=== PATIENT | male | born 1960 | race Caucasian/White ===

== ENCOUNTER → 2016-08-22 | Outpatient (CLI) | payer BC ==
[~2016-08-22] MED LIST: ACET-1256 PO; ACET-749 PO; ADVIN25/60 INH; ASPI325T45 PO; ATOR-26 PO; BACL10TA PO; BACTRIM PO; CIPR1TAB10 PO; CLC100 PO; CLOP1TAB15 PO; DTR5 PO; MISCCAP80 PO; VNTHFA/IN INH; [UNRECOGNIZED DRUG - OTHER]
== END | disposition home or self-care (01) ==
LOC: C.LABPBG 13:05
PROVIDERS: ATTEND Urology
DX: R97.20 Elevated prostate specific antigen [PSA] (principal)

== ENCOUNTER → 2016-11-11 | Outpatient (CLI) | payer BC ==
[~2016-11-11] MED LIST changes: -ACET-749 PO; -BACTRIM PO; -CIPR1TAB10 PO; -CLC100 PO; -DTR5 PO; +MISCCAP80; -MISCCAP80 PO
== END | disposition home or self-care (01) ==
LOC: C.PATHSPEC 14:48
PROVIDERS: ATTEND Urology
DX: C61 Malignant neoplasm of prostate (principal); N42.32 Atypical small acinar proliferation of prostate

== ENCOUNTER 2017-01-06 11:11 | Emergency (ER) | payer BC ==
[~2017-01-06] VITALS: Ht 177.8 cm; Wt 77.5 kg
[2017-01-06 11:11] VITALS: O2SAT 96; Ht 177.8 cm; Wt 77.5 kg
[~2017-01-06 11:11] MED LIST changes: -OPTIRAY 320 IV PRN; -VNTHFA/IN INH
[2017-01-06] MEDS ORDERED: VNTHFA/IN INH (11:38)
--- NOTE | 2017-01-06 13:33 | EMERGENCY ROOM VISIT NOTE ---
History Report prepared by Shyam: Olivier Lee Under the Supervision of: Dr. Apolonia Arellano D.O. First contact with patient: 12:26 Chief Complaint: SYNCOPE (NEAR SYNCOPE) Stated Complaint: SYNCOPE Nursing Triage Summary: Patient arrived by stretcher from CT scan. Patient was sitting in CT waiting room awaiting his outpatient scan and became pale, cold and diaphoretic. Code Purple was called by CT staff. Patient on arrival to ED feeling better. 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 Patient was in nuclear medicine prior to CT having this testing done today for new diagnosis of prostate CA in November per the Physician wants to make sure the cancer is isolated to the prostate prior to surgery. Patient's BSG 93 he is alert and oriented x 4. History of Present Illness The patient is a 56 year old male who presents to the Emergency Room with complaints of a near-syncopal episode occurring one hour ago. The patient was in the hospital to receive a PET scan due to a recent prostate cancer diagnosis. He was in the CT-waiting room today when the episode occurred. The patient's symptoms included diaphoresis, dizziness, and generalized weakness. Per family, the patient has a history of feeling faint, or passing out when getting IVs placed or blood work drawn. She notes that he had blood work drawn earlier today. The patient states that his symptoms feel similar to his previous episodes of feeling faint related to IVs in the past. He states that he began feeling better immediately after laying down. He has a history of CVA last year with right sided motor deficit. The patient denies any chest pain, SOB , numbness, vomiting, or LOC. He denies any recent medication changes. He denies any changes to his diet. The patient ate breakfast this morning. Pt states this feels like prior episodes of syncope/near syncope related to blood draws and IV starts. Pt states he had no other prodromal sx prior to sx when IV /labs performed, felt normal this am upon waking, feels back to normal now. Pt' s family states this appeared to them to be another episode of vasovagal syncope. Source of History: patient Onset: 1 hour ago Quality: other (near-syncope) Timing: other (episode) Associated Symptoms: + diaphoresis, + weakness (generalized), No LOC, No chest pain, No SOB, No vomiting, No numbness Note: Additional symptoms: dizziness. Review of Systems See HPI for pertinent positives & negatives. A total of 10 systems reviewed and were otherwise negative. Past Medical & Surgical Medical Problems: (1) CVA (cerebral vascular accident) (2) Prostate cancer Family History No pertinent family history stated. Social History Smoking Status: Never Smoker Housing Status: lives with family Current/Historical Medications Scheduled Acetaminophen (Tylenol), 2 TAB PO Q6 Aspirin (Aspirin), 325 MG PO DAILY Atorvastatin (Lipitor), 1 TAB PO DAILY Baclofen (Lioresal), 10 MG PO TID Clopidogrel (Plavix), 75 MG PO DAILY Fluticasone Prop/Salmeterol (Advair Diskus 250/50 60 Dose), 1 PUFFS INH BID Probiotic Product (Probiotic), DAILY Scheduled PRN Albuterol Hfa (Ventolin Hfa), 2-4 PUFFS INH Q6H PRN for Shortness of Breath Allergies Coded Allergies: No Known Allergies (Unverified , 01/06/17) Physical Exam Vital Signs Date Time Temp Pulse Resp B/P (MAP) Pulse Ox O2 Delivery O2 Flow Rate FiO2 01/06/17 14:45 36.6 59 19 134/99 99 01/06/17 13:38 59 01/06/17 13:01 131/84 01/06/17 13:01 57 129/82 99 59 122/84 70 134/99 01/06/17 12:59 134/89 01/06/17 12:58 122/84 01/06/17 12:57 129/82 01/06/17 12:41 52 19 99 01/06/17 12:31 136/88 01/06/17 12:11 54 22 97 01/06/17 12:01 121/79 01/06/17 11:41 53 21 98 01/06/17 11:31 119/74 01/06/17 11:13 54 01/06/17 11:11 116/82 01/06/17 11:11 36.6 58 16 116/82 96 Room Air 01/06/17 11:11 96 Room Air Physical Exam GENERAL: alert, well appearing, well nourished, no distress, non-toxic EYE EXAM: normal conjunctiva, PERRL and EOM's grossly intact OROPHARYNX: no exudate, no erythema, lips, buccal mucosa, and tongue normal and mucous membranes are moist NECK: supple, no nuchal rigidity, no adenopathy, non-tender LUNGS: Clear to auscultation. Normal chest wall mechanics HEART: no murmurs, S1 normal and S2 normal ABDOMEN: abdomen soft, non-tender, normo-active bowel sounds, no masses, no rebound or guarding. BACK: Back is symmetrical on inspection and there is no deformity, no midline tenderness, no CVA tenderness. SKIN: no rashes and no bruising UPPER EXTREMITIES: RUE with atrophy and contractures in a sling. Good pulses. No edema. Normal cap refill. Normal pulses. Decreased ROM from prior CVA. LOWER EXTREMITIES: No pitting edema. Full ROM of the RLE. No edema. Normal cap refill. Normal pulses. NEURO EXAM: Normal sensorium, cranial nerves II-XII grossly intact. Chronic right sided weakness secondary to CVA. Occasional mild dysarthria secondary to CVA. Medical Decision & Procedures Laboratory Results 01/06/17 13:14 Red Blood Count 4.88, Mean Corpuscular Volume 93.0, Mean Corpuscular Hemoglobin 32.2, Mean Corpuscular Hemoglobin Concent 34.6, Mean Platelet Volume 10.4, Neutrophils (%) (Auto) 81.0, Lymphocytes (%) (Auto) 12.7, Monocytes (%) (Auto) 4.6, Eosinophils (%) (Auto) 0.7, Basophils (%) (Auto) 0.5, Neutrophils # (Auto) 9.03, Lymphocytes # (Auto) 1.42, Monocytes # (Auto) 0.51, Eosinophils # (Auto) 0.08, Basophils # (Auto) 0.06 01/06/17 13:14 Test 01/06/17 13:14 White Blood Count 11.16 K/uL (4.8-10.8) Red Blood Count 4.88 M/uL (4.7-6.1) Hemoglobin 15.7 g/dL (14.0-18.0) Hematocrit 45.4 % (42-52) Mean Corpuscular Volume 93.0 fL (80-100) Mean Corpuscular Hemoglobin 32.2 pg (25-34) Mean Corpuscular Hemoglobin Concent 34.6 g/dl (32-36) Platelet Count 264 K/uL (130-400) Mean Platelet Volume 10.4 fL (7.4-10.4) Neutrophils (%) (Auto) 81.0 % Lymphocytes (%) (Auto) 12.7 % Monocytes (%) (Auto) 4.6 % Eosinophils (%) (Auto) 0.7 % Basophils (%) (Auto) 0.5 % Neutrophils # (Auto) 9.03 K/uL (1.4-6.5) Lymphocytes # (Auto) 1.42 K/uL (1.2-3.4) Monocytes # (Auto) 0.51 K/uL (0.11-0.59) Eosinophils # (Auto) 0.08 K/uL (0-0.5) Basophils # (Auto) 0.06 K/uL (0-0.2) RDW Standard Deviation 45.7 fL (36.4-46.3) RDW Coefficient of Variation 13.5 % (11.5-14.5) Immature Granulocyte % (Auto) 0.5 % Immature Granulocyte # (Auto) 0.06 K/uL (0.00-0.02) Anion Gap 8.0 mmol/L (3-11) Est Creatinine Clear Calc Drug Dose 95.6 ml/min Estimated GFR () 110.3 Estimated GFR (Non- 95.1 BUN/Creatinine Ratio 14.6 (10-20) Calcium Level 9.7 mg/dl (8.5-10.1) Troponin I < 0.015 ng/ml (0-0.045) ECG Indication: syncope (near) Rate (beats per minute): 57 Rhythm: sinus bradycardia Findings: no acute ischemic change, no ectopy, other (Normal intervals. ) ED Course 1228: The patient was evaluated in room B7. A complete history and physical exam was performed. 1435: Upon reevaluation, the patient is feeling better. I discussed the findings and the treatment plan with the patient. He verbalizes agreement and understanding. He was discharged home. Medical Decision Differential diagnosis: Etiologies such as vasovagal event, infection, hypoglycemia, electrolyte abnormalities, cardiac sources, intracerebral event, toxicologic, neurologic, as well as others were entertained. Pt well appearing here with hx of similar events. labs/ekg/orthostatics reassuring. Pt with no new neuro changes, only deficits from prior CVA. No other prodromal symptoms to suggest alternative cause of syncope/near syncope. No seizure like activity noted by staff/family. Pt anxious to return to radiology to have tests performed as part of his cancer evaluation. Doubt dysrhythmia, acs, pe, occult infection, new cva/ICH, dissection, aaa, renal failure, perf, gi bleed, tamponade, effusion, pneumothorax. Medication Reconcilliation Current Medication List: was personally reviewed by me Blood Pressure Screening Patient's blood pressure: Elevated blood pressure Blood pressure disposition: Elevated BP felt to be situational Impression Primary Impression: Syncope Scribe Attestation The scribe's documentation has been prepared under my direction and personally reviewed by me in its entirety. I confirm that the note above accurately reflects all work, treatment, procedures, and medical decision making performed by me. Departure Information Dispostion Home / Self-Care Referrals Pina Cornejo M.D. (PCP) Patient Instructions My [facility] Additional Instructions Please continue your regular medicine as prescribed. Please continue your evaluation for prostate cancer. Please eat and drink regularly. If you have any recurrent episodes or symptoms, develop chest pain, trouble breathing, fevers, palpitations, vomiting, worsening weakness, or you have any other new or concerning symptoms, please return to the emergency room. Problem Qualifiers Primary Impression: Syncope Syncope type: vasovagal syncope Qualified Codes: R55 - Syncope and collapse
[2017-01-06 13:57] LABS: BASO % 0.5 %; BASO ABS # 0.06 K/uL (0-0.2); COMPLETE YES; EOS % 0.7 %; HEMATOCRIT 45.4 % (42-52); IG% 0.5 %; LYMPH % 12.7 %; LYMPH ABS # 1.42 K/uL (1.2-3.4); MEAN CORPUSCULAR HEMOGLOBIN 32.2 pg (25-34); MEAN CORPUSCULAR HGB CONC 34.6 g/dl (32-36); MEAN PLATELET VOLUME 10.4 fL (7.4-10.4); MONO % 4.6 %; PLATELET COUNT 264 K/uL (130-400); RED BLOOD COUNT 4.88 M/uL (4.7-6.1); WHITE BLOOD COUNT 11.16 K/uL (4.8-10.8)
[2017-01-06 14:13] LABS: BLOOD UREA NITROGEN 13 mg/dl (7-18); BUN/CREATININE RATIO 14.6 (10-20); CALCIUM 9.7 mg/dl (8.5-10.1); CARBON DIOXIDE 25 mmol/L (21-32); CHLORIDE 107 mmol/L (98-107); CREATININE 0.87 mg/dl (0.60-1.40); GLUCOSE 99 mg/dl (70-99); POTASSIUM 4.6 mmol/L (3.5-5.1); SODIUM 140 mmol/L (136-145)
[2017-01-06 14:45] VITALS: BP 134/99; PULSE 59; TEMP 36.6; O2SAT 99
== END 2017-01-06 15:10 | disposition home or self-care (01) ==
LOC: EDSEX 11:11 → EDBD 11:11 → C.EDB 11:12
DX: R55 Syncope and collapse (principal); R00.1 Bradycardia, unspecified; Z85.46 Personal history of malignant neoplasm of prostate; Z86.73 Personal history of transient ischemic attack (TIA), and cerebral infarction without residual deficits; Z79.82 Long term (current) use of aspirin; Z79.899 Other long term (current) drug therapy

== ENCOUNTER → 2017-01-06 | Outpatient (CLI) | payer BC ==
[~2017-01-06] MED LIST changes: +OPTIRAY 320 IV PRN
--- NOTE | 2017-01-06 14:52 | DIAGNOSTIC IMAGING REPORT ---
BONE SCAN WHOLE BODY CLINICAL HISTORY: 56 years-old Male presenting with C61 Neoplasm of prostate, malignant. TECHNIQUE: Planar anterior and posterior whole body imaging was performed 3 hours following the intravenous administration of radiotracer. Radiotracer: 26.4 mCi Tc-99m MDP. COMPARISON: None. FINDINGS: Expected distribution of radiotracer with normal excretion into the urinary bladder. Focal activity is noted in the left antecubital fossa likely associated with radiotracer injection and uptake in a regional lymph node. No focal intraosseous radiotracer uptake to suggest a lesion. IMPRESSION: 1. No evidence of osseous metastatic disease. Electronically signed by: Aristeo Rendon M.D. 01/06/2017 2:51 PM Dictated Date/Time: 01/06/2017 2:47 PM
--- NOTE | 2017-01-06 15:11 | DIAGNOSTIC IMAGING REPORT ---
ABD/PELVIS COMBO CLINICAL HISTORY: 56 years-old Male presenting with C61 Neoplasm of prostate, malignantno latex allergy, no iodine a. TECHNIQUE: Multidetector CT of the abdomen and pelvis was performed before and after the administration of intravenous contrast. IV contrast: 119 mL of Optiray 320. A dose lowering technique was used consistent with the principles of ALARA (as low as reasonably achievable). COMPARISON: Bone scan performed earlier the same day. CT DOSE (mGy.cm): The estimated cumulative dose is 1616.00 mGycm. FINDINGS: Maintenance Man topogram: Unremarkable. Lung bases: Minimal dependent changes likely atelectasis. Top normal heart size. No pericardial or pleural effusion. Liver: Normal morphology. No liver lesion. Patent hepatic vasculature. Biliary: No intrahepatic or extrahepatic biliary ductal dilatation. Normal gallbladder. Pancreas: Mild parenchymal atrophy. Spleen: Normal. Adrenal glands: Normal. Kidneys and ureters: Normal. No hydronephrosis. Bladder: Mild circumferential bladder wall thickening, although the bladder is incompletely distended. Pelvic organs: Prostate enlargement likely secondary to benign prostatic hyperplasia. Within the limits of CT, no evidence of nodular soft tissue in the periprosthetic fat. This be better evaluated with contrast-enhanced prostate MR. Bowel: Normal. No bowel obstruction. Peritoneal cavity: No free fluid or intraperitoneal gas. Vasculature: Aorta and IVC patent and normal in caliber. Lymph nodes: No enlarged lymph nodes in the abdomen or pelvis. Abdominal wall: Fat-containing right inguinal hernia. Musculoskeletal: Normal. Bone island noted in the right ilium. IMPRESSION: 1. No evidence of lymphadenopathy or metastatic disease in the abdomen or pelvis. 2. Mild circumference of bladder wall thickening could suggest chronic outlet obstruction secondary to prostatomegaly. Electronically signed by: Aristeo Rendon M.D. 01/06/2017 3:09 PM Dictated Date/Time: 01/06/2017 3:03 PM
== END | disposition home or self-care (01) ==
LOC: C.NUCL 10:35
PROVIDERS: ATTEND Urology
DX: C61 Malignant neoplasm of prostate (principal); R93.41 Abnormal radiologic findings on diagnostic imaging of renal pelvis, ureter, or bladder

== ENCOUNTER → 2017-03-23 | Outpatient (CLI) | payer BC ==
[~2017-03-23] MED LIST changes: +ACET-749 PO; +CIPR1TAB10 PO; +CLC100 PO; -CLOP1TAB15 PO; +DTR5 PO; -MISCCAP80; +MISCCAP80 PO; +VNTHFA/IN INH; -[UNRECOGNIZED DRUG - OTHER]
== END | disposition home or self-care (01) ==
LOC: C.LABPBG 13:09
PROVIDERS: ATTEND Urology
DX: C61 Malignant neoplasm of prostate (principal)

== ENCOUNTER → 2017-05-16 | Outpatient (CLI) | payer BC | END | disposition home or self-care (01) | LOC: C.LABPBG 11:56 | PROVIDERS: ATTEND Urology | DX: C61 Malignant neoplasm of prostate (principal) ==

== ENCOUNTER → 2017-08-29 | Outpatient (CLI) | payer BC ==
[~2017-08-29] MED LIST changes: -ACET-749 PO; +ACET300T3 PO; +ASPECOTC PO; -ASPI325T45 PO; -CIPR1TAB10 PO
== END | disposition home or self-care (01) ==
LOC: C.LABPBG 12:18
PROVIDERS: ATTEND Urology
DX: C61 Malignant neoplasm of prostate (principal)

== ENCOUNTER 2021-03-25 23:24 | Inpatient (IN) ==
[2021-03-26] MEDS ORDERED: dexAMETHasone**PF** 10 MG/ML VIAL IV ONE
--- NOTE | 2021-03-26 00:43 | Emergency Department Note ---
History of Present Illness General Chief complaint: Fever Stated complaint: +COVID HOME TEST, COPD, FEVER 104, Time Seen by Provider: 03/25/21 23:36 History of Present Illness This 60-year-old with COPD presents to the ER complaining of Covid with worsening breathing who sats were 90% on room air at home. Location: [facility] Quality: Achy Severity: Moderate Duration: Today Timing: Today Context: Patient's oxygen was low and came in Modifying factors: better with oxygen; worse with activity Patient states he only wears oxygen at night. His sats are 90% and his put his oxygen on him. He still feels quite short of breath. He is unvaccinated for COVID-19. Patient complains of fever, chills, cough, congestion and generalized illness. Home Medications Medication Instructions Recorded Confirmed Type acetaminophen 500 mg tablet 1,000 mg PO BID 07/12/18 03/26/21 History aspirin 325 mg tablet 325 mg PO QAM 07/12/18 03/26/21 History atorvastatin 80 mg tablet 80 mg PO HS 07/12/18 03/26/21 History clopidogrel 75 mg tablet (Plavix) 75 mg PO DAILY 07/12/18 03/26/21 History polyethylene glycol 3350 17 17 g PO DAILY PRN 07/12/18 03/26/21 History gram/dose oral powder (Miralax) Oxygen Home 08/21/18 03/26/21 History ondansetron 4 mg disintegrating 4 mg PO Q8H PRN #14 tab 04/01/20 03/26/21 Rx tablet ubrogepant 50 mg tablet (Ubrelvy) 50 mg PO ONCE PRN #10 tab 04/01/20 03/26/21 Rx sildenafil (pulm.hypertension) 20 20 mg PO DAILY PRN #60 tab 07/10/20 03/26/21 Rx mg tablet albuterol sulfate 90 mcg/actuation 2 puff INHALATION QID PRN #18 g 02/11/21 03/26/21 Rx aerosol inhaler (Ventolin HFA) budesonide-formoterol HFA 160 2 inh INHALATION Q12H #30.6 g 02/15/21 03/26/21 Rx mcg-4.5 mcg/actuation aerosol inhaler (Symbicort) tizanidine 2 mg capsule 2 mg PO TID PRN #270 cap 03/02/21 03/26/21 Rx baclofen 20 mg tablet 20 mg PO BID 30 Days #60 tab 03/08/21 03/26/21 Rx fluconazole 150 mg tablet 150 mg PO DAILY 03/26/21 03/26/21 History Allergies Allergy/AdvReac Type Severity Reaction Status Date / Time No Known Allergies Allergy Verified 03/26/21 00:19 Past Med/Surg History Medical History (Updated 03/26/21 @ 00:43 by Agnes Sagastume PA-C) Chronic left arterial ischemic stroke, ICA (internal carotid artery) History of orthopnea History of prostate cancer History of stroke Surgical History H/O colonoscopy History of angioplasty History of cardiac catheterization History of prostatectomy Family History Other Cancer Diabetes Heart disease Social History Smoking Status: Never smoker Second Hand Exposure: No; Hx Alcohol Use: No Hx Substance Use: No Preferred Language: Greenlandic Communication Ability: Impaired Lobbyist Required: No Beliefs That Will Affect Care: None Current Living Situation: Spouse Feels Safe at Home: Yes Assistive Devices: Cane, Glasses and Oxygen - at Night Review of Systems A total of 10 systems reviewed and were otherwise negative Physical Exam Vital Signs Vital Signs - 24 hr 03/25/21 23:31 03/26/21 01:10 03/26/21 01:14 Temperature 37.4 C Temperature Source Oral Pulse Rate 81 62 Pulse Rate [Apical] 64 Pulse Rate [Exercises] Pulse Rhythm Regular Pulse Rhythm [Apical] Regular Pulse Strength [Apical] Normal Respiratory Rate 20 28 H 27 H Respiratory Rate [Exercises] Respiratory Effort / Characteristics Non-Labored Spontaneous Spontaneous Respiratory Depth Normal Normal Respiratory Pattern Tachypnea Blood Pressure 107/67 Blood Pressure [Left Arm] 112/71 Blood Pressure Mean 80 Blood Pressure Mean [Left Arm] 84 Blood Pressure Position [Left Arm] Sitting Pulse Oximetry 96 96 98 Pulse Oximetry [Exercises] Oxygen Delivery Method Nasal Cannula Nasal Cannula Nasal Cannula Oxygen Flow Rate 2 2 2 Sepsis Recent Fever Within 48 Hours No Sepsis New/Unexplained Change in Mental Status N/A Sepsis Action Taken by Nursing No Action Required 03/26/21 01:18 03/26/21 01:21 03/26/21 02:00 Temperature Temperature Source Pulse Rate Pulse Rate [Apical] 60 62 Pulse Rate [Exercises] Pulse Rhythm Pulse Rhythm [Apical] Regular Pulse Strength [Apical] Normal Respiratory Rate 27 H 26 H 19 Respiratory Rate [Exercises] Respiratory Effort / Characteristics Non-Labored Spontaneous Non-Labored Respiratory Depth Normal Respiratory Pattern Blood Pressure Blood Pressure [Left Arm] 115/74 Blood Pressure Mean Blood Pressure Mean [Left Arm] 87 Blood Pressure Position [Left Arm] Pulse Oximetry 97 97 94 Pulse Oximetry [Exercises] Oxygen Delivery Method Nasal Cannula Nasal Cannula Nasal Cannula Oxygen Flow Rate 2 2 2 Sepsis Recent Fever Within 48 Hours Sepsis New/Unexplained Change in Mental Status Sepsis Action Taken by Nursing 03/26/21 02:30 03/26/21 02:51 03/26/21 02:56 Temperature Temperature Source Pulse Rate Pulse Rate [Apical] 62 60 Pulse Rate [Exercises] 84 Pulse Rhythm Pulse Rhythm [Apical] Pulse Strength [Apical] Respiratory Rate 21 26 H Respiratory Rate [Exercises] 33 H Respiratory Effort / Characteristics Respiratory Depth Respiratory Pattern Blood Pressure Blood Pressure [Left Arm] 109/68 104/67 Blood Pressure Mean Blood Pressure Mean [Left Arm] 81 79 Blood Pressure Position [Left Arm] Pulse Oximetry 95 98 Pulse Oximetry [Exercises] 91 Oxygen Delivery Method Nasal Cannula Room Air Nasal Cannula Oxygen Flow Rate 2 2 Sepsis Recent Fever Within 48 Hours Sepsis New/Unexplained Change in Mental Status Sepsis Action Taken by Nursing 03/26/21 02:57 Temperature Temperature Source Pulse Rate Pulse Rate [Apical] Pulse Rate [Exercises] Pulse Rhythm Pulse Rhythm [Apical] Pulse Strength [Apical] Respiratory Rate 28 H Respiratory Rate [Exercises] Respiratory Effort / Characteristics Spontaneous SOB on Exertion Respiratory Depth Respiratory Pattern Blood Pressure Blood Pressure [Left Arm] Blood Pressure Mean Blood Pressure Mean [Left Arm] Blood Pressure Position [Left Arm] Pulse Oximetry 91 Pulse Oximetry [Exercises] Oxygen Delivery Method Room Air Oxygen Flow Rate Sepsis Recent Fever Within 48 Hours Sepsis New/Unexplained Change in Mental Status Sepsis Action Taken by Nursing VITALS: Vitals are noted on the nurse's note and reviewed by myself. Vital signs low oxygen. GENERAL: White male who had a previous stroke with right-sided weakness and aphasia who appears ill and is present with the assistance of giving the history SKIN: The skin was without rashes, erythema, edema, or bruising. There is no tenting of the skin. Capillary reflex less than 2 seconds. HEAD: Normocephalic atraumatic. EARS: External auditory canals clear, EYES: Pupils equal round and reactive to light and accommodation. Conjunctivae without injection, sclerae without icterus. Extraocular movements intact. NOSE: Patent, turbinates without inflammation or discharge. MOUTH: Mucous membranes moist. Pharynx without erythema or exudate. Uvula midline. Airway patent. Tongue does not deviate. NECK: Supple without nuchal rigidity. No lymphadenopathy. No thyromegaly. Cervical spine is nontender. No JVD. HEART: Regular rate and rhythm LUNGS: Mild diffuse inspiratory and end expiratory wheezes, No retractions or accessory muscle use. ABDOMEN: Positive bowel sounds x 4. Normal tympanic percussion. Soft, n ontender, without masses or organomegaly. Alcantar sign negative. No guarding or rebound tenderness. No CVA tenderness MUSCULOSKELETAL: No muscle atrophy, erythema, or edema noted. NEURO: Patient was alert and oriented to person place and time. No new focal neurological deficits. Course Administered Medications Discontinued Medications Dexamethasone Sodium Phosphate (DexamethasonePf 10 Mg/Ml Vial) 6 mg IV NOW ONE Stop: 03/26/21 00:01 Last Admin: 03/26/21 00:55 Dose: 6 mg Documented by: [id number] Medical Decision Making Medical Records Attestation: I reviewed the patient's medical records. Home Medications Current Medication List: was personally reviewed by me Laboratory Data Attestation: I reviewed the patient's lab results. Result diagrams: 03/26/21 00:50 03/26/21 00:50 Lab Results 03/26/21 03/26/21 03/26/21 Range/Units 00:35 00:50 00:50 WBC 5.54 (4.8-10.8) K/uL RBC 4.34 L (4.7-6.1) M/uL Hgb 13.8 L (14.0-18.0) g/dL Hct 41.6 L (42-52) % MCV 95.9 (80-100) fL MCH 31.8 (25-34) pg MCHC 33.2 (32-36) g/dL RDW Std Deviation 49.7 H (36.4-46.3) fL RDW Coeff of Roge 14.0 (11.5-14.5) % Plt Count 213 (130-400) K/uL MPV 10.3 (7.4-10.4) fL Immature Gran % (Auto) 0.4 % Neut % (Auto) 71.8 % Lymph % (Auto) 18.6 % [place] % (Auto) 8.8 % Eos % (Auto) 0.2 % Baso % (Auto) 0.2 % Neut # (Auto) 3.98 (1.4-6.5) K/uL Lymph # (Auto) 1.03 L (1.2-3.4) K/uL [place] # (Auto) 0.49 (0.11-0.59) K/uL Eos # (Auto) 0.01 (0-0.5) K/uL Baso # (Auto) 0.01 (0-0.2) K/uL Immature Gran # (Auto) 0.02 (0.00-0.02) K/uL PT 10.4 (9.0-12.0) Seconds INR 1.0 (0.9-1.1) APTT 29.1 (21.0-31.0) Seconds PTT Ratio 1.1 Sodium (136-145) mmol/L Potassium (3.5-5.1) mmol/L Chloride (98-107) mmol/L Carbon Dioxide (21-32) mmol/L Anion Gap (3-11) BUN (7-18) mg/dl Creatinine (0.6-1.4) mg/dl Est Cr Clr Drug Dosing ml/min Est GFR ( Amer) ml/min Est GFR (Non-Af Amer) ml/min BUN/Creatinine Ratio (10-20) Glucose (70-99) mg/dl Lactate (0.4-2.0) mmol/L Calcium (8.5-10.1) mg/dl Total Bilirubin (0.2-1) mg/dl AST (15-37) U/L ALT (12-78) Alkaline Phosphatase (45-117) U/L Troponin I (0-0.045) ng/ml Total Protein (6.4-8.2) gm/dl Albumin (3.4-5.0) gm/dl Globulin (2.5-4.0) gm/dl Albumin/Globulin Ratio (0.9-2) Urine Color Urine Appearance (Clear) Urine pH (4.5-7.5) Ur Specific [place] (1.000-1.030) Urine Protein (Negative) Urine Glucose (UA) (Negative) Urine Ketones (Negative) Urine Blood (Negative) Urine Nitrite (Negative) Urine Bilirubin (Negative) Urine Urobilinogen (Negative) Ur Leukocyte Esterase (Negative) SARS-CoV-2 (PCR) POSITIVE A* (Negative) Influenza Type A (PCR) Negative (Neg) Influenza Type B (PCR) Negative (Neg) RSV (RT-PCR) Negative (Neg) 03/26/21 03/26/21 03/26/21 Range/Units 00:50 00:50 01:42 WBC (4.8-10.8) K/uL RBC (4.7-6.1) M/uL Hgb (14.0-18.0) g/dL Hct (42-52) % MCV (80-100) fL MCH (25-34) pg MCHC (32-36) g/dL RDW Std Deviation (36.4-46.3) fL RDW Coeff of Roge (11.5-14.5) % Plt Count (130-400) K/uL MPV (7.4-10.4) fL Immature Gran % (Auto) % Neut % (Auto) % Lymph % (Auto) % [place] % (Auto) % Eos % (Auto) % Baso % (Auto) % Neut # (Auto) (1.4-6.5) K/uL Lymph # (Auto) (1.2-3.4) K/uL [place] # (Auto) (0.11-0.59) K/uL Eos # (Auto) (0-0.5) K/uL Baso # (Auto) (0-0.2) K/uL Immature Gran # (Auto) (0.00-0.02) K/uL PT (9.0-12.0) Seconds INR (0.9-1.1) APTT (21.0-31.0) Seconds PTT Ratio Sodium 137 (136-145) mmol/L Potassium 3.8 (3.5-5.1) mmol/L Chloride 104 (98-107) mmol/L Carbon Dioxide 30 (21-32) mmol/L Anion Gap 3.0 (3-11) BUN 19 H (7-18) mg/dl Creatinine 1.01 (0.6-1.4) mg/dl Est Cr Clr Drug Dosing 75.8 ml/min Est GFR ( Amer) 92.0 ml/min Est GFR (Non-Af Amer) 79.3 ml/min BUN/Creatinine Ratio 18.9 (10-20) Glucose 103 H (70-99) mg/dl Lactate 0.7 (0.4-2.0) mmol/L Calcium 9.0 (8.5-10.1) mg/dl Total Bilirubin 0.5 (0.2-1) mg/dl AST 27 (15-37) U/L ALT 39 (12-78) Alkaline Phosphatase 139 H (45-117) U/L Troponin I < 0.015 (0-0.045) ng/ml Total Protein 7.0 (6.4-8.2) gm/dl Albumin 3.6 (3.4-5.0) gm/dl Globulin 3.4 (2.5-4.0) gm/dl Albumin/Globulin Ratio 1.1 (0.9-2) Urine Color Yellow Urine Appearance Clear (Clear) Urine pH 5.5 (4.5-7.5) Ur Specific [place] 1.013 (1.000-1.030) Urine Protein Negative (Negative) Urine Glucose (UA) Negative (Negative) Urine Ketones Negative (Negative) Urine Blood Negative (Negative) Urine Nitrite Negative (Negative) Urine Bilirubin Negative (Negative) Urine Urobilinogen Negative (Negative) Ur Leukocyte Esterase Negative (Negative) SARS-CoV-2 (PCR) (Negative) Influenza Type A (PCR) (Neg) Influenza Type B (PCR) (Neg) RSV (RT-PCR) (Neg) Imaging Data Attestation: I personally reviewed and interpreted this imaging study as follows: MDM Narrative Prior records/ancillary studies reviewed. Triage Nursing notes reviewed. Additional history obtained from nursing. The patient's history was concerning for cold symptoms Differential diagnosis: Etiologies such as viral syndrome, pharyngitis, Covid, sepsis, bacteremia, bronchitis, allergies, otitis, pneumonia, influenza, as well as others were entertained. ER treatment provided: Decadron On reassessment the patient felt better. Diagnostics interpreted by me: EKG ordered for dyspnea EKG: Normal sinus, normal intervals, no acute ST-T wave changes. Impression normal sinus rhythm interpreted by myself I think arrhythmia is unlikely. EKG shows normal sinus rhythm with no interval abnormalities such as QT prolongation or WPW. There are no findings to suggest Brugada syndrome. Cardiac monitoring in the emergency department reveals no tachycardic or bradycardic dysrhythmia. Hypertrophic cardiomyopathy was considered but there are no clear historical elements pointing toward this. EKG is not suggestive. The QRS voltage is not extremely large and there are no suggestive Q waves. The labs revealed mild anemia Positive Covid Imaging studies: Chest x-ray with mild Covid patchy infiltrates per my tribulation Consultation: A consultation was placed with hospitalist and will evaluate for possible admission. Walking pulse ox is 90 and 91%. This appears to be consistent with Covid. Patient reports his oxygen at home was 90%. Family feels uncomfortable caring for him. Medicine was consulted. He will be evaluated for possible admission By the evaluation outlined above emergent etiologies such as otitis, meningitis, urinary tract infection, sepsis, bacteremia, as well as others were deemed relatively unlikely. The pt informed about the findings as listed above. All questions were answered and pleased with the treatment. The chart was completed utilizing [employer] Speech voice recognition software. Grammatical errors, random word insertions, pronoun errors, and incomplete sentences are an occassional consequence of this system due to software limitations, ambient noise, and hardware issues. Any formal questions or concerns about the content, text, or information contained within the body of this dictation should be directly addressed to the physician faculty i on call medical assistant for clarification. Impression & Plan COVID-19 Discharge Plan Visit Data Chief Complaint: Fever Stated Complaint: +COVID HOME TEST, COPD, FEVER 104, ED Provider: [facility] Midlevel Provider: Agnes Sagastume Discharge Problem: COVID-19 Patient Disposition: Admitted As Inpatient Condition: Fair Forms Stand Alone Forms: My [facility] [place] Prescriptions Prescriptions: No Action sildenafil (pulm.hypertension) 20 mg tablet 20 mg PO DAILY PRN (Reason: sexual activity) Qty: 60 RF: 0 budesonide-formoterol [Symbicort] 160-4.5 mcg/actuation HFA aerosol inhaler 2 inh inhalation Q12H Qty: 30.6 RF: 1 tizanidine 2 mg capsule 2 mg PO TID PRN (Reason: muscle spasticity) Qty: 270 RF: 0 baclofen 20 mg tablet 20 mg PO BID 30 Days Qty: 60 RF: 0 ondansetron 4 mg tablet,disintegrating 4 mg PO Q8H PRN (Reason: nausea and vomiting) Qty: 14 RF: 5 Ubrelvy 50 mg tablet 50 mg PO ONCE PRN (Reason: headache) Qty: 10 RF: 5 albuterol sulfate [Ventolin HFA] 90 mcg/actuation HFA aerosol inhaler 2 puff inhalation QID PRN (Reason: shortness of breath or wheezing) Qty: 18 RF: 5 (DME) Oxygen Home Liters Per Minute RF: 0 acetaminophen 500 mg Tablet 1,000 mg PO BID RF: 0 atorvastatin 80 mg Tablet 80 mg PO HS RF: 0 aspirin 325 mg Tablet 325 mg PO QAM RF: 0 clopidogrel [Plavix] 75 mg Tablet 75 mg PO DAILY RF: 0 polyethylene glycol 3350 [Miralax] 17 gram/dose Powder 17 g PO DAILY PRN (Reason: Constipation) RF: 0 fluconazole 150 mg tablet 150 mg PO DAILY RF: 0 Referrals Referrals: Pina Cornejo MD [Primary Care Provider] -
[2021-03-26 01:13] LABS: Basophils # (auto) 0.01 K/uL (0-0.2); Basophils % (auto) 0.2 %; Eosinophils # (auto) 0.01 K/uL (0-0.5); Eosinophils % (auto) 0.2 %; Hematocrit (blood only) 41.6 % (42-52); Hemoglobin 13.8 g/dL (14.0-18.0); Immature Granulocytes # (auto) 0.02 K/uL (0.00-0.02); Immature Granulocytes % (auto) 0.4 %; Lymphocytes # (auto) 1.03 K/uL (1.2-3.4); Lymphocytes % (auto) 18.6 %; Mean Corpuscular Hemoglobin 31.8 pg (25-34); Mean Corpuscular Hgb Conc 33.2 g/dL (32-36); Mean Corpuscular Volume 95.9 fL (80-100); Mean Platelet Volume 10.3 fL (7.4-10.4); Monocytes # (auto) 0.49 K/uL (0.11-0.59); Monocytes % (auto) 8.8 %; Neutrophils # (auto) 3.98 K/uL (1.4-6.5); Neutrophils % (auto) 71.8 %; Platelet Count 213 K/uL (130-400); RDW Standard Deviation 49.7 fL (36.4-46.3); Red Blood Count 4.34 M/uL (4.7-6.1); White Blood Count 5.54 K/uL (4.8-10.8)
[2021-03-26 01:31] LABS: Partial Thromboplastin Ratio 1.1; Partial Thromboplastin Time 29.1 Seconds (21.0-31.0); Prothrombin Time 10.4 Seconds (9.0-12.0)
[2021-03-26 01:36] LABS: Alanine Aminotransferase 39 (12-78); Albumin Level 3.6 gm/dl (3.4-5.0); Aspartate Aminotransferase 27 U/L (15-37); BUN Creatinine Ratio 18.9 (10-20); Blood Urea Nitrogen 19 mg/dl (7-18); Carbon Dioxide 30 mmol/L (21-32); Chloride 104 mmol/L (98-107); Creatinine Clr Calc Pharmacy 75.8 ml/min; Est GFR (Non-African American) 79.3 ml/min; Glucose 103 mg/dl (70-99); Potassium 3.8 mmol/L (3.5-5.1); Sodium 137 mmol/L (136-145)
[2021-03-26 01:41] LABS: Albumin Globulin Ratio 1.1 (0.9-2); Alkaline Phosphatase 139 U/L (45-117); Bilirubin,Total 0.5 mg/dl (0.2-1); Globulin 3.4 gm/dl (2.5-4.0); Troponin I < 0.015 ng/ml (0-0.045)
[2021-03-26 02:00] LABS: Appearance Urine Clear (Clear); Bilirubin Urine Negative (Negative); Blood Urine Negative (Negative); Color Urine Yellow; Glucose Urine UA Negative (Negative); Ketones Urine Negative (Negative); Leukocyte Esterase Urine Negative (Negative); Nitrite Urine Negative (Negative); Protein Urine Negative (Negative); Specific Gravity Urine 1.013 (1.000-1.030); Urobilinogen Urine Negative (Negative); pH Urine 5.5 (4.5-7.5)
[2021-03-26 02:07] LABS: Influenza A virus by PCR Negative (Neg); Influenza B virus by PCR Negative (Neg); RSV by PCR Negative (Neg)
[2021-03-26 02:18] LABS: SARS CoV2 RNA(COVID-19) InHosp POSITIVE (Negative)
[2021-03-26] MEDS ORDERED: REMDESIVIR 200 MG in SODIUM CHLORIDE 0.9% 210 ML IV STA (03:24)
--- NOTE | 2021-03-26 03:37 | History & Physical Report ---
Date of Service March 26, 2021 Assessment & Plan (1) COVID-19: Plan: 60yo male presenting with Covid-19 PNA, hypoxia. Patient has been feeling ill x 1 day with fever, malaise, cough and SOB. His oxygen saturations were 90% measured at home - typically 96-97%. He is unvaccinated against Covid-19. Exam is unremarkable. Labs with lymphopenia. CXR with bilateral airspace disease. Presently saturating 91% on room air. 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 On Fluconazole -Continue Fluconazole 150mg daily Plan: F/E/N - Heplock. electroltyes WNL. Regular diet as tolerated Ppx - Lovenox 40mg BID Code- Conditional - invasive airway and mechanical ventilation is acceptable. 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 Patient reports feeling ill x 1 day with fever, body aches, malaise as well as cough and SOB. He measured his oxygen levels and found them to be 90% - typically 96-97%. He does feel more short of breath. No additional complaints He is unvaccinated against Covid-19 On arrival to the ER he was found to be tachypneic with RR of 28, saturations of 91% on room air ER Course: Dexamethasone 6mg IV Allergies Allergy/AdvReac Type Severity Reaction Status Date / Time No Known Allergies Allergy Verified 03/26/21 00:19 Home Medications Medication Instructions Recorded Confirmed Type acetaminophen 500 mg tablet 1,000 mg PO BID 07/12/18 03/26/21 History aspirin 325 mg tablet 325 mg PO QAM 07/12/18 03/26/21 History atorvastatin 80 mg tablet 80 mg PO HS 07/12/18 03/26/21 History clopidogrel 75 mg tablet (Plavix) 75 mg PO DAILY 07/12/18 03/26/21 History polyethylene glycol 3350 17 17 g PO DAILY PRN 07/12/18 03/26/21 History gram/dose oral powder (Miralax) Oxygen Home 08/21/18 03/26/21 History ondansetron 4 mg disintegrating 4 mg PO Q8H PRN #14 tab 04/01/20 03/26/21 Rx tablet ubrogepant 50 mg tablet (Ubrelvy) 50 mg PO ONCE PRN #10 tab 04/01/20 03/26/21 Rx sildenafil (pulm.hypertension) 20 20 mg PO DAILY PRN #60 tab 07/10/20 03/26/21 Rx mg tablet albuterol sulfate 90 mcg/actuation 2 puff INHALATION QID PRN #18 g 02/11/21 03/26/21 Rx aerosol inhaler (Ventolin HFA) budesonide-formoterol HFA 160 2 inh INHALATION Q12H #30.6 g 02/15/21 03/26/21 Rx mcg-4.5 mcg/actuation aerosol inhaler (Symbicort) tizanidine 2 mg capsule 2 mg PO TID PRN #270 cap 03/02/21 03/26/21 Rx baclofen 20 mg tablet 20 mg PO BID 30 Days #60 tab 03/08/21 03/26/21 Rx fluconazole 150 mg tablet 150 mg PO DAILY 03/26/21 03/26/21 History Past Med/Surg History Medical History (Updated 03/26/21 @ 03:30 by Xiomy Haji DO) Chronic left arterial ischemic stroke, ICA (internal carotid artery) History of orthopnea History of prostate cancer History of stroke Surgical History H/O colonoscopy History of angioplasty History of cardiac catheterization History of prostatectomy Family History Other Cancer Diabetes Heart disease Social History Smoking Status: Never smoker Second Hand Exposure: No; Hx Alcohol Use: No Hx Substance Use: No Preferred Language: Croatian Communication Ability: Impaired Bridges Supervisor Required: No Beliefs That Will Affect Care: None Current Living Situation: Spouse Feels Safe at Home: Yes Assistive Devices: Cane, Glasses and Oxygen - at Night Review of Systems Review of Systems: All systems reviewed & are unremarkable except as noted in HPI & below Physical Exam Physical Exam: General: patient resting comfortably, NAD, ill in appearance, AA&O x 4 Skin: warm, dry, intact, no rashes or lesions HEENT: NC/AT, PERRL, EOMI, anicteric sclera, conjunctiva without injection, external ear normal to inspection and nontender, nares patent, moist mucus membranes, dentition intact, oral thrush, neck supple, trachea midline, no LAD, no thyromegaly, no JVD Heart: +S1/S2, regular, no m/r/g Lungs: diminished breath sounds, equal air entry bilaterally, no rales/rhonchi/wheezes Abd: +BS, soft, NT/ND, no masses/organomegaly/ascites Ext: warm, 2+ pulses in UE/LE bilaterally, no clubbing/cyanosis, trace pitting edema of RLE Neuro: spastic paresis of RUE, decreased strength RLE Results & Data Results & Data ([facility]) Vital Signs (Past 12 Hours) Vital Signs Temp Pulse Pulse Pulse Resp Resp BP 03/26/21 02:57 28 H 03/26/21 02:56 60 26 H 03/26/21 02:51 84 33 H 03/26/21 02:30 62 21 03/26/21 02:00 62 19 03/26/21 01:21 60 26 H 03/26/21 01:18 27 H 03/26/21 01:14 62 27 H 03/26/21 01:10 64 28 H 03/25/21 23:31 37.4 C 81 20 107/67 BP Pulse Ox Pulse Ox 03/26/21 02:57 91 03/26/21 02:56 104/67 98 03/26/21 02:51 91 03/26/21 02:30 109/68 95 03/26/21 02:00 115/74 94 03/26/21 01:21 97 03/26/21 01:18 97 03/26/21 01:14 98 03/26/21 01:10 112/71 96 03/25/21 23:31 96 Laboratory Results Laboratory Results WBC 5.54 K/uL (4.8-10.8) 03/26/21 00:50 RBC 4.34 M/uL (4.7-6.1) L 03/26/21 00:50 Hgb 13.8 g/dL (14.0-18.0) L 03/26/21 00:50 Hct 41.6 % (42-52) L 03/26/21 00:50 MCV 95.9 fL (80-100) 03/26/21 00:50 MCH 31.8 pg (25-34) 03/26/21 00:50 MCHC 33.2 g/dL (32-36) 03/26/21 00:50 RDW Std Deviation 49.7 fL (36.4-46.3) H 03/26/21 00:50 RDW Coeff of Roge 14.0 % (11.5-14.5) 03/26/21 00:50 Plt Count 213 K/uL (130-400) 03/26/21 00:50 MPV 10.3 fL (7.4-10.4) 03/26/21 00:50 Immature Gran % (Auto) 0.4 % 03/26/21 00:50 Neut % (Auto) 71.8 % 03/26/21 00:50 Lymph % (Auto) 18.6 % 03/26/21 00:50 [place] % (Auto) 8.8 % 03/26/21 00:50 Eos % (Auto) 0.2 % 03/26/21 00:50 Baso % (Auto) 0.2 % 03/26/21 00:50 Neut # (Auto) 3.98 K/uL (1.4-6.5) 03/26/21 00:50 Lymph # (Auto) 1.03 K/uL (1.2-3.4) L 03/26/21 00:50 [place] # (Auto) 0.49 K/uL (0.11-0.59) 03/26/21 00:50 Eos # (Auto) 0.01 K/uL (0-0.5) 03/26/21 00:50 Baso # (Auto) 0.01 K/uL (0-0.2) 03/26/21 00:50 Immature Gran # (Auto) 0.02 K/uL (0.00-0.02) 03/26/21 00:50 PT 10.4 Seconds (9.0-12.0) 03/26/21 00:50 INR 1.0 (0.9-1.1) 03/26/21 00:50 APTT 29.1 Seconds (21.0-31.0) 03/26/21 00:50 PTT Ratio 1.1 03/26/21 00:50 Sodium 137 mmol/L (136-145) 03/26/21 00:50 Potassium 3.8 mmol/L (3.5-5.1) 03/26/21 00:50 Chloride 104 mmol/L (98-107) 03/26/21 00:50 Carbon Dioxide 30 mmol/L (21-32) 03/26/21 00:50 Anion Gap 3.0 (3-11) 03/26/21 00:50 BUN 19 mg/dl (7-18) H 03/26/21 00:50 Creatinine 1.01 mg/dl (0.6-1.4) 03/26/21 00:50 Est Cr Clr Drug Dosing 75.8 ml/min 03/26/21 00:50 Est GFR ( Amer) 92.0 ml/min 03/26/21 00:50 Est GFR (Non-Af Amer) 79.3 ml/min 03/26/21 00:50 BUN/Creatinine Ratio 18.9 (10-20) 03/26/21 00:50 Glucose 103 mg/dl (70-99) H 03/26/21 00:50 Lactate 0.7 mmol/L (0.4-2.0) 03/26/21 00:50 Calcium 9.0 mg/dl (8.5-10.1) 03/26/21 00:50 Total Bilirubin 0.5 mg/dl (0.2-1) 03/26/21 00:50 AST 27 U/L (15-37) 03/26/21 00:50 ALT 39 (12-78) 03/26/21 00:50 Alkaline Phosphatase 139 U/L (45-117) H 03/26/21 00:50 Troponin I < 0.015 ng/ml (0-0.045) 03/26/21 00:50 Total Protein 7.0 gm/dl (6.4-8.2) 03/26/21 00:50 Albumin 3.6 gm/dl (3.4-5.0) 03/26/21 00:50 Globulin 3.4 gm/dl (2.5-4.0) 03/26/21 00:50 Albumin/Globulin Ratio 1.1 (0.9-2) 03/26/21 00:50 Urine Color Yellow 03/26/21 01:42 Urine Appearance Clear (Clear) 03/26/21 01:42 Urine pH 5.5 (4.5-7.5) 03/26/21 01:42 Ur Specific [place] 1.013 (1.000-1.030) 03/26/21 01:42 Urine Protein Negative (Negative) 03/26/21 01:42 Urine Glucose (UA) Negative (Negative) 03/26/21 01:42 Urine Ketones Negative (Negative) 03/26/21 01:42 Urine Blood Negative (Negative) 03/26/21 01:42 Urine Nitrite Negative (Negative) 03/26/21 01:42 Urine Bilirubin Negative (Negative) 03/26/21 01:42 Urine Urobilinogen Negative (Negative) 03/26/21 01:42 Ur Leukocyte Esterase Negative (Negative) 03/26/21 01:42 SARS-CoV-2 (PCR) POSITIVE (Negative) A* 03/26/21 00:35 Influenza Type A (PCR) Negative (Neg) 03/26/21 00:35 Influenza Type B (PCR) Negative (Neg) 03/26/21 00:35 RSV (RT-PCR) Negative (Neg) 03/26/21 00:35 Diagnostic Findings CXR with mild bilateral airspace disease, increased interstitial markings, ?scar ring in RML ECG Additional Comments: EKG with NSR at 65, normal axis, RB=542, QRS=82, DGi=232, no acute ischemic changes Code Status & VTE Plan Code Status Conditional code VTE Prophylaxis Plan VTE Prophylaxis will be ordered: Yes PG Care Time/CCT Total # of Minutes Spent Total Time Spent with Patient: Total time spent is greater than 50% in coordination of care (as documented) at patient's floor/unit and/or counseling patient: Coding Level of Care Code INT OBSERVATION CARE 50M LVL 2 Diagnoses COVID-19 U07.1 COPD (chronic obstructive pulmonary disease) with chronic bronchitis J44.9 CVA (cerebral vascular accident) I63.9 Thrush B37.0
[2021-03-26 04:22] LABS: Magnesium 1.9 mg/dl (1.8-2.4)
--- NOTE | 2021-03-26 05:18 | Emergency Department Note ---
ED Visit Note Physician Evaluation Note: Patient was seen in conjunction with the physician library circulation assistant. Please see the physician library circulation assistant note for full details of the visit. I have personally evaluated and examined this patient. I performed a substantive portion of the patient visit including medical decision making and interpretation of diagnostic studies. On my examination the patient is in no acute distress, he is saturating well on 2 L nasal cannula oxygen, he is otherwise hemodynamically stable. Diagnosed with COVID-19 tonight, he will be admitted to the hospitalist service for further management given his multiple comorbidities and history of stroke. I agree with assessment and plan of JATINDER Corrigan DO .
--- NOTE | 2021-03-26 07:39 | XRay Report ---
XR chest 1V portable HISTORY: SEPSIS COMPARISON: Chest 09/27/2020. FINDINGS: No pneumothorax. There are low lung volumes. Bibasilar linear densities are noted. No pleur al effusions. The upper lung zones remain clear. The heart is borderline enlarged. This remains uncha nged. IMPRESSION: Low lung volumes with bibasilar linear densities. This favors atelectasis. ACT 112: Negative or not required by law. Electronically signed by: Mekhi Erickson M.D. 03/26/2021 7:38 AM
[2021-03-26] MEDS ORDERED: tiZANidine HCL 4 MG TABLET PO PRN (08:34)
[2021-03-26] MEDS ORDERED: BENZONATATE 100 MG CAPSULE PO PRN (08:34)
[2021-03-26] MEDS ORDERED: ONDANSETRON INJ 2 MG/ML 2 ML VIAL IV PRN (08:34)
[2021-03-26] MEDS ORDERED: ACETAMINOPHEN 325 MG TAB PO PRN (08:34)
[2021-03-26] MEDS ORDERED: POLYETHYLENE (MIRALAX) 17 GM PACK PO PRN (08:34)
[2021-03-26] MEDS ORDERED: ALBUTEROL HFA 8 GM INHALER INH PRN (08:34)
[2021-03-26] MEDS: ASPIRIN 325 MG ECTAB PO SCH (10:08)
[2021-03-26] MEDS: FLUCONAZOLE 50 MG TAB PO SCH (10:08)
[2021-03-26] MEDS: BACLOFEN 20 MG TAB PO SCH ×2 (10:08→20:43)
[2021-03-26] MEDS: CLOPIDOGREL BISULFATE 75 MG TAB PO SCH (10:08)
[2021-03-26] MEDS: ENOXAPARIN INJ 40 MG/0.4 ML SYR SQ SCH ×2 (10:09→20:43)
[2021-03-26] MEDS: FLUTICASONE/VILANTEROL 200/25MCG 14 PUFFS/INHALER INH SCH (10:09)
[2021-03-26] MEDS: SODIUM CHLORIDE 0.9% 10ML FLUSH IV SCH (10:10)
[2021-03-26 10:20] LABS: C Reactive Protein 4.08 mg/dl (0-0.29); Ferritin 109.3 ng/ml (8-388)
[2021-03-26] MEDS: dexAMETHasone 6 MG in SYRINGE 0 ML IV SCH (20:42)
[2021-03-26] MEDS: ATORVASTATIN 40 MG TAB PO SCH (20:42)
--- NOTE | 2021-03-26 22:36 | Electrocardiogram Report ---
Test Reason : Blood Pressure : / mmHG Vent. Rate : 065 BPM Atrial Rate : 065 BPM P-R Int : 146 ms QRS Dur : 082 ms QT Int : 392 ms P-R-T Axes : 027 -16 003 degrees QTc Int : 407 ms Poor data quality, interpretation may be adversely affected Normal sinus rhythm Normal ECG When compared with ECG of 06-JAN-2017 11:13, No significant change was found Confirmed by Kahlil Ramirez ([id number]) on 03/26/2021 10:36:16 PM Referred By: REFERRED SELF Confirmed By:Kahlil Ramirez
[2021-03-27 06:56] LABS: Eosinophils # (auto) 0.01 K/uL (0-0.5); Eosinophils % (auto) 0.1 %; Hematocrit (blood only) 43.8 % (42-52); Hemoglobin 14.6 g/dL (14.0-18.0); Immature Granulocytes # (auto) 0.02 K/uL (0.00-0.02); Immature Granulocytes % (auto) 0.3 %; Lymphocytes # (auto) 1.05 K/uL (1.2-3.4); Lymphocytes % (auto) 14.2 %; Mean Corpuscular Hemoglobin 31.7 pg (25-34); Mean Corpuscular Hgb Conc 33.3 g/dL (32-36); Mean Platelet Volume 10.9 fL (7.4-10.4); Monocytes # (auto) 0.33 K/uL (0.11-0.59); Monocytes % (auto) 4.4 %; Neutrophils # (auto) 6.01 K/uL (1.4-6.5); Platelet Count 245 K/uL (130-400); RDW Coefficient of Variation 13.8 % (11.5-14.5); RDW Standard Deviation 47.6 fL (36.4-46.3); Red Blood Count 4.61 M/uL (4.7-6.1); White Blood Count 7.42 K/uL (4.8-10.8)
[2021-03-27 07:15] LABS: Albumin Level 3.5 gm/dl (3.4-5.0); BUN Creatinine Ratio 20.8 (10-20); Bilirubin Direct 0.1 mg/dl (0-0.2); Calcium 9.6 mg/dl (8.5-10.1); Creatinine Clr Calc Pharmacy 92.3 ml/min; Est GFR (African American) 109.3 ml/min; Est GFR (Non-African American) 94.3 ml/min; Potassium 3.9 mmol/L (3.5-5.1)
[2021-03-27 07:18] LABS: Bilirubin,Total 0.4 mg/dl (0.2-1); Total Protein 7.2 gm/dl (6.4-8.2)
[2021-03-27] MEDS: ENOXAPARIN INJ 40 MG/0.4 ML SYR SQ SCH ×2 (08:39→21:36)
[2021-03-27] MEDS: FLUTICASONE/VILANTEROL 200/25MCG 14 PUFFS/INHALER INH SCH (08:39)
[2021-03-27] MEDS: CLOPIDOGREL BISULFATE 75 MG TAB PO SCH (08:39)
[2021-03-27] MEDS: ASPIRIN 325 MG ECTAB PO SCH (08:39)
[2021-03-27] MEDS: FLUCONAZOLE 50 MG TAB PO SCH (08:39)
[2021-03-27] MEDS: BACLOFEN 20 MG TAB PO SCH ×2 (08:39→21:36)
[2021-03-27] MEDS: REMDESIVIR 100 MG in SODIUM CHLORIDE 0.9% 230 ML IV SCH (11:29)
[2021-03-27] MEDS: SODIUM CHLORIDE 0.9% 10ML FLUSH IV SCH (12:45)
[2021-03-27] MEDS: MAGNESIUM OXIDE 400 MG TAB PO SCH (16:15)
[2021-03-27] MEDS: ADVANCED PROBIOTIC 1250 MG CAPSULE PO SCH (16:15)
[2021-03-27] MEDS: dexAMETHasone 6 MG in SYRINGE 0 ML IV SCH (21:35)
[2021-03-27] MEDS: ATORVASTATIN 40 MG TAB PO SCH (21:36)
--- NOTE | 2021-03-27 21:50 | Hospitalist Progress Note ---
Date of Service March 27, 2021 Assessment & Plan (1) COVID-19: Plan: 60yo male presenting with Covid-19 PNA, hypoxia. Patient has been feeling ill x 1 day with fever, malaise, cough and SOB. His oxygen saturations were 90% measured at home - typically 96-97%. He is unvaccinated against Covid-19. Exam is unremarkable. Labs with lymphopenia. CXR with bilateral airspace disease. Presently saturating 91% on room air. No distress -Observation to medical -Maintain Covid-19 precautions -Supplemental O2 as needed to maintain saturations >92% -Dexamethasone 6mg IV daily -Remdesivir per protocol -Lovenox 40mg BID for DVT ppx -Tylenol PRN pain or fever -Zofran PRN nausea -Tessalon PRN cough ON 03/27 Patient appears to be at baseline. Patient does not feel comfortable being discharged today and would prefer a discharge tomorrow. If patient continues to do well, may consider 2 step in AM. If patient passes, he should be able to be discharged despite not completing remdesevir. will need to finish 10 day course of decadron. 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 On Fluconazole -Continue Fluconazole 150mg daily Plan: F/E/N - Heplock. electroltyes WNL. Regular diet as tolerated Ppx - Lovenox 40mg BID Code- Conditional - invasive airway and mechanical ventilation is acceptable. No CPR Dispo - Observation to medical Admission and Anticipated Discharge Date Admission Date: March 26, 2021 Subjective 60 yo male reports feeling better. Hd states he is at his baseline, however he is concerned as his brother recently from COVID 19 Review of Systems Review of Systems: All systems reviewed & are unremarkable except as noted in HPI & below Physical Exam Physical Exam: General: patient resting comfortably, NAD, AA&O x 4 Skin: warm, dry, intact, no rashes or lesions HEENT: NC/AT, PERRL, EOMI, anicteric sclera, conjunctiva without injection, external ear normal to inspection and nontender, nares patent, moist mucus membranes, dentition intact, oral thrush, neck supple, trachea midline, no LAD, no thyromegaly, no JVD Heart: +S1/S2, regular, no m/r/g Lungs: diminished breath sounds, equal air entry bilaterally, no rales/rhonch i/wheezes Abd: +BS, soft, NT/ND, no masses/organomegaly/ascites Ext: warm, 2+ pulses in UE/LE bilaterally, no clubbing/cyanosis, trace pitting edema of RLE Neuro: spastic paresis of RUE, decreased strength RLE Results & Data Results & Data ([facility]) Vital Signs (Past 12 Hours) Vital Signs Temp Pulse Resp BP Pulse Ox 03/27/21 21:22 36.8 C 63 16 136/83 97 03/27/21 15:42 36.6 C 62 18 124/81 97 PG Care Time/CCT Total # of Minutes Spent Total Time Spent with Patient: Total time spent is greater than 50% in coordination of care (as documented) at patient's floor/unit and/or counseling patient: Coding Level of Care Code 20938 Subseq Obs Care Lvl 2 Diagnoses COVID-19 U07.1 COPD (chronic obstructive pulmonary disease) with chronic bronchitis J44.9 CVA (cerebral vascular accident) I63.9 Thrush B37.0 Time Spent (min) 25
[2021-03-28] MEDS: BACLOFEN 20 MG TAB PO SCH ×2 (08:39→20:10)
[2021-03-28] MEDS: FLUCONAZOLE 50 MG TAB PO SCH (08:39)
[2021-03-28] MEDS: CLOPIDOGREL BISULFATE 75 MG TAB PO SCH (08:40)
[2021-03-28] MEDS: ADVANCED PROBIOTIC 1250 MG CAPSULE PO SCH (08:40)
[2021-03-28] MEDS: ENOXAPARIN INJ 40 MG/0.4 ML SYR SQ SCH ×2 (08:40→20:08)
[2021-03-28] MEDS: MAGNESIUM OXIDE 400 MG TAB PO SCH (08:40)
[2021-03-28] MEDS: FLUTICASONE/VILANTEROL 200/25MCG 14 PUFFS/INHALER INH SCH (08:40)
[2021-03-28] MEDS: ASPIRIN 325 MG ECTAB PO SCH (08:40)
[2021-03-28 08:46] LABS: Hemoglobin 14.1 g/dL (14.0-18.0); Mean Corpuscular Hemoglobin 31.2 pg (25-34); Mean Corpuscular Hgb Conc 32.8 g/dL (32-36); Mean Corpuscular Volume 95.1 fL (80-100); Mean Platelet Volume 10.9 fL (7.4-10.4); Platelet Count 262 K/uL (130-400); RDW Coefficient of Variation 13.8 % (11.5-14.5); RDW Standard Deviation 47.9 fL (36.4-46.3); Red Blood Count 4.52 M/uL (4.7-6.1); White Blood Count 8.46 K/uL (4.8-10.8)
[2021-03-28 09:18] LABS: BUN Creatinine Ratio 25.3 (10-20); C Reactive Protein 1.05 mg/dl (0-0.29); Calcium 9.4 mg/dl (8.5-10.1); Creatinine Clr Calc Pharmacy 90.1 ml/min; Est GFR (African American) 108.2 ml/min; Est GFR (Non-African American) 93.4 ml/min; Potassium 4.2 mmol/L (3.5-5.1)
[2021-03-28] MEDS: REMDESIVIR 100 MG in SODIUM CHLORIDE 0.9% 230 ML IV SCH (11:44)
--- NOTE | 2021-03-28 11:55 | Hospitalist Progress Note ---
Date of Service March 28, 2021 Assessment & Plan (1) COVID-19: Plan: 60yo male presenting with Covid-19 PNA, hypoxia. Patient has been feeling ill x 1 day with fever, malaise, cough and SOB. His oxygen saturations were 90% measured at home - typically 96-97%. He is unvaccinated against Covid-19. Exam is unremarkable. Labs with lymphopenia. CXR with bilateral airspace disease. Presently saturating 88-91% on 1-2 L -Observation to medical -Maintain Covid-19 precautions -Supplemental O2 as needed to maintain saturations >92% -Dexamethasone 6mg IV daily -Remdesivir per protocol -Lovenox 40mg BID for DVT ppx -Tylenol PRN pain or fever -Zofran PRN nausea -Tessalon PRN cough Patient doing well, two-step to be performed this morning Discussed case with patient and with his extensively by phone. She is extremely nervous as they have had a family member who rapidly worsened with Covid and passed recently. Discussed that he is doing well, and that while Covid does progress for some patients especially the day 812 window there is also additional risk and is not advised to simply remain in the hospital for observation until that point if he is otherwise doing well. She is agreeable to this, would like to have an additional dose of remdesivir and follows oxygen requirements overnight with discharge first thing in morning and she will set up and obtain pulse ox/equipment We will continue 1 additional day of Remdesivir, anticipate discharge to home to family tomorrow morning if oxygen requirements stable Will complete 10-day course of Decadron (2) COPD (chronic obstructive pulmonary disease) with chronic bronchitis: Plan: No wheezing appreciated on exam -Albuterol HFA PRN SOB or wheeze -Continue Budesonide/Formoterol HFA (3) CVA (cerebral vascular accident): Plan: 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 On Fluconazole -Continue Fluconazole 150mg daily Plan: F/E/N - Heplock. electroltyes WNL. Regular diet as tolerated Ppx - Lovenox 40mg BID Code- Conditional - invasive airway and mechanical ventilation is acceptable. No CPR Dispo - medical Admission and Anticipated Discharge Date Admission Date: March 26, 2021 Subjective Seen at bedside. Feels he is still slightly short of breath, but improved from prior. Has walked around the room a little bit with respiratory therapy, feels he tolerated it okay but needed to rest after. No fever/chills. No other questions or concerns, but notes "talk to my about the plan, unhappy with what she is happy with " Review of Systems Review of Systems: All systems reviewed & are unremarkable except as noted in Subjective Physical Exam Physical Exam: General: A&Ox3. NAD. Cooperative. HEENT: Atraumatic, normocephalic. Pulm:bibasilar crackles, otherwise moderate air movement without -wheezes, - rales, -rhonchi. Symmetrical chest rise. No increase work of breathing. No respiratory distress. Cardiac: RRR, -mrg. Radial pulses intact and symmetrical. Abdominal: Nontender, nondistended, soft. BS present. Results & Data Results & Data ([facility]) Vital Signs (Past 12 Hours) Vital Signs Temp Pulse Pulse Pulse Pulse Resp Resp 03/28/21 09:57 100 H 92 H 87 20 03/28/21 08:06 36.5 C 56 L 18 Resp Resp BP Pulse Ox Pulse Ox Pulse Ox Pulse Ox 03/28/21 09:57 18 18 94 94 95 03/28/21 08:06 132/82 95 PG Care Time/CCT Total # of Minutes Spent Total Time Spent with Patient: Total time spent is greater than 50% in coordination of care (as documented) at patient's floor/unit and/or counseling patient: Coding Level of Care Code 07300 Subseq Hosp Care Lvl 3 Diagnoses COVID-19 U07.1 COPD (chronic obstructive pulmonary disease) with chronic bronchitis J44.9 CVA (cerebral vascular accident) I63.9 Thrush B37.0
[2021-03-28] MEDS: SODIUM CHLORIDE 0.9% 10ML FLUSH IV SCH (12:57)
[2021-03-28] MEDS: dexAMETHasone 6 MG in SYRINGE 0 ML IV SCH (20:08)
[2021-03-28] MEDS: ATORVASTATIN 40 MG TAB PO SCH (20:10)
[2021-03-29 06:52] LABS: Est GFR (African American) 111.5 ml/min; Est GFR (Non-African American) 96.2 ml/min
[2021-03-29] MEDS: FLUTICASONE/VILANTEROL 200/25MCG 14 PUFFS/INHALER INH SCH (08:22)
[2021-03-29] MEDS: ASPIRIN 325 MG ECTAB PO SCH (08:24)
[2021-03-29] MEDS: BACLOFEN 20 MG TAB PO SCH ×2 (08:25→20:16)
[2021-03-29] MEDS: ADVANCED PROBIOTIC 1250 MG CAPSULE PO SCH (08:26)
[2021-03-29] MEDS: CLOPIDOGREL BISULFATE 75 MG TAB PO SCH (08:26)
[2021-03-29] MEDS: FLUCONAZOLE 50 MG TAB PO SCH (08:26)
[2021-03-29] MEDS: MAGNESIUM OXIDE 400 MG TAB PO SCH (08:27)
[2021-03-29] MEDS: ENOXAPARIN INJ 40 MG/0.4 ML SYR SQ SCH ×2 (08:32→20:17)
[2021-03-29] MEDS: SODIUM CHLORIDE 0.9% 10ML FLUSH IV SCH (10:42)
[2021-03-29] MEDS ORDERED: ALBUT/IPRATROP 3MG/0.5MG NEB 3 ML VIAL NEB PRN (11:13)
[2021-03-29] MEDS: REMDESIVIR 100 MG in SODIUM CHLORIDE 0.9% 230 ML IV SCH (11:24)
--- NOTE | 2021-03-29 13:13 | Hospitalist Progress Note ---
Date of Service March 29, 2021 Assessment & Plan (1) COVID-19: Plan: 60yo male presenting with Covid-19 PNA, hypoxia. Patient has been feeling ill x 1 day [employer] with fever, malaise, cough and SOB. -pulse ox 88% on Arrival. Currently 95% on 2L -Supplemental O2 as needed to maintain saturations >92% -Dexamethasone 6mg IV daily (day #4) -Remdesivir (today is day #4/5) -Lovenox 40mg BID for DVT ppx -continue supportive care with antipyretics/antitussive agents prn -pepcid/sinugulair for GI prophylaxiz and to help with the immune response cascade (may not help but certainly will not pose harm) -zinc/vitamin c for immune support - updated (2) COPD (chronic obstructive pulmonary disease) with chronic bronchitis: Plan: does not appear to be in an AECOPD -Albuterol HFA PRN SOB or wheeze -Continue Budesonide/Formoterol HFA (3) CVA (cerebral vascular accident): Plan: 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 Continue baclofen PRN for now (4) Thrush: Plan: Patient with oral thrust. On Fluconazole -Continue Fluconazole 150mg daily Plan: Ppx - Lovenox 40mg BID Code- Conditional - invasive airway and mechanical ventilation is acceptable. No CPR Admission and Anticipated Discharge Date Admission Date: March 26, 2021 Subjective Patient seen on daily rounds today. Vocalizes no significant complaints or concerns. Denies fevers, chills, chest pain, shortness of breath, abdominal pain, nausea or vomiting. Nursing voices no complaints or concerns. Pulse ox in the mid 90s on 2 L of supplemental oxygen. Review of Systems Review of Systems: All systems reviewed and are unremarkable except as noted in HPI and below Denies fevers, chills, headache, nasal congestion, sore throat, cough, chest pain, shortness of breath, palpitations, orthopnea, PND, abdominal pain, nausea, vomiting, diarrhea, constipation, dysuria, hematuria, frequency, back pain, joint pain or swelling, easy bruising or bleeding, skin lesions or rashes. Physical Exam Physical Exam: General: Resting comfortably in his hospital bed. Does not appear ill or toxic. NAD. HEENT: Head is AT/NC buccal mucosa is moist and pink Neck: No JVD. Negative hepatojugular reflex Cardiac: RRR without M/G/R Lungs: Breathing comfortably on supplemental oxygen. Breathing is nonlabored. No accessory muscle use. No significant wheezes, rales or rhonchi Abdomen: Normoactive X4. Soft and nontender in all quadrants. Extremities: Trace pitting edema of the bilateral lower extremities. Neuro: A&O X4 cranial nerves II through XII are grossly intact no focal neuro deficits Skin: No obvious skin lesions or rashes Psych: Appropriate affect pleasant and cooperative Results & Data Results & Data ([facility]) Vital Signs (Past 12 Hours) Vital Signs Temp Pulse Resp BP Pulse Ox 03/29/21 08:37 36.5 C 64 18 142/88 H 95 Laboratory Results 03/28/21 08:00 03/29/21 05:33 PG Care Time/CCT Total # of Minutes Spent Total Time Spent with Patient: Total time spent is greater than 50% in coordination of care (as documented) at patient's floor/unit and/or counseling patient: Coding Level of Care Code 48212 Subseq Hosp Care Lvl 2 Diagnoses COVID-19 U07.1 COPD (chronic obstructive pulmonary disease) with chronic bronchitis J44.9 CVA (cerebral vascular accident) I63.9 Thrush B37.0
[2021-03-29] MEDS: ASCORBIC ACID 500 MG TAB PO SCH (15:38)
[2021-03-29] MEDS: FAMOTIDINE 20 MG TAB PO SCH ×2 (15:39→20:15)
[2021-03-29] MEDS: ZINC SULFATE 220 MG CAPSULE PO SCH (15:39)
[2021-03-29] MEDS: CLOTRIMAZOLE 10 MG TROCHE BUCCAL SCH ×3 (15:42→23:09)
[2021-03-29] MEDS: dexAMETHasone 6 MG in SYRINGE 0 ML IV SCH (20:17)
[2021-03-29] MEDS ORDERED: MONTELUKAST SODIUM 10 MG TABLET PO SCH (21:00)
[2021-03-30 06:16] LABS: Hematocrit (blood only) 42.9 % (42-52); Hemoglobin 14.2 g/dL (14.0-18.0); Immature Granulocytes # (auto) 0.02 K/uL (0.00-0.02); Immature Granulocytes % (auto) 0.3 %; Lymphocytes # (auto) 0.58 K/uL (1.2-3.4); Mean Corpuscular Hemoglobin 31.3 pg (25-34); Mean Corpuscular Hgb Conc 33.1 g/dL (32-36); Mean Corpuscular Volume 94.7 fL (80-100); Mean Platelet Volume 10.9 fL (7.4-10.4); Monocytes % (auto) 6.9 %; Neutrophils # (auto) 6.11 K/uL (1.4-6.5); Neutrophils % (auto) 84.8 %; Platelet Count 238 K/uL (130-400); RDW Coefficient of Variation 13.5 % (11.5-14.5); RDW Standard Deviation 47.1 fL (36.4-46.3); Red Blood Count 4.53 M/uL (4.7-6.1); White Blood Count 7.21 K/uL (4.8-10.8)
[2021-03-30 06:47] LABS: Albumin Level 3.2 gm/dl (3.4-5.0); BUN Creatinine Ratio 22.3 (10-20); Calcium 9.3 mg/dl (8.5-10.1); Creatinine Clr Calc Pharmacy 94.6 ml/min; Est GFR (African American) 110.4 ml/min; Est GFR (Non-African American) 95.3 ml/min; Magnesium 2.2 mg/dl (1.8-2.4); Potassium 4.1 mmol/L (3.5-5.1)
[2021-03-30 06:50] LABS: Albumin Globulin Ratio 0.9 (0.9-2); Bilirubin,Total 0.5 mg/dl (0.2-1); Globulin 3.5 gm/dl (2.5-4.0); Total Protein 6.7 gm/dl (6.4-8.2)
[2021-03-30] MEDS: CLOTRIMAZOLE 10 MG TROCHE BUCCAL SCH ×3 (08:20→15:42)
[2021-03-30] MEDS: ASCORBIC ACID 500 MG TAB PO SCH (08:21)
[2021-03-30] MEDS: ASPIRIN 325 MG ECTAB PO SCH (08:21)
[2021-03-30] MEDS: CLOPIDOGREL BISULFATE 75 MG TAB PO SCH (08:22)
[2021-03-30] MEDS: BACLOFEN 20 MG TAB PO SCH (08:22)
[2021-03-30] MEDS: FAMOTIDINE 20 MG TAB PO SCH (08:22)
[2021-03-30] MEDS: FLUTICASONE/VILANTEROL 200/25MCG 14 PUFFS/INHALER INH SCH (08:23)
[2021-03-30] MEDS: FLUCONAZOLE 50 MG TAB PO SCH (08:23)
[2021-03-30] MEDS: ADVANCED PROBIOTIC 1250 MG CAPSULE PO SCH (08:23)
[2021-03-30] MEDS: ZINC SULFATE 220 MG CAPSULE PO SCH (08:24)
[2021-03-30] MEDS: MAGNESIUM OXIDE 400 MG TAB PO SCH (08:24)
[2021-03-30] MEDS: REMDESIVIR 100 MG in SODIUM CHLORIDE 0.9% 230 ML IV SCH (10:49)
[2021-03-30] MEDS: ENOXAPARIN INJ 40 MG/0.4 ML SYR SQ SCH (11:00)
[2021-03-30] MEDS: SODIUM CHLORIDE 0.9% 10ML FLUSH IV SCH (12:04)
--- NOTE | 2021-03-30 15:26 | Discharge Summary ---
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 Patient reports feeling ill x 1 day with fever, body aches, malaise as well as cough and SOB. He measured his oxygen levels and found them to be 90% - typically 96-97%. He does feel more short of breath. No additional complaints He is unvaccinated against Covid-19 On arrival to the ER he was found to be tachypneic with RR of 28, saturations of 91% on room air ER Course: Dexamethasone 6mg IV Principal Diagnosis 1. Covid-19 2. Thrush Discharge Exam General: Resting comfortably in his hospital bed. Does not appear ill or toxic. NAD. HEENT: Head is AT/NC buccal mucosa is moist and pink Neck: No JVD. Negative hepatojugular reflex Cardiac: RRR without M/G/R Lungs: Breathing comfortably on RA ([facility] Breathing is nonlabored. No accessory muscle use. No significant wheezes, rales or rhonchi Abdomen: Normoactive X4. Soft and nontender in all quadrants. Extremities: left hemiparesis (RUE). Neuro: A&O X4 cranial nerves II through XII are grossly intact no focal neuro deficits Skin: No obvious skin lesions or rashes Psych: Appropriate affect pleasant and cooperative Discharge Data Allergies Allergy/AdvReac Type Severity Reaction Status Date / Time No Known Allergies Allergy Verified 03/26/21 00:19 Consultations 03/26/21 02:53 ED Decision to Admit Stat Hospital Course (1) COVID-19: 60yo male presenting with Covid-19 PNA, hypoxia. 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 -pulse ox 88% on Arrival. Required 2L supplemental O2 during hospitalization but at the time of D/C, not requiring any O2 -Supplemental O2 as needed to maintain saturations >90% -Dexamethasone 6mg IV daily (day #5)-- continue po dosing x 5 doses -Remdesivir completed today -at this time, no longer requiring supplemental O2 (pulse ox 95% at rest) -did have 2 step pulse ox done showing not need for supplemental O2 even with exertion (did not drop below 93%) -Lovenox 40mg BID for DVT ppx while in house -ordered antipyretics/antitussive agents prn -pepcid/sinugulair for GI prophylaxis and to help with the immune response cascade (may not help but certainly will not pose harm) -zinc/vitamin c for immune support--> can continued these at home (OTC) - updated (2) COPD (chronic obstructive pulmonary disease) with chronic bronchitis: does not appear to be in an AECOPD -Albuterol HFA PRN SOB or wheeze -Continue Budesonide/Formoterol HFA (3) CVA (cerebral vascular accident): 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 Continue baclofen PRN for now (4) Thrush: Patient with oral thrust. On Fluconazole NDT INSPECTOR -transition to mycelex augusta x5 days (while on decadron) -encouraged to rinse mouth out after using Symbicort Code- Conditional - invasive airway and mechanical ventilation is acceptable. No CPR Total Time Total Time Spent Total Time Spent (In Minutes): 45 min including time spent with patient, calling , D/W attending provider and preparation of documentation Discharge Plan Discharge Items Patient Disposition: Home - Self-Care Reason For Visit: COVID-19, HYPOXIA Discharge Diagnosis: 1. Covid-19 Condition on Discharge: Good Activity: As commented below Activity Comment: as tolerated Non-emergency contact: Primary Care Provider Call non-emergency contact if: you have any medication questions Follow-up/Referrals: Pina Cornejo MD [Primary Care Provider] - 04/05/21 8:40 am (TELEPHONE VISIT DUE TO +COVID) Diet: Heart Healthy Addtl Attending Provider Instructions: - you were hospitalized for with an Acute Covid Infection and have done VERY well! - You were given 5 days of Remdesivir (which does not TREAT covid but may help with viral replication) - you were treated with Decadron (steroid) to help with inflammation/heightened immune response. Continue this for additional 5 days - use your rescue inhaler as needed for cough, shortness of breath, wheezing - Use Tessalon Perles as needed for cough - you were also treated for thrush. Steroids unfortunately can increase the risk of this as can your Symbicort inhaler. --complete mycelex augusta --RINSE MOUTH OUT AFTER USING INHALER! - can get Zinc and Vitamin C (over the counter) to take to help with immune support - follow up with your PCP: 7-10 days - you need to remain in isolation until 04/04 (10 days from symptoms onset) - Return to the ED for new or worsening symptoms Pending Studies at Discharge: No Stand-Alone Forms: [facility] Medications and DC Order Prescriptions: New clotrimazole 10 mg [place] 10 mg buccal [id number] Qty: 35 RF: 0 benzonatate 100 mg capsule 100 mg PO TID PRN (Reason: cough) Qty: 30 RF: 0 dexamethasone [Decadron] 6 mg tablet 6 mg PO DAILY Qty: 5 RF: 0 Continued sildenafil (pulm.hypertension) 20 mg tablet 20 mg PO DAILY PRN (Reason: sexual activity) Qty: 60 RF: 0 budesonide-formoterol [Symbicort] 160-4.5 mcg/actuation HFA aerosol inhaler 2 inh inhalation Q12H Qty: 30.6 RF: 1 tizanidine 2 mg capsule 2 mg PO TID PRN (Reason: muscle spasticity) Qty: 270 RF: 0 ondansetron 4 mg tablet,disintegrating 4 mg PO Q8H PRN (Reason: nausea and vomiting) Qty: 14 RF: 5 Ubrelvy 50 mg tablet 50 mg PO ONCE PRN (Reason: headache) Qty: 10 RF: 5 albuterol sulfate [Ventolin HFA] 90 mcg/actuation HFA aerosol inhaler 2 puff inhalation QID PRN (Reason: shortness of breath or wheezing) Qty: 18 RF: 5 acetaminophen 500 mg Tablet 1,000 mg PO BID RF: 0 atorvastatin 80 mg Tablet 80 mg PO HS RF: 0 aspirin 325 mg Tablet 325 mg PO QAM RF: 0 clopidogrel [Plavix] 75 mg Tablet 75 mg PO DAILY RF: 0 polyethylene glycol 3350 [Miralax] 17 gram/dose Powder 17 g PO DAILY PRN (Reason: Constipation) RF: 0 Discontinued baclofen 20 mg tablet 20 mg PO BID 30 Days Qty: 60 RF: 0 (DME) Oxygen Home Liters Per Minute RF: 0 fluconazole 150 mg tablet 150 mg PO DAILY RF: 0 Discharge Orders: Discharge Order (Routine); Ordered 03/30/21 Ordered By: Luisa Garza/Other Patient Handouts: COVID-19 Home Care, [facility]ika Infection: Thrush Admission Data Admit Date/Time: 03/29/21 13:03 Attending Provider: Alexi Damico Admit Provider: Xiomy Haji Primary Care Provider: Pina Cornejo Other Providers: Alexi Damico Other Interventions: Discharge Summary Assessment (RN) Last Done: 03/30/21 15:16 Supervising Physician Co-Signing Physician Notes I supervised Luisa Muhammad PA-C on the care of this patient. I interviewed and examined the patient independently of her. The plan is as written in her note except for any following changes/exceptions: None Doing well today. Passed 2-step without home O2 needs. Received last dose of remdesivir today. Ready for discharge home. Coding Level of Care Code D/C DAY MANAGEMENT >30 MINS Diagnoses COVID-19 U07.1 COPD (chronic obstructive pulmonary disease) with chronic bronchitis J44.9 CVA (cerebral vascular accident) I63.9 Thrush B37.0
== END 2021-03-30 15:53 | disposition home or self-care (01) | DRG 177 ==
LOC: ED 23:24 → INTOOBSV 03-26 03:24 → SUATTDRO 03-26 03:24 → 3W 03-26 03:24

== ENCOUNTER 2021-04-05 11:04 | Inpatient (IN) ==
[2021-04-05] MEDS ORDERED: SODIUM CHLORIDE 0.9% 500 ML IV SCH (11:45)
[2021-04-05 12:17] LABS: Base Excess VBG 3.2 mEq/L; pH VBG 7.49 (7.36-7.41)
[2021-04-05 12:23] LABS: Basophils # (auto) 0.02 K/uL (0-0.2); Basophils % (auto) 0.1 %; Hematocrit (blood only) 43.9 % (42-52); Hemoglobin 14.8 g/dL (14.0-18.0); Immature Granulocytes # (auto) 0.28 K/uL (0.00-0.02); Immature Granulocytes % (auto) 1.7 %; Lymphocytes # (auto) 1.11 K/uL (1.2-3.4); Lymphocytes % (auto) 6.8 %; Mean Corpuscular Hemoglobin 31.6 pg (25-34); Mean Corpuscular Hgb Conc 33.7 g/dL (32-36); Mean Corpuscular Volume 93.8 fL (80-100); Mean Platelet Volume 10.3 fL (7.4-10.4); Monocytes # (auto) 0.52 K/uL (0.11-0.59); Monocytes % (auto) 3.2 %; Neutrophils # (auto) 14.38 K/uL (1.4-6.5); Neutrophils % (auto) 88.2 %; Platelet Count 286 K/uL (130-400); RDW Coefficient of Variation 14.1 % (11.5-14.5); Red Blood Count 4.68 M/uL (4.7-6.1); White Blood Count 16.31 K/uL (4.8-10.8)
--- NOTE | 2021-04-05 12:23 | XRay Report ---
XR chest 1V portable HISTORY: Shortness of breath. Resp sx c/w COVID-19 COMPARISON: Chest 03/26/2021. FINDINGS: There are low lung volumes. Patchy bibasilar densities have progressed. The heart remains m ildly enlarged. No pleural effusions. No pneumothorax. IMPRESSION: Interval progression of the patchy bibasilar densities likely representing a pneumonia. ACT 112: Negative or not required by law. Electronically signed by: Mekhi Erickson M.D. 04/05/2021 12:21 PM
[2021-04-05 12:33] LABS: Prothrombin Time 10.1 Seconds (9.0-12.0)
[2021-04-05] MEDS ORDERED: CEFEPIME 2,000 MG/20 ML VIAL IV STA (12:34)
[2021-04-05] MEDS ORDERED: DOXYCYCLINE HYCLATE 100 MG CAP PO STA (12:34)
[2021-04-05] MEDS ORDERED: dexAMETHasone**PF** 10 MG/ML VIAL IV ONE (12:35)
--- NOTE | 2021-04-05 12:44 | Emergency Department Note ---
Impression & Plan Respiratory failure, COPD (chronic obstructive pulmonary disease) with chronic bronchitis, 2019 novel coronavirus-infected pneumonia (NCIP), Weakness, COVID-19 ED Provider Note Provider: Ortega Villagomez MD DATE OF SERVICE: 04/05/2021 CHIEF COMPLAINT:weakness, shortness of breath HISTORY OF PRESENT ILLNESS: Patient is a 60-year-old gentleman history of COPD not normally on home oxygen with recent admission for COVID-19 has been home on oxygen for the past 6 days on 2 L of oxygen with worsening weakness and shortness of breath. Patient has had some decreased intake. Evidently pulse ox had dropped into the high 80s at home. They have been using inhalers at home with minimal improvement. Still been having high fevers as high as 104 earlier to see some Tylenol prior to arrival. Patient denies significant pain upon arrival but has significant fatigue. Significant prior history of stroke with some right-sided weakness and contractures. Patient finished outpatient steroids yesterday. Patient reported to not be vaccinated for Covid. REVIEW OF SYSTEMS: A total of 10 review of systems was obtained and negative except as stated above in the HPI. PAST MEDICAL HISTORY: As noted above MEDICATIONS: Reviewed home medications with the patient and his at bedside SOCIAL HISTORY: Former smoker, lives at home PHYSICAL EXAM: GENERAL: alert and oriented in no acute distress on stretcher but quite fatigued in appearance Head: normocephalic and atraumatic EYES: No injection, discharge or icterus. NECK: Trachea midline. ENT: Mucous membranes pink and moist. LUNGS: Airway patent. No retractions. Breath sounds with some expiratory wheeze HEART: Regular rate and rhythm. No chest wall tenderness ABDOMEN: Soft and non-tender, without guarding or rebound. SKIN: Acyanotic, warm, dry, without rashes EXTREMITIES: Without swelling, tenderness or deformity NEUROLOGICAL: No aphasia. Patient with chronic contractures and weakness in the right upper and lower extremity. Patient with some chronic mild slurred speech. EK bpm normal sinus rhythm. No PVC or PAC. No acute ST segment elevation or depression. Q inversions lead III. QTc 420. CONTINUOUS CARDIAC MONITORING: was ordered and showed a heart rate of 80s-110s bpm in normal sinus rhythm to sinus tachycardia Patient's laboratory studies and imaging reviewed. Differential includes Infection, dehydration, metabolic abnormality, hypo/hyperglycemia, electrolyte disturbance, anemia, hypoxia, cardiac sources, intracerebral event, toxicologic, neurologic, as well as other pathologies. IMPRESSION/MEDICAL DECISION MAKING: Patient recently here for Covid unvaccinated now with worsening hypoxia. Initi ally hypotensive and tachycardic in triage. Immediately brought back and oxygen increased. Given some IV fluid and basic labs and cultures were ordered. X-ray shows worsening lower inflammatory findings question pneumonia versus Covid pneumonia. Will cover empirically with antibiotics at this time given his clinical worsening. VBG without significant acidosis or hypercarbia. Lactate is not elevated. Procalcitonin later returns not severely elevated but cover given recent hospitalization again covered with antibiotics for PNA. MRSA swab sent. Patient on 7 L of oxygen mask at this point satting in the low 90s later requiring 10 L of oxygen mask here. Patient did empirically receive additional dose of steroids at this time with hypoxia and Covid. EKG without STEMI and troponin detectable but not abnormal. Likely borderline due to some demand from tachycardia and general illness. BUN and creatinine slightly elevated likely from decreased intake and again did receive a small amount of IV fluids. Patient requires further care here at the hospital. updated at bedside as well as the patient. Hospitalist contacted. DIAGNOSIS: COVID-19, pneumonia, hypoxic respiratory failure DISPOSITION: Hospitalist will evaluate Patient was agreeable with this plan. Critical Care I have personally spent 32 minutes of critical care time in the direct manag ement of this patient. This includes bedside care, interpretation of diagnostic studies, and testing, discussion with consultants, patient, and family members, and other required patient management activities. These 32 minutes is in excess of all separately billable procedures. Past Med/Surg History Medical History Chronic left arterial ischemic stroke, ICA (internal carotid artery) History of orthopnea History of prostate cancer History of stroke Surgical History H/O colonoscopy History of angioplasty History of cardiac catheterization History of prostatectomy Family History Other Cancer Diabetes Heart disease Social History Smoking Status: Never smoker Second Hand Exposure: No; Hx Alcohol Use: No Hx Substance Use: No Preferred Language: Kazakh Communication Ability: Effective Campus Manager Required: No Beliefs That Will Affect Care: None marital status: arr Current Living Situation: Spouse How many Children do You have: 0 Feels Safe at Home: Yes Safety Concerns: Feels Safe At This Time Assistive Devices: Cane Allergies Allergies Allergy/AdvReac Type Severity Reaction Status Date / Time No Known Allergies Allergy Verified 03/26/21 00:19 Home Meds Home Medications Medication Instructions Recorded Confirmed acetaminophen 500 mg tablet 1,000 mg PO BID 07/12/18 04/05/21 aspirin 325 mg tablet 325 mg PO QAM 07/12/18 04/05/21 atorvastatin 80 mg tablet 80 mg PO HS 07/12/18 04/05/21 clopidogrel 75 mg tablet (Plavix) 75 mg PO DAILY 07/12/18 04/05/21 polyethylene glycol 3350 17 17 g PO 2XWK PRN 07/12/18 04/05/21 gram/dose oral powder (Miralax) baclofen 20 mg tablet 20 mg PO BID 04/05/21 04/05/21 guaifenesin 600 mg tablet, 600 mg PO BID 04/05/21 04/05/21 extended release 12 hr (Mucinex) lactobacillus combination no.4 3 0 mmu cells PO DAILY 04/05/21 04/05/21 billion cell capsule (Probiotic) magnesium oxide 400 mg PO QAM 04/05/21 04/05/21 Previous Rx's Medication Instructions Recorded ondansetron 4 mg disintegrating 4 mg PO Q8H PRN #14 tab 04/01/20 tablet ubrogepant 50 mg tablet (Ubrelvy) 50 mg PO ONCE PRN #10 tab 04/01/20 sildenafil (pulm.hypertension) 20 20 mg PO DAILY PRN #60 tab 07/10/20 mg tablet albuterol sulfate 90 mcg/actuation 2 puff INHALATION QID PRN #18 g 02/11/21 aerosol inhaler (Ventolin HFA) budesonide-formoterol HFA 160 2 inh INHALATION Q12H #30.6 g 02/15/21 mcg-4.5 mcg/actuation aerosol inhaler (Symbicort) tizanidine 2 mg capsule 2 mg PO TID PRN #270 cap 03/02/21 benzonatate 100 mg capsule 100 mg PO TID PRN #30 cap 03/30/21 clotrimazole 10 mg [place] 10 mg BUCCAL [id number] #35 tab 03/30/21 dexamethasone 6 mg tablet 6 mg PO DAILY #5 tab 03/30/21 (Decadron) Results & Data (ED) Vital Signs Vital Signs - 24 hr 04/05/21 11:20 04/05/21 11:42 04/05/21 11:45 Pulse Rate 116 H 90 92 H Pulse Rate [Apical] Pulse Rate from SpO2 Sensor 91 H 94 H Pulse Rhythm [Apical] Pulse Strength [Apical] Respiratory Rate 24 22 24 Respiratory Effort / Characteristics Respiratory Pattern Blood Pressure 70/47 L Blood Pressure [Left Arm] Blood Pressure Mean 54 Blood Pressure Mean [Left Arm] Blood Pressure Position [Left Arm] Pulse Oximetry 87 L 92 91 Oxygen Delivery Method Nasal Cannula Oxygen Flow Rate 3 Sepsis Recent Fever Within 48 Hours Yes Sepsis New/Unexplained Change in Mental Status No Sepsis Action Taken by Nursing No Action Required 04/05/21 11:55 04/05/21 11:59 04/05/21 12:00 Pulse Rate 88 87 Pulse Rate [Apical] Pulse Rate from SpO2 Sensor 88 87 Pulse Rhythm [Apical] Pulse Strength [Apical] Respiratory Rate 26 H 25 H Respiratory Effort / Characteristics Respiratory Pattern Blood Pressure 81/60 L 89/61 L Blood Pressure [Left Arm] Blood Pressure Mean 67 70 Blood Pressure Mean [Left Arm] Blood Pressure Position [Left Arm] Pulse Oximetry 92 91 Oxygen Delivery Method Nasal Cannula Nasal Cannula Oxygen Flow Rate 6 6 Sepsis Recent Fever Within 48 Hours Sepsis New/Unexplained Change in Mental Status Sepsis Action Taken by Nursing 04/05/21 12:15 04/05/21 12:29 04/05/21 12:30 Pulse Rate 88 90 90 Pulse Rate [Apical] Pulse Rate from SpO2 Sensor 88 90 91 H Pulse Rhythm [Apical] Pulse Strength [Apical] Respiratory Rate 22 25 H 23 Respiratory Effort / Characteristics Respiratory Pattern Blood Pressure 101/70 105/71 Blood Pressure [Left Arm] Blood Pressure Mean 80 82 Blood Pressure Mean [Left Arm] Blood Pressure Position [Left Arm] Pulse Oximetry 92 88 L 89 L Oxygen Delivery Method Oxygen Flow Rate Sepsis Recent Fever Within 48 Hours Sepsis New/Unexplained Change in Mental Status Sepsis Action Taken by Nursing 04/05/21 12:45 04/05/21 13:00 04/05/21 13:15 Pulse Rate 99 H 95 H 102 H Pulse Rate [Apical] Pulse Rate from SpO2 Sensor 98 H 95 H 103 H Pulse Rhythm [Apical] Pulse Strength [Apical] Respiratory Rate 25 H 26 H 26 H Respiratory Effort / Characteristics Respiratory Pattern Blood Pressure 127/81 123/80 123/85 Blood Pressure [Left Arm] Blood Pressure Mean 96 94 97 Blood Pressure Mean [Left Arm] Blood Pressure Position [Left Arm] Pulse Oximetry 93 91 90 Oxygen Delivery Method Oxygen Flow Rate Sepsis Recent Fever Within 48 Hours Sepsis New/Unexplained Change in Mental Status Sepsis Action Taken by Nursing 04/05/21 13:18 04/05/21 13:30 04/05/21 13:45 Pulse Rate 93 H 91 H Pulse Rate [Apical] 95 H Pulse Rate from SpO2 Sensor 93 H 91 H Pulse Rhythm [Apical] Regular Pulse Strength [Apical] Normal Respiratory Rate 26 H 31 H 25 H Respiratory Effort / Characteristics Spontaneous Respiratory Pattern Regular Blood Pressure 110/75 122/75 Blood Pressure [Left Arm] 123/85 Blood Pressure Mean 86 90 Blood Pressure Mean [Left Arm] 97 Blood Pressure Position [Left Arm] Semi-fowlers Pulse Oximetry 92 92 89 L Oxygen Delivery Method Oxymask Oxygen Flow Rate 9 7 Sepsis Recent Fever Within 48 Hours Sepsis New/Unexplained Change in Mental Status Sepsis Action Taken by Nursing Laboratory Data Result diagrams: 04/05/21 11:56 04/05/21 11:56 Lab Results 04/05/21 04/05/21 04/05/21 Range/Units 11:56 11:56 11:56 WBC 16.31 H (4.8-10.8) K/uL RBC 4.68 L (4.7-6.1) M/uL Hgb 14.8 (14.0-18.0) g/dL Hct 43.9 (42-52) % MCV 93.8 (80-100) fL MCH 31.6 (25-34) pg MCHC 33.7 (32-36) g/dL RDW Std Deviation 48.0 H (36.4-46.3) fL RDW Coeff of Roge 14.1 (11.5-14.5) % Plt Count 286 (130-400) K/uL MPV 10.3 (7.4-10.4) fL Immature Gran % (Auto) 1.7 % Neut % (Auto) 88.2 % Lymph % (Auto) 6.8 % [place] % (Auto) 3.2 % Eos % (Auto) 0.0 % Baso % (Auto) 0.1 % Neut # (Auto) 14.38 H (1.4-6.5) K/uL Lymph # (Auto) 1.11 L (1.2-3.4) K/uL [place] # (Auto) 0.52 (0.11-0.59) K/uL Eos # (Auto) 0.00 (0-0.5) K/uL Baso # (Auto) 0.02 (0-0.2) K/uL Immature Gran # (Auto) 0.28 H (0.00-0.02) K/uL ESR (0-20) mm/hr PT 10.1 (9.0-12.0) Seconds INR 1.0 (0.9-1.1) APTT 25.1 (21.0-31.0) Seconds PTT Ratio 1.0 VBG pH (7.36-7.41) VBG pCO2 (38-50) mmHg VBG pO2 mmHg VBG HCO3 mmol/L VBG O2 Saturation % VBG Base Excess mEq/L Barometric Pressure mm/Hg Sodium 134 L (136-145) mmol/L Potassium 3.5 (3.5-5.1) mmol/L Chloride 101 (98-107) mmol/L Carbon Dioxide 25 (21-32) mmol/L Anion Gap 8.0 (3-11) BUN 23 H (7-18) mg/dl Creatinine 1.31 (0.6-1.4) mg/dl Est Cr Clr Drug Dosing Not Reportable Est GFR ( Amer) 67.2 ml/min Est GFR (Non-Af Amer) 57.9 ml/min BUN/Creatinine Ratio 17.8 (10-20) Glucose 117 H (70-99) mg/dl Lactate (0.4-2.0) mmol/L Calcium 9.4 (8.5-10.1) mg/dl Magnesium 2.2 (1.8-2.4) mg/dl Total Bilirubin 0.8 (0.2-1) mg/dl AST 30 (15-37) U/L ALT 40 (12-78) Alkaline Phosphatase 116 (45-117) U/L Troponin I 0.044 (0-0.045) ng/ml C-Reactive Protein (0-0.29) mg/dl Total Protein 7.4 (6.4-8.2) gm/dl Albumin 2.7 L (3.4-5.0) gm/dl Globulin 4.7 H (2.5-4.0) gm/dl Albumin/Globulin Ratio 0.6 L (0.9-2) Procalcitonin (0-0.5) ng/ml TSH 1.300 (0.300-4.500) uIu/ml 04/05/21 04/05/21 04/05/21 Range/Units 11:56 11:56 11:56 WBC (4.8-10.8) K/uL RBC (4.7-6.1) M/uL Hgb (14.0-18.0) g/dL Hct (42-52) % MCV (80-100) fL MCH (25-34) pg MCHC (32-36) g/dL RDW Std Deviation (36.4-46.3) fL RDW Coeff of Roge (11.5-14.5) % Plt Count (130-400) K/uL MPV (7.4-10.4) fL Immature Gran % (Auto) % Neut % (Auto) % Lymph % (Auto) % [place] % (Auto) % Eos % (Auto) % Baso % (Auto) % Neut # (Auto) (1.4-6.5) K/uL Lymph # (Auto) (1.2-3.4) K/uL [place] # (Auto) (0.11-0.59) K/uL Eos # (Auto) (0-0.5) K/uL Baso # (Auto) (0-0.2) K/uL Immature Gran # (Auto) (0.00-0.02) K/uL ESR (0-20) mm/hr PT (9.0-12.0) Seconds INR (0.9-1.1) APTT (21.0-31.0) Seconds PTT Ratio VBG pH 7.49 H (7.36-7.41) VBG pCO2 35 L (38-50) mmHg VBG pO2 61 mmHg VBG HCO3 26 mmol/L VBG O2 Saturation 93.0 % VBG Base Excess 3.2 mEq/L Barometric Pressure 730.4 mm/Hg Sodium (136-145) mmol/L Potassium (3.5-5.1) mmol/L Chloride (98-107) mmol/L Carbon Dioxide (21-32) mmol/L Anion Gap (3-11) BUN (7-18) mg/dl Creatinine (0.6-1.4) mg/dl Est Cr Clr Drug Dosing Est GFR ( Amer) ml/min Est GFR (Non-Af Amer) ml/min BUN/Creatinine Ratio (10-20) Glucose (70-99) mg/dl Lactate 1.6 (0.4-2.0) mmol/L Calcium (8.5-10.1) mg/dl Magnesium (1.8-2.4) mg/dl Total Bilirubin (0.2-1) mg/dl AST (15-37) U/L ALT (12-78) Alkaline Phosphatase (45-117) U/L Troponin I (0-0.045) ng/ml C-Reactive Protein (0-0.29) mg/dl Total Protein (6.4-8.2) gm/dl Albumin (3.4-5.0) gm/dl Globulin (2.5-4.0) gm/dl Albumin/Globulin Ratio (0.9-2) Procalcitonin 0.14 (0-0.5) ng/ml TSH (0.300-4.500) uIu/ml 04/05/21 04/05/21 Range/Units 11:56 11:56 WBC (4.8-10.8) K/uL RBC (4.7-6.1) M/uL Hgb (14.0-18.0) g/dL Hct (42-52) % MCV (80-100) fL MCH (25-34) pg MCHC (32-36) g/dL RDW Std Deviation (36.4-46.3) fL RDW Coeff of Roge (11.5-14.5) % Plt Count (130-400) K/uL MPV (7.4-10.4) fL Immature Gran % (Auto) % Neut % (Auto) % Lymph % (Auto) % [place] % (Auto) % Eos % (Auto) % Baso % (Auto) % Neut # (Auto) (1.4-6.5) K/uL Lymph # (Auto) (1.2-3.4) K/uL [place] # (Auto) (0.11-0.59) K/uL Eos # (Auto) (0-0.5) K/uL Baso # (Auto) (0-0.2) K/uL Immature Gran # (Auto) (0.00-0.02) K/uL ESR 93 H (0-20) mm/hr PT (9.0-12.0) Seconds INR (0.9-1.1) APTT (21.0-31.0) Seconds PTT Ratio VBG pH (7.36-7.41) VBG pCO2 (38-50) mmHg VBG pO2 mmHg VBG HCO3 mmol/L VBG O2 Saturation % VBG Base Excess mEq/L Barometric Pressure mm/Hg Sodium (136-145) mmol/L Potassium (3.5-5.1) mmol/L Chloride (98-107) mmol/L Carbon Dioxide (21-32) mmol/L Anion Gap (3-11) BUN (7-18) mg/dl Creatinine (0.6-1.4) mg/dl Est Cr Clr Drug Dosing Est GFR ( Amer) ml/min Est GFR (Non-Af Amer) ml/min BUN/Creatinine Ratio (10-20) Glucose (70-99) mg/dl Lactate (0.4-2.0) mmol/L Calcium (8.5-10.1) mg/dl Magnesium (1.8-2.4) mg/dl Total Bilirubin (0.2-1) mg/dl AST (15-37) U/L ALT (12-78) Alkaline Phosphatase (45-117) U/L Troponin I (0-0.045) ng/ml C-Reactive Protein 13.40 H (0-0.29) mg/dl Total Protein (6.4-8.2) gm/dl Albumin (3.4-5.0) gm/dl Globulin (2.5-4.0) gm/dl Albumin/Globulin Ratio (0.9-2) Procalcitonin (0-0.5) ng/ml TSH (0.300-4.500) uIu/ml Administered Medications Discontinued Medications Dexamethasone Sodium Phosphate (DexamethasonePf 10 Mg/Ml Vial) 6 mg IV NOW ONE Stop: 04/05/21 12:36 Last Admin: 04/05/21 12:44 Dose: 6 mg Documented by: [id number] Doxycycline Hyclate (Doxycycline Hyclate 100 Mg Cap) 100 mg PO NOW STA Stop: 04/05/21 12:35 Last Admin: 04/05/21 12:44 Dose: 100 mg Documented by: [id number] Sodium Chloride (Nss) 500 mls @ 999 mls/hr IV .Q31M MATTIE Stop: 04/05/21 12:15 Last Infusion: 04/05/21 12:30 Dose: 0 mls/hr Documented by: [id number] Admin: 04/05/21 12:00 Dose: 999 mls/hr Documented by: [id number] Cefepime HCl (Maxipime) 2,000 mg in 20 mls @ 5 mls/min IV NOW STA; Protocol Stop: 04/05/21 12:37 Last Admin: 04/05/21 12:44 Dose: 5 mls/min Documented by: [id number] Imaging Data Radiologist's Impression: Chest X-Ray 04/05/21 11:29 XR chest 1V portable HISTORY: Shortness of breath. Resp sx c/w COVID-19 COMPARISON: Chest 03/26/2021. FINDINGS: There are low lung volumes. Patchy bibasilar densities have prog ressed. The heart remains mildly enlarged. No pleural effusions. No pneumothorax. IMPRESSION: Interval progression of the patchy bibasilar densities likely representing a pneumonia. ACT 112: Negative or not required by law. Electronically signed by: Mekhi Erickson M.D. 04/05/2021 12:21 PM Discharge Plan Visit Data Chief Complaint: Illness Stated Complaint: HYPOXIA/HIGH TEMP/+COVID,03/25/21 S/P HOSPITALIZAT ED Provider: Ortega Villagomez Discharge Problem: Respiratory failure, COPD (chronic obstructive pulmonary disease) with chronic bronchitis, 2019 novel coronavirus-infected pneumonia (NCIP), Weakness, COVID-19 Patient Disposition: Admitted As Inpatient Discharge Instructions Interventions: ED Discharge Assessment Last Done: 04/05/21 14:53 Discharge Problem: Respiratory failure Qualifiers: Chronicity: acute on chronic Respiratory failure complication: hypoxia Qualified Code(s): J96.21 - Acute and chronic respiratory failure with hypoxia
[2021-04-05 12:53] LABS: Alanine Aminotransferase 40 (12-78); Albumin Level 2.7 gm/dl (3.4-5.0); BUN Creatinine Ratio 17.8 (10-20); Blood Urea Nitrogen 23 mg/dl (7-18); Calcium 9.4 mg/dl (8.5-10.1); Carbon Dioxide 25 mmol/L (21-32); Chloride 101 mmol/L (98-107); Est GFR (African American) 67.2 ml/min; Est GFR (Non-African American) 57.9 ml/min; Glucose 117 mg/dl (70-99)
[2021-04-05 12:55] LABS: Potassium 3.5 mmol/L (3.5-5.1); Sodium 134 mmol/L (136-145)
[2021-04-05 12:56] LABS: Partial Thromboplastin Time 25.1 Seconds (21.0-31.0)
[2021-04-05 12:57] LABS: Albumin Globulin Ratio 0.6 (0.9-2); Alkaline Phosphatase 116 U/L (45-117); Bilirubin,Total 0.8 mg/dl (0.2-1); Globulin 4.7 gm/dl (2.5-4.0); Total Protein 7.4 gm/dl (6.4-8.2); Troponin I 0.044 ng/ml (0-0.045)
[2021-04-05 13:00] LABS: Aspartate Aminotransferase 30 U/L (15-37); Magnesium 2.2 mg/dl (1.8-2.4)
--- NOTE | 2021-04-05 13:52 | Electrocardiogram Report ---
Test Reason : Blood Pressure : / mmHG Vent. Rate : 092 BPM Atrial Rate : 092 BPM P-R Int : 150 ms QRS Dur : 084 ms QT Int : 340 ms P-R-T Axes : 029 -18 009 degrees QTc Int : 420 ms Poor data quality, interpretation may be adversely affected Normal sinus rhythm Possible Left atrial enlargement Borderline ECG When compared with ECG of 26-MAR-2021 00:43, No significant change was found Confirmed by Iam Kelley ([id number]) on 04/05/2021 1:52:14 PM Referred By: Confirmed By:Stefano Kelley
--- NOTE | 2021-04-05 14:21 | History & Physical Report ---
Date of Service April 05, 2021 Assessment & Plan (1) 2019 novel coronavirus-infected pneumonia (NCIP): Plan: Bacterial infection following COVID 19 infection- not vaccinated - WBC increased with NLR increase, hypoxia, - Continue with Cefepime and Doxycycline- MRSA swab pending - If clinically worsens or no improvement will need atypical coverage and pseudomonal coverage - Hold on further steroid dosing at this time- he completed 10 days of therapy - Continue with albuterol inhaler scheduled with nebulizers PRN - Flutter valve - CRP in morning- - Repeat PCT at 72 hour nancy - Sputum with gram stain and culture pending - blood cultures pending - Lovenox 40mg SQ BID- follow with ASA and PLAVIX - CRP is elevated to 13 today and was 1.05 prior to discharge - This would be ~ day 10-12 of COVID- may also be exhibiting second phase of illness (2) Hypoxia: Plan: As above - COVID 19 complicated by likely bacterial pneumonia - Hypoxia without respiratory failure - Without tachycardia - As above - May as well be second phase of COVID illness- supportive care- As he is at day 10 this makes use of baricitinib likely no benefit at this time and secondary to likely bacterial infection will also decline adding baricitinib to current therapy - Continue JEREMY and inhaled ICS/Flutter valve - Continue with rotational therapy and pulmonary toileting - CT of the chest if no improvement with ABX therapy may be considered 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 - Continue with ASA, Plavix, statin (5) Spasticity as late effect of cerebrovascular accident (CVA): Plan: Continue with Tizanidine (6) Migraine without aura: Plan: Not on abortive medications as outpatient - review shows 2-4 headaches per month- Tylenol and Naproxen at home - Continue Tylenol History of Present Illness Chief Complaint: SOB Primary Care Provider: Pina Cornejo MD 60 YOM with past medical history of: COVID 19- diagnosed 03/26/21, COPD, prostate cancer, CVA with residual right sided weakness and contracture to right hand, migraines with aura. Patient was admitted for COVID 19 on 03/26 where he underwent Decadron therapy of 6 mg daily and finished this on 04/04/21, remedisivir, zinc and vitamin C- He was discharged on 03/30 with home oxygen. on , the patient started to experience increase in cough, chest congestion and fevers. reports that fevers were worse at night and peaked yesterday evening at 103.8. They attempted Tylenol during the day which, helped but during the night if he did not take it he would have rigors and sweats. His cough and use of his nebulizers has increased, as well as his home pulse oximeter dropping into the mid 80s per . They increased his home O2 to 4-5 liters. He came to the [facility] today and was placed on oxymask 7-9L and was noted to be hypotensive 70/40s that responded to 500ml fluid bolus. He had routine labs drawn to include PCT and CXR performed. The CXR was notable for progression of patchy bibasilar densities, low inspiratory volume. His lab work revealed mild hyponatremia, slight increase in BUN, WBC elevation to 16 with NLR of 14-1, normal co2 on VBG, PCT at 0.14. Patient had urine and blood cultures drawn prior to abx therapy. He was started on Cefepime and Doxycycline. MRSA swab pending. Will continue these as appropriate at this time- will send sputum sample for gram stain and culture. He was given 1 dose of Decadron 6mg IV on admission - will not continue this therapy. Patient will be admitted to COVID unit as 10days past his dx. Will treat for likely bacterial pneumonia, follow biomarkers and clinical response, CPAP/BIPAP as available. Patient COVID + from 03/26/21 no retest performed, admit to COVID unit. Allergies Allergy/AdvReac Type Severity Reaction Status Date / Time No Known Allergies Allergy Verified 03/26/21 00:19 Home Medications Medication Instructions Recorded Confirmed Type acetaminophen 500 mg tablet 1,000 mg PO BID 07/12/18 04/05/21 History aspirin 325 mg tablet 325 mg PO QAM 07/12/18 04/05/21 History atorvastatin 80 mg tablet 80 mg PO HS 07/12/18 04/05/21 History clopidogrel 75 mg tablet (Plavix) 75 mg PO DAILY 07/12/18 04/05/21 History polyethylene glycol 3350 17 17 g PO 2XWK PRN 07/12/18 04/05/21 History gram/dose oral powder (Miralax) ondansetron 4 mg disintegrating 4 mg PO Q8H PRN #14 tab 04/01/20 04/05/21 Rx tablet ubrogepant 50 mg tablet (Ubrelvy) 50 mg PO ONCE PRN #10 tab 04/01/20 04/05/21 Rx sildenafil (pulm.hypertension) 20 20 mg PO DAILY PRN #60 tab 07/10/20 04/05/21 Rx mg tablet albuterol sulfate 90 mcg/actuation 2 puff INHALATION QID PRN #18 g 02/11/21 04/05/21 Rx aerosol inhaler (Ventolin HFA) budesonide-formoterol HFA 160 2 inh INHALATION Q12H #30.6 g 02/15/21 04/05/21 Rx mcg-4.5 mcg/actuation aerosol inhaler (Symbicort) tizanidine 2 mg capsule 2 mg PO TID PRN #270 cap 03/02/21 04/05/21 Rx benzonatate 100 mg capsule 100 mg PO TID PRN #30 cap 03/30/21 04/05/21 Rx clotrimazole 10 mg augusta 10 mg BUCCAL 5XDQ4H #35 tab 03/30/21 04/05/21 Rx dexamethasone 6 mg tablet 6 mg PO DAILY #5 tab 03/30/21 04/05/21 Rx (Decadron) baclofen 20 mg tablet 20 mg PO BID 04/05/21 04/05/21 History guaifenesin 600 mg tablet, 600 mg PO BID 04/05/21 04/05/21 History extended release 12 hr (Mucinex) lactobacillus combination no.4 3 0 mmu cells PO DAILY 04/05/21 04/05/21 History billion cell capsule (Probiotic) magnesium oxide 400 mg PO QAM 04/05/21 04/05/21 History Past Med/Surg History Medical History Chronic left arterial ischemic stroke, ICA (internal carotid artery) History of orthopnea History of prostate cancer History of stroke Surgical History H/O colonoscopy History of angioplasty History of cardiac catheterization History of prostatectomy Family History Other Cancer Diabetes Heart disease Social History Smoking Status: Never smoker Second Hand Exposure: No; Hx Alcohol Use: No Hx Substance Use: No Preferred Language: Pashto Communication Ability: Unable Systems Software Specialist Required: No Beliefs That Will Affect Care: None marital status: Current Living Situation: Spouse How many Children do You have: 2 Feels Safe at Home: Yes Safety Concerns: Feels Safe At This Time Assistive Devices: Cane and Oxygen - at Night Review of Systems Review of Systems: REVIEW OF SYSTEMS: Constitutional: (+) fever, sweats or chills Eyes: No diplopia, no worsening or blurred vision ENT: normal hearing, no trouble swallowing Respiratory: (+) cough, sputum, dyspnea at rest or on exertion Cardiovascular: No chest pain, tightness or palpitations Abdomen: No pain, nausea, vomiting, diarrhea or constipation Musculoskeletal: No joint pain, calf pain, swelling Neurologic: No weakness, numbness/tingling, or balance problems Psychiatric: No anxiety or depression Skin: No rash or itch Physical Exam Physical Exam: PHYSICAL EXAM: General: fatigued appearin, awake, alert, no apparent distress Head: Normocephalic, atraumatic ENT: PERRL, EOMI, no pharyngeal exudate, mucous membranes dry Neuro: AAO x 3, speech clear and appropriate, strength intact bilaterally 5/5 to left, 4/5 to right lower leg, right upper arm is contracted, sensation intact and equal all extremities and dermatomes, Chest: equal rise and fall of the chest, no accessory muscle use, expiratory wheeze, scattered rhonchi throughout, productive cough which patient has not been expectorating Cardiac: Regular rate and rhythm, telemetry reviewed, skin warm dry, cap refill <3 seconds, peripheral pulses +2 no JVD, no murmur, no JVD, no edema GI: NABS x 4 quadrants, soft, nontender to palpation, no rebound, guarding or tenderness : Spontaneously voiding, no pain, no CVA tenderness, Extremities: Normal inspection, no peripheral edema or erythema, calfs nontender to palpation Psych: Normal mood and affect Skin: Left hand bruise with scab from previous blood draw, not warm or any drainage noted Results & Data Results & Data ([facility]) Vital Signs (Past 12 Hours) Vital Signs Pulse Pulse Resp BP BP Pulse Ox 04/05/21 13:18 95 H 26 H 123/85 92 04/05/21 12:45 99 H 25 H 127/81 93 04/05/21 12:30 90 23 105/71 89 L 04/05/21 12:29 90 25 H 101/70 88 L 04/05/21 12:15 88 22 92 04/05/21 12:00 87 25 H 89/61 L 91 04/05/21 11:55 88 26 H 81/60 L 92 04/05/21 11:45 92 H 24 91 04/05/21 11:42 90 22 92 04/05/21 11:20 116 H 24 70/47 L 87 L Laboratory Results Abnormal lab results 04/05/21 04/05/21 04/05/21 Range/Units 11:56 11:56 11:56 WBC 16.31 H (4.8-10.8) K/uL RBC 4.68 L (4.7-6.1) M/uL RDW Std Deviation 48.0 H (36.4-46.3) fL Neut # (Auto) 14.38 H (1.4-6.5) K/uL Lymph # (Auto) 1.11 L (1.2-3.4) K/uL Immature Gran # (Auto) 0.28 H (0.00-0.02) K/uL ESR (0-20) mm/hr VBG pH 7.49 H (7.36-7.41) VBG pCO2 35 L (38-50) mmHg Sodium 134 L (136-145) mmol/L BUN 23 H (7-18) mg/dl Glucose 117 H (70-99) mg/dl Albumin 2.7 L (3.4-5.0) gm/dl Globulin 4.7 H (2.5-4.0) gm/dl Albumin/Globulin Ratio 0.6 L (0.9-2) 04/05/21 Range/Units 11:56 WBC (4.8-10.8) K/uL RBC (4.7-6.1) M/uL RDW Std Deviation (36.4-46.3) fL Neut # (Auto) (1.4-6.5) K/uL Lymph # (Auto) (1.2-3.4) K/uL Immature Gran # (Auto) (0.00-0.02) K/uL ESR 93 H (0-20) mm/hr VBG pH (7.36-7.41) VBG pCO2 (38-50) mmHg Sodium (136-145) mmol/L BUN (7-18) mg/dl Glucose (70-99) mg/dl Albumin (3.4-5.0) gm/dl Globulin (2.5-4.0) gm/dl Albumin/Globulin Ratio (0.9-2) Diagnostic Findings Chest X-Ray 04/05/21 11:29 XR chest 1V portable HISTORY: Shortness of breath. Resp sx c/w COVID-19 COMPARISON: Chest 03/26/2021. FINDINGS: There are low lung volumes. Patchy bibasilar densities have progressed. The heart remains mildly enlarged. No pleural effusions. No pneumothorax. IMPRESSION: Interval progression of the patchy bibasilar densities likely representing a pneumonia. ACT 112: Negative or not required by law. Electronically signed by: Mekhi Erickson M.D. 04/05/2021 12:21 PM Medications Administered Home Medications acetaminophen 500 mg tablet 1,000 mg PO BID 07/12/18 [History Confirmed 03/26/21] aspirin 325 mg tablet 325 mg PO QAM 07/12/18 [History Confirmed 03/26/21] atorvastatin 80 mg tablet 80 mg PO HS 07/12/18 [History Confirmed 03/26/21] clopidogrel 75 mg tablet (Plavix) 75 mg PO DAILY 07/12/18 [History Confirmed 03/26/21] polyethylene glycol 3350 17 gram/dose oral powder (Miralax) 17 g PO DAILY PRN 07/12/18 [History Confirmed 03/26/21] ondansetron 4 mg disintegrating tablet 4 mg PO Q8H PRN #14 tab 04/01/20 [Rx Confirmed 03/26/21] ubrogepant 50 mg tablet (Ubrelvy) 50 mg PO ONCE PRN #10 tab 04/01/20 [Rx Confirmed 03/26/21] sildenafil (pulm.hypertension) 20 mg tablet 20 mg PO DAILY PRN #60 tab 07/10/20 [Rx Confirmed 03/26/21] albuterol sulfate 90 mcg/actuation aerosol inhaler (Ventolin HFA) 2 puff INHALATION QID PRN #18 g 02/11/21 [Rx Confirmed 03/26/21] budesonide-formoterol HFA 160 mcg-4.5 mcg/actuation aerosol inhaler (Symbicort) 2 inh INHALATION Q12H #30.6 g 02/15/21 [Rx Confirmed 03/26/21] tizanidine 2 mg capsule 2 mg PO TID PRN #270 cap 03/02/21 [Rx Confirmed 03/26/21] benzonatate 100 mg capsule 100 mg PO TID PRN #30 cap 03/30/21 [Rx] clotrimazole 10 mg augusta 10 mg BUCCAL 5XDQ4H #35 tab 03/30/21 [Rx] dexamethasone 6 mg tablet (Decadron) 6 mg PO DAILY #5 tab 03/30/21 [Rx] Discontinued Medications Dexamethasone Sodium Phosphate (DexamethasonePf 10 Mg/Ml Vial) 6 mg IV NOW ONE Stop: 04/05/21 12:36 Last Admin: 04/05/21 12:44 Dose: 6 mg Documented by: [id number] Doxycycline Hyclate (Doxycycline Hyclate 100 Mg Cap) 100 mg PO NOW STA Stop: 04/05/21 12:35 Last Admin: 04/05/21 12:44 Dose: 100 mg Documented by: [id number] Sodium Chloride (Nss) 500 mls @ 999 mls/hr IV .Q31M MATTIE Stop: 04/05/21 12:15 Last Infusion: 04/05/21 12:30 Dose: 0 mls/hr Documented by: [id number] Admin: 04/05/21 12:00 Dose: 999 mls/hr Documented by: [id number] Cefepime HCl (Maxipime) 2,000 mg in 20 mls @ 5 mls/min IV NOW STA; Protocol Stop: 04/05/21 12:37 Last Admin: 04/05/21 12:44 Dose: 5 mls/min Documented by: [id number] ECG Additional Comments: Vent. Rate : 092 BPM Atrial Rate : 092 BPM P-R Int : 150 ms QRS Dur : 084 ms QT Int : 340 ms P-R-T Axes : 029 -18 009 degrees QTc Int : 420 ms Poor data quality, interpretation may be adversely affected Normal sinus rhythm Possible Left atrial enlargement Borderline ECG When compared with ECG of 26-MAR-2021 00:43, No significant change was found Code Status & VTE Plan Code Status CODE: FULL VTE: Lovenox 40mg Sub q BID VTE Prophylaxis Plan VTE Prophylaxis will be ordered: Yes Supervising Physician Co-Signing Physician Notes Patient was seen and examined at bedside. During face to face encounter, obtained a history and physical examination. Discussed with APC Jenny plan of care. Patient will be admitted for likeLy superimposed bacterial infection after COVID 19. I agree with above plan. Will place on IV antibiotics as stated above. PG Care Time/CCT Total # of Minutes Spent Total Time Spent with Patient: Total time spent is greater than 50% in coordination of care (as documented) at patient's floor/unit and/or counseling patient: Coding Level of Care Code 22945 Initial Inpt Care Lvl 3 Diagnoses 2019 novel coronavirus-infected pneumonia (NCIP) U07.1; J12.82 Hypoxia R09.02 COPD (chronic obstructive pulmonary disease) with chronic bronchitis J44.9 CVA (cerebral vascular accident) I63.9 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
[2021-04-05] MEDS ORDERED: ONDANSETRON INJ 2 MG/ML 2 ML VIAL IV PRN (16:07)
[2021-04-05] MEDS ORDERED: CEFEPIME 2,000 MG in SYRINGE 0 ML IV SCH (16:07)
[2021-04-05] MEDS ORDERED: POLYETHYLENE (MIRALAX) 17 GM PACK PO PRN (16:07)
[2021-04-05] MEDS ORDERED: ALBUTEROL 0.5% NEB SOLN 2.5 MG/0.5 ML VIAL NEB PRN (16:07)
[2021-04-05] MEDS ORDERED: PATIENT'S HEIGHT AND/OR WEIGHT NEEDED SCH (16:15)
[2021-04-05] MEDS ORDERED: PNEUMOCOCCAL POLYSACCHARIDES 25 MCG/0.5 ML VIAL/SYR IM ONE (16:45)
[2021-04-05] MEDS: ACETAMINOPHEN 325 MG TAB PO SCH (17:38)
[2021-04-05] MEDS: ENOXAPARIN INJ 40 MG/0.4 ML SYR SQ SCH (18:11)
[2021-04-05] MEDS: ALBUTEROL HFA 8 GM INHALER INH SCH (19:58)
[2021-04-05] MEDS: CEFEPIME 2,000 MG in SYRINGE 0 ML IV SCH (20:58)
[2021-04-05 23:43] LABS: Appearance Urine Clear (Clear); Bacteria Urine Automated Negative (Negative); Bilirubin Urine Negative (Negative); Blood Urine Negative (Negative); Color Urine Yellow; Glucose Urine UA Negative (Negative); Ketones Urine Trace (Negative); Leukocyte Esterase Urine Negative (Negative); Nitrite Urine Negative (Negative); Protein Urine 1+ (Negative); RBC Urine Automated 0-4 /hpf (0-4); Specific Gravity Urine 1.027 (1.000-1.030); Urobilinogen Urine Negative (Negative); pH Urine 6.5 (4.5-7.5)
[2021-04-06] MEDS ORDERED: DOXYCYCLINE HYCLATE 100 MG in DEXTROSE 5% 100 ML IV SCH (00:30)
[2021-04-06] MEDS: ALBUTEROL HFA 8 GM INHALER INH SCH ×3 (00:37→12:28)
[2021-04-06] MEDS: ACETAMINOPHEN 325 MG TAB PO SCH ×5 (00:44→23:50)
[2021-04-06] MEDS ORDERED: guaiFENesin/DEXTROM SYRUP 200MG/20MG 10ML UDC PO STA ×2 (01:09→20:12)
[2021-04-06 01:46] LABS: D Dimer 460 ug/L FEU (0-500)
[2021-04-06] MEDS ORDERED: IBUPROFEN 200 MG TAB PO STA (03:55)
[2021-04-06] MEDS: CEFEPIME 2,000 MG in SYRINGE 0 ML IV SCH ×3 (04:05→20:34)
[2021-04-06] MEDS: ENOXAPARIN INJ 40 MG/0.4 ML SYR SQ SCH ×2 (06:19→17:44)
[2021-04-06 06:51] LABS: Mean Corpuscular Hgb Conc 33.9 g/dL (32-36); Mean Platelet Volume 10.4 fL (7.4-10.4); Platelet Count 280 K/uL (130-400)
[2021-04-06 07:17] LABS: BUN Creatinine Ratio 23.4 (10-20); Calcium 9.2 mg/dl (8.5-10.1); Creatinine Clr Calc Pharmacy 67.4 ml/min; Est GFR (African American) 82.9 ml/min; Est GFR (Non-African American) 71.6 ml/min; Magnesium 2.3 mg/dl (1.8-2.4); Potassium 3.8 mmol/L (3.5-5.1)
[2021-04-06 07:25] LABS: C Reactive Protein 23.2 mg/dl (0-0.29)
[2021-04-06 07:43] LABS: Basophils # (auto) 0.02 K/uL (0-0.2); Basophils % (auto) 0.1 %; Eosinophils # (auto) 0.01 K/uL (0-0.5); Eosinophils % (auto) 0.1 %; Hematocrit (blood only) 42.5 % (42-52); Hemoglobin 14.4 g/dL (14.0-18.0); Immature Granulocytes # (auto) 0.13 K/uL (0.00-0.02); Immature Granulocytes % (auto) 0.8 %; Lymphocytes # (auto) 0.61 K/uL (1.2-3.4); Lymphocytes % (auto) 3.5 %; Mean Corpuscular Hemoglobin 31.9 pg (25-34); Monocytes # (auto) 0.53 K/uL (0.11-0.59); Monocytes % (auto) 3.1 %; Neutrophils # (auto) 15.97 K/uL (1.4-6.5); Neutrophils % (auto) 92.4 %; RDW Coefficient of Variation 14.4 % (11.5-14.5); RDW Standard Deviation 49.3 fL (36.4-46.3); Red Blood Count 4.52 M/uL (4.7-6.1); White Blood Count 17.27 K/uL (4.8-10.8)
[2021-04-06] MEDS ORDERED: DEXAMETHASONE SOD INJ 4 MG/ML VIAL IV STA (08:10)
[2021-04-06] MEDS ORDERED: dexAMETHasone 20 MG in DEXTROSE 5% 25 ML IV ONE (08:30)
[2021-04-06] MEDS ORDERED: VANCOMYCIN CONSULT ACTIVE PRN ×2 (10:23)
[2021-04-06] MEDS ORDERED: VANCOMYCIN HCL 1 MG in SODIUM CHLORIDE 0.9% 250 ML IV SCH (10:30)
[2021-04-06] MEDS ORDERED: levoFLOXacin 750 MG TAB PO ONE (10:30)
--- NOTE | 2021-04-06 10:30 | Hospitalist Progress Note ---
Date of Service April 06, 2021 Assessment & Plan (1) 2019 novel coronavirus-infected pneumonia (NCIP): Plan: Bacterial infection with continuing COVID 19 infection- not vaccinated - WBC increased with NLR increase, hypoxia worsening today with increase in biomarkers - MRSA swab nares positive- Cefepime day #2, Levaquin #1, Vancomycin #1- hopeful to de-escalate within 72 hours - He completed 10 days of Decadron 6mg, now with worsening CRP and oxygenation requirements- Decadron dosed to 20mg today for 5 days - Continue with albuterol inhaler scheduled with nebulizers PRN - Flutter valve - CRP this morning- increased to 23.2 - Repeat PCT at 72 hour nancy - Sputum with culture pending - blood cultures NGTD - Lovenox 40mg SQ BID- follow with ASA and PLAVIX - This would be ~ day 11-12 of COVID- likely now entering secondary phase of illness - Legionella pending, aspergillus pending, fungitell pending - CTA no evidence of PE (2) Hypoxia: Plan: As above - COVID 19 complicated by likely bacterial pneumonia - Hypoxia without respiratory failure - Without tachycardia - As above - May as well be second phase of COVID illness- supportive care- As he is at ~day 11-12 this makes use of baricitinib likely no benefit at this time and secondary to likely bacterial infection will also decline adding baricitinib to current therapy - Follow clinical response with increased steroid dosing - Continue JEREMY and inhaled ICS/Flutter valve - Continue with rotational therapy and pulmonary toileting - CTA of the chest today evaluate both opacities and rule out PE - FINDINGS: Limited views of the upper abdomen demonstrate a normal liver and spleen. The visualized adrenal glands are unremarkable. No pleural or pericardial effusions. The heart is mildly enlarged. Normal esophagus. There is a 2 cm right thyroid nodule. Mildly enlarged right paratracheal and right hilar lymph nodes. Dominant right hilar lymph node measures 13 mm in short axis diameter. This is likely reactive. No left hilar lymphadenopathy. No acute fractures within the visualized osseous structures. No pneumothorax. The central airways are patent. Mild emphysema. Scattered subcentimeter pulmonary nodules/granulomas again noted within the lung apices. These remain stable. Scattered groundglass and consolidative airspace opacities are noted consistent with a viral pneumonia. This this most pronounced within the lower lobes. Normal caliber thoracic aorta with no evidence for dissection. No filling defects within the pulmonary arteries to suggest a pulmonary embolus. Of note, the subsegmental pulmonary arteries are not well visualized due to the motion artifact. IMPRESSION: 1. No evidence for pulmonary embolus. 2. Multifocal bilateral airspace opacities consistent with a viral pneumonia. 3. Mild right paratracheal and right hilar lymphadenopathy. This is likely reactive. 4. A 2 cm right thyroid nodule. Follow-up nonemergent thyroid ultrasound recommended for further evaluation. 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 - Continue with ASA, Plavix, statin (5) Spasticity as late effect of cerebrovascular accident (CVA): Plan: Continue with Tizanidine (6) Migraine without aura: Plan: Not on abortive medications as outpatient - review shows 2-4 headaches per month- Tylenol and Naproxen at home - Continue Tylenol (7) DVT prophylaxis: Plan: DVT: Lovenox 40mg BID sub q Diet: Carb consistent- tolerating diet at 3/4 breakfast ABX: Broadened out today- PCT at 72 hour nancy follow WBC de-escalate when appropriate Pain controlled Tmax 38.7 Continue self proning and rotational therapy Dispo: Remain on COVID med telemetry Admission and Anticipated Discharge Date Admission Date: April 05, 2021 Supervising Physician Co-Signing Physician Notes Attending note: patient seen and examined, I agree with note by Americo HARRIS. I reviewed labs, chart, imaging personally. patient is coughing a little more, oxygen requirements up to 15L mask CRP is elevated in 20s - COVID 19 pneumonia, acute hypoxic respiratory failure, possible secondary bacterial infection continue broad spectrum antibiotics add dexamethasone 20mg daily follow oxygen requirements, hopefully they will come down but good chance he will need high flow Subjective Patient is HD #1 and ~COVID day 11. Admitted for worsening hypoxia with concomitant bacterial infection plus likely worsening COVID. Patient evaluated this morning in the COVID unit. Records overnight reviewed, discussed case with bedside RN. Patient overall states he feels better than he did when he came in, remains with significant cough, but is much less productive than yesterday. He had Tmax of 38.7 at 0300 this morning, received 1 prn dose of Motrin, and continues with scheduled tylenol. His RR is improved to the 20s this morning but remains on oxymask now 10-15l with SPO2 88-90%. Patient WBC increased sligh tly to 17 today, NLR 11:1 and notable increase in his CRP from 13.4-23.2. Will change doxy to Levaquin with previous hospitalization, continue with Cefepime for pseudomonal coverage as well and add Vancomycin as his MRSA nares swab is positive with recent admission. Will increase his steroid to higher dose with increasing inflammatory markers and oxygen requirements. CTA of the chest to evaluate opacities and rule out PE. Will send Legionella, Aspergillins, Fungitell. Sputum gram stain return with many polys, many GPC, with culture pending and blood is with NGTD, renal function improved this morning. Review of Systems Review of Systems: REVIEW OF SYSTEMS: Constitutional: (+) fever, No sweats or chills overnight Eyes: No diplopia, no worsening or blurred vision ENT: normal hearing, no trouble swallowing Respiratory: (+) cough, dyspnea at rest or on exertion. noted decrease in sp utum production, sputum, dyspnea at rest or on exertion Cardiovascular: No chest pain, tightness or palpitations Abdomen: No pain, nausea, vomiting, diarrhea or constipation Musculoskeletal: No joint pain, calf pain, swelling Neurologic: No weakness, numbness/tingling, or balance problems Psychiatric: No anxiety or depression Skin: No rash or itch Physical Exam Physical Exam: PHYSICAL EXAM: General: appears better rested this morning, awake, alert, no apparent distress Head: Normocephalic, atraumatic ENT: PERRL, EOMI, no pharyngeal exudate, mucous membranes dry Neuro: AAO x 3, speech clear and appropriate, strength intact bilaterally 5/5 to left, 4/5 to right lower leg, right upper arm is contracted, sensation intact and equal all extremities and dermatomes, Chest: equal rise and fall of the chest, no accessory muscle use, scattered crackles throughout, decrease air movement in the bases, cough lest wet sounding this morning and decrease in sputum production Cardiac: Regular rate and rhythm, telemetry reviewed, skin warm dry, cap refill <3 seconds, peripheral pulses +2 no JVD, no murmur, no JVD, no edema GI: NABS x 4 quadrants, soft, nontender to palpation, no rebound, guarding or tenderness : Spontaneously voiding, no pain, no CVA tenderness, Extremities: Normal inspection, no peripheral edema or erythema, calfs nontender to palpation Psych: Normal mood and affect Skin: Left hand bruise with scab from previous blood draw, not warm or any drainage noted Results & Data Results & Data ([facility]) Vital Signs (Past 12 Hours) Vital Signs Temp Pulse Pulse Resp BP Pulse Ox 04/06/21 07:54 37 C 100 H 20 121/73 88 L 04/06/21 06:35 78 20 95 04/06/21 05:00 36.7 C 04/06/21 03:12 38.7 C H 119 H 18 153/90 H 95 04/06/21 00:37 119 H 24 85 L 04/05/21 23:45 67 04/05/21 23:20 36.1 C L 95 H 18 157/99 H 95 Laboratory Results Abnormal lab results 04/05/21 04/05/21 04/05/21 Range/Units 11:56 11:56 11:56 WBC 16.31 H (4.8-10.8) K/uL RBC 4.68 L (4.7-6.1) M/uL RDW Std Deviation 48.0 H (36.4-46.3) fL Neut # (Auto) 14.38 H (1.4-6.5) K/uL Lymph # (Auto) 1.11 L (1.2-3.4) K/uL Immature Gran # (Auto) 0.28 H (0.00-0.02) K/uL ESR (0-20) mm/hr VBG pH 7.49 H (7.36-7.41) VBG pCO2 35 L (38-50) mmHg Sodium 134 L (136-145) mmol/L BUN 23 H (7-18) mg/dl BUN/Creatinine Ratio (10-20) Glucose 117 H (70-99) mg/dl POC Glucose (70-99) mg/dl C-Reactive Protein (0-0.29) mg/dl Albumin 2.7 L (3.4-5.0) gm/dl Globulin 4.7 H (2.5-4.0) gm/dl Albumin/Globulin Ratio 0.6 L (0.9-2) Urine Protein (Negative) Urine Ketones (Negative) U Epithel Cells (Auto) (0-5) /lpf Nasal Screen MRSA (PCR) (Negative) 04/05/21 04/05/21 04/05/21 Range/Units 11:56 11:56 16:52 WBC (4.8-10.8) K/uL RBC (4.7-6.1) M/uL RDW Std Deviation (36.4-46.3) fL Neut # (Auto) (1.4-6.5) K/uL Lymph # (Auto) (1.2-3.4) K/uL Immature Gran # (Auto) (0.00-0.02) K/uL ESR 93 H (0-20) mm/hr VBG pH (7.36-7.41) VBG pCO2 (38-50) mmHg Sodium (136-145) mmol/L BUN (7-18) mg/dl BUN/Creatinine Ratio (10-20) Glucose (70-99) mg/dl POC Glucose 165 H (70-99) mg/dl C-Reactive Protein 13.40 H (0-0.29) mg/dl Albumin (3.4-5.0) gm/dl Globulin (2.5-4.0) gm/dl Albumin/Globulin Ratio (0.9-2) Urine Protein (Negative) Urine Ketones (Negative) U Epithel Cells (Auto) (0-5) /lpf Nasal Screen MRSA (PCR) (Negative) 04/05/21 04/05/21 04/06/21 Range/Units 21:10 23:15 06:23 WBC 17.27 H (4.8-10.8) K/uL RBC 4.52 L (4.7-6.1) M/uL RDW Std Deviation 49.3 H (36.4-46.3) fL Neut # (Auto) 15.97 H (1.4-6.5) K/uL Lymph # (Auto) 0.61 L (1.2-3.4) K/uL Immature Gran # (Auto) 0.13 H (0.00-0.02) K/uL ESR (0-20) mm/hr VBG pH (7.36-7.41) VBG pCO2 (38-50) mmHg Sodium (136-145) mmol/L BUN (7-18) mg/dl BUN/Creatinine Ratio (10-20) Glucose (70-99) mg/dl POC Glucose (70-99) mg/dl C-Reactive Protein (0-0.29) mg/dl Albumin (3.4-5.0) gm/dl Globulin (2.5-4.0) gm/dl Albumin/Globulin Ratio (0.9-2) Urine Protein 1+ H (Negative) Urine Ketones Trace H (Negative) U Epithel Cells (Auto) 10-20 H (0-5) /lpf Nasal Screen MRSA (PCR) Positive A (Negative) 04/06/21 04/06/21 Range/Units 06:23 06:23 WBC (4.8-10.8) K/uL RBC (4.7-6.1) M/uL RDW Std Deviation (36.4-46.3) fL Neut # (Auto) (1.4-6.5) K/uL Lymph # (Auto) (1.2-3.4) K/uL Immature Gran # (Auto) (0.00-0.02) K/uL ESR 103 H (0-20) mm/hr VBG pH (7.36-7.41) VBG pCO2 (38-50) mmHg Sodium (136-145) mmol/L BUN 26 H (7-18) mg/dl BUN/Creatinine Ratio 23.4 H (10-20) Glucose 147 H (70-99) mg/dl POC Glucose (70-99) mg/dl C-Reactive Protein 23.20 H (0-0.29) mg/dl Albumin (3.4-5.0) gm/dl Globulin (2.5-4.0) gm/dl Albumin/Globulin Ratio (0.9-2) Urine Protein (Negative) Urine Ketones (Negative) U Epithel Cells (Auto) (0-5) /lpf Nasal Screen MRSA (PCR) (Negative) Medications Administered Acetaminophen (Acetaminophen 325 Mg Tab) 650 mg PO Q6 MATTIE Stop: 05/05/21 17:59 Last Admin: 04/06/21 06:17 Dose: 650 mg Documented by: [id number] Admin: 04/06/21 00:44 Dose: 650 mg Documented by: [id number] Admin: 04/05/21 17:38 Dose: 650 mg Documented by: [id number] Albuterol (Albuterol Hfa 8 Gm Inhaler) 2 puffs INH Q6R [facility] Stop: 05/05/21 17:59 Last Admin: 04/06/21 06:34 Dose: 2 puffs Documented by: [id number] Admin: 04/06/21 00:37 Dose: 2 puffs Documented by: [id number] Admin: 04/05/21 19:58 Dose: 2 puffs Documented by: [id number] Enoxaparin Sodium (Enoxaparin Inj 40 Mg/0.4 Ml Syr) 40 mg SQ Q12H [facility] Stop: 05/05/21 17:59 Last Admin: 04/06/21 06:19 Dose: 40 mg Documented by: [id number] Admin: 04/05/21 18:11 Dose: 40 mg Documented by: [id number] Cefepime HCl 2,000 mg/ Syringe 20 mls @ 5 mls/min IV Q8H [facility]; Protocol Stop: 04/12/21 19:59 Last Admin: 04/06/21 04:05 Dose: 5 mls/min Documented by: [id number] Admin: 04/05/21 20:58 Dose: 5 mls/min Documented by: [id number] Discontinued Medications Dexamethasone Sodium Phosphate (DexamethasonePf 10 Mg/Ml Vial) 6 mg IV NOW ONE Stop: 04/05/21 12:36 Last Admin: 04/05/21 12:44 Dose: 6 mg Documented by: [id number] Doxycycline Hyclate (Doxycycline Hyclate 100 Mg Cap) 100 mg PO NOW STA Stop: 04/05/21 12:35 Last Admin: 04/05/21 12:44 Dose: 100 mg Documented by: [id number] Guaifenesin/Dextromethorphan (Guaifenesin/Dextrom Syrup 200mg/20mg 10ml Udc) 10 ml PO NOW STA Stop: 04/06/21 01:10 Last Admin: 04/06/21 01:30 Dose: 10 ml Documented by: [id number] Sodium Chloride (Nss) 500 mls @ 999 mls/hr IV .Q31M MATTIE Stop: 04/05/21 12:15 Last Infusion: 04/05/21 12:30 Dose: 0 mls/hr Documented by: [id number] Admin: 12/27/21 12:00 Dose: 999 mls/hr Documented by: [id number] Cefepime HCl (Maxipime) 2,000 mg in 20 mls @ 5 mls/min IV NOW STA; Protocol Stop: 04/05/21 12:37 Last Admin: 04/05/21 12:44 Dose: 5 mls/min Documented by: [id number] Doxycycline Hyclate 100 mg/ (Dextrose) 110 mls @ 50 mls/hr IV Q12H MATTIE Stop: 04/12/21 00:29 Last Infusion: 04/06/21 03:27 Dose: 0 mls/hr Documented by: [id number] Admin: 04/06/21 00:44 Dose: 50 mls/hr Documented by: [id number] Dexamethasone 20 mg/ Dextrose 30 mls @ 0.833 mls/min IV ONE ONE Stop: 04/06/21 09:05 Last Admin: 04/06/21 09:01 Dose: 0.8 mls/min Documented by: [id number] Ibuprofen (Ibuprofen 200 Mg Tab) 400 mg PO NOW STA Stop: 04/06/21 03:56 Last Admin: 04/06/21 04:10 Dose: 400 mg Documented by: [id number] PG Care Time/CCT Total # of Minutes Spent Total Time Spent with Patient: Total time spent is greater than 50% in coordination of care (as documented) at patient's floor/unit and/or counseling patient: Coding Level of Care Code 18474 Subseq Hosp Care Lvl 3 Diagnoses 2019 novel coronavirus-infected pneumonia (NCIP) U07.1; J12.82 Hypoxia R09.02 COPD (chronic obstructive pulmonary disease) with chronic bronchitis J44.9 CVA (cerebral vascular accident) I63.9 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 DVT prophylaxis Z29.9
[2021-04-06] MEDS ORDERED: VANCOMYCIN HCL 1,750 MG in SODIUM CHLORIDE 0.9% 500 ML IV ONE (10:45)
[2021-04-06] MEDS ORDERED: OPTIRAY 320 125ml IV ONE (10:59)
--- NOTE | 2021-04-06 11:37 | CT Scan Report ---
CHEST CTA for PULMONARY ARTERIES CT DOSE: 514.43 mGycm HISTORY: Shortness of breath. Atypical chest pain. COVID pneumonia, rule out PE TECHNIQUE: Multiaxial CT images of the chest were performed following the intravenous administration of contrast to evaluate the pulmonary arteries. Maximal intensity projection images were also obtaine d. A dose lowering technique was utilized adhering to the principles of ALARA. COMPARISON STUDY: Chest CT 08/18/2020. FINDINGS: Limited views of the upper abdomen demonstrate a normal liver and spleen. The visualized ad renal glands are unremarkable. No pleural or pericardial effusions. The heart is mildly enlarged. Nor mal esophagus. There is a 2 cm right thyroid nodule. Mildly enlarged right paratracheal and right hil ar lymph nodes. Dominant right hilar lymph node measures 13 mm in short axis diameter. This is likely reactive. No left hilar lymphadenopathy. No acute fractures within the visualized osseous structures . No pneumothorax. The central airways are patent. Mild emphysema. Scattered subcentimeter pulmonary nodules/granulomas again noted within the lung apices. These remain stable. Scattered groundglass and consolidative airspace opacities are noted consistent with a viral pneumonia. This this most pronoun brea within the lower lobes. Normal caliber thoracic aorta with no evidence for dissection. No filling defects within the pulmonary arteries to suggest a pulmonary embolus. Of note, the subsegmental pulm onary arteries are not well visualized due to the motion artifact. IMPRESSION: 1. No evidence for pulmonary embolus. 2. Multifocal bilateral airspace opacities consistent with a viral pneumonia. 3. Mild right paratracheal and right hilar lymphadenopathy. This is likely reactive. 4. A 2 cm right thyroid nodule. Follow-up nonemergent thyroid ultrasound recommended for further eval uation. ACT 112: Negative or not required by law. Electronically signed by: Mekhi Erickson M.D. 04/06/2021 11:36 AM
--- NOTE | 2021-04-06 13:49 | Pharmacy Report ---
Pharmacy Vanc AUC Short Note - Date of Service April 06, 2021 - Assessment & Plan Assessment 60 year old M receiving started on cefepime/levaquin and vancomycin for COVID pneumonia. Recent admission 03/26-03-30 for COVID. He has worsening hypoxia on admission and requiring now 10-15 L/min of O2. Due to previous hospitalizations, provider wanting double pseudomonal coverage with antibiotics. MRSA nasal swab positive on admission. Blood and sputum cultures are pending Plan Vancomycin * AUC/SARI is the preferred PK/PD target for vancomycin * AUC guided dosing is effective and associated with decreased risk of nephrotoxicity compared to traditional trough targets * Patient received loading dose of vancomycin 1750 mg x 1 this morning (~23 mg/kg/dose) * Will start vancomycin 750 mg iv q 12 hr dosing this evening. Dosing is predicted to achieve a trough of ~16 mcg/ml and a AUC/SARI of 400-600 mg/L.hr and may be associated with a 11 % risk of nephrotoxicity * If plan is to continue with vancomycin >48 hrs will plan to order a vancomycin level Pharmacy will continue to follow and will adjust dose/frequency as necessary. Thank you.
[2021-04-06] MEDS ORDERED: ALBUTEROL HFA 8 GM INHALER INH PRN (16:06)
[2021-04-06] MEDS: VANCOMYCIN HCL 750 MG in SODIUM CHLORIDE 0.9% 250 ML IV SCH (20:34)
[2021-04-06] MEDS: PANTOprazole 40 MG in SYRINGE 0 ML IV SCH (20:47)
[2021-04-07] MEDS: CEFEPIME 2,000 MG in SYRINGE 0 ML IV SCH (03:23)
[2021-04-07 06:26] LABS: Basophils # (auto) 0.02 K/uL (0-0.2); Basophils % (auto) 0.1 %; Hematocrit (blood only) 42.2 % (42-52); Hemoglobin 14.2 g/dL (14.0-18.0); Immature Granulocytes # (auto) 0.13 K/uL (0.00-0.02); Immature Granulocytes % (auto) 0.8 %; Lymphocytes # (auto) 0.68 K/uL (1.2-3.4); Lymphocytes % (auto) 4.4 %; Mean Corpuscular Hemoglobin 31.1 pg (25-34); Mean Corpuscular Hgb Conc 33.6 g/dL (32-36); Mean Corpuscular Volume 92.3 fL (80-100); Mean Platelet Volume 10.4 fL (7.4-10.4); Monocytes # (auto) 0.42 K/uL (0.11-0.59); Monocytes % (auto) 2.7 %; Neutrophils # (auto) 14.27 K/uL (1.4-6.5); Platelet Count 266 K/uL (130-400); RDW Coefficient of Variation 14.3 % (11.5-14.5); RDW Standard Deviation 48.6 fL (36.4-46.3); Red Blood Count 4.57 M/uL (4.7-6.1); White Blood Count 15.52 K/uL (4.8-10.8)
[2021-04-07] MEDS: ACETAMINOPHEN 325 MG TAB PO SCH ×4 (06:27→15:59)
[2021-04-07] MEDS: ENOXAPARIN INJ 40 MG/0.4 ML SYR SQ SCH ×2 (06:27→18:37)
[2021-04-07 06:57] LABS: BUN Creatinine Ratio 26.6 (10-20); Calcium 9.5 mg/dl (8.5-10.1); Creatinine Clr Calc Pharmacy 83.3 ml/min; Est GFR (African American) 106.2 ml/min; Est GFR (Non-African American) 91.6 ml/min; Magnesium 2.2 mg/dl (1.8-2.4); Potassium 3.8 mmol/L (3.5-5.1)
[2021-04-07] MEDS: VANCOMYCIN HCL 750 MG in SODIUM CHLORIDE 0.9% 250 ML IV SCH (08:16)
[2021-04-07] MEDS ORDERED: FLUTICASONE/VILANTEROL 200/25MCG 14 PUFFS/INHALER INH SCH (09:00)
--- NOTE | 2021-04-07 09:04 | XRay Report ---
SINGLE VIEW CHEST CLINICAL HISTORY: Covid pneumonia. FINDINGS: An AP, portable, upright chest radiograph is compared to study dated 04/05/2021 and correla melissa with chest CT dated 04/06/2021. The cardiomediastinal silhouette is unremarkable. Multifocal airs pace consolidation is modestly worsened as compared to 04/05/2021. No large pleural effusion or pneum othorax is identified. The skeletal structures appear osteopenic. The bony thorax is grossly intact. IMPRESSION: Multifocal airspace consolidation has modestly worsened as compared to 04/05/2021. ACT 112: Negative or not required by law. Electronically signed by: Tono Mcginnis M.D. 04/07/2021 9:02 AM
[2021-04-07] MEDS: dexAMETHasone 20 MG in DEXTROSE 5% 25 ML IV SCH (09:56)
[2021-04-07] MEDS: PANTOprazole 40 MG in SYRINGE 0 ML IV SCH ×2 (10:59→21:02)
[2021-04-07] MEDS ORDERED: levoFLOXacin 750 MG TAB PO SCH (11:00)
--- NOTE | 2021-04-07 11:04 | Pharmacy Report ---
Pharmacy Vanc AUC Short Note - Date of Service April 07, 2021 - Assessment & Plan Assessment 60 year old M receiving initiated on cefepime and levofloxacin yesterday for pneumonia. Vancomycin subsequently added due to positive MRSA nasal swab. Sputum culture now growing Staphylococcus species. Recent admission 03/26-03-30 for COVID. Given updated culture, antibiotics de-escalated to vancomycin and levofloxacin. Cefepime discontinued. Significant improvement in renal function back near baseline (SCr: 1.1 -> 0.89 mg/dL), will adjust vanco dosing today. Plan Vancomycin * AUC/SARI is the preferred PK/PD target for vancomycin * AUC guided dosing is effective and associated with decreased risk of nephrotoxicity compared to traditional trough targets * Based on updated lab values, will empirically adjust vancomycin dose from 750 mg to 1000 mg at same interval of q12h * First dose of new regimen to be given 8 hours after last 750 mg dose * New dose of 1 g IV q12h predicted to achieve target AUC/SARI of 400-600 mg/L.hr and may be associated with a 13 % risk of nephrotoxicity * Trough level ordered for 04/08/21, of note this will be prior to steady-state for new dose, but reasonable in light of changing renal function Levofloxacin * 750 mg PO daily - remains appropriate based on indication/renal function Pharmacy will continue to follow and will adjust dose/frequency as necessary. Thank you.
[2021-04-07] MEDS ORDERED: FUROSEMIDE 40 MG/4 ML VIAL IV ONE (12:00)
--- NOTE | 2021-04-07 12:12 | Hospitalist Progress Note ---
Date of Service April 07, 2021 Assessment & Plan (1) 2019 novel coronavirus-infected pneumonia (NCIP): Plan: Bacterial infection with continuing COVID 19 infection- not vaccinated was discharged on 03/30, was on room air, sent home on dexamethasone 6mg PO daily had a few good days but got worse quickly on Wednesday 04/04 and real bad on 04/05, brought to hospital concern for secondary bacterial infection but also worsening COVID CRP was 23 on admission, procalcitonin is up at 1.7 sputum culture growing staph and MRSA + in nares dexamethasone 20mg IV daily, day 2 of 5, gave higher dose due to worsening condition and CRP of 23 Vancomycin IV and Levaquin IV, stop Cefepime today as no need for double Pseudomonas coverage place landers, give Lasix IV to attempt to keep lungs dry, he can lay on side but not proning has a cough but not much sputum production Lovenox BID for DVT prophylaxis, PE was ruled out on CTA of chest on admission he is now in respiratory distress, on CPAP, move to [facility] in case he deteriorates further and needs intubation contacted Dr Roberts, he will evaluate this afternoon (2) Hypoxia: Plan: acute hypoxic respiratory failure As above - COVID 19 complicated by likely bacterial pneumonia worsening hypoxemia today, saturations in low 80s despite 15L mask place on CPAP 10 and 100%, saturations in 90's but working hard to breathe at high risk of needing intubated, move to [facility] d/w Dr. 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 - Continue with ASA, Plavix, statin (5) Spasticity as late effect of cerebrovascular accident (CVA): Plan: Continue with Tizanidine (6) Migraine without aura: Plan: Not on abortive medications as outpatient - review shows 2-4 headaches per month- Tylenol and Naproxen at home - Continue Tylenol (7) DVT prophylaxis: Plan: DVT: Lovenox 40mg BID sub q Admission and Anticipated Discharge Date Admission Date: April 05, 2021 Subjective called to the bedside, patient in respiratory distress, breathing in high 30's, belly breathing saturations in low 80's on 15L mask RT placed him on CPAP 10 and 100% and saturations up to 95-97% but still working hard to breathe coughing a lot, dry cough sputum growing staph species and MRSA was positive in nares CXR this morning shows worsening infiltrates bilaterally will have RN place landers and give Lasix as he is hypertensive will move patient to [place] in case he decompensates further and needs intubated discussed with Dr. Roberts, he will evaluate patient I called the patient's Chun and gave her an update, she understands the situation, asks that we do everything possible labs show WBC 15k, Hb 14, plts 266 Cr 0.89, K 3.8, procalcitonin is 1.17 CRP was 23 yesterday, increased dexamethasone to 20mg yesterday Review of Systems Review of Systems: All systems reviewed & are unremarkable except as noted in Subjective Constitutional: + fatigue and + weakness; no fever, no chills and no sweats Respiratory: + cough, + chest congestion, + dyspnea and + dyspnea on exertion; no sputum production Cardiovascular: no chest pain Physical Exam Physical Exam: General: well developed, thin male, ill appearing, moderate distress Neck: supple, trachea midline, normal thyroid Lungs: coarse bilaterally, + tachypnea, + belly breathing, one word answers, in distress on CPAP Heart: tachycardic S1 and S2, no murmur, peripheral pulses normal, capillary refill normal, no edema Abdomen: soft, NT, ND, + BS, no hepatomegaly, normal to percussion Extremities: no cyanosis, no petechiae, right hand contracture, generalized weakness Neuro: awake, cooperative, moves all extremities, CN II-XII intact Skin: warm, dry, no rash, normal turgor Psych: Awake, alert oriented x 3, anxious Results & Data Results & Data ([facility]) Vital Signs (Past 12 Hours) Vital Signs Temp Pulse Pulse Resp BP Pulse Ox 04/07/21 11:36 37.2 C 121 H 28 H 143/91 H 04/07/21 11:08 37.2 C 04/07/21 07:24 37.2 C 101 H 22 136/68 91 04/07/21 07:19 126 H 20 88 L 04/07/21 06:19 120 H 04/07/21 02:56 39.2 C H 137 H 22 165/60 H 90 Laboratory Results Laboratory Results - last 24 hr 04/06/21 04/07/21 04/07/21 20:00 06:04 06:04 WBC 15.52 H RBC 4.57 L Hgb 14.2 Hct 42.2 MCV 92.3 MCH 31.1 MCHC 33.6 RDW Std Deviation 48.6 H RDW Coeff of Roge 14.3 Plt Count 266 MPV 10.4 Immature Gran % (Auto) 0.8 Neut % (Auto) 92.0 Lymph % (Auto) 4.4 [place] % (Auto) 2.7 Eos % (Auto) 0.0 Baso % (Auto) 0.1 Neut # (Auto) 14.27 H Lymph # (Auto) 0.68 L [place] # (Auto) 0.42 Eos # (Auto) 0.00 Baso # (Auto) 0.02 Immature Gran # (Auto) 0.13 H Sodium 135 L Potassium 3.8 Chloride 105 Carbon Dioxide 22 Anion Gap 8.0 BUN 24 H Creatinine 0.89 Est Cr Clr Drug Dosing 83.3 Est GFR ( Amer) 106.2 Est GFR (Non-Af Amer) 91.6 BUN/Creatinine Ratio 26.6 H Glucose 115 H POC Glucose 126 H Calcium 9.5 Magnesium 2.2 Procalcitonin 04/07/21 06:04 WBC RBC Hgb Hct MCV MCH MCHC RDW Std Deviation RDW Coeff of Roge Plt Count MPV Immature Gran % (Auto) Neut % (Auto) Lymph % (Auto) [place] % (Auto) Eos % (Auto) Baso % (Auto) Neut # (Auto) Lymph # (Auto) [place] # (Auto) Eos # (Auto) Baso # (Auto) Immature Gran # (Auto) Sodium Potassium Chloride Carbon Dioxide Anion Gap BUN Creatinine Est Cr Clr Drug Dosing Est GFR ( Amer) Est GFR (Non-Af Amer) BUN/Creatinine Ratio Glucose POC Glucose Calcium Magnesium Procalcitonin 1.17 H Diagnostic Findings SINGLE VIEW CHEST CLINICAL HISTORY: Covid pneumonia. FINDINGS: An AP, portable, upright chest radiograph is compared to study dated 04/05/2021 and correlated with chest CT dated 04/06/2021. The cardiomediastinal silhouette is unremarkable. Multifocal airspace consolidation is modestly worsened as compared to 04/05/2021. No large pleural effusion or pneumothorax is identified. The skeletal structures appear osteopenic. The bony thorax is grossly intact. IMPRESSION: Multifocal airspace consolidation has modestly worsened as compared to 04/05/2021. Medications Administered Current Inpatient Medications Acetaminophen (Acetaminophen 325 Mg Tab) 650 mg PO Q6 MATTIE Stop: 05/05/21 17:59 Last Admin: 04/07/21 06:27 Dose: 650 mg Documented by: Albuterol (Albuterol 0.5% Neb Soln 2.5 Mg/0.5 Ml Vial) 2.5 mg NEB Q4R PRN; Protocol PRN Reason: dyspnea, cough, Stop: 05/05/21 16:06 Albuterol (Albuterol Hfa 8 Gm Inhaler) 2 puffs INH Q6R PRN PRN Reason: Shortness Of Breath Or Wheezing Stop: 05/05/21 17:59 Last Admin: 04/07/21 07:18 Dose: 2 puffs Documented by: Enoxaparin Sodium (Enoxaparin Inj 40 Mg/0.4 Ml Syr) 40 mg SQ Q12H COUNT INCLUDES THE [facility] Stop: 05/05/21 17:59 Last Admin: 04/07/21 06:27 Dose: 40 mg Documented by: Fluticasone/Vilanterol (Fluticasone/Vilanterol 200/25mcg 14 Puffs/Inhaler) 1 puffs INH DAILY COUNT INCLUDES THE [facility] Stop: 05/07/21 08:59 Last Admin: 04/07/21 08:17 Dose: 1 puffs Documented by: Pantoprazole Sodium 40 mg/ (Syringe) 10 mls @ 5 mls/min IV BID MATTIE Stop: 05/06/21 20:59 Last Admin: 04/07/21 10:59 Dose: 5 mls/min Documented by: Dexamethasone 20 mg/ Dextrose 30 mls @ 1 mls/min IV Q24H MATTIE Stop: 05/07/21 08:59 Last Admin: 04/07/21 09:56 Dose: 1 mls/min Documented by: Vancomycin HCl 1,000 mg/ (Sodium Chloride) 270 mls @ 200 mls/hr IV Q12H MATTIE Stop: 04/14/21 15:59 Levofloxacin (Levofloxacin 750 Mg Tab) 750 mg PO DAILY@1100 MATTIE; Protocol Stop: 04/14/21 10:59 Last Admin: 04/07/21 11:00 Dose: 750 mg Documented by: Miscellaneous Information (Vancomycin Consult Active) 1 ea N/A UD PRN PRN Reason: Consult Stop: 05/06/21 10:22 Polyethylene Glycol (Polyethylene (Miralax) 17 Gm Pack) 17 gm PO DAILY PRN PRN Reason: Constipation Stop: 05/05/21 16:06 PG Care Time/CCT Total # of Minutes Spent Total Time Spent: 41 Total Time Spent with Patient: Total time spent is greater than 50% in coordination of care (as documented) at patient's floor/unit and/or counseling patient: Critical Care Time: Yes Total Critical Care Time: 41 from 11:42 to 12:23 on 04/07/21 This case had a high probability of a clinically significant, sudden, or life threatening deterioration of this patient's condition which required my full and direct attention, intervention and personal management. Coding Level of Care Code 29624 Subseq Hosp Care Lvl 3 (25 - SIGNIFICANT, SEPARATELY IDENTIFIABLE ) Diagnoses 2019 novel coronavirus-infected pneumonia (NCIP) U07.1; J12.82 Hypoxia R09.02 COPD (chronic obstructive pulmonary disease) with chronic bronchitis J44.9 CVA (cerebral vascular accident) I63.9 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 DVT prophylaxis Z29.9 Additional Codes Critical Care Time - Critical Care Time: Yes ([id number])
[2021-04-07] MEDS ORDERED: RAPID SEQUENCE INDUCTION BAG ONE (13:37)
[2021-04-07] MEDS ORDERED: fentaNYL citrate 2,500 MCG/250 ML BAG IV ONE (13:57)
[2021-04-07] MEDS ORDERED: PROPOFOL IV EMULSION 10 MG/ML 20 ML VIAL IV ONE (13:57)
[2021-04-07] MEDS ORDERED: PROPOFOL IV EMULSION 10 MG/ML 100 ML VIAL IV ONE (13:58)
[2021-04-07] MEDS: fentaNYL citrate 2,500 MCG/250 ML BAG IV SCH (14:00)
[2021-04-07] MEDS: propofoL 1,000 MG/100 ML VIAL IV SCH ×2 (14:00→17:44)
--- NOTE | 2021-04-07 14:37 | Procedure Note ---
Procedure Note Date of Service April 07, 2021 Note Procedure Date: Noted above Procedure: Endotracheal intubation Pre-procedure Diagnosis: Acute hypoxic respiratory failure Post-procedure Diagnosis: same as above Prior to Procedure: Informed Consent: emergent Attending Staff: Dori Roberts DO The identity of the patient was confirmed and a bedside time out was performed. Description of Procedure: Patient was evaluated and required intubation for impending respiratory failure. The patient was prepared in the usual fashion. A 3 MAC laryngoscope was used. A 8 mm inner diameter endotrachial tube was placed endotracheally to 27 cm at the teeth. A grade 1 view was obtained. The endotracheal tube was noted to pass through the vocal cords. Chest rise was bilateral. Bilateral breath sounds were heard without air sounds in the abdomen. Mist was noted in the endotracheal tube. End-tidal CO2 measurement was positive. Chest x-ray shows proper endotracheal tube placement. Complications: None Findings: Not applicable Specimens: Not applicable Estimated blood loss: Zero Coding CPT Codes Resuscitation - Resuscitation: 55395 Endotracheal Intubation, emergency ([id number]) [facility] [place] Procedure Codes (Charges) Resuscitation Resuscitation: 18298 Endotracheal Intubation, emergency
--- NOTE | 2021-04-07 14:38 | Procedure Note ---
Procedure Note Date of Service April 07, 2021 Note Procedure date: Noted above Procedure: Central venous access Pre-procedure indication: Need for vasoactive medication administration Post-procedure Diagnosis: same as above Prior to Procedure: Informed Consent: Emergent consent implied Attending Staff: Dori Roberts DO Resident/APC: Not applicable Skin Prep: Chlorhexidine Anesthesia: 4 mL 1% lidocaine without epinephrine The identity of the patient was confirmed and a bedside time out was performed. Description of Procedure: After sterile prep and sterile drape utilizing standard sterile technique the superficial skin of the left subclavian area was anesthetized. The target vessel was identified and entered with an 18-gauge needle. Dark venous blood return was noted. A guidewire was inserted through the needle and into the vessel. The needle was withdrawn and a skin lauren was made. A tissue dilator was advanced via Seldinger technique and removed. A triple lumen catheter was inserted via Seldinger technique and the guidewire removed. All ports leon and flushed easily. A Biopatch was placed, and the catheter was secured via silk suture. A sterile dressing was then applied. Complications: None Estimated blood loss: Trace Patient tolerated the procedure well. Coding CPT Codes Tubes, Drains, and Vasc Access - Tubes, Drains, and Vasc Access: [id number] Insertion Of Non-tunneled Catheter Age 3 Yrs> ([id number]) [facility] [place] Procedure Codes (Charges) Tubes, Drains, and Vasc Access Procedure 1: Tubes, Drains, and Vasc Access: [id number] Insertion Of Non-tunneled Catheter Age 3 Yrs>
--- NOTE | 2021-04-07 14:40 | Procedure Note ---
Procedure Note Date of Service April 07, 2021 Note Procedure date: Noted above Procedure: Radial artery cannulation Pre-procedure Diagnosis: Need for invasive monitoring, hypotension/frequent blood draws Post-procedure Diagnosis: same as above Prior to Procedure: Informed Consent: Emergent consent implied Attending Staff: Dori Roberts DO Skin Prep: Chlorhexidine Anesthesia: 3 mL 1% lidocaine without epinephrine The identity of the patient was confirmed and a bedside time out was performed. Description of Procedure: After sterile prep and sterile drape utilizing standard sterile technique the superficial skin of the left radial artery was anesthetized. The target artery was identified via dynamic ultrasound guidance and entered with a 20-gauge arrow Angiocath. Pulsatile bright red blood return was noted. Via modified Seldinger technique the self-contained guidewire was advanced and the Angiocath advanced over the guidewire. The guidewire was removed and brisk arterial blood return was noted. The pressure monitor was connected, and the arterial line was secured via silk suture. A sterile dressing was then applied. Complications: None Estimated blood loss: Trace Patient tolerated the procedure well. Coding
--- NOTE | 2021-04-07 14:48 | Critical Care Consultation ---
Date of Consultation April 07, 2021 Assessment & Plan (1) 2019 novel coronavirus-infected pneumonia (NCIP): Reason Critically Ill: 60-year-old male with acute hypoxic respiratory failure secondary to COVID-19 pneumonia PLAN: Neuro: Sedation and analgesia -Propofol and fentanyl infusions 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 - Continue with ASA, Plavix, statin Migraine with aura Not on abortive medications as outpatient - review shows 2-4 headaches per month- Tylenol and Naproxen at home - Continue Tylenol Resp: Acute hypoxic respiratory failure -Mechanical ventilation -High PEEP low FiO2 table -FiO2 requirements rapidly decreasing no indication for proning at this time - This would be ~ day 11-12 of COVID- likely now entering secondary phase of illness - Legionella pending, aspergillus pending, fungitell pending - CTA no evidence of PE -Send bio fire continue Levaquin and vancomycin for nasal MRSA - He completed 10 days of Decadron 6mg, now with worsening CRP and oxygenation requirements- Decadron dosed to 20mg today for 5 days Fluids/Renal: Hyponatremia -Mild no additional fluid ID: Levaquin vancomycin -Day 2 Bio fire ordered Cultures pending MRSA swab positive -Expectorated sputum is staphylococcal species GI/Nutrition: Start tube feeds Heme: DVT prophylaxis: Lovenox 40 mg twice daily Endocrine: ICU hyperglycemia protocol Vascular access: Left subclavian placed 04/07/2021, left radial art line placed 04/07/2021 Code Status: Full Disposition: ICU (2) Hypoxia: (3) COPD (chronic obstructive pulmonary disease) with chronic bronchitis: (4) CVA (cerebral vascular accident): (5) Spasticity as late effect of cerebrovascular accident (CVA): Continue with Tizanidine (6) Migraine without aura: (7) DVT prophylaxis: Supervising Physician Co-Signing Physician Notes I have personally spent 65 minutes of critical care time in the direct management of this patient. This is a life/limb threatening event. This includes time spent evaluating patient, direct bedside care, chart review, placing orders, interpretation of diagnostic studies, discussion with consultants, patient, and/or family members regarding treatment decisions, as well as other required patient management activities. This time is exclusive of all separately billable procedures, and teaching time and separate from and in addition to any other critical care service time. History of Present Illness Reason for Consultation: Acute hypoxic respiratory failure secondary to COVID-19 pneumonia Requesting Physician: Lencho Garcia Attending Physician: Michael Garcia DO History of Present Illness History is obtained from prior records secondary to acuity of disease process. Patient is a 60-year-old male with a significant past medical history for prostate cancer, CVA with residual right-sided weakness and contracture to the right hand, migraines with aura, COVID-19 diagnosed 03/26/2021, COPD. Patient was initially admitted on 1216 underwent Decadron therapy 6 mg daily and finished on 04/04. He was also treated with remdesivir and discharged home on oxygen. Patient worsened had a fever of 103.8 turn to the emergency department for increasing work of breathing. Patient was found to be hypotensive which responded with fluid bolus, and was admitted to the hospital on noninvasive mechanical ventilation. During the day today the patient became progressively more hypoxic and diff iculty breathing. I was contacted patient was saturating in the 90s however largely unable to speak and was on 100% FiO2. During my evaluation the patient was too weak to speak in other than 1-2 word sentences and was very difficult to understand, he appeared to have decreased mental status secondary to work of breathing exhaustion. The decision was made to proceed with intubation and mechanical ventilation. Allergies Allergy/AdvReac Type Severity Reaction Status Date / Time No Known Allergies Allergy Verified 03/26/21 00:19 Home Medications Medication Instructions Recorded Confirmed Type acetaminophen 500 mg tablet 1,000 mg PO BID 07/12/18 04/05/21 History aspirin 325 mg tablet 325 mg PO QAM 07/12/18 04/05/21 History atorvastatin 80 mg tablet 80 mg PO HS 07/12/18 04/05/21 History clopidogrel 75 mg tablet (Plavix) 75 mg PO DAILY 07/12/18 04/05/21 History polyethylene glycol 3350 17 17 g PO 2XWK PRN 07/12/18 04/05/21 History gram/dose oral powder (Miralax) ondansetron 4 mg disintegrating 4 mg PO Q8H PRN #14 tab 04/01/20 04/05/21 Rx tablet ubrogepant 50 mg tablet (Ubrelvy) 50 mg PO ONCE PRN #10 tab 04/01/20 04/05/21 Rx sildenafil (pulm.hypertension) 20 20 mg PO DAILY PRN #60 tab 07/10/20 04/05/21 Rx mg tablet albuterol sulfate 90 mcg/actuation 2 puff INHALATION QID PRN #18 g 02/11/21 04/05/21 Rx aerosol inhaler (Ventolin HFA) budesonide-formoterol HFA 160 2 inh INHALATION Q12H #30.6 g 02/15/21 04/05/21 Rx mcg-4.5 mcg/actuation aerosol inhaler (Symbicort) tizanidine 2 mg capsule 2 mg PO TID PRN #270 cap 03/02/21 04/05/21 Rx benzonatate 100 mg capsule 100 mg PO TID PRN #30 cap 03/30/21 04/05/21 Rx clotrimazole 10 mg [place] 10 mg BUCCAL 5XDQ4H #35 tab 03/30/21 04/05/21 Rx dexamethasone 6 mg tablet 6 mg PO DAILY #5 tab 03/30/21 04/05/21 Rx (Decadron) baclofen 20 mg tablet 20 mg PO BID 04/05/21 04/05/21 History guaifenesin 600 mg tablet, 600 mg PO BID 04/05/21 04/05/21 History extended release 12 hr (Mucinex) lactobacillus combination no.4 3 0 mmu cells PO DAILY 04/05/21 04/05/21 History billion cell capsule (Probiotic) magnesium oxide 400 mg PO QAM 04/05/21 04/05/21 History Patient History Medical History Chronic left arterial ischemic stroke, ICA (internal carotid artery) History of orthopnea History of prostate cancer History of stroke Surgical History H/O colonoscopy History of angioplasty History of cardiac catheterization History of prostatectomy Family History Other Cancer Diabetes Heart disease Social History Smoking Status: Never smoker Second Hand Exposure: No; Hx Alcohol Use: No Hx Substance Use: No Preferred Language: Czech Communication Ability: Unable Poiser Required: No Beliefs That Will Affect Care: None marital status: Current Living Situation: Spouse How many Children do You have: 2 Feels Safe at Home: Yes Assistive Devices: Oxygen - Continuous Review of Systems Review of Systems: Unable to obtain due to acuity of disease process Physical Exam Physical Exam: General: Alert. Tired appearing. Skin: Warm, diaphoretic, pale Head: Atraumatic Ears, nose, mouth and throat: airway patent, BiPAP mask in place Cardiovascular: Normal peripheral perfusion Respiratory: respiratory distress with tachypnea and belly breathing Gastrointestinal: Non distended Musculoskeletal: No deformity Results & Data Results & Data ([facility]) Vital Signs (Past 12 Hours) Vital Signs Temp Pulse Pulse Resp BP Pulse Ox 04/07/21 14:36 20 97 04/07/21 12:40 37.4 C 98 H 37 H 137/101 H 96 04/07/21 11:41 108 H 52 H 97 04/07/21 11:36 37.2 C 121 H 28 H 143/91 H 04/07/21 11:08 37.2 C 04/07/21 07:24 37.2 C 101 H 22 136/68 91 04/07/21 07:19 126 H 20 88 L 04/07/21 06:19 120 H 04/07/21 02:56 39.2 C H 137 H 22 165/60 H 90 Laboratory Results 04/07/21 04/07/21 04/07/21 Range/Units 06:04 06:04 06:04 WBC 15.52 H (4.8-10.8) K/uL RBC 4.57 L (4.7-6.1) M/uL Hgb 14.2 (14.0-18.0) g/dL Hct 42.2 (42-52) % MCV 92.3 (80-100) fL MCH 31.1 (25-34) pg MCHC 33.6 (32-36) g/dL RDW Std Deviation 48.6 H (36.4-46.3) fL RDW Coeff of Roge 14.3 (11.5-14.5) % Plt Count 266 (130-400) K/uL MPV 10.4 (7.4-10.4) fL Immature Gran % (Auto) 0.8 % Neut % (Auto) 92.0 % Lymph % (Auto) 4.4 % [place] % (Auto) 2.7 % Eos % (Auto) 0.0 % Baso % (Auto) 0.1 % Neut # (Auto) 14.27 H (1.4-6.5) K/uL Lymph # (Auto) 0.68 L (1.2-3.4) K/uL [place] # (Auto) 0.42 (0.11-0.59) K/uL Eos # (Auto) 0.00 (0-0.5) K/uL Baso # (Auto) 0.02 (0-0.2) K/uL Immature Gran # (Auto) 0.13 H (0.00-0.02) K/uL Sodium 135 L (136-145) mmol/L Potassium 3.8 (3.5-5.1) mmol/L Chloride 105 (98-107) mmol/L Carbon Dioxide 22 (21-32) mmol/L Anion Gap 8.0 (3-11) BUN 24 H (7-18) mg/dl Creatinine 0.89 (0.6-1.4) mg/dl Est Cr Clr Drug Dosing 83.3 ml/min Est GFR ( Amer) 106.2 ml/min Est GFR (Non-Af Amer) 91.6 ml/min BUN/Creatinine Ratio 26.6 H (10-20) Glucose 115 H (70-99) mg/dl POC Glucose (70-99) mg/dl Calcium 9.5 (8.5-10.1) mg/dl Magnesium 2.2 (1.8-2.4) mg/dl Procalcitonin 1.17 H (0-0.5) ng/ml 04/06/21 Range/Units 20:00 WBC (4.8-10.8) K/uL RBC (4.7-6.1) M/uL Hgb (14.0-18.0) g/dL Hct (42-52) % MCV (80-100) fL MCH (25-34) pg MCHC (32-36) g/dL RDW Std Deviation (36.4-46.3) fL RDW Coeff of Roge (11.5-14.5) % Plt Count (130-400) K/uL MPV (7.4-10.4) fL Immature Gran % (Auto) % Neut % (Auto) % Lymph % (Auto) % [place] % (Auto) % Eos % (Auto) % Baso % (Auto) % Neut # (Auto) (1.4-6.5) K/uL Lymph # (Auto) (1.2-3.4) K/uL [place] # (Auto) (0.11-0.59) K/uL Eos # (Auto) (0-0.5) K/uL Baso # (Auto) (0-0.2) K/uL Immature Gran # (Auto) (0.00-0.02) K/uL Sodium (136-145) mmol/L Potassium (3.5-5.1) mmol/L Chloride (98-107) mmol/L Carbon Dioxide (21-32) mmol/L Anion Gap (3-11) BUN (7-18) mg/dl Creatinine (0.6-1.4) mg/dl Est Cr Clr Drug Dosing ml/min Est GFR ( Amer) ml/min Est GFR (Non-Af Amer) ml/min BUN/Creatinine Ratio (10-20) Glucose (70-99) mg/dl POC Glucose 126 H (70-99) mg/dl Calcium (8.5-10.1) mg/dl Magnesium (1.8-2.4) mg/dl Procalcitonin (0-0.5) ng/ml Coding Level of Care Code Critical Care 1st 30-74 mins Diagnoses 2019 novel coronavirus-infected pneumonia (NCIP) U07.1; J12.82 Hypoxia R09.02 COPD (chronic obstructive pulmonary disease) with chronic bronchitis J44.9 CVA (cerebral vascular accident) I63.9 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 DVT prophylaxis Z29.9
--- NOTE | 2021-04-07 14:59 | XRay Report ---
XR chest 1V portable CLINICAL HISTORY: ETT, OG, central line COMPARISON STUDY: Chest CT April 06, 2021. Chest radiograph performed earlier today. FINDINGS: Tip of endotracheal tube is 3.1 cm above the kt. Tip of nasogastric tube is within the body of the stomach. Left subclavian central line is in place. There is no pneumothorax. No pleural e ffusion is identified. Bilateral airspace opacities are again noted. Lung aeration has improved. Card iac size is normal. IMPRESSION: 1. Satisfactory positioning of lines and tubes. 2. No pneumothorax. 3. Bilateral airspace opacities consistent with viral pneumonia. Interval improvement in lung aeratio n. ACT 112: Negative or not required by law. Electronically signed by: Zaki Pal M.D. 04/07/2021 2:58 PM
[2021-04-07] MEDS: VANCOMYCIN HCL 1,000 MG in SODIUM CHLORIDE 0.9% 250 ML IV SCH (15:04)
[2021-04-07] MEDS ORDERED: SUCCINYLCHOLINE CHLORIDE 20 MG/ML 10 ML VIAL IV ONE (15:07)
[2021-04-07] MEDS ORDERED: ROCURONIUM BROMIDE 10 MG/ML 5 ML VIAL IV ONE (15:07)
[2021-04-07] MEDS ORDERED: ETOMIDATE 2 MG/ML 20 ML VIAL IV ONE (15:07)
[2021-04-07] MEDS ORDERED: fentaNYL citrate 100 MCG/2 ML VIAL IV ONE (15:07)
[2021-04-07] MEDS ORDERED: STAT IV Infusion **Titration per Protocol STA ×2 (15:16→20:39)
[2021-04-07] MEDS ORDERED: PROPOFOL BOLUS FROM BAG IV PRN (15:16)
[2021-04-07] MEDS: PEPTAMEN INTENSE VHP 1.0 CAL 1,000 ML BAG GT SCH (18:20)
[2021-04-07] MEDS: NOREPINEPHRINE/D5W 8 MG/508 ML BAG IV SCH (21:01)
[2021-04-08] MEDS: ACETAMINOPHEN 325 MG TAB PO SCH ×2 (00:54→06:10)
[2021-04-08] MEDS: propofoL 1,000 MG/100 ML VIAL IV SCH ×2 (03:25→12:42)
[2021-04-08 03:56] LABS: iSTAT Art Bld Gas pCO2 Correct 41 mmHg (35-46); iSTAT Art Bld Gas pH Corrected 7.396 (7.35-7.45); iSTAT Arterial Blood Gas HCO3 25 meg/L (19-24); iSTAT Arterial Blood Gas pCO2 41 mmHg (35-46); iSTAT Arterial Blood Gas pO2 67 mmHg (80-95); iSTAT Arterial Blood Gas pO2 C 67; iSTAT Carbon Dioxide 26 mmol/L (24-31); iSTAT FiO2 50 %; iSTAT Hematocrit 45 % (42-52); iSTAT Hemoglobin 15.3 g/dl (14.0-18.0); iSTAT Potassium 3.9 mmol/L (3.3-5.0); iSTAT Site Art Line; iSTAT Sodium 138 mmol/L (135-144)
[2021-04-08] MEDS: VANCOMYCIN HCL 1,000 MG in SODIUM CHLORIDE 0.9% 250 ML IV SCH (04:51)
[2021-04-08] MEDS: ENOXAPARIN INJ 40 MG/0.4 ML SYR SQ SCH ×2 (05:02→17:49)
[2021-04-08 07:17] LABS: Basophils # (auto) 0.02 K/uL (0-0.2); Basophils % (auto) 0.1 %; Hematocrit (blood only) 42.6 % (42-52); Hemoglobin 14.1 g/dL (14.0-18.0); Immature Granulocytes # (auto) 0.14 K/uL (0.00-0.02); Immature Granulocytes % (auto) 0.8 %; Mean Corpuscular Hemoglobin 31.3 pg (25-34); Mean Corpuscular Hgb Conc 33.1 g/dL (32-36); Mean Corpuscular Volume 94.7 fL (80-100); Mean Platelet Volume 10.9 fL (7.4-10.4); Monocytes % (auto) 3.8 %; Neutrophils # (auto) 16.46 K/uL (1.4-6.5); Neutrophils % (auto) 89.3 %; Platelet Count 338 K/uL (130-400); RDW Coefficient of Variation 14.9 % (11.5-14.5); RDW Standard Deviation 51.4 fL (36.4-46.3); White Blood Count 18.42 K/uL (4.8-10.8)
[2021-04-08 07:55] LABS: BUN Creatinine Ratio 32.5 (10-20); Calcium 9.6 mg/dl (8.5-10.1); Creatinine Clr Calc Pharmacy 48.4 ml/min; Est GFR (African American) 55.7 ml/min; Magnesium 2.6 mg/dl (1.8-2.4); Phosphorus 4.3 mg/dl (2.5-4.9); Potassium 3.7 mmol/L (3.5-5.1)
--- NOTE | 2021-04-08 08:09 | XRay Report ---
XR chest 1V portable CLINICAL HISTORY: Follow-up bilateral airspace opacities. COMPARISON STUDY: 04/07/2021 TECHNIQUE: 1 view of the chest FINDINGS: Single frontal view of the chest demonstrates the cardiomediastinal silhouette to be within normal li mits. Tubes and catheters appear unchanged. Compared to previous examination, there is worsening of i nterstitial and alveolar opacities at the lung bases. There is no evidence for pleural effusion. Ther e is no evidence for vascular congestion. There is no acute osseous pathology. IMPRESSION: Interval worsening of interstitial and alveolar opacities at the lung bases. ACT 112: Negative or not required by law. Electronically signed by: Keron Govea M.D. 04/08/2021 8:08 AM
--- NOTE | 2021-04-08 08:39 | Critical Care Progress Note ---
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 - Continue with ASA, Plavix, statin Migraine with aura Not on abortive medications as outpatient - review shows 2-4 headaches per month- Tylenol and Naproxen at home - Continue Tylenol Cardiovascular: Hypotension -Discontinue propofol transition to Versed -12.5 g 25% albumin bolus Resp: Acute hypoxic respiratory failure -Mechanical ventilation -High PEEP low FiO2 table -FiO2 requirements rapidly decreasing no indication for proning at this time - This would be ~ day 11-12 of COVID- likely now entering secondary phase of illness - Legionella pending, aspergillus pending, fungitell pending - CTA no evidence of PE -Send bio fire continue Levaquin and vancomycin for nasal MRSA - He completed 10 days of Decadron 6mg, now with worsening CRP and oxygenation requirements- Decadron dosed to 20mg today for 5 days MRSA pneumonia -Transition from vancomycin to linezolid for pulmonary MRSA as well as THELMA -Day 3 effective therapy Fluids/Renal: Hyponatremia: Resolved Acute kidney injury -Discontinuing vancomycin -500 mL fluid bolus -Repeat BMP at 1400 ID: Levaquin Linezolid -Day 3 Bio fire ordered: Pending MRSA pneumonia GI/Nutrition: Tube feedings Heme: DVT prophylaxis: Lovenox 40 mg twice daily Endocrine: ICU hyperglycemia protocol DexaARDSnet Vascular access: Left subclavian placed 04/07/2021, left radial art line placed 04/07/2021 Code Status: Full Disposition: ICU Patient , Chun [phone] updated on diagnosis and prognosis. (2) Hypoxia: (3) COPD (chronic obstructive pulmonary disease) with chronic bronchitis: (4) CVA (cerebral vascular accident): (5) Spasticity as late effect of cerebrovascular accident (CVA): Plan: Continue with Tizanidine (6) Migraine without aura: (7) DVT prophylaxis: Admission and Anticipated Discharge Date Admission Date: April 05, 2021 Supervising Physician Co-Signing Physician Notes I have personally spent 45 minutes of critical care time in the direct management of this patient. This is a life/limb threatening event. This includes time spent evaluating patient, direct bedside care, chart review, placing orders, interpretation of diagnostic studies, discussion with consultants, patient, and/or family members regarding treatment decisions, as well as other required patient management activities. This time is exclusive of all separately billable procedures, and teaching time and separate from and in addition to any other critical care service time. Subjective No overnight events Review of Systems Review of Systems: Unable to obtain secondary to endotracheal tube Physical Exam Physical Exam: General: Alert. Following commands, denies pain. Skin: Warm, dry Head: Atraumatic Ears, nose, mouth and throat: airway secured by endotracheal tube Cardiovascular: Normal peripheral perfusion Respiratory: Ventilator settings reviewed Gastrointestinal: Non distended Musculoskeletal: No deformity Results & Data Results & Data ([facility]) Vital Signs (Past 12 Hours) Vital Signs Temp Pulse Resp BP Pulse Ox 04/08/21 08:30 74 18 93 04/08/21 08:22 102 H 19 145/79 H 92 04/08/21 08:15 79 20 92 04/08/21 08:06 77 24 92 04/08/21 08:00 60 20 93 04/08/21 07:45 78 20 92 04/08/21 07:30 76 18 91 04/08/21 07:22 77 18 147/86 H 93 04/08/21 07:15 80 22 92 04/08/21 07:00 82 20 92 04/08/21 06:45 69 20 92 04/08/21 06:30 87 21 91 04/08/21 06:00 36.5 C 74 19 145/87 H 92 04/08/21 05:30 73 20 149/77 H 93 04/08/21 05:00 70 21 92 04/08/21 04:30 77 22 91 04/08/21 04:00 36.5 C 77 21 140/71 91 04/08/21 03:30 72 20 160/88 H 92 04/08/21 03:18 81 30 H 92 04/08/21 03:00 65 20 94 04/08/21 02:30 68 20 105/59 L 95 04/08/21 02:00 73 20 106/59 L 95 04/08/21 01:30 76 20 93 04/08/21 01:22 71 20 115/63 94 04/08/21 01:00 76 20 94 04/08/21 00:30 78 20 92 04/08/21 00:22 85 21 125/95 92 04/08/21 00:00 36.8 C 72 18 117/71 95 04/07/21 23:58 88 31 H 90 04/07/21 23:30 73 19 95 04/07/21 23:22 73 19 121/68 93 04/07/21 23:00 78 24 91 04/07/21 22:30 71 20 94 04/07/21 22:22 71 19 108/62 94 04/07/21 22:00 71 19 94 04/07/21 21:30 71 19 94 04/07/21 21:22 72 20 108/63 94 04/07/21 21:00 71 20 95 Laboratory Results 04/08/21 04/08/21 04/08/21 Range/Units 13:00 12:13 10:30 WBC (4.8-10.8) K/uL RBC (4.7-6.1) M/uL Hgb (14.0-18.0) g/dL POC Hgb (14.0-18.0) g/dl Hct (42-52) % POC Hct (42-52) % MCV (80-100) fL MCH (25-34) pg MCHC (32-36) g/dL RDW Std Deviation (36.4-46.3) fL RDW Coeff of Roge (11.5-14.5) % Plt Count (130-400) K/uL MPV (7.4-10.4) fL Immature Gran % (Auto) % Neut % (Auto) % Lymph % (Auto) % [place] % (Auto) % Eos % (Auto) % Baso % (Auto) % Neut # (Auto) (1.4-6.5) K/uL Lymph # (Auto) (1.2-3.4) K/uL [place] # (Auto) (0.11-0.59) K/uL Eos # (Auto) (0-0.5) K/uL Baso # (Auto) (0-0.2) K/uL Immature Gran # (Auto) (0.00-0.02) K/uL Sample Site POC pH (7.35-7.45) POC pCO2 (35-46) mmHg POC pO2 (80-95) mmHg POC HCO3 (19-24) new/L POC Total CO2 (24-31) mmol/L POC Base Excess (-9-1.8) new/L ABG pH (Temp Correct) (7.35-7.45) ABG pCO2 (Temp Corrct (35-46) mmHg POC ABG pO2 at Pt Temp POC ABG O2 Sat (90-95) % Marty Test O2 Delivery Device POC O2 Rate POC FiO2 % Tidal Volume PEEP POC Sodium (135-144) mmol/L Sodium (136-145) mmol/L POC Potassium (3.3-5.0) mmol/L Potassium (3.5-5.1) mmol/L Chloride (98-107) mmol/L Carbon Dioxide (21-32) mmol/L Anion Gap (3-11) BUN (7-18) mg/dl Creatinine (0.6-1.4) mg/dl Est Cr Clr Drug Dosing ml/min Est GFR ( Amer) ml/min Est GFR (Non-Af Amer) ml/min BUN/Creatinine Ratio (10-20) Glucose (70-99) mg/dl POC Glucose (70-99) mg/dl POC Glucose (other) 274 H (70-99) mg/dl Calcium (8.5-10.1) mg/dl Phosphorus (2.5-4.9) mg/dl Magnesium (1.8-2.4) mg/dl Procalcitonin (0-0.5) ng/ml Adenovirus (PCR) Not Detected (NotDetected) B. pertussis DNA (PCR) Not Detected (NotDetected) B.parapertussis DNA PCR Not Detected (NotDetected) C. pneumoniae DNA (PCR) Not Detected (NotDetected) Coronavirus OC43 (PCR) Not Detected (NotDetected) Coronavirus HKU1 (PCR) Not Detected (NotDetected) Coronavirus 229E (PCR) Not Detected (NotDetected) SARS-CoV-2 (PCR) DETECTED A* (NotDetected) Coronavirus NL63 (PCR) Not Detected (NotDetected) Human Metapneumovir PCR Not Detected (NotDetected) Influenza Type A (PCR) Not Detected (NotDetected) Influenza Type B (PCR) Not Detected (NotDetected) Urine Legionella Ag Pending M. pneumoniae (PCR) Not Detected (NotDetected) Parainfluenza 1 (PCR) Not Detected (NotDetected) Parainfluenza 2 (PCR) Not Detected (NotDetected) Parainfluenza 3 (PCR) Not Detected (NotDetected) Parainfluenza 4 (PCR) Not Detected (NotDetected) RSV (PCR) Not Detected (NotDetected) Entero/Rhino (PCR) Not Detected (NotDetected) 04/08/21 04/08/21 04/08/21 Range/Units 06:14 06:14 06:14 WBC 18.42 H (4.8-10.8) K/uL RBC 4.50 L (4.7-6.1) M/uL Hgb 14.1 (14.0-18.0) g/dL POC Hgb (14.0-18.0) g/dl Hct 42.6 (42-52) % POC Hct (42-52) % MCV 94.7 (80-100) fL MCH 31.3 (25-34) pg MCHC 33.1 (32-36) g/dL RDW Std Deviation 51.4 H (36.4-46.3) fL RDW Coeff of Roge 14.9 H (11.5-14.5) % Plt Count 338 (130-400) K/uL MPV 10.9 H (7.4-10.4) fL Immature Gran % (Auto) 0.8 % Neut % (Auto) 89.3 % Lymph % (Auto) 6.0 % [place] % (Auto) 3.8 % Eos % (Auto) 0.0 % Baso % (Auto) 0.1 % Neut # (Auto) 16.46 H (1.4-6.5) K/uL Lymph # (Auto) 1.10 L (1.2-3.4) K/uL [place] # (Auto) 0.70 H (0.11-0.59) K/uL Eos # (Auto) 0.00 (0-0.5) K/uL Baso # (Auto) 0.02 (0-0.2) K/uL Immature Gran # (Auto) 0.14 H (0.00-0.02) K/uL Sample Site POC pH (7.35-7.45) POC pCO2 (35-46) mmHg POC pO2 (80-95) mmHg POC HCO3 (19-24) new/L POC Total CO2 (24-31) mmol/L POC Base Excess (-9-1.8) new/L ABG pH (Temp Correct) (7.35-7.45) ABG pCO2 (Temp Corrct (35-46) mmHg POC ABG pO2 at Pt Temp POC ABG O2 Sat (90-95) % Marty Test O2 Delivery Device POC O2 Rate POC FiO2 % Tidal Volume PEEP POC Sodium (135-144) mmol/L Sodium 136 (136-145) mmol/L POC Potassium (3.3-5.0) mmol/L Potassium 3.7 (3.5-5.1) mmol/L Chloride 103 (98-107) mmol/L Carbon Dioxide 21 (21-32) mmol/L Anion Gap 12.0 H (3-11) BUN 50 H D (7-18) mg/dl Creatinine 1.53 H D (0.6-1.4) mg/dl Est Cr Clr Drug Dosing 48.4 ml/min Est GFR ( Amer) 55.7 ml/min Est GFR (Non-Af Amer) 48.0 ml/min BUN/Creatinine Ratio 32.5 H (10-20) Glucose 229 H (70-99) mg/dl POC Glucose (70-99) mg/dl POC Glucose (other) (70-99) mg/dl Calcium 9.6 (8.5-10.1) mg/dl Phosphorus 4.3 (2.5-4.9) mg/dl Magnesium 2.6 H (1.8-2.4) mg/dl Procalcitonin 1.94 H (0-0.5) ng/ml Adenovirus (PCR) (NotDetected) B. pertussis DNA (PCR) (NotDetected) B.parapertussis DNA PCR (NotDetected) C. pneumoniae DNA (PCR) (NotDetected) Coronavirus OC43 (PCR) (NotDetected) Coronavirus HKU1 (PCR) (NotDetected) Coronavirus 229E (PCR) (NotDetected) SARS-CoV-2 (PCR) (NotDetected) Coronavirus NL63 (PCR) (NotDetected) Human Metapneumovir PCR (NotDetected) Influenza Type A (PCR) (NotDetected) Influenza Type B (PCR) (NotDetected) Urine Legionella Ag M. pneumoniae (PCR) (NotDetected) Parainfluenza 1 (PCR) (NotDetected) Parainfluenza 2 (PCR) (NotDetected) Parainfluenza 3 (PCR) (NotDetected) Parainfluenza 4 (PCR) (NotDetected) RSV (PCR) (NotDetected) Entero/Rhino (PCR) (NotDetected) 04/08/21 04/07/21 Range/Units 03:22 18:21 WBC (4.8-10.8) K/uL RBC (4.7-6.1) M/uL Hgb (14.0-18.0) g/dL POC Hgb 15.3 (14.0-18.0) g/dl Hct (42-52) % POC Hct 45 (42-52) % MCV (80-100) fL MCH (25-34) pg MCHC (32-36) g/dL RDW Std Deviation (36.4-46.3) fL RDW Coeff of Roge (11.5-14.5) % Plt Count (130-400) K/uL MPV (7.4-10.4) fL Immature Gran % (Auto) % Neut % (Auto) % Lymph % (Auto) % [place] % (Auto) % Eos % (Auto) % Baso % (Auto) % Neut # (Auto) (1.4-6.5) K/uL Lymph # (Auto) (1.2-3.4) K/uL [place] # (Auto) (0.11-0.59) K/uL Eos # (Auto) (0-0.5) K/uL Baso # (Auto) (0-0.2) K/uL Immature Gran # (Auto) (0.00-0.02) K/uL Sample Site Art Line POC pH 7.40 (7.35-7.45) POC pCO2 41 (35-46) mmHg POC pO2 67 L (80-95) mmHg POC HCO3 25 H (19-24) new/L POC Total CO2 26 (24-31) mmol/L POC Base Excess 0.0 (-9-1.8) new/L ABG pH (Temp Correct) 7.396 (7.35-7.45) ABG pCO2 (Temp Corrct 41 (35-46) mmHg POC ABG pO2 at Pt Temp 67 POC ABG O2 Sat 93.0 (90-95) % Marty Test NA O2 Delivery Device Ventilator POC O2 Rate 20 POC FiO2 50 % Tidal Volume 350 PEEP 10 POC Sodium 138 (135-144) mmol/L Sodium (136-145) mmol/L POC Potassium 3.9 (3.3-5.0) mmol/L Potassium (3.5-5.1) mmol/L Chloride (98-107) mmol/L Carbon Dioxide (21-32) mmol/L Anion Gap (3-11) BUN (7-18) mg/dl Creatinine (0.6-1.4) mg/dl Est Cr Clr Drug Dosing ml/min Est GFR ( Amer) ml/min Est GFR (Non-Af Amer) ml/min BUN/Creatinine Ratio (10-20) Glucose (70-99) mg/dl POC Glucose 177 H (70-99) mg/dl POC Glucose (other) (70-99) mg/dl Calcium (8.5-10.1) mg/dl Phosphorus (2.5-4.9) mg/dl Magnesium (1.8-2.4) mg/dl Procalcitonin (0-0.5) ng/ml Adenovirus (PCR) (NotDetected) B. pertussis DNA (PCR) (NotDetected) B.parapertussis DNA PCR (NotDetected) C. pneumoniae DNA (PCR) (NotDetected) Coronavirus OC43 (PCR) (NotDetected) Coronavirus HKU1 (PCR) (NotDetected) Coronavirus 229E (PCR) (NotDetected) SARS-CoV-2 (PCR) (NotDetected) Coronavirus NL63 (PCR) (NotDetected) Human Metapneumovir PCR (NotDetected) Influenza Type A (PCR) (NotDetected) Influenza Type B (PCR) (NotDetected) Urine Legionella Ag M. pneumoniae (PCR) (NotDetected) Parainfluenza 1 (PCR) (NotDetected) Parainfluenza 2 (PCR) (NotDetected) Parainfluenza 3 (PCR) (NotDetected) Parainfluenza 4 (PCR) (NotDetected) RSV (PCR) (NotDetected) Entero/Rhino (PCR) (NotDetected) Coding Level of Care Code Critical Care 1st 30-74 mins Diagnoses 2019 novel coronavirus-infected pneumonia (NCIP) U07.1; J12.82 Hypoxia R09.02 COPD (chronic obstructive pulmonary disease) with chronic bronchitis J44.9 CVA (cerebral vascular accident) I63.9 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 DVT prophylaxis Z29.9
[2021-04-08] MEDS: dexAMETHasone 20 MG in DEXTROSE 5% 25 ML IV SCH (09:21)
[2021-04-08] MEDS: PANTOprazole 40 MG in SYRINGE 0 ML IV SCH ×2 (09:23→21:02)
[2021-04-08] MEDS: fentaNYL citrate 2,500 MCG/250 ML BAG IV SCH (09:23)
--- NOTE | 2021-04-08 09:34 | Hospitalist Progress Note ---
Date of Service April 08, 2021 Assessment & Plan (1) 2019 novel coronavirus-infected pneumonia (NCIP): Plan: Bacterial infection with continuing COVID 19 infection- not vaccinated was discharged on 03/30, was on room air, sent home on dexamethasone 6mg PO daily had a few good days but got worse quickly on Wednesday 04/04 and real bad on 04/05, brought to hospital concern for secondary bacterial infection but also worsening COVID CRP was 23 on admission, procalcitonin elevated sputum culture growing staph and MRSA + in nares dexamethasone 20mg IV daily, day 3 of 5, gave higher dose due to worsening condition and CRP of 23 Vancomycin IV and Levaquin IV, day 4 Lovenox BID for DVT prophylaxis, PE was ruled out on CTA of chest on admission intubated on 04/07/21 due to worsening respiratory failure on PEEP 10 FiO2 50%, breathing over vent, no plans to prone today (2) Hypoxia: Plan: acute hypoxic respiratory failure As above - COVID 19 complicated by likely bacterial pneumonia went from 15L oxy mask to needing CPAP 10 FiO2 100% on 04/07, moved to ICU and intubated due to distress ICU managing today on Propofol and Fentanyl for sedation 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 - Continue with ASA, Plavix, statin via OG tube (5) Spasticity as late effect of cerebrovascular accident (CVA): Plan: Continue with Tizanidine (6) Migraine without aura: Plan: chronic issue, now sedated (7) DVT prophylaxis: Plan: DVT: Lovenox 40mg BID sub q Admission and Anticipated Discharge Date Admission Date: April 05, 2021 Subjective patient intubated in afternoon on 04/07/21 he is currently on PEEP 10 and FiO2 50%, over breathing ventilator settings he is on Propofol and Fentanyl, low dose of Levophed reviewed labs, procalcitonin going up, WBC is 18k with 89% PMN Cr up to 1.5 and BUN 50 Review of Systems Review of Systems: Unobtainable due to cognitive status and Unobtainable due to endotracheal tube Physical Exam Physical Exam: General: well developed, thin male, ill appearing, mechanically ventilated Neck: supple, trachea midline, normal thyroid Lungs: coarse bilaterally, intubated, ventilated Heart: normal S1 and S2, no murmur, peripheral pulses normal, capillary refill normal, no edema Abdomen: soft, NT, ND, + BS, no hepatomegaly, normal to percussion Extremities: no cyanosis, no petechiae, right hand contracture, generalized weakness Neuro: sedated, CN II-XII intact Skin: warm, dry, no rash, normal turgor Psych: sedated Results & Data Results & Data ([facility]) Vital Signs (Past 12 Hours) Vital Signs Temp Pulse Resp BP Pulse Ox 04/08/21 08:30 74 18 93 04/08/21 08:22 102 H 19 145/79 H 92 04/08/21 08:15 79 20 92 04/08/21 08:06 77 24 92 04/08/21 08:00 60 20 93 04/08/21 07:45 78 20 92 04/08/21 07:30 76 18 91 04/08/21 07:22 77 18 147/86 H 93 04/08/21 07:15 80 22 92 04/08/21 07:00 82 20 92 04/08/21 06:45 69 20 92 04/08/21 06:30 87 21 91 04/08/21 06:00 36.5 C 74 19 145/87 H 92 04/08/21 05:30 73 20 149/77 H 93 04/08/21 05:00 70 21 92 04/08/21 04:30 77 22 91 04/08/21 04:00 36.5 C 77 21 140/71 91 04/08/21 03:30 72 20 160/88 H 92 04/08/21 03:18 81 30 H 92 04/08/21 03:00 65 20 94 04/08/21 02:30 68 20 105/59 L 95 04/08/21 02:00 73 20 106/59 L 95 04/08/21 01:30 76 20 93 04/08/21 01:22 71 20 115/63 94 04/08/21 01:00 76 20 94 04/08/21 00:30 78 20 92 04/08/21 00:22 85 21 125/95 92 04/08/21 00:00 36.8 C 72 18 117/71 95 04/07/21 23:58 88 31 H 90 04/07/21 23:30 73 19 95 04/07/21 23:22 73 19 121/68 93 04/07/21 23:00 78 24 91 04/07/21 22:30 71 20 94 04/07/21 22:22 71 19 108/62 94 04/07/21 22:00 71 19 94 Laboratory Results Laboratory Results - last 24 hr 04/07/21 04/08/21 04/08/21 18:21 03:22 06:14 WBC 18.42 H RBC 4.50 L Hgb 14.1 POC Hgb 15.3 Hct 42.6 POC Hct 45 MCV 94.7 MCH 31.3 MCHC 33.1 RDW Std Deviation 51.4 H RDW Coeff of Roge 14.9 H Plt Count 338 MPV 10.9 H Immature Gran % (Auto) 0.8 Neut % (Auto) 89.3 Lymph % (Auto) 6.0 [place] % (Auto) 3.8 Eos % (Auto) 0.0 Baso % (Auto) 0.1 Neut # (Auto) 16.46 H Lymph # (Auto) 1.10 L [place] # (Auto) 0.70 H Eos # (Auto) 0.00 Baso # (Auto) 0.02 Immature Gran # (Auto) 0.14 H Sample Site Art Line POC pH 7.40 POC pCO2 41 POC pO2 67 L POC HCO3 25 H POC Total CO2 26 POC Base Excess 0.0 ABG pH (Temp Correct) 7.396 ABG pCO2 (Temp Corrct 41 POC ABG pO2 at Pt Temp 67 POC ABG O2 Sat 93.0 Marty Test NA O2 Delivery Device Ventilator POC O2 Rate 20 POC FiO2 50 Tidal Volume 350 PEEP 10 POC Sodium 138 Sodium POC Potassium 3.9 Potassium Chloride Carbon Dioxide Anion Gap BUN Creatinine Est Cr Clr Drug Dosing Est GFR ( Amer) Est GFR (Non-Af Amer) BUN/Creatinine Ratio Glucose POC Glucose 177 H Calcium Phosphorus Magnesium Procalcitonin 04/08/21 04/08/21 06:14 06:14 WBC RBC Hgb POC Hgb Hct POC Hct MCV MCH MCHC RDW Std Deviation RDW Coeff of Roge Plt Count MPV Immature Gran % (Auto) Neut % (Auto) Lymph % (Auto) [place] % (Auto) Eos % (Auto) Baso % (Auto) Neut # (Auto) Lymph # (Auto) [place] # (Auto) Eos # (Auto) Baso # (Auto) Immature Gran # (Auto) Sample Site POC pH POC pCO2 POC pO2 POC HCO3 POC Total CO2 POC Base Excess ABG pH (Temp Correct) ABG pCO2 (Temp Corrct POC ABG pO2 at Pt Temp POC ABG O2 Sat Marty Test O2 Delivery Device POC O2 Rate POC FiO2 Tidal Volume PEEP POC Sodium Sodium 136 POC Potassium Potassium 3.7 Chloride 103 Carbon Dioxide 21 Anion Gap 12.0 H BUN 50 H D Creatinine 1.53 H D Est Cr Clr Drug Dosing 48.4 Est GFR ( Amer) 55.7 Est GFR (Non-Af Amer) 48.0 BUN/Creatinine Ratio 32.5 H Glucose 229 H POC Glucose Calcium 9.6 Phosphorus 4.3 Magnesium 2.6 H Procalcitonin 1.94 H Medications Administered Current Inpatient Medications Acetaminophen (Acetaminophen 325 Mg Tab) 650 mg PO Q6 [facility] Stop: 05/05/21 17:59 Last Admin: 04/08/21 06:10 Dose: 650 mg Documented by: Enoxaparin Sodium (Enoxaparin Inj 40 Mg/0.4 Ml Syr) 40 mg SQ Q12H [facility] Stop: 05/05/21 17:59 Last Admin: 04/08/21 05:02 Dose: 40 mg Documented by: Fentanyl Citrate (Fentanyl Bolus From Bag) 50 mcg IV Q60M PRN PRN Reason: Pain or Agitation Stop: 04/21/21 15:15 Pantoprazole Sodium 40 mg/ (Syringe) 10 mls @ 5 mls/min IV BID [facility] Stop: 05/06/21 20:59 Last Admin: 04/08/21 09:23 Dose: 5 mls/min Documented by: Dexamethasone 20 mg/ Dextrose 30 mls @ 1 mls/min IV Q24H [facility] Stop: 05/07/21 08:59 Last Admin: 04/08/21 09:21 Dose: 60 mls/min Documented by: Vancomycin HCl 1,000 mg/ (Sodium Chloride) 270 mls @ 200 mls/hr IV Q12H [facility] Stop: 04/14/21 15:59 Last Infusion: 04/08/21 06:23 Dose: Infused Documented by: Levofloxacin/Dextrose (Levaquin/D5w) 750 mg in 150 mls @ 100 mls/hr IV Q24H [facility]; Protocol Stop: 04/15/21 10:59 Propofol (Diprivan) 1,000 mg in 100 mls @ 9.492 mls/hr IV .[id number] MATTIE; Protocol Stop: 04/10/21 15:29 Last Admin: 04/08/21 03:25 Dose: 20 mcg/kg/min, 9.5 mls/hr Documented by: Fentanyl Citrate (Fentanyl Citrate) 2,500 mcg in 250 mls @ 17.5 mls/hr IV .[id number] MATTIE; Protocol Stop: 04/21/21 15:29 Last Titration: 04/08/21 03:28 Dose: 175 mcg/hr, 17.5 mls/hr Documented by: Norepinephrine Bitartrate (Levophed/D5w) 8 mg in 508 mls @ 36.165 mls/hr IV .[id number] MATTIE; Protocol Stop: 05/07/21 20:44 Last Titration: 04/08/21 03:30 Dose: 0.12 mcg/kg/min, 36.2 mls/hr Documented by: Miscellaneous Information (Vancomycin Consult Active) 1 ea N/A UD PRN PRN Reason: Consult Stop: 05/06/21 10:22 Nutritional Formula (Peptamen Intense Vhp 1.0 [place]ison 1,000 Ml Bag) 1,000 ml GT CONT MATTIE; Protocol Stop: 05/07/21 15:44 Last Admin: 04/07/21 18:20 Dose: 1,000 ml Documented by: Propofol (Propofol Bolus From Bag) 20 mg IV Q5M PRN PRN Reason: Sedation Stop: 04/10/21 15:15 PG Care Time/CCT Total # of Minutes Spent Total Time Spent with Patient: Total time spent is greater than 50% in coordination of care (as documented) at patient's floor/unit and/or counseling patient: Coding Level of Care Code 72749 Subseq Hosp Care Lvl 2 Diagnoses 2019 novel coronavirus-infected pneumonia (NCIP) U07.1; J12.82 Hypoxia R09.02 COPD (chronic obstructive pulmonary disease) with chronic bronchitis J44.9 CVA (cerebral vascular accident) I63.9 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 DVT prophylaxis Z29.9
[2021-04-08] MEDS ORDERED: STAT IV Infusion **Titration per Protocol STA ×2 (10:16→14:59)
[2021-04-08] MEDS ORDERED: ALBUMIN 25% 12.5 GM/50 ML VIAL IV ONE (10:30)
[2021-04-08] MEDS ORDERED: levoFLOXacin/D5W 750 MG/150 ML BAG IV SCH (11:00)
[2021-04-08] MEDS ORDERED: ACETAMINOPHEN 325 MG TAB PO PRN (11:30)
[2021-04-08] MEDS: ASPIRIN 81 MG CHEW PO SCH (12:15)
[2021-04-08] MEDS: LINEZOLID 600 MG/300 ML BAG IV SCH (12:15)
[2021-04-08] MEDS: CLOPIDOGREL BISULFATE 75 MG TAB PO SCH (12:15)
[2021-04-08] MEDS: DEXMEDETOMIDINE HCL 200 MCG in SODIUM CHLORIDE 0.9% 48 ML IV SCH ×5 (12:37→23:57)
[2021-04-08 14:10] LABS: Adenovirus PCR Not Detected (NotDetected); Bordetella parapertussis PCR Not Detected (NotDetected); Bordetella pertussis PCR Not Detected (NotDetected); Chlamydia pneumoniae PCR Not Detected (NotDetected); Coronavirus 229E PCR Not Detected (NotDetected); Coronavirus HKU1 PCR Not Detected (NotDetected); Coronavirus NL63 PCR Not Detected (NotDetected); Coronavirus OC43PCR Not Detected (NotDetected); Human Metapneumovirus PCR Not Detected (NotDetected); Influenza A PCR Not Detected (NotDetected); Influenza B PCR Not Detected (NotDetected); Mycoplasma pneumoniae PCR Not Detected (NotDetected); Parainfluenza Virus 1 PCR Not Detected (NotDetected); Parainfluenza Virus 2 PCR Not Detected (NotDetected); Parainfluenza Virus 3 PCR Not Detected (NotDetected); Parainfluenza Virus 4 PCR Not Detected (NotDetected); Respiratory Syncytial VirusPCR Not Detected (NotDetected); Rhinovirus/Enterovirus PCR Not Detected (NotDetected)
[2021-04-08 14:13] LABS: Coronavirus CoV-2 (COVID19)PCR DETECTED (NotDetected)
[2021-04-08] MEDS ORDERED: INSULIN PROTOCOL GOAL RANGE ONE (14:59)
[2021-04-08] MEDS ORDERED: SEVERE STRESS LEVEL ONE (14:59)
[2021-04-08] MEDS ORDERED: NovoLIN-R BOLUS FROM BAG IV ONE (15:15)
[2021-04-08] MEDS ORDERED: VANCOMYCIN TROUGH ONE (15:30)
[2021-04-08] MEDS: NOREPINEPHRINE/D5W 8 MG/508 ML BAG IV SCH (16:10)
[2021-04-08] MEDS: INSULIN REGULAR 250 UNITS in SODIUM CHLORIDE 0.9% 247.5 ML IV SCH (16:29)
[2021-04-08] MEDS ORDERED: INSULIN ASPART PER UNIT SC SCH (16:30)
[2021-04-08] MEDS: PEPTAMEN INTENSE VHP 1.0 CAL 1,000 ML BAG GT SCH (16:41)
[2021-04-08] MEDS: INSULIN ASPART PER UNIT SC SCH (21:00)
[2021-04-08] MEDS: ATORVASTATIN 40 MG TAB PO SCH (21:01)
[2021-04-09] MEDS: LINEZOLID 600 MG/300 ML BAG IV SCH ×2 (00:12→11:16)
[2021-04-09] MEDS: INSULIN ASPART PER UNIT SC SCH ×6 (00:12→20:17)
[2021-04-09] MEDS: fentaNYL citrate 2,500 MCG/250 ML BAG IV SCH (00:13)
[2021-04-09 05:29] LABS: iSTAT Art Bld Gas pCO2 Correct 41 mmHg (35-46); iSTAT Art Bld Gas pH Corrected 7.401 (7.35-7.45); iSTAT Arterial Blood Gas HCO3 26 meg/L (19-24); iSTAT Arterial Blood Gas pCO2 42 mmHg (35-46); iSTAT Arterial Blood Gas pH 7.39 (7.35-7.45); iSTAT Arterial Blood Gas pO2 66 mmHg (80-95); iSTAT Arterial Blood Gas pO2 C 64; iSTAT Carbon Dioxide 27 mmol/L (24-31); iSTAT FiO2 50 %; iSTAT Hematocrit 35 % (42-52); iSTAT Hemoglobin 11.9 g/dl (14.0-18.0); iSTAT Potassium 4.1 mmol/L (3.3-5.0); iSTAT Site Art Line; iSTAT Sodium 134 mmol/L (135-144)
[2021-04-09] MEDS: ENOXAPARIN INJ 40 MG/0.4 ML SYR SQ SCH ×2 (06:11→17:14)
[2021-04-09 06:36] LABS: Basophils # (auto) 0.01 K/uL (0-0.2); Basophils % (auto) 0.1 %; Hematocrit (blood only) 36.3 % (42-52); Hemoglobin 12.2 g/dL (14.0-18.0); Immature Granulocytes # (auto) 0.07 K/uL (0.00-0.02); Immature Granulocytes % (auto) 0.5 %; Lymphocytes # (auto) 1.09 K/uL (1.2-3.4); Lymphocytes % (auto) 8.1 %; Mean Corpuscular Hgb Conc 33.6 g/dL (32-36); Mean Corpuscular Volume 92.1 fL (80-100); Monocytes # (auto) 0.55 K/uL (0.11-0.59); Monocytes % (auto) 4.1 %; Neutrophils # (auto) 11.73 K/uL (1.4-6.5); Neutrophils % (auto) 87.2 %; Platelet Count 251 K/uL (130-400); RDW Coefficient of Variation 14.4 % (11.5-14.5); RDW Standard Deviation 49.2 fL (36.4-46.3); Red Blood Count 3.94 M/uL (4.7-6.1); White Blood Count 13.45 K/uL (4.8-10.8)
[2021-04-09] MEDS: DEXMEDETOMIDINE HCL 200 MCG in SODIUM CHLORIDE 0.9% 48 ML IV SCH ×3 (06:56→21:16)
[2021-04-09 07:12] LABS: BUN Creatinine Ratio 45.2 (10-20); Calcium 9.1 mg/dl (8.5-10.1); Creatinine Clr Calc Pharmacy 51.8 ml/min; Est GFR (African American) 60.4 ml/min; Est GFR (Non-African American) 52.1 ml/min; Magnesium 3.1 mg/dl (1.8-2.4)
[2021-04-09 07:26] LABS: Phosphorus 2.7 mg/dl (2.5-4.9)
--- NOTE | 2021-04-09 07:46 | XRay Report ---
XR chest 1V portable CLINICAL HISTORY: Follow up Covid 19 pneumonia. COMPARISON STUDY: 04/08/2021 TECHNIQUE: 1 view of the chest FINDINGS: Single frontal view of the chest demonstrates the cardiomediastinal silhouette to be within normal li mits. Compared to previous examination, patchy alveolar opacities are again seen bilaterally, left gr eater than right. No new alveolar opacities are seen. There is blunting left costophrenic angle with evidence for left pleural effusion as well. There is no evidence for vascular congestion. There is no acute osseous pathology. IMPRESSION: No significant interval change in bilateral alveolar opacities, left greater than right. There is also evidence for small left pleural effusion. ACT 112: Negative or not required by law. Electronically signed by: Keron Govea M.D. 04/09/2021 7:45 AM
[2021-04-09] MEDS: ASPIRIN 81 MG CHEW PO SCH (08:19)
[2021-04-09] MEDS: dexAMETHasone 20 MG in DEXTROSE 5% 25 ML IV SCH (08:19)
[2021-04-09] MEDS: CLOPIDOGREL BISULFATE 75 MG TAB PO SCH (09:01)
--- NOTE | 2021-04-09 10:09 | Critical Care Progress Note ---
Date of Service April 09, 2021 Assessment & Plan (1) 2019 novel coronavirus-infected pneumonia (NCIP): Plan: Reason Critically Ill: 60-year-old male with acute hypoxic respiratory failure secondary to COVID-19 pneumonia PLAN: Neuro: Sedation and analgesia -Propofol: Discontinued secondary to hypotension - Precedex Analgesia:fentanyl infusions -Decrease rate secondary to additional baclofen administration Baclofen use presumptively for spasticity -Resume today 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 - Continue with ASA, Plavix, statin Migraine with aura Not on abortive medications as outpatient - review shows 2-4 headaches per month- Tylenol and Naproxen at home - Continue Tylenol Cardiovascular: Hypotension -Discontinue propofol transition to Versed -12.5 g 25% albumin bolus Resp: Acute hypoxic respiratory failure -Mechanical ventilation PEEP of 8 pressure support 6; 50% FiO2 -Continue with pressure support ventilation and anticipate trial of extubation in next 24 hours - This would be ~ day 11-12 of COVID- likely now entering secondary phase of illness - Legionella pending, aspergillus pending, fungitell pending - CTA no evidence of PE -Send bio fire continue Levaquin and vancomycin for nasal MRSA - He completed 10 days of Decadron 6mg, now with worsening CRP and oxygenation requirements- Decadron dosed to 20mg today for 5 days MRSA pneumonia -Transition from vancomycin to linezolid for pulmonary MRSA as well as THELMA -Day 4 effective therapy Fluids/Renal: Hyponatremia: Mild Acute kidney injury: Mild improvement -Discontinuing vancomycin ID: Levaquin Linezolid -Day 4 Bio fire ordered: Reviewed MRSA pneumonia GI/Nutrition: Tube feedings @ goal Heme: DVT prophylaxis: Lovenox 40 mg twice daily Endocrine: ICU hyperglycemia protocol DexaARDSnet Vascular access: Left subclavian placed 04/07/2021, left radial art line placed 04/07/2021 Code Status: Full Disposition: ICU Patient , Chun [phone] (2) Hypoxia: (3) COPD (chronic obstructive pulmonary disease) with chronic bronchitis: (4) CVA (cerebral vascular accident): (5) Spasticity as late effect of cerebrovascular accident (CVA): Plan: Continue with Tizanidine (6) Migraine without aura: (7) DVT prophylaxis: Admission and Anticipated Discharge Date Admission Date: April 05, 2021 Supervising Physician Co-Signing Physician Notes I have personally spent 45 minutes of critical care time in the direct ma nagement of this patient. This is a life/limb threatening event. This includes time spent evaluating patient, direct bedside care, chart review, placing orders, interpretation of diagnostic studies, discussion with consultants, patient, and/or family members regarding treatment decisions, as well as other required patient management activities. This time is exclusive of all separately billable procedures, and teaching time and separate from and in addition to any other critical care service time. Subjective No overnight events Review of Systems Review of Systems: Unable to obtain secondary to endotracheal tube Physical Exam Physical Exam: General: Alert. Following commands, denies pain. Skin: Warm, dry Head: Atraumatic Ears, nose, mouth and throat: airway secured by endotracheal tube Cardiovascular: Normal peripheral perfusion Respiratory: Ventilator settings reviewed Gastrointestinal: Non distended Musculoskeletal: No deformity Results & Data Results & Data ([facility]) Vital Signs (Past 12 Hours) Vital Signs Temp Pulse Resp BP Pulse Ox 04/09/21 08:30 71 21 91 04/09/21 08:23 76 31 H 154/84 H 93 04/09/21 08:00 37 C 69 21 91 04/09/21 07:30 103 H 20 89 L 04/09/21 07:22 90 31 H 167/77 H 88 L 04/09/21 07:17 85 22 88 L 04/09/21 07:00 70 18 86 L 04/09/21 04:25 105 H 29 H 92 04/09/21 04:00 85 04/09/21 02:30 20 87 L 04/09/21 02:22 19 155/65 H 85 L 04/09/21 02:00 94 H 27 H 91 04/09/21 01:52 68 30 H 192/81 H 89 L 04/09/21 01:30 55 L 89 L 04/09/21 01:22 88 29 H 208/92 H 90 04/09/21 01:00 52 L 18 89 L 04/09/21 00:30 51 L 18 90 04/09/21 00:22 51 L 18 149/76 H 90 04/09/21 00:00 73 24 92 04/08/21 23:30 49 L 20 92 04/08/21 23:22 69 20 131/68 93 04/08/21 23:13 49 L 20 92 12/30/21 23:00 52 L 19 92 04/08/21 22:30 53 L 20 91 Laboratory Results 04/09/21 04/09/21 04/09/21 Range/Units 10:03 10:03 09:04 WBC (4.8-10.8) K/uL RBC (4.7-6.1) M/uL Hgb (14.0-18.0) g/dL POC Hgb (14.0-18.0) g/dl Hct (42-52) % POC Hct (42-52) % MCV (80-100) fL MCH (25-34) pg MCHC (32-36) g/dL RDW Std Deviation (36.4-46.3) fL RDW Coeff of Roge (11.5-14.5) % Plt Count (130-400) K/uL MPV (7.4-10.4) fL Immature Gran % (Auto) % Neut % (Auto) % Lymph % (Auto) % [place] % (Auto) % Eos % (Auto) % Baso % (Auto) % Neut # (Auto) (1.4-6.5) K/uL Lymph # (Auto) (1.2-3.4) K/uL [place] # (Auto) (0.11-0.59) K/uL Eos # (Auto) (0-0.5) K/uL Baso # (Auto) (0-0.2) K/uL Immature Gran # (Auto) (0.00-0.02) K/uL Sample Site POC pH (7.35-7.45) POC pCO2 (35-46) mmHg POC pO2 (80-95) mmHg POC HCO3 (19-24) new/L POC Total CO2 (24-31) mmol/L POC Base Excess (-9-1.8) new/L ABG pH (Temp Correct) (7.35-7.45) ABG pCO2 (Temp Corrct (35-46) mmHg POC ABG pO2 at Pt Temp POC ABG O2 Sat (90-95) % Marty Test O2 Delivery Device POC O2 Rate POC FiO2 % Tidal Volume PEEP POC Sodium (135-144) mmol/L Sodium (136-145) mmol/L POC Potassium (3.3-5.0) mmol/L Potassium (3.5-5.1) mmol/L Chloride (98-107) mmol/L Carbon Dioxide (21-32) mmol/L Anion Gap (3-11) BUN (7-18) mg/dl Creatinine (0.6-1.4) mg/dl Est Cr Clr Drug Dosing ml/min Est GFR ( Amer) ml/min Est GFR (Non-Af Amer) ml/min BUN/Creatinine Ratio (10-20) Glucose (70-99) mg/dl POC Glucose 193 H 193 H 191 H (70-99) mg/dl POC Glucose (other) (70-99) mg/dl Calcium (8.5-10.1) mg/dl Phosphorus (2.5-4.9) mg/dl Magnesium (1.8-2.4) mg/dl Adenovirus (PCR) (NotDetected) B. pertussis DNA (PCR) (NotDetected) B.parapertussis DNA PCR (NotDetected) C. pneumoniae DNA (PCR) (NotDetected) Coronavirus OC43 (PCR) (NotDetected) Coronavirus HKU1 (PCR) (NotDetected) Coronavirus 229E (PCR) (NotDetected) SARS-CoV-2 (PCR) (NotDetected) Coronavirus NL63 (PCR) (NotDetected) Human Metapneumovir PCR (NotDetected) Influenza Type A (PCR) (NotDetected) Influenza Type B (PCR) (NotDetected) Urine Legionella Ag M. pneumoniae (PCR) (NotDetected) Parainfluenza 1 (PCR) (NotDetected) Parainfluenza 2 (PCR) (NotDetected) Parainfluenza 3 (PCR) (NotDetected) Parainfluenza 4 (PCR) (NotDetected) RSV (PCR) (NotDetected) Entero/Rhino (PCR) (NotDetected) 04/09/21 04/09/21 04/09/21 Range/Units 07:59 07:00 06:29 WBC (4.8-10.8) K/uL RBC (4.7-6.1) M/uL Hgb (14.0-18.0) g/dL POC Hgb (14.0-18.0) g/dl Hct (42-52) % POC Hct (42-52) % MCV (80-100) fL MCH (25-34) pg MCHC (32-36) g/dL RDW Std Deviation (36.4-46.3) fL RDW Coeff of Roge (11.5-14.5) % Plt Count (130-400) K/uL MPV (7.4-10.4) fL Immature Gran % (Auto) % Neut % (Auto) % Lymph % (Auto) % [place] % (Auto) % Eos % (Auto) % Baso % (Auto) % Neut # (Auto) (1.4-6.5) K/uL Lymph # (Auto) (1.2-3.4) K/uL [place] # (Auto) (0.11-0.59) K/uL Eos # (Auto) (0-0.5) K/uL Baso # (Auto) (0-0.2) K/uL Immature Gran # (Auto) (0.00-0.02) K/uL Sample Site POC pH (7.35-7.45) POC pCO2 (35-46) mmHg POC pO2 (80-95) mmHg POC HCO3 (19-24) new/L POC Total CO2 (24-31) mmol/L POC Base Excess (-9-1.8) new/L ABG pH (Temp Correct) (7.35-7.45) ABG pCO2 (Temp Corrct (35-46) mmHg POC ABG pO2 at Pt Temp POC ABG O2 Sat (90-95) % Marty Test O2 Delivery Device POC O2 Rate POC FiO2 % Tidal Volume PEEP POC Sodium (135-144) mmol/L Sodium (136-145) mmol/L POC Potassium (3.3-5.0) mmol/L Potassium (3.5-5.1) mmol/L Chloride (98-107) mmol/L Carbon Dioxide (21-32) mmol/L Anion Gap (3-11) BUN (7-18) mg/dl Creatinine (0.6-1.4) mg/dl Est Cr Clr Drug Dosing ml/min Est GFR ( Amer) ml/min Est GFR (Non-Af Amer) ml/min BUN/Creatinine Ratio (10-20) Glucose (70-99) mg/dl POC Glucose 184 H 178 H 173 H (70-99) mg/dl POC Glucose (other) (70-99) mg/dl Calcium (8.5-10.1) mg/dl Phosphorus (2.5-4.9) mg/dl Magnesium (1.8-2.4) mg/dl Adenovirus (PCR) (NotDetected) B. pertussis DNA (PCR) (NotDetected) B.parapertussis DNA PCR (NotDetected) C. pneumoniae DNA (PCR) (NotDetected) Coronavirus OC43 (PCR) (NotDetected) Coronavirus HKU1 (PCR) (NotDetected) Coronavirus 229E (PCR) (NotDetected) SARS-CoV-2 (PCR) (NotDetected) Coronavirus NL63 (PCR) (NotDetected) Human Metapneumovir PCR (NotDetected) Influenza Type A (PCR) (NotDetected) Influenza Type B (PCR) (NotDetected) Urine Legionella Ag M. pneumoniae (PCR) (NotDetected) Parainfluenza 1 (PCR) (NotDetected) Parainfluenza 2 (PCR) (NotDetected) Parainfluenza 3 (PCR) (NotDetected) Parainfluenza 4 (PCR) (NotDetected) RSV (PCR) (NotDetected) Entero/Rhino (PCR) (NotDetected) 04/09/21 04/09/21 04/09/21 Range/Units 05:45 05:45 05:19 WBC 13.45 H (4.8-10.8) K/uL RBC 3.94 L (4.7-6.1) M/uL Hgb 12.2 L (14.0-18.0) g/dL POC Hgb (14.0-18.0) g/dl Hct 36.3 L (42-52) % POC Hct (42-52) % MCV 92.1 (80-100) fL MCH 31.0 (25-34) pg MCHC 33.6 (32-36) g/dL RDW Std Deviation 49.2 H (36.4-46.3) fL RDW Coeff of Roge 14.4 (11.5-14.5) % Plt Count 251 (130-400) K/uL MPV 11.0 H (7.4-10.4) fL Immature Gran % (Auto) 0.5 % Neut % (Auto) 87.2 % Lymph % (Auto) 8.1 % [place] % (Auto) 4.1 % Eos % (Auto) 0.0 % Baso % (Auto) 0.1 % Neut # (Auto) 11.73 H (1.4-6.5) K/uL Lymph # (Auto) 1.09 L (1.2-3.4) K/uL [place] # (Auto) 0.55 (0.11-0.59) K/uL Eos # (Auto) 0.00 (0-0.5) K/uL Baso # (Auto) 0.01 (0-0.2) K/uL Immature Gran # (Auto) 0.07 H (0.00-0.02) K/uL Sample Site POC pH (7.35-7.45) POC pCO2 (35-46) mmHg POC pO2 (80-95) mmHg POC HCO3 (19-24) new/L POC Total CO2 (24-31) mmol/L POC Base Excess (-9-1.8) new/L ABG pH (Temp Correct) (7.35-7.45) ABG pCO2 (Temp Corrct (35-46) mmHg POC ABG pO2 at Pt Temp POC ABG O2 Sat (90-95) % Marty Test O2 Delivery Device POC O2 Rate POC FiO2 % Tidal Volume PEEP POC Sodium (135-144) mmol/L Sodium 134 L (136-145) mmol/L POC Potassium (3.3-5.0) mmol/L Potassium 4.0 (3.5-5.1) mmol/L Chloride 102 (98-107) mmol/L Carbon Dioxide 26 (21-32) mmol/L Anion Gap 6.0 (3-11) BUN 65 H (7-18) mg/dl Creatinine 1.43 H (0.6-1.4) mg/dl Est Cr Clr Drug Dosing 51.8 ml/min Est GFR ( Amer) 60.4 ml/min Est GFR (Non-Af Amer) 52.1 ml/min BUN/Creatinine Ratio 45.2 H (10-20) Glucose 234 H (70-99) mg/dl POC Glucose 221 H (70-99) mg/dl POC Glucose (other) (70-99) mg/dl Calcium 9.1 (8.5-10.1) mg/dl Phosphorus 2.7 D (2.5-4.9) mg/dl Magnesium 3.1 H (1.8-2.4) mg/dl Adenovirus (PCR) (NotDetected) B. pertussis DNA (PCR) (NotDetected) B.parapertussis DNA PCR (NotDetected) C. pneumoniae DNA (PCR) (NotDetected) Coronavirus OC43 (PCR) (NotDetected) Coronavirus HKU1 (PCR) (NotDetected) Coronavirus 229E (PCR) (NotDetected) SARS-CoV-2 (PCR) (NotDetected) Coronavirus NL63 (PCR) (NotDetected) Human Metapneumovir PCR (NotDetected) Influenza Type A (PCR) (NotDetected) Influenza Type B (PCR) (NotDetected) Urine Legionella Ag M. pneumoniae (PCR) (NotDetected) Parainfluenza 1 (PCR) (NotDetected) Parainfluenza 2 (PCR) (NotDetected) Parainfluenza 3 (PCR) (NotDetected) Parainfluenza 4 (PCR) (NotDetected) RSV (PCR) (NotDetected) Entero/Rhino (PCR) (NotDetected) 04/09/21 04/09/21 04/09/21 Range/Units 04:29 04:21 03:15 WBC (4.8-10.8) K/uL RBC (4.7-6.1) M/uL Hgb (14.0-18.0) g/dL POC Hgb 11.9 L (14.0-18.0) g/dl Hct (42-52) % POC Hct 35 L (42-52) % MCV (80-100) fL MCH (25-34) pg MCHC (32-36) g/dL RDW Std Deviation (36.4-46.3) fL RDW Coeff of Roge (11.5-14.5) % Plt Count (130-400) K/uL MPV (7.4-10.4) fL Immature Gran % (Auto) % Neut % (Auto) % Lymph % (Auto) % [place] % (Auto) % Eos % (Auto) % Baso % (Auto) % Neut # (Auto) (1.4-6.5) K/uL Lymph # (Auto) (1.2-3.4) K/uL [place] # (Auto) (0.11-0.59) K/uL Eos # (Auto) (0-0.5) K/uL Baso # (Auto) (0-0.2) K/uL Immature Gran # (Auto) (0.00-0.02) K/uL Sample Site Art Line POC pH 7.39 (7.35-7.45) POC pCO2 42 (35-46) mmHg POC pO2 66 L (80-95) mmHg POC HCO3 26 H (19-24) new/L POC Total CO2 27 (24-31) mmol/L POC Base Excess 1.0 (-9-1.8) new/L ABG pH (Temp Correct) 7.401 (7.35-7.45) ABG pCO2 (Temp Corrct 41 (35-46) mmHg POC ABG pO2 at Pt Temp 64 POC ABG O2 Sat 93.0 (90-95) % Marty Test NA O2 Delivery Device Ventilator POC O2 Rate 20 POC FiO2 50 % Tidal Volume 350 PEEP 8 POC Sodium 134 L (135-144) mmol/L Sodium (136-145) mmol/L POC Potassium 4.1 (3.3-5.0) mmol/L Potassium (3.5-5.1) mmol/L Chloride (98-107) mmol/L Carbon Dioxide (21-32) mmol/L Anion Gap (3-11) BUN (7-18) mg/dl Creatinine (0.6-1.4) mg/dl Est Cr Clr Drug Dosing ml/min Est GFR ( Amer) ml/min Est GFR (Non-Af Amer) ml/min BUN/Creatinine Ratio (10-20) Glucose (70-99) mg/dl POC Glucose 223 H 228 H (70-99) mg/dl POC Glucose (other) (70-99) mg/dl Calcium (8.5-10.1) mg/dl Phosphorus (2.5-4.9) mg/dl Magnesium (1.8-2.4) mg/dl Adenovirus (PCR) (NotDetected) B. pertussis DNA (PCR) (NotDetected) B.parapertussis DNA PCR (NotDetected) C. pneumoniae DNA (PCR) (NotDetected) Coronavirus OC43 (PCR) (NotDetected) Coronavirus HKU1 (PCR) (NotDetected) Coronavirus 229E (PCR) (NotDetected) SARS-CoV-2 (PCR) (NotDetected) Coronavirus NL63 (PCR) (NotDetected) Human Metapneumovir PCR (NotDetected) Influenza Type A (PCR) (NotDetected) Influenza Type B (PCR) (NotDetected) Urine Legionella Ag M. pneumoniae (PCR) (NotDetected) Parainfluenza 1 (PCR) (NotDetected) Parainfluenza 2 (PCR) (NotDetected) Parainfluenza 3 (PCR) (NotDetected) Parainfluenza 4 (PCR) (NotDetected) RSV (PCR) (NotDetected) Entero/Rhino (PCR) (NotDetected) 04/09/21 04/09/21 04/09/21 Range/Units 02:06 01:04 00:00 WBC (4.8-10.8) K/uL RBC (4.7-6.1) M/uL Hgb (14.0-18.0) g/dL POC Hgb (14.0-18.0) g/dl Hct (42-52) % POC Hct (42-52) % MCV (80-100) fL MCH (25-34) pg MCHC (32-36) g/dL RDW Std Deviation (36.4-46.3) fL RDW Coeff of Roge (11.5-14.5) % Plt Count (130-400) K/uL MPV (7.4-10.4) fL Immature Gran % (Auto) % Neut % (Auto) % Lymph % (Auto) % [place] % (Auto) % Eos % (Auto) % Baso % (Auto) % Neut # (Auto) (1.4-6.5) K/uL Lymph # (Auto) (1.2-3.4) K/uL [place] # (Auto) (0.11-0.59) K/uL Eos # (Auto) (0-0.5) K/uL Baso # (Auto) (0-0.2) K/uL Immature Gran # (Auto) (0.00-0.02) K/uL Sample Site POC pH (7.35-7.45) POC pCO2 (35-46) mmHg POC pO2 (80-95) mmHg POC HCO3 (19-24) new/L POC Total CO2 (24-31) mmol/L POC Base Excess (-9-1.8) new/L ABG pH (Temp Correct) (7.35-7.45) ABG pCO2 (Temp Corrct (35-46) mmHg POC ABG pO2 at Pt Temp POC ABG O2 Sat (90-95) % Marty Test O2 Delivery Device POC O2 Rate POC FiO2 % Tidal Volume PEEP POC Sodium (135-144) mmol/L Sodium (136-145) mmol/L POC Potassium (3.3-5.0) mmol/L Potassium (3.5-5.1) mmol/L Chloride (98-107) mmol/L Carbon Dioxide (21-32) mmol/L Anion Gap (3-11) BUN (7-18) mg/dl Creatinine (0.6-1.4) mg/dl Est Cr Clr Drug Dosing ml/min Est GFR ( Amer) ml/min Est GFR (Non-Af Amer) ml/min BUN/Creatinine Ratio (10-20) Glucose (70-99) mg/dl POC Glucose 269 H 279 H 233 H (70-99) mg/dl POC Glucose (other) (70-99) mg/dl Calcium (8.5-10.1) mg/dl Phosphorus (2.5-4.9) mg/dl Magnesium (1.8-2.4) mg/dl Adenovirus (PCR) (NotDetected) B. pertussis DNA (PCR) (NotDetected) B.parapertussis DNA PCR (NotDetected) C. pneumoniae DNA (PCR) (NotDetected) Coronavirus OC43 (PCR) (NotDetected) Coronavirus HKU1 (PCR) (NotDetected) Coronavirus 229E (PCR) (NotDetected) SARS-CoV-2 (PCR) (NotDetected) Coronavirus NL63 (PCR) (NotDetected) Human Metapneumovir PCR (NotDetected) Influenza Type A (PCR) (NotDetected) Influenza Type B (PCR) (NotDetected) Urine Legionella Ag M. pneumoniae (PCR) (NotDetected) Parainfluenza 1 (PCR) (NotDetected) Parainfluenza 2 (PCR) (NotDetected) Parainfluenza 3 (PCR) (NotDetected) Parainfluenza 4 (PCR) (NotDetected) RSV (PCR) (NotDetected) Entero/Rhino (PCR) (NotDetected) 04/08/21 04/08/21 04/08/21 Range/Units 22:31 21:50 20:58 WBC (4.8-10.8) K/uL RBC (4.7-6.1) M/uL Hgb (14.0-18.0) g/dL POC Hgb (14.0-18.0) g/dl Hct (42-52) % POC Hct (42-52) % MCV (80-100) fL MCH (25-34) pg MCHC (32-36) g/dL RDW Std Deviation (36.4-46.3) fL RDW Coeff of Roge (11.5-14.5) % Plt Count (130-400) K/uL MPV (7.4-10.4) fL Immature Gran % (Auto) % Neut % (Auto) % Lymph % (Auto) % [place] % (Auto) % Eos % (Auto) % Baso % (Auto) % Neut # (Auto) (1.4-6.5) K/uL Lymph # (Auto) (1.2-3.4) K/uL [place] # (Auto) (0.11-0.59) K/uL Eos # (Auto) (0-0.5) K/uL Baso # (Auto) (0-0.2) K/uL Immature Gran # (Auto) (0.00-0.02) K/uL Sample Site POC pH (7.35-7.45) POC pCO2 (35-46) mmHg POC pO2 (80-95) mmHg POC HCO3 (19-24) new/L POC Total CO2 (24-31) mmol/L POC Base Excess (-9-1.8) new/L ABG pH (Temp Correct) (7.35-7.45) ABG pCO2 (Temp Corrct (35-46) mmHg POC ABG pO2 at Pt Temp POC ABG O2 Sat (90-95) % Marty Test O2 Delivery Device POC O2 Rate POC FiO2 % Tidal Volume PEEP POC Sodium (135-144) mmol/L Sodium (136-145) mmol/L POC Potassium (3.3-5.0) mmol/L Potassium (3.5-5.1) mmol/L Chloride (98-107) mmol/L Carbon Dioxide (21-32) mmol/L Anion Gap (3-11) BUN (7-18) mg/dl Creatinine (0.6-1.4) mg/dl Est Cr Clr Drug Dosing ml/min Est GFR ( Amer) ml/min Est GFR (Non-Af Amer) ml/min BUN/Creatinine Ratio (10-20) Glucose (70-99) mg/dl POC Glucose 233 H 286 H 256 H (70-99) mg/dl POC Glucose (other) (70-99) mg/dl Calcium (8.5-10.1) mg/dl Phosphorus (2.5-4.9) mg/dl Magnesium (1.8-2.4) mg/dl Adenovirus (PCR) (NotDetected) B. pertussis DNA (PCR) (NotDetected) B.parapertussis DNA PCR (NotDetected) C. pneumoniae DNA (PCR) (NotDetected) Coronavirus OC43 (PCR) (NotDetected) Coronavirus HKU1 (PCR) (NotDetected) Coronavirus 229E (PCR) (NotDetected) SARS-CoV-2 (PCR) (NotDetected) Coronavirus NL63 (PCR) (NotDetected) Human Metapneumovir PCR (NotDetected) Influenza Type A (PCR) (NotDetected) Influenza Type B (PCR) (NotDetected) Urine Legionella Ag M. pneumoniae (PCR) (NotDetected) Parainfluenza 1 (PCR) (NotDetected) Parainfluenza 2 (PCR) (NotDetected) Parainfluenza 3 (PCR) (NotDetected) Parainfluenza 4 (PCR) (NotDetected) RSV (PCR) (NotDetected) Entero/Rhino (PCR) (NotDetected) 04/08/21 04/08/21 04/08/21 Range/Units 19:53 18:23 17:39 WBC (4.8-10.8) K/uL RBC (4.7-6.1) M/uL Hgb (14.0-18.0) g/dL POC Hgb (14.0-18.0) g/dl Hct (42-52) % POC Hct (42-52) % MCV (80-100) fL MCH (25-34) pg MCHC (32-36) g/dL RDW Std Deviation (36.4-46.3) fL RDW Coeff of Roge (11.5-14.5) % Plt Count (130-400) K/uL MPV (7.4-10.4) fL Immature Gran % (Auto) % Neut % (Auto) % Lymph % (Auto) % [place] % (Auto) % Eos % (Auto) % Baso % (Auto) % Neut # (Auto) (1.4-6.5) K/uL Lymph # (Auto) (1.2-3.4) K/uL [place] # (Auto) (0.11-0.59) K/uL Eos # (Auto) (0-0.5) K/uL Baso # (Auto) (0-0.2) K/uL Immature Gran # (Auto) (0.00-0.02) K/uL Sample Site POC pH (7.35-7.45) POC pCO2 (35-46) mmHg POC pO2 (80-95) mmHg POC HCO3 (19-24) new/L POC Total CO2 (24-31) mmol/L POC Base Excess (-9-1.8) new/L ABG pH (Temp Correct) (7.35-7.45) ABG pCO2 (Temp Corrct (35-46) mmHg POC ABG pO2 at Pt Temp POC ABG O2 Sat (90-95) % Marty Test O2 Delivery Device POC O2 Rate POC FiO2 % Tidal Volume PEEP POC Sodium (135-144) mmol/L Sodium (136-145) mmol/L POC Potassium (3.3-5.0) mmol/L Potassium (3.5-5.1) mmol/L Chloride (98-107) mmol/L Carbon Dioxide (21-32) mmol/L Anion Gap (3-11) BUN (7-18) mg/dl Creatinine (0.6-1.4) mg/dl Est Cr Clr Drug Dosing ml/min Est GFR ( Amer) ml/min Est GFR (Non-Af Amer) ml/min BUN/Creatinine Ratio (10-20) Glucose (70-99) mg/dl POC Glucose 249 H 235 H 247 H (70-99) mg/dl POC Glucose (other) (70-99) mg/dl Calcium (8.5-10.1) mg/dl Phosphorus (2.5-4.9) mg/dl Magnesium (1.8-2.4) mg/dl Adenovirus (PCR) (NotDetected) B. pertussis DNA (PCR) (NotDetected) B.parapertussis DNA PCR (NotDetected) C. pneumoniae DNA (PCR) (NotDetected) Coronavirus OC43 (PCR) (NotDetected) Coronavirus HKU1 (PCR) (NotDetected) Coronavirus 229E (PCR) (NotDetected) SARS-CoV-2 (PCR) (NotDetected) Coronavirus NL63 (PCR) (NotDetected) Human Metapneumovir PCR (NotDetected) Influenza Type A (PCR) (NotDetected) Influenza Type B (PCR) (NotDetected) Urine Legionella Ag M. pneumoniae (PCR) (NotDetected) Parainfluenza 1 (PCR) (NotDetected) Parainfluenza 2 (PCR) (NotDetected) Parainfluenza 3 (PCR) (NotDetected) Parainfluenza 4 (PCR) (NotDetected) RSV (PCR) (NotDetected) Entero/Rhino (PCR) (NotDetected) 04/08/21 04/08/21 04/08/21 Range/Units 16:29 13:00 12:13 WBC (4.8-10.8) K/uL RBC (4.7-6.1) M/uL Hgb (14.0-18.0) g/dL POC Hgb (14.0-18.0) g/dl Hct (42-52) % POC Hct (42-52) % MCV (80-100) fL MCH (25-34) pg MCHC (32-36) g/dL RDW Std Deviation (36.4-46.3) fL RDW Coeff of Roge (11.5-14.5) % Plt Count (130-400) K/uL MPV (7.4-10.4) fL Immature Gran % (Auto) % Neut % (Auto) % Lymph % (Auto) % [place] % (Auto) % Eos % (Auto) % Baso % (Auto) % Neut # (Auto) (1.4-6.5) K/uL Lymph # (Auto) (1.2-3.4) K/uL [place] # (Auto) (0.11-0.59) K/uL Eos # (Auto) (0-0.5) K/uL Baso # (Auto) (0-0.2) K/uL Immature Gran # (Auto) (0.00-0.02) K/uL Sample Site POC pH (7.35-7.45) POC pCO2 (35-46) mmHg POC pO2 (80-95) mmHg POC HCO3 (19-24) new/L POC Total CO2 (24-31) mmol/L POC Base Excess (-9-1.8) new/L ABG pH (Temp Correct) (7.35-7.45) ABG pCO2 (Temp Corrct (35-46) mmHg POC ABG pO2 at Pt Temp POC ABG O2 Sat (90-95) % Marty Test O2 Delivery Device POC O2 Rate POC FiO2 % Tidal Volume PEEP POC Sodium (135-144) mmol/L Sodium (136-145) mmol/L POC Potassium (3.3-5.0) mmol/L Potassium (3.5-5.1) mmol/L Chloride (98-107) mmol/L Carbon Dioxide (21-32) mmol/L Anion Gap (3-11) BUN (7-18) mg/dl Creatinine (0.6-1.4) mg/dl Est Cr Clr Drug Dosing ml/min Est GFR ( Amer) ml/min Est GFR (Non-Af Amer) ml/min BUN/Creatinine Ratio (10-20) Glucose (70-99) mg/dl POC Glucose 250 H (70-99) mg/dl POC Glucose (other) 274 H (70-99) mg/dl Calcium (8.5-10.1) mg/dl Phosphorus (2.5-4.9) mg/dl Magnesium (1.8-2.4) mg/dl Adenovirus (PCR) Not Detected (NotDetected) B. pertussis DNA (PCR) Not Detected (NotDetected) B.parapertussis DNA PCR Not Detected (NotDetected) C. pneumoniae DNA (PCR) Not Detected (NotDetected) Coronavirus OC43 (PCR) Not Detected (NotDetected) Coronavirus HKU1 (PCR) Not Detected (NotDetected) Coronavirus 229E (PCR) Not Detected (NotDetected) SARS-CoV-2 (PCR) DETECTED A* (NotDetected) Coronavirus NL63 (PCR) Not Detected (NotDetected) Human Metapneumovir PCR Not Detected (NotDetected) Influenza Type A (PCR) Not Detected (NotDetected) Influenza Type B (PCR) Not Detected (NotDetected) Urine Legionella Ag M. pneumoniae (PCR) Not Detected (NotDetected) Parainfluenza 1 (PCR) Not Detected (NotDetected) Parainfluenza 2 (PCR) Not Detected (NotDetected) Parainfluenza 3 (PCR) Not Detected (NotDetected) Parainfluenza 4 (PCR) Not Detected (NotDetected) RSV (PCR) Not Detected (NotDetected) Entero/Rhino (PCR) Not Detected (NotDetected) 04/08/ Range/Units 10:30 WBC (4.8-10.8) K/uL RBC (4.7-6.1) M/uL Hgb (14.0-18.0) g/dL POC Hgb (14.0-18.0) g/dl Hct (42-52) % POC Hct (42-52) % MCV (80-100) fL MCH (25-34) pg MCHC (32-36) g/dL RDW Std Deviation (36.4-46.3) fL RDW Coeff of Roge (11.5-14.5) % Plt Count (130-400) K/uL MPV (7.4-10.4) fL Immature Gran % (Auto) % Neut % (Auto) % Lymph % (Auto) % [place] % (Auto) % Eos % (Auto) % Baso % (Auto) % Neut # (Auto) (1.4-6.5) K/uL Lymph # (Auto) (1.2-3.4) K/uL [place] # (Auto) (0.11-0.59) K/uL Eos # (Auto) (0-0.5) K/uL Baso # (Auto) (0-0.2) K/uL Immature Gran # (Auto) (0.00-0.02) K/uL Sample Site POC pH (7.35-7.45) POC pCO2 (35-46) mmHg POC pO2 (80-95) mmHg POC HCO3 (19-24) new/L POC Total CO2 (24-31) mmol/L POC Base Excess (-9-1.8) new/L ABG pH (Temp Correct) (7.35-7.45) ABG pCO2 (Temp Corrct (35-46) mmHg POC ABG pO2 at Pt Temp POC ABG O2 Sat (90-95) % Marty Test O2 Delivery Device POC O2 Rate POC FiO2 % Tidal Volume PEEP POC Sodium (135-144) mmol/L Sodium (136-145) mmol/L POC Potassium (3.3-5.0) mmol/L Potassium (3.5-5.1) mmol/L Chloride (98-107) mmol/L Carbon Dioxide (21-32) mmol/L Anion Gap (3-11) BUN (7-18) mg/dl Creatinine (0.6-1.4) mg/dl Est Cr Clr Drug Dosing ml/min Est GFR ( Amer) ml/min Est GFR (Non-Af Amer) ml/min BUN/Creatinine Ratio (10-20) Glucose (70-99) mg/dl POC Glucose (70-99) mg/dl POC Glucose (other) (70-99) mg/dl Calcium (8.5-10.1) mg/dl Phosphorus (2.5-4.9) mg/dl Magnesium (1.8-2.4) mg/dl Adenovirus (PCR) (NotDetected) B. pertussis DNA (PCR) (NotDetected) B.parapertussis DNA PCR (NotDetected) C. pneumoniae DNA (PCR) (NotDetected) Coronavirus OC43 (PCR) (NotDetected) Coronavirus HKU1 (PCR) (NotDetected) Coronavirus 229E (PCR) (NotDetected) SARS-CoV-2 (PCR) (NotDetected) Coronavirus NL63 (PCR) (NotDetected) Human Metapneumovir PCR (NotDetected) Influenza Type A (PCR) (NotDetected) Influenza Type B (PCR) (NotDetected) Urine Legionella Ag Pending M. pneumoniae (PCR) (NotDetected) Parainfluenza 1 (PCR) (NotDetected) Parainfluenza 2 (PCR) (NotDetected) Parainfluenza 3 (PCR) (NotDetected) Parainfluenza 4 (PCR) (NotDetected) RSV (PCR) (NotDetected) Entero/Rhino (PCR) (NotDetected) Coding Level of Care Code Critical Care 1st 30-74 mins Diagnoses 2019 novel coronavirus-infected pneumonia (NCIP) U07.1; J12.82 Hypoxia R09.02 COPD (chronic obstructive pulmonary disease) with chronic bronchitis J44.9 CVA (cerebral vascular accident) I63.9 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 DVT prophylaxis Z29.9
[2021-04-09] MEDS: levoFLOXacin/D5W 750 MG/150 ML BAG IV SCH (10:41)
[2021-04-09] MEDS: PANTOprazole 40 MG in SYRINGE 0 ML IV SCH ×2 (11:14→20:20)
[2021-04-09] MEDS ORDERED: BACLOFEN 20 MG TAB PO ONE (12:00)
--- NOTE | 2021-04-09 12:27 | Hospitalist Progress Note ---
Date of Service April 09, 2021 Assessment & Plan (1) 2019 novel coronavirus-infected pneumonia (NCIP): Plan: Bacterial infection with continuing COVID 19 infection- not vaccinated was discharged on 03/30, was on room air, sent home on dexamethasone 6mg PO daily had a few good days but got worse quickly on Wednesday 04/04 and real bad on 04/05, brought to hospital concern for secondary bacterial infection but also worsening COVID CRP was 23 on admission, procalcitonin elevated sputum culture growing staph and MRSA + in nares dexamethasone 20mg IV daily, day 4 of 5, then 10mg IV x 5 Vancomycin IV initially, change to Linezolid due to renal failure Levaquin IV, day 5 Lovenox BID for DVT prophylaxis, PE was ruled out on CTA of chest on admission intubated on 04/07/21 due to worsening respiratory failure on PEEP 6 with pressure support 6 and FiO2 50%, doing well today consider SBT tomorrow and possible extubation (2) Hypoxia: Plan: acute hypoxic respiratory failure As above - COVID 19 complicated by likely bacterial pneumonia went from 15L oxy mask to needing CPAP 10 FiO2 100% on 04/07, moved to ICU and intubated due to distress ICU managing today on Fentanyl, Versed, Propofol stopped doing well on PEEP 6 and pressure support 6 with FiO2 50% 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 - Continue with ASA, Plavix, statin via OG tube (5) Spasticity as late effect of cerebrovascular accident (CVA): Plan: added back Baclofen (6) Migraine without aura: Plan: chronic issue, now sedated (7) DVT prophylaxis: Plan: DVT: Lovenox 40mg BID sub q Admission and Anticipated Discharge Date Admission Date: April 05, 2021 Subjective patient on PEEP 6 and pressure support 6, breathing in 30's he is waking up, following commands, he is not pulling at lines or tubes Cr is 1.4, down from 1.5, BP elevated, HR stable, no fever sputum culture with MRSA WBC 13k, Hb 12, sugars riding high with the dexamethasone Review of Systems Review of Systems: Unobtainable due to endotracheal tube Physical Exam Physical Exam: General: well developed, thin male, ill appearing, mechanically ventilated Neck: supple, trachea midline, normal thyroid Lungs: coarse bilaterally, intubated, ventilated Heart: normal S1 and S2, no murmur, peripheral pulses normal, capillary refill normal, no edema Abdomen: soft, NT, ND, + BS, no hepatomegaly, normal to percussion Extremities: no cyanosis, no petechiae, right hand contracture, generalized weakness Neuro: sedated but will wake up, follow commands, calm, CN II-XII intact Skin: warm, dry, no rash, normal turgor Psych: sedated but calm when he wakes up Results & Data Results & Data ([facility]) Vital Signs (Past 12 Hours) Vital Signs Temp Pulse Resp BP Pulse Ox 04/09/21 11:00 37.1 C 80 29 H 92 04/09/21 10:51 71 26 H 91 04/09/21 10:30 102 H 28 H 91 04/09/21 10:22 91 H 23 193/81 H 92 04/09/21 10:00 97 H 26 H 94 04/09/21 09:30 80 16 91 04/09/21 09:00 57 L 12 92 04/09/21 08:30 71 21 91 04/09/21 08:23 76 31 H 154/84 H 93 04/09/21 08:00 37 C 69 21 91 04/09/21 07:30 103 H 20 89 L 04/09/21 07:22 90 31 H 167/77 H 88 L 04/09/21 07:17 85 22 88 L 04/09/21 07:00 70 18 86 L 04/09/21 04:25 105 H 29 H 92 04/09/21 04:00 85 04/09/21 02:30 20 87 L 04/09/21 02:22 19 155/65 H 85 L 04/09/21 02:00 94 H 27 H 91 04/09/21 01:52 68 30 H 192/81 H 89 L 04/09/21 01:30 55 L 89 L 04/09/21 01:22 88 29 H 208/92 H 90 04/09/21 01:00 52 L 18 89 L 04/09/21 00:30 51 L 18 90 Laboratory Results Laboratory Results - last 24 hr 04/08/21 04/08/21 04/08/21 12:13 13:00 16:29 WBC RBC Hgb POC Hgb Hct POC Hct MCV MCH MCHC RDW Std Deviation RDW Coeff of Roge Plt Count MPV Immature Gran % (Auto) Neut % (Auto) Lymph % (Auto) Bates % (Auto) Eos % (Auto) Baso % (Auto) Neut # (Auto) Lymph # (Auto) Bates # (Auto) Eos # (Auto) Baso # (Auto) Immature Gran # (Auto) Sample Site POC pH POC pCO2 POC pO2 POC HCO3 POC Total CO2 POC Base Excess ABG pH (Temp Correct) ABG pCO2 (Temp Corrct POC ABG pO2 at Pt Temp POC ABG O2 Sat Marty Test O2 Delivery Device POC O2 Rate POC FiO2 Tidal Volume PEEP POC Sodium Sodium POC Potassium Potassium Chloride Carbon Dioxide Anion Gap BUN Creatinine Est Cr Clr Drug Dosing Est GFR ( Amer) Est GFR (Non-Af Amer) BUN/Creatinine Ratio Glucose POC Glucose 250 H POC Glucose (other) 274 H Calcium Phosphorus Magnesium Adenovirus (PCR) Not Detected B. pertussis DNA (PCR) Not Detected B.parapertussis DNA PCR Not Detected C. pneumoniae DNA (PCR) Not Detected Coronavirus OC43 (PCR) Not Detected Coronavirus HKU1 (PCR) Not Detected Coronavirus 229E (PCR) Not Detected SARS-CoV-2 (PCR) DETECTED A* Coronavirus NL63 (PCR) Not Detected Human Metapneumovir PCR Not Detected Influenza Type A (PCR) Not Detected Influenza Type B (PCR) Not Detected M. pneumoniae (PCR) Not Detected Parainfluenza 1 (PCR) Not Detected Parainfluenza 2 (PCR) Not Detected Parainfluenza 3 (PCR) Not Detected Parainfluenza 4 (PCR) Not Detected RSV (PCR) Not Detected Entero/Rhino (PCR) Not Detected 04/08/21 04/08/21 04/08/21 17:39 18:23 19:53 WBC RBC Hgb POC Hgb Hct POC Hct MCV MCH MCHC RDW Std Deviation RDW Coeff of Roge Plt Count MPV Immature Gran % (Auto) Neut % (Auto) Lymph % (Auto) Bates % (Auto) Eos % (Auto) Baso % (Auto) Neut # (Auto) Lymph # (Auto) Bates # (Auto) Eos # (Auto) Baso # (Auto) Immature Gran # (Auto) Sample Site POC pH POC pCO2 POC pO2 POC HCO3 POC Total CO2 POC Base Excess ABG pH (Temp Correct) ABG pCO2 (Temp Corrct POC ABG pO2 at Pt Temp POC ABG O2 Sat Marty Test O2 Delivery Device POC O2 Rate POC FiO2 Tidal Volume PEEP POC Sodium Sodium POC Potassium Potassium Chloride Carbon Dioxide Anion Gap BUN Creatinine Est Cr Clr Drug Dosing Est GFR ( Amer) Est GFR (Non-Af Amer) BUN/Creatinine Ratio Glucose POC Glucose 247 H 235 H 249 H POC Glucose (other) Calcium Phosphorus Magnesium Adenovirus (PCR) B. pertussis DNA (PCR) B.parapertussis DNA PCR C. pneumoniae DNA (PCR) Coronavirus OC43 (PCR) Coronavirus HKU1 (PCR) Coronavirus 229E (PCR) SARS-CoV-2 (PCR) Coronavirus NL63 (PCR) Human Metapneumovir PCR Influenza Type A (PCR) Influenza Type B (PCR) M. pneumoniae (PCR) Parainfluenza 1 (PCR) Parainfluenza 2 (PCR) Parainfluenza 3 (PCR) Parainfluenza 4 (PCR) RSV (PCR) Entero/Rhino (PCR) 04/08/21 04/08/21 04/08/21 20:58 21:50 22:31 WBC RBC Hgb POC Hgb Hct POC Hct MCV MCH MCHC RDW Std Deviation RDW Coeff of Roge Plt Count MPV Immature Gran % (Auto) Neut % (Auto) Lymph % (Auto) Bates % (Auto) Eos % (Auto) Baso % (Auto) Neut # (Auto) Lymph # (Auto) Bates # (Auto) Eos # (Auto) Baso # (Auto) Immature Gran # (Auto) Sample Site POC pH POC pCO2 POC pO2 POC HCO3 POC Total CO2 POC Base Excess ABG pH (Temp Correct) ABG pCO2 (Temp Corrct POC ABG pO2 at Pt Temp POC ABG O2 Sat Marty Test O2 Delivery Device POC O2 Rate POC FiO2 Tidal Volume PEEP POC Sodium Sodium POC Potassium Potassium Chloride Carbon Dioxide Anion Gap BUN Creatinine Est Cr Clr Drug Dosing Est GFR ( Amer) Est GFR (Non-Af Amer) BUN/Creatinine Ratio Glucose POC Glucose 256 H 286 H 233 H POC Glucose (other) Calcium Phosphorus Magnesium Adenovirus (PCR) B. pertussis DNA (PCR) B.parapertussis DNA PCR C. pneumoniae DNA (PCR) Coronavirus OC43 (PCR) Coronavirus HKU1 (PCR) Coronavirus 229E (PCR) SARS-CoV-2 (PCR) Coronavirus NL63 (PCR) Human Metapneumovir PCR Influenza Type A (PCR) Influenza Type B (PCR) M. pneumoniae (PCR) Parainfluenza 1 (PCR) Parainfluenza 2 (PCR) Parainfluenza 3 (PCR) Parainfluenza 4 (PCR) RSV (PCR) Entero/Rhino (PCR) 04/09/21 04/09/21 04/09/21 00:00 01:04 02:06 WBC RBC Hgb POC Hgb Hct POC Hct MCV MCH MCHC RDW Std Deviation RDW Coeff of Roge Plt Count MPV Immature Gran % (Auto) Neut % (Auto) Lymph % (Auto) Bates % (Auto) Eos % (Auto) Baso % (Auto) Neut # (Auto) Lymph # (Auto) Bates # (Auto) Eos # (Auto) Baso # (Auto) Immature Gran # (Auto) Sample Site POC pH POC pCO2 POC pO2 POC HCO3 POC Total CO2 POC Base Excess ABG pH (Temp Correct) ABG pCO2 (Temp Corrct POC ABG pO2 at Pt Temp POC ABG O2 Sat Marty Test O2 Delivery Device POC O2 Rate POC FiO2 Tidal Volume PEEP POC Sodium Sodium POC Potassium Potassium Chloride Carbon Dioxide Anion Gap BUN Creatinine Est Cr Clr Drug Dosing Est GFR ( Amer) Est GFR (Non-Af Amer) BUN/Creatinine Ratio Glucose POC Glucose 233 H 279 H 269 H POC Glucose (other) Calcium Phosphorus Magnesium Adenovirus (PCR) B. pertussis DNA (PCR) B.parapertussis DNA PCR C. pneumoniae DNA (PCR) Coronavirus OC43 (PCR) Coronavirus HKU1 (PCR) Coronavirus 229E (PCR) SARS-CoV-2 (PCR) Coronavirus NL63 (PCR) Human Metapneumovir PCR Influenza Type A (PCR) Influenza Type B (PCR) M. pneumoniae (PCR) Parainfluenza 1 (PCR) Parainfluenza 2 (PCR) Parainfluenza 3 (PCR) Parainfluenza 4 (PCR) RSV (PCR) Entero/Rhino (PCR) 04/09/21 04/09/21 04/09/21 03:15 04:21 04:29 WBC RBC Hgb POC Hgb 11.9 L Hct POC Hct 35 L MCV MCH MCHC RDW Std Deviation RDW Coeff of Roge Plt Count MPV Immature Gran % (Auto) Neut % (Auto) Lymph % (Auto) Bates % (Auto) Eos % (Auto) Baso % (Auto) Neut # (Auto) Lymph # (Auto) Bates # (Auto) Eos # (Auto) Baso # (Auto) Immature Gran # (Auto) Sample Site Art Line POC pH 7.39 POC pCO2 42 POC pO2 66 L POC HCO3 26 H POC Total CO2 27 POC Base Excess 1.0 ABG pH (Temp Correct) 7.401 ABG pCO2 (Temp Corrct 41 POC ABG pO2 at Pt Temp 64 POC ABG O2 Sat 93.0 Marty Test NA O2 Delivery Device Ventilator POC O2 Rate 20 POC FiO2 50 Tidal Volume 350 PEEP 8 POC Sodium 134 L Sodium POC Potassium 4.1 Potassium Chloride Carbon Dioxide Anion Gap BUN Creatinine Est Cr Clr Drug Dosing Est GFR ( Amer) Est GFR (Non-Af Amer) BUN/Creatinine Ratio Glucose POC Glucose 228 H 223 H POC Glucose (other) Calcium Phosphorus Magnesium Adenovirus (PCR) B. pertussis DNA (PCR) B.parapertussis DNA PCR C. pneumoniae DNA (PCR) Coronavirus OC43 (PCR) Coronavirus HKU1 (PCR) Coronavirus 229E (PCR) SARS-CoV-2 (PCR) Coronavirus NL63 (PCR) Human Metapneumovir PCR Influenza Type A (PCR) Influenza Type B (PCR) M. pneumoniae (PCR) Parainfluenza 1 (PCR) Parainfluenza 2 (PCR) Parainfluenza 3 (PCR) Parainfluenza 4 (PCR) RSV (PCR) Entero/Rhino (PCR) 04/09/21 04/09/21 04/09/21 05:19 05:45 05:45 WBC 13.45 H RBC 3.94 L Hgb 12.2 L POC Hgb Hct 36.3 L POC Hct MCV 92.1 MCH 31.0 MCHC 33.6 RDW Std Deviation 49.2 H RDW Coeff of Roge 14.4 Plt Count 251 MPV 11.0 H Immature Gran % (Auto) 0.5 Neut % (Auto) 87.2 Lymph % (Auto) 8.1 Bates % (Auto) 4.1 Eos % (Auto) 0.0 Baso % (Auto) 0.1 Neut # (Auto) 11.73 H Lymph # (Auto) 1.09 L Bates # (Auto) 0.55 Eos # (Auto) 0.00 Baso # (Auto) 0.01 Immature Gran # (Auto) 0.07 H Sample Site POC pH POC pCO2 POC pO2 POC HCO3 POC Total CO2 POC Base Excess ABG pH (Temp Correct) ABG pCO2 (Temp Corrct POC ABG pO2 at Pt Temp POC ABG O2 Sat Marty Test O2 Delivery Device POC O2 Rate POC FiO2 Tidal Volume PEEP POC Sodium Sodium 134 L POC Potassium Potassium 4.0 Chloride 102 Carbon Dioxide 26 Anion Gap 6.0 BUN 65 H Creatinine 1.43 H Est Cr Clr Drug Dosing 51.8 Est GFR ( Amer) 60.4 Est GFR (Non-Af Amer) 52.1 BUN/Creatinine Ratio 45.2 H Glucose 234 H POC Glucose 221 H POC Glucose (other) Calcium 9.1 Phosphorus 2.7 D Magnesium 3.1 H Adenovirus (PCR) B. pertussis DNA (PCR) B.parapertussis DNA PCR C. pneumoniae DNA (PCR) Coronavirus OC43 (PCR) Coronavirus HKU1 (PCR) Coronavirus 229E (PCR) SARS-CoV-2 (PCR) Coronavirus NL63 (PCR) Human Metapneumovir PCR Influenza Type A (PCR) Influenza Type B (PCR) M. pneumoniae (PCR) Parainfluenza 1 (PCR) Parainfluenza 2 (PCR) Parainfluenza 3 (PCR) Parainfluenza 4 (PCR) RSV (PCR) Entero/Rhino (PCR) 04/09/21 04/09/21 04/09/21 06:29 07:00 07:59 WBC RBC Hgb POC Hgb Hct POC Hct MCV MCH MCHC RDW Std Deviation RDW Coeff of Roge Plt Count MPV Immature Gran % (Auto) Neut % (Auto) Lymph % (Auto) Bates % (Auto) Eos % (Auto) Baso % (Auto) Neut # (Auto) Lymph # (Auto) Bates # (Auto) Eos # (Auto) Baso # (Auto) Immature Gran # (Auto) Sample Site POC pH POC pCO2 POC pO2 POC HCO3 POC Total CO2 POC Base Excess ABG pH (Temp Correct) ABG pCO2 (Temp Corrct POC ABG pO2 at Pt Temp POC ABG O2 Sat Marty Test O2 Delivery Device POC O2 Rate POC FiO2 Tidal Volume PEEP POC Sodium Sodium POC Potassium Potassium Chloride Carbon Dioxide Anion Gap BUN Creatinine Est Cr Clr Drug Dosing Est GFR ( Amer) Est GFR (Non-Af Amer) BUN/Creatinine Ratio Glucose POC Glucose 173 H 178 H 184 H POC Glucose (other) Calcium Phosphorus Magnesium Adenovirus (PCR) B. pertussis DNA (PCR) B.parapertussis DNA PCR C. pneumoniae DNA (PCR) Coronavirus OC43 (PCR) Coronavirus HKU1 (PCR) Coronavirus 229E (PCR) SARS-CoV-2 (PCR) Coronavirus NL63 (PCR) Human Metapneumovir PCR Influenza Type A (PCR) Influenza Type B (PCR) M. pneumoniae (PCR) Parainfluenza 1 (PCR) Parainfluenza 2 (PCR) Parainfluenza 3 (PCR) Parainfluenza 4 (PCR) RSV (PCR) Entero/Rhino (PCR) 04/09/21 04/09/21 04/09/21 09:04 10:03 10:03 WBC RBC Hgb POC Hgb Hct POC Hct MCV MCH MCHC RDW Std Deviation RDW Coeff of Roge Plt Count MPV Immature Gran % (Auto) Neut % (Auto) Lymph % (Auto) Bates % (Auto) Eos % (Auto) Baso % (Auto) Neut # (Auto) Lymph # (Auto) Bates # (Auto) Eos # (Auto) Baso # (Auto) Immature Gran # (Auto) Sample Site POC pH POC pCO2 POC pO2 POC HCO3 POC Total CO2 POC Base Excess ABG pH (Temp Correct) ABG pCO2 (Temp Corrct POC ABG pO2 at Pt Temp POC ABG O2 Sat Marty Test O2 Delivery Device POC O2 Rate POC FiO2 Tidal Volume PEEP POC Sodium Sodium POC Potassium Potassium Chloride Carbon Dioxide Anion Gap BUN Creatinine Est Cr Clr Drug Dosing Est GFR ( Amer) Est GFR (Non-Af Amer) BUN/Creatinine Ratio Glucose POC Glucose 191 H 193 H 193 H POC Glucose (other) Calcium Phosphorus Magnesium Adenovirus (PCR) B. pertussis DNA (PCR) B.parapertussis DNA PCR C. pneumoniae DNA (PCR) Coronavirus OC43 (PCR) Coronavirus HKU1 (PCR) Coronavirus 229E (PCR) SARS-CoV-2 (PCR) Coronavirus NL63 (PCR) Human Metapneumovir PCR Influenza Type A (PCR) Influenza Type B (PCR) M. pneumoniae (PCR) Parainfluenza 1 (PCR) Parainfluenza 2 (PCR) Parainfluenza 3 (PCR) Parainfluenza 4 (PCR) RSV (PCR) Entero/Rhino (PCR) 04/09/21 04/09/21 11:11 11:56 WBC RBC Hgb POC Hgb Hct POC Hct MCV MCH MCHC RDW Std Deviation RDW Coeff of Roge Plt Count MPV Immature Gran % (Auto) Neut % (Auto) Lymph % (Auto) Bates % (Auto) Eos % (Auto) Baso % (Auto) Neut # (Auto) Lymph # (Auto) Bates # (Auto) Eos # (Auto) Baso # (Auto) Immature Gran # (Auto) Sample Site POC pH POC pCO2 POC pO2 POC HCO3 POC Total CO2 POC Base Excess ABG pH (Temp Correct) ABG pCO2 (Temp Corrct POC ABG pO2 at Pt Temp POC ABG O2 Sat Marty Test O2 Delivery Device POC O2 Rate POC FiO2 Tidal Volume PEEP POC Sodium Sodium POC Potassium Potassium Chloride Carbon Dioxide Anion Gap BUN Creatinine Est Cr Clr Drug Dosing Est GFR ( Amer) Est GFR (Non-Af Amer) BUN/Creatinine Ratio Glucose POC Glucose 201 H 230 H POC Glucose (other) Calcium Phosphorus Magnesium Adenovirus (PCR) B. pertussis DNA (PCR) B.parapertussis DNA PCR C. pneumoniae DNA (PCR) Coronavirus OC43 (PCR) Coronavirus HKU1 (PCR) Coronavirus 229E (PCR) SARS-CoV-2 (PCR) Coronavirus NL63 (PCR) Human Metapneumovir PCR Influenza Type A (PCR) Influenza Type B (PCR) M. pneumoniae (PCR) Parainfluenza 1 (PCR) Parainfluenza 2 (PCR) Parainfluenza 3 (PCR) Parainfluenza 4 (PCR) RSV (PCR) Entero/Rhino (PCR) Medications Administered Current Inpatient Medications Acetaminophen (Acetaminophen 325 Mg Tab) 650 mg PO Q6 PRN PRN Reason: Pain or Fever Stop: 05/05/21 17:59 Aspirin (Aspirin 81 Mg Chew) 81 mg PO DAILY MATTIE Stop: 05/08/21 11:59 Last Admin: 04/09/21 08:19 Dose: 81 mg Documented by: Atorvastatin Calcium (Atorvastatin 40 Mg Tab) 80 mg PO HS [facility] Stop: 05/08/21 20:59 Last Admin: 04/08/21 21:01 Dose: 80 mg Documented by: Baclofen (Baclofen 20 Mg Tab) 20 mg PO BID [facility] Stop: 05/09/21 20:59 Clopidogrel Bisulfate (Clopidogrel Bisulfate 75 Mg Tab) 75 mg PO DAILY [facility] Stop: 05/08/21 11:59 Last Admin: 04/09/21 09:01 Dose: 75 mg Documented by: Enoxaparin Sodium (Enoxaparin Inj 40 Mg/0.4 Ml Syr) 40 mg SQ Q12H [facility] Stop: 05/05/21 17:59 Last Admin: 04/09/21 06:11 Dose: 40 mg Documented by: Fentanyl Citrate (Fentanyl Bolus From Bag) 50 mcg IV Q60M PRN PRN Reason: Pain or Agitation Stop: 04/21/21 15:15 Pantoprazole Sodium 40 mg/ (Syringe) 10 mls @ 5 mls/min IV BID [facility] Stop: 05/06/21 20:59 Last Admin: 04/09/21 11:14 Dose: 5 mls/min Documented by: Dexamethasone 20 mg/ Dextrose 30 mls @ 1 mls/min IV Q24H [facility] Stop: 04/11/21 09:29 Last Infusion: 04/09/21 10:40 Dose: Infused Documented by: Fentanyl Citrate (Fentanyl Citrate) 2,500 mcg in 250 mls @ 12.5 mls/hr IV .Q20H [facility]; Protocol Stop: 04/21/21 15:29 Last Admin: 04/09/21 00:13 Dose: 125 mcg/hr, 12.5 mls/hr Documented by: Norepinephrine Bitartrate (Levophed/D5w) 8 mg in 508 mls @ 24.11 mls/hr IV .Q21H5M [facility]; Protocol Stop: 05/07/21 20:44 Last Admin: 04/08/21 16:10 Dose: Not Given Documented by: Dexmedetomidine HCl 200 mcg/ (Sodium Chloride) 50 mls @ 7.32 mls/hr IV .Q6H50M [facility]; Protocol Stop: 04/12/21 10:29 Last Admin: 04/09/21 06:56 Dose: 0.4 mcg/kg/hr, 7.3 mls/hr Documented by: Dexamethasone 10 mg/ Syringe 2.5 mls @ 1 mls/min IV DAILY [facility] Stop: 04/16/21 09:03 Linezolid (Zyvox) 600 mg in 300 mls @ 200 mls/hr IV Q12H [facility] Stop: 04/15/21 11:59 Last Admin: 04/09/21 11:16 Dose: 200 mls/hr Documented by: Levofloxacin/Dextrose (Levaquin/D5w) 750 mg in 150 mls @ 100 mls/hr IV Q48H [facility]; Protocol Stop: 04/16/21 10:59 Last Admin: 04/09/21 10:41 Dose: 100 mls/hr Documented by: Insulin Human Regular 250 (units/ Sodium Chloride) 250 mls @ 14.6 mls/hr IV .Q17H8M [facility]; Protocol Stop: 05/08/21 14:59 Last Titration: 04/09/21 12:00 Dose: 14.6 unit/hr, 14.6 mls/hr Documented by: Insulin Aspart (Insulin Aspart Per Unit) 0 units SC Q4 [facility] Stop: 05/08/21 16:29 Last Admin: 04/09/21 12:12 Dose: 2 units Documented by: Nutritional Formula (Peptamen Intense Vhp 1.0 Jeison 1,000 Ml Bag) 1,000 ml GT CONT [facility]; Protocol Stop: 05/07/21 15:44 Last Admin: 04/08/21 16:41 Dose: 1,000 ml Documented by: PG Care Time/CCT Total # of Minutes Spent Total Time Spent with Patient: Total time spent is greater than 50% in coordination of care (as documented) at patient's floor/unit and/or counseling patient: Coding Level of Care Code 13132 Subseq Hosp Care Lvl 3 Diagnoses 2019 novel coronavirus-infected pneumonia (NCIP) U07.1; J12.82 Hypoxia R09.02 COPD (chronic obstructive pulmonary disease) with chronic bronchitis J44.9 CVA (cerebral vascular accident) I63.9 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 DVT prophylaxis Z29.9
[2021-04-09] MEDS: PEPTAMEN INTENSE VHP 1.0 CAL 1,000 ML BAG GT SCH (15:15)
[2021-04-09] MEDS: NOREPINEPHRINE/D5W 8 MG/508 ML BAG IV SCH (17:14)
[2021-04-09] MEDS ORDERED: DEXTROSE 50% 50 ML SYRINGE IV ONE (18:26)
[2021-04-09] MEDS: INSULIN REGULAR 250 UNITS in SODIUM CHLORIDE 0.9% 247.5 ML IV SCH (19:49)
[2021-04-09] MEDS: BACLOFEN 20 MG TAB PO SCH (20:20)
[2021-04-09] MEDS: ATORVASTATIN 40 MG TAB PO SCH (20:20)
[2021-04-10] MEDS: INSULIN ASPART PER UNIT SC SCH ×6 (00:48→19:41)
[2021-04-10] MEDS: LINEZOLID 600 MG/300 ML BAG IV SCH ×2 (00:55→12:29)
[2021-04-10] MEDS: DEXMEDETOMIDINE HCL 200 MCG in SODIUM CHLORIDE 0.9% 48 ML IV SCH ×8 (03:50→20:37)
[2021-04-10] MEDS: fentaNYL citrate 2,500 MCG/250 ML BAG IV SCH ×3 (04:25→07:56)
[2021-04-10] MEDS: ENOXAPARIN INJ 40 MG/0.4 ML SYR SQ SCH ×2 (05:35→16:53)
[2021-04-10 05:43] LABS: iSTAT Art Bld Gas pCO2 Correct 43 mmHg (35-46); iSTAT Art Bld Gas pH Corrected 7.425 (7.35-7.45); iSTAT Arterial Blood Gas HCO3 28 meg/L (19-24); iSTAT Arterial Blood Gas pCO2 42 mmHg (35-46); iSTAT Arterial Blood Gas pH 7.43 (7.35-7.45); iSTAT Arterial Blood Gas pO2 82 mmHg (80-95); iSTAT Arterial Blood Gas pO2 C 83; iSTAT Carbon Dioxide 29 mmol/L (24-31); iSTAT FiO2 45 %; iSTAT Hematocrit 32 % (42-52); iSTAT Hemoglobin 10.9 g/dl (14.0-18.0); iSTAT Potassium 3.6 mmol/L (3.3-5.0); iSTAT Site Art Line; iSTAT Sodium 139 mmol/L (135-144)
[2021-04-10] MEDS ORDERED: DEXTROSE 50% 50 ML SYRINGE IV ONE (06:36)
[2021-04-10 07:10] LABS: Basophils # (auto) 0.01 K/uL (0-0.2); Basophils % (auto) 0.1 %; Hematocrit (blood only) 33.5 % (42-52); Hemoglobin 11.2 g/dL (14.0-18.0); Immature Granulocytes # (auto) 0.09 K/uL (0.00-0.02); Immature Granulocytes % (auto) 0.8 %; Lymphocytes % (auto) 9.9 %; Mean Corpuscular Hemoglobin 30.9 pg (25-34); Mean Corpuscular Hgb Conc 33.4 g/dL (32-36); Mean Corpuscular Volume 92.5 fL (80-100); Monocytes % (auto) 4.5 %; Neutrophils # (auto) 9.43 K/uL (1.4-6.5); Neutrophils % (auto) 84.7 %; Platelet Count 268 K/uL (130-400); RDW Coefficient of Variation 14.4 % (11.5-14.5); RDW Standard Deviation 49.3 fL (36.4-46.3); Red Blood Count 3.62 M/uL (4.7-6.1); White Blood Count 11.13 K/uL (4.8-10.8)
--- NOTE | 2021-04-10 07:45 | XRay Report ---
XR chest 1V portable HISTORY: 60 years-old Male Resp failure acute respiratory failure COMPARISON: 04/09/2021 TECHNIQUE: Portable AP view of the chest FINDINGS: The endotracheal tube overlies the midline, 7 mm superior to the kt. Left central venous catheter distal tip is noted in the expected location of the brachycephalic SVC confluence. An enteric tube c ourses below the diaphragm with distal tip outside the [id number]. The patient is rotated towards the left. No pneumothorax. Suspected trace pleural effusions. Cardiac silhouette is upper limits of n ormal in size. Interstitial coarsening with bibasilar predominant airspace opacities are not signific ant changed. Degenerative changes of the shoulders and spine. IMPRESSION: 1. Low-lying endotracheal tube. Retraction of 2 to 3 cm recommended with follow-up chest radiograph. 2. Unchanged bibasilar predominant airspace opacities. ACT 112: Negative or not required by law. The above report was generated using voice recognition software. It may contain grammatical, syntax o r spelling errors. Electronically signed by: Adam Morgan M.D. 04/10/2021 7:44 AM
[2021-04-10 07:46] LABS: BUN Creatinine Ratio 57.4 (10-20); Calcium 9.1 mg/dl (8.5-10.1); Creatinine Clr Calc Pharmacy 65.6 ml/min; Est GFR (African American) 80.3 ml/min; Est GFR (Non-African American) 69.3 ml/min; Magnesium 3.1 mg/dl (1.8-2.4); Potassium 3.7 mmol/L (3.5-5.1)
[2021-04-10 07:47] LABS: Phosphorus 2.1 mg/dl (2.5-4.9)
[2021-04-10] MEDS: dexAMETHasone 20 MG in DEXTROSE 5% 25 ML IV SCH (08:00)
[2021-04-10] MEDS: ASPIRIN 81 MG CHEW PO SCH (09:45)
[2021-04-10] MEDS: CLOPIDOGREL BISULFATE 75 MG TAB PO SCH (09:45)
[2021-04-10] MEDS: PANTOprazole 40 MG in SYRINGE 0 ML IV SCH ×2 (09:45→21:05)
[2021-04-10] MEDS: BACLOFEN 20 MG TAB PO SCH ×2 (09:48→21:04)
[2021-04-10] MEDS ORDERED: MoRPHine SULFATE 4 MG/ML 1 ML CARP\\VIAL ONE (09:55)
[2021-04-10] MEDS ORDERED: MIDAZOLAM HCL 5 MG/ML 1 ML VIAL IV STA (10:00)
[2021-04-10] MEDS ORDERED: MoRPHine SULFATE 4 MG/ML 1 ML CARP\\VIAL IV STA (10:00)
[2021-04-10] MEDS ORDERED: MIDAZOLAM HCL 1 MG/ML 2ML VIAL ONE (10:01)
--- NOTE | 2021-04-10 10:11 | Hospitalist Progress Note ---
Date of Service April 10, 2021 Assessment & Plan (1) 2018 novel coronavirus-infected pneumonia (NCIP): Plan: Bacterial infection with continuing COVID 19 infection- not vaccinated was discharged on 03/30, was on room air, sent home on dexamethasone 6mg PO daily had a few good days but got worse quickly on Wednesday 04/04 and real bad on 04/05, brought to hospital concern for secondary bacterial infection but also worsening COVID CRP was 23 on admission, procalcitonin elevated sputum culture growing staph and MRSA + in nares dexamethasone 20mg IV daily, day 5 of 5, then 10mg IV x 5 Vancomycin IV initially, change to Linezolid due to renal failure Linezolid IV day 2 Levaquin IV, day 6 Lovenox BID for DVT prophylaxis, PE was ruled out on CTA of chest on admission intubated on 04/07/21 due to worsening respiratory failure on PEEP 6 FiO2 45% was doing well with SBT this morning when calm but got very anxious and agitated and it was aborted Dr Roberts will determine when he can be extubated (2) Hypoxia: Plan: acute hypoxic respiratory failure As above - COVID 19 complicated by likely bacterial pneumonia went from 15L oxy mask to needing CPAP 10 FiO2 100% on 04/07, moved to ICU and intubated due to distress ICU managing on Precedex, Fentanyl and Versed boluses doing well on PEEP 6 FiO2 45% 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 - Continue with ASA, Plavix, statin via OG tube (5) Spasticity as late effect of cerebrovascular accident (CVA): Plan: added back Baclofen (6) Migraine without aura: Plan: chronic issue, now sedated (7) DVT prophylaxis: Plan: DVT: Lovenox 40mg BID sub q Admission and Anticipated Discharge Date Admission Date: April 05, 2021 Subjective patient was doing well on CPAP trial, saturations were good, sedation off, he was sleeping he woke up suddenly around 10am, high anxiety, tachypneic, tachycardic, had to increase FiO2 to 80% sedated with Fentanyl and Versed he had a similar episode around 5am, when he wakes up he gets anxious and agitated reviewed labs, Cr down to 1.13, K 3.7, WBC 11, Hb 11, phos 2.1, Mag 3.[address] Roberts on wean trial again I will update family later today Review of Systems Review of Systems: Unobtainable due to endotracheal tube Physical Exam Physical Exam: General: well developed, thin male, ill appearing, mechanically ventilated Neck: supple, trachea midline, normal thyroid Lungs: coarse bilaterally, intubated, ventilated Heart: normal S1 and S2, no murmur, peripheral pulses normal, capillary refill normal, no edema Abdomen: soft, NT, ND, + BS, no hepatomegaly, normal to percussion Extremities: no cyanosis, no petechiae, right hand contracture, generalized weakness Neuro: sedated but will wake up, follow commands, very anxious, CN II-XII intact Skin: warm, dry, no rash, normal turgor Psych: sedated Results & Data Results & Data ([facility]) Vital Signs (Past 12 Hours) Vital Signs Temp Pulse Resp BP Pulse Ox 04/10/21 09:30 44 L 16 92 04/10/21 09:00 46 L 14 91 04/10/21 08:30 49 L 15 91 04/10/21 08:26 49 L 04/10/21 08:00 50 L 13 128/67 93 04/10/21 07:58 13 04/10/21 07:30 45 L 18 92 04/10/21 07:06 42 L 22 92 04/10/21 07:00 55 L 23 94 04/10/21 06:30 43 L 20 94 04/10/21 06:00 45 L 20 93 04/10/21 05:30 46 L 18 93 04/10/21 05:00 46 L 19 95 04/10/21 04:30 53 L 19 92 04/10/21 04:20 62 20 89 L 04/10/21 04:00 37.1 C 109 H 44 H 122/76 90 04/10/21 03:30 46 L 14 91 04/10/21 03:00 45 L 13 92 04/10/21 02:30 44 L 14 93 04/10/21 02:00 37.1 C 47 L 14 93 04/10/21 01:30 44 L 11 L 94 04/10/21 01:00 45 L 13 93 04/10/21 00:30 46 L 13 93 04/10/21 00:00 37 C 45 L 15 93 04/09/21 23:30 47 L 14 93 04/09/21 23:20 70 15 91 04/09/21 23:00 46 L 94 04/09/21 22:30 48 L 95 Laboratory Results Laboratory Results - last 24 hr 04/09/21 04/09/21 04/09/21 11:11 11:56 13:10 WBC RBC Hgb POC Hgb Hct POC Hct MCV MCH MCHC RDW Std Deviation RDW Coeff of Roge Plt Count MPV Immature Gran % (Auto) Neut % (Auto) Lymph % (Auto) Dade % (Auto) Eos % (Auto) Baso % (Auto) Neut # (Auto) Lymph # (Auto) Dade # (Auto) Eos # (Auto) Baso # (Auto) Immature Gran # (Auto) Sample Site POC pH POC pCO2 POC pO2 POC HCO3 POC Total CO2 POC Base Excess ABG pH (Temp Correct) ABG pCO2 (Temp Corrct POC ABG pO2 at Pt Temp POC ABG O2 Sat Marty Test O2 Delivery Device POC O2 Rate POC FiO2 Tidal Volume PEEP POC Sodium Sodium POC Potassium Potassium Chloride Carbon Dioxide Anion Gap BUN Creatinine Est Cr Clr Drug Dosing Est GFR ( Amer) Est GFR (Non-Af Amer) BUN/Creatinine Ratio Glucose POC Glucose 201 H 230 H 259 H Calcium Phosphorus Magnesium 04/09/21 04/09/21 04/09/21 14:03 14:10 15:08 WBC RBC Hgb POC Hgb Hct POC Hct MCV MCH MCHC RDW Std Deviation RDW Coeff of Roge Plt Count MPV Immature Gran % (Auto) Neut % (Auto) Lymph % (Auto) Dade % (Auto) Eos % (Auto) Baso % (Auto) Neut # (Auto) Lymph # (Auto) Dade # (Auto) Eos # (Auto) Baso # (Auto) Immature Gran # (Auto) Sample Site POC pH POC pCO2 POC pO2 POC HCO3 POC Total CO2 POC Base Excess ABG pH (Temp Correct) ABG pCO2 (Temp Corrct POC ABG pO2 at Pt Temp POC ABG O2 Sat Marty Test O2 Delivery Device POC O2 Rate POC FiO2 Tidal Volume PEEP POC Sodium Sodium POC Potassium Potassium Chloride Carbon Dioxide Anion Gap BUN Creatinine Est Cr Clr Drug Dosing Est GFR ( Amer) Est GFR (Non-Af Amer) BUN/Creatinine Ratio Glucose POC Glucose 143 H 138 H 111 H Calcium Phosphorus Magnesium 04/09/21 04/09/21 04/09/21 16:12 17:10 18:18 WBC RBC Hgb POC Hgb Hct POC Hct MCV MCH MCHC RDW Std Deviation RDW Coeff of Roge Plt Count MPV Immature Gran % (Auto) Neut % (Auto) Lymph % (Auto) Dade % (Auto) Eos % (Auto) Baso % (Auto) Neut # (Auto) Lymph # (Auto) Dade # (Auto) Eos # (Auto) Baso # (Auto) Immature Gran # (Auto) Sample Site POC pH POC pCO2 POC pO2 POC HCO3 POC Total CO2 POC Base Excess ABG pH (Temp Correct) ABG pCO2 (Temp Corrct POC ABG pO2 at Pt Temp POC ABG O2 Sat Marty Test O2 Delivery Device POC O2 Rate POC FiO2 Tidal Volume PEEP POC Sodium Sodium POC Potassium Potassium Chloride Carbon Dioxide Anion Gap BUN Creatinine Est Cr Clr Drug Dosing Est GFR ( Amer) Est GFR (Non-Af Amer) BUN/Creatinine Ratio Glucose POC Glucose 113 H 117 H 75 Calcium Phosphorus Magnesium 04/09/21 04/09/21 04/09/21 18:44 19:52 20:49 WBC RBC Hgb POC Hgb Hct POC Hct MCV MCH MCHC RDW Std Deviation RDW Coeff of Roge Plt Count MPV Immature Gran % (Auto) Neut % (Auto) Lymph % (Auto) Dade % (Auto) Eos % (Auto) Baso % (Auto) Neut # (Auto) Lymph # (Auto) Dade # (Auto) Eos # (Auto) Baso # (Auto) Immature Gran # (Auto) Sample Site POC pH POC pCO2 POC pO2 POC HCO3 POC Total CO2 POC Base Excess ABG pH (Temp Correct) ABG pCO2 (Temp Corrct POC ABG pO2 at Pt Temp POC ABG O2 Sat Marty Test O2 Delivery Device POC O2 Rate POC FiO2 Tidal Volume PEEP POC Sodium Sodium POC Potassium Potassium Chloride Carbon Dioxide Anion Gap BUN Creatinine Est Cr Clr Drug Dosing Est GFR ( Amer) Est GFR (Non-Af Amer) BUN/Creatinine Ratio Glucose POC Glucose 149 H 114 H 118 H Calcium Phosphorus Magnesium 04/09/21 04/09/21 04/09/21 21:48 22:49 23:08 WBC RBC Hgb POC Hgb Hct POC Hct MCV MCH MCHC RDW Std Deviation RDW Coeff of Roge Plt Count MPV Immature Gran % (Auto) Neut % (Auto) Lymph % (Auto) Dade % (Auto) Eos % (Auto) Baso % (Auto) Neut # (Auto) Lymph # (Auto) Dade # (Auto) Eos # (Auto) Baso # (Auto) Immature Gran # (Auto) Sample Site POC pH POC pCO2 POC pO2 POC HCO3 POC Total CO2 POC Base Excess ABG pH (Temp Correct) ABG pCO2 (Temp Corrct POC ABG pO2 at Pt Temp POC ABG O2 Sat Marty Test O2 Delivery Device POC O2 Rate POC FiO2 Tidal Volume PEEP POC Sodium Sodium POC Potassium Potassium Chloride Carbon Dioxide Anion Gap BUN Creatinine Est Cr Clr Drug Dosing Est GFR ( Amer) Est GFR (Non-Af Amer) BUN/Creatinine Ratio Glucose POC Glucose 97 84 154 H Calcium Phosphorus Magnesium 04/09/21 04/10/21 04/10/21 23:49 01:27 02:31 WBC RBC Hgb POC Hgb Hct POC Hct MCV MCH MCHC RDW Std Deviation RDW Coeff of Roge Plt Count MPV Immature Gran % (Auto) Neut % (Auto) Lymph % (Auto) Dade % (Auto) Eos % (Auto) Baso % (Auto) Neut # (Auto) Lymph # (Auto) Dade # (Auto) Eos # (Auto) Baso # (Auto) Immature Gran # (Auto) Sample Site POC pH POC pCO2 POC pO2 POC HCO3 POC Total CO2 POC Base Excess ABG pH (Temp Correct) ABG pCO2 (Temp Corrct POC ABG pO2 at Pt Temp POC ABG O2 Sat Marty Test O2 Delivery Device POC O2 Rate POC FiO2 Tidal Volume PEEP POC Sodium Sodium POC Potassium Potassium Chloride Carbon Dioxide Anion Gap BUN Creatinine Est Cr Clr Drug Dosing Est GFR ( Amer) Est GFR (Non-Af Amer) BUN/Creatinine Ratio Glucose POC Glucose 116 H 163 H 199 H Calcium Phosphorus Magnesium 04/10/21 04/10/21 04/10/21 03:34 04:34 05:28 WBC RBC Hgb POC Hgb 10.9 L Hct POC Hct 32 L MCV MCH MCHC RDW Std Deviation RDW Coeff of Roge Plt Count MPV Immature Gran % (Auto) Neut % (Auto) Lymph % (Auto) Dade % (Auto) Eos % (Auto) Baso % (Auto) Neut # (Auto) Lymph # (Auto) Dade # (Auto) Eos # (Auto) Baso # (Auto) Immature Gran # (Auto) Sample Site Art Line POC pH 7.43 POC pCO2 42 POC pO2 82 POC HCO3 28 H POC Total CO2 29 POC Base Excess 4.0 H ABG pH (Temp Correct) 7.425 ABG pCO2 (Temp Corrct 43 POC ABG pO2 at Pt Temp 83 POC ABG O2 Sat 96.0 H Marty Test NA O2 Delivery Device Ventilator POC O2 Rate 20 POC FiO2 45 Tidal Volume 350 PEEP 6 POC Sodium 139 Sodium POC Potassium 3.6 Potassium Chloride Carbon Dioxide Anion Gap BUN Creatinine Est Cr Clr Drug Dosing Est GFR ( Amer) Est GFR (Non-Af Amer) BUN/Creatinine Ratio Glucose POC Glucose 187 H 156 H Calcium Phosphorus Magnesium 04/10/21 04/10/21 04/10/21 05:31 05:50 05:50 WBC 11.13 H RBC 3.62 L Hgb 11.2 L POC Hgb Hct 33.5 L POC Hct MCV 92.5 MCH 30.9 MCHC 33.4 RDW Std Deviation 49.3 H RDW Coeff of Roge 14.4 Plt Count 268 MPV 11.0 H Immature Gran % (Auto) 0.8 Neut % (Auto) 84.7 Lymph % (Auto) 9.9 Dade % (Auto) 4.5 Eos % (Auto) 0.0 Baso % (Auto) 0.1 Neut # (Auto) 9.43 H Lymph # (Auto) 1.10 L Dade # (Auto) 0.50 Eos # (Auto) 0.00 Baso # (Auto) 0.01 Immature Gran # (Auto) 0.09 H Sample Site POC pH POC pCO2 POC pO2 POC HCO3 POC Total CO2 POC Base Excess ABG pH (Temp Correct) ABG pCO2 (Temp Corrct POC ABG pO2 at Pt Temp POC ABG O2 Sat Marty Test O2 Delivery Device POC O2 Rate POC FiO2 Tidal Volume PEEP POC Sodium Sodium 138 POC Potassium Potassium 3.7 Chloride 106 Carbon Dioxide 26 Anion Gap 6.0 BUN 65 H Creatinine 1.13 D Est Cr Clr Drug Dosing 65.6 Est GFR ( Amer) 80.3 Est GFR (Non-Af Amer) 69.3 BUN/Creatinine Ratio 57.4 H Glucose 119 H POC Glucose 126 H Calcium 9.1 Phosphorus 2.1 L Magnesium 3.1 H 04/10/21 04/10/21 04/10/21 06:32 06:52 07:53 WBC RBC Hgb POC Hgb Hct POC Hct MCV MCH MCHC RDW Std Deviation RDW Coeff of Roge Plt Count MPV Immature Gran % (Auto) Neut % (Auto) Lymph % (Auto) Dade % (Auto) Eos % (Auto) Baso % (Auto) Neut # (Auto) Lymph # (Auto) Dade # (Auto) Eos # (Auto) Baso # (Auto) Immature Gran # (Auto) Sample Site POC pH POC pCO2 POC pO2 POC HCO3 POC Total CO2 POC Base Excess ABG pH (Temp Correct) ABG pCO2 (Temp Corrct POC ABG pO2 at Pt Temp POC ABG O2 Sat Marty Test O2 Delivery Device POC O2 Rate POC FiO2 Tidal Volume PEEP POC Sodium Sodium POC Potassium Potassium Chloride Carbon Dioxide Anion Gap BUN Creatinine Est Cr Clr Drug Dosing Est GFR ( Amer) Est GFR (Non-Af Amer) BUN/Creatinine Ratio Glucose POC Glucose 99 180 H 165 H Calcium Phosphorus Magnesium 04/10/21 09:07 WBC RBC Hgb POC Hgb Hct POC Hct MCV MCH MCHC RDW Std Deviation RDW Coeff of Roge Plt Count MPV Immature Gran % (Auto) Neut % (Auto) Lymph % (Auto) Dade % (Auto) Eos % (Auto) Baso % (Auto) Neut # (Auto) Lymph # (Auto) Dade # (Auto) Eos # (Auto) Baso # (Auto) Immature Gran # (Auto) Sample Site POC pH POC pCO2 POC pO2 POC HCO3 POC Total CO2 POC Base Excess ABG pH (Temp Correct) ABG pCO2 (Temp Corrct POC ABG pO2 at Pt Temp POC ABG O2 Sat Marty Test O2 Delivery Device POC O2 Rate POC FiO2 Tidal Volume PEEP POC Sodium Sodium POC Potassium Potassium Chloride Carbon Dioxide Anion Gap BUN Creatinine Est Cr Clr Drug Dosing Est GFR ( Amer) Est GFR (Non-Af Amer) BUN/Creatinine Ratio Glucose POC Glucose 161 H Calcium Phosphorus Magnesium Medications Administered Current Inpatient Medications Acetaminophen (Acetaminophen 325 Mg Tab) 650 mg PO Q6 PRN PRN Reason: Pain or Fever Stop: 05/05/21 17:59 Aspirin (Aspirin 81 Mg Chew) 81 mg PO DAILY [facility]ATTIE Stop: 05/08/21 11:59 Last Admin: 04/10/21 09:45 Dose: 81 mg Documented by: Atorvastatin Calcium (Atorvastatin 40 Mg Tab) 80 mg PO HS [facility] Stop: 05/08/21 20:59 Last Admin: 04/09/21 20:20 Dose: 80 mg Documented by: Baclofen (Baclofen 20 Mg Tab) 20 mg PO BID [facility] Stop: 05/09/21 20:59 Last Admin: 04/10/21 09:48 Dose: 20 mg Documented by: Clopidogrel Bisulfate (Clopidogrel Bisulfate 75 Mg Tab) 75 mg PO DAILY [facility] Stop: 05/08/21 11:59 Last Admin: 04/10/21 09:45 Dose: 75 mg Documented by: Enoxaparin Sodium (Enoxaparin Inj 40 Mg/0.4 Ml Syr) 40 mg SQ Q12H [facility] Stop: 05/05/21 17:59 Last Admin: 04/10/21 05:35 Dose: 40 mg Documented by: Fentanyl Citrate (Fentanyl Bolus From Bag) 50 mcg IV Q60M PRN PRN Reason: Pain or Agitation Stop: 04/21/21 15:15 Pantoprazole Sodium 40 mg/ (Syringe) 10 mls @ 5 mls/min IV BID [facility] Stop: 05/06/21 20:59 Last Admin: 04/10/21 09:45 Dose: 5 mls/min Documented by: Dexamethasone 20 mg/ Dextrose 30 mls @ 1 mls/min IV Q24H [facility] Stop: 04/11/21 09:29 Last Infusion: 04/10/21 08:39 Dose: Infused Documented by: Fentanyl Citrate (Fentanyl Citrate) 2,500 mcg in 250 mls @ 2.5 mls/hr IV .Q96H [facility]; Protocol Stop: 04/21/21 15:29 Last Admin: 04/10/21 07:56 Dose: Not Given Documented by: Norepinephrine Bitartrate (Levophed/D5w) 8 mg in 508 mls @ 24.11 mls/hr IV .Q21H5M [facility]; Protocol Stop: 05/07/21 20:44 Last Admin: 04/09/21 17:14 Dose: Not Given Documented by: Dexmedetomidine HCl 200 mcg/ (Sodium Chloride) 50 mls @ 5.49 mls/hr IV .Q9H7M [facility]; Protocol Stop: 04/12/21 10:29 Last Admin: 04/10/21 07:56 Dose: Not Given Documented by: Dexamethasone 10 mg/ Syringe 2.5 mls @ 1 mls/min IV DAILY [facility] Stop: 04/16/21 09:03 Linezolid (Zyvox) 600 mg in 300 mls @ 200 mls/hr IV Q12H [facility] Stop: 04/15/21 11:59 Last Infusion: 04/10/21 03:49 Dose: Infused Documented by: Levofloxacin/Dextrose (Levaquin/D5w) 750 mg in 150 mls @ 100 mls/hr IV Q48H [facility]; Protocol Stop: 04/16/21 10:59 Last Infusion: 04/09/21 14:18 Dose: Infused Documented by: Insulin Human Regular 250 (units/ Sodium Chloride) 250 mls @ 0.6 mls/hr IV .Q24H [facility]; Protocol Stop: 05/08/21 14:59 Last Titration: 04/10/21 09:16 Dose: 0.6 unit/hr, 0.6 mls/hr Documented by: Insulin Aspart (Insulin Aspart Per Unit) 0 units SC Q4 [facility] Stop: 05/08/21 16:29 Last Admin: 04/10/21 08:08 Dose: 2 units Documented by: Nutritional Formula (Peptamen Intense Vhp 1.0 Jeison 1,000 Ml Bag) 1,000 ml GT CONT [facility]; Protocol Stop: 05/07/21 15:44 Last Admin: 04/09/21 15:15 Dose: 1,000 ml Documented by: PG Care Time/CCT Total # of Minutes Spent Total Time Spent with Patient: Total time spent is greater than 50% in coordination of care (as documented) at patient's floor/unit and/or counseling patient: Coding Level of Care Code 30458 Subseq Hosp Care Lvl 2 Diagnoses 2019 novel coronavirus-infected pneumonia (NCIP) U07.1; J12.82 Hypoxia R09.02 COPD (chronic obstructive pulmonary disease) with chronic bronchitis J44.9 CVA (cerebral vascular accident) I63.9 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 DVT prophylaxis Z29.9
--- NOTE | 2021-04-10 10:58 | Critical Care Progress Note ---
Date of Service April 10, 2021 Assessment & Plan (1) 2019 novel coronavirus-infected pneumonia (NCIP): Plan: Reason Critically Ill: 60-year-old male with acute hypoxic respiratory failure secondary to COVID-19 pneumonia PLAN: Neuro: Sedation and analgesia - Precedex Analgesia:fentanyl infusions Baclofen use presumptively for spasticity 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 - Continue with ASA, Plavix, statin Migraine with aura Not on abortive medications as outpatient - review shows 2-4 headaches per month- Tylenol and Naproxen at home - Continue Tylenol Cardiovascular: Hypotension: Resolved Resp: Acute hypoxic respiratory failure -Mechanical ventilation Spontaneous breathing trial later today - This would be ~ day 11-12 of COVID- likely now entering secondary phase of illness - Legionella pending, aspergillus pending, fungitell pending - CTA no evidence of PE -Send bio fire continue Levaquin and vancomycin for nasal MRSA - He completed 10 days of Decadron 6mg, now with worsening CRP and oxygenation requirements- Decadron dosed to 20mg today for 5 days MRSA pneumonia -Transition from vancomycin to linezolid for pulmonary MRSA as well as THELMA -Day 5 effective therapy Fluids/Renal: Hyponatremia: Resolved Acute kidney injury: Resolved -Previously discontinued vancomycin ID: Levaquin Linezolid -Day 5 Bio fire ordered: Reviewed MRSA pneumonia GI/Nutrition: Tube feedings @ goal Heme: DVT prophylaxis: Lovenox 40 mg twice daily Endocrine: ICU hyperglycemia protocol DexaARDSnet Vascular access: Left subclavian placed 04/07/2021, left radial art line placed 04/07/2021 Code Status: Full Disposition: ICU Patient , Chun [phone] updated today. (2) Hypoxia: (3) COPD (chronic obstructive pulmonary disease) with chronic bronchitis: (4) CVA (cerebral vascular accident): (5) Spasticity as late effect of cerebrovascular accident (CVA): Plan: Continue with Tizanidine (6) Migraine without aura: (7) DVT prophylaxis: Admission and Anticipated Discharge Date Admission Date: April 05, 2021 Supervising Physician Co-Signing Physician Notes I have personally spent 40 minutes of critical care time in the direct management of this patient. This is a life/limb threatening event. This includes time spent evaluating patient, direct bedside care, chart review, plac ing orders, interpretation of diagnostic studies, discussion with consultants, patient, and/or family members regarding treatment decisions, as well as other required patient management activities. This time is exclusive of all separately billable procedures, and teaching time and separate from and in addition to any other critical care service time. Subjective Episodes of increased agitation/anxiety which has prompted increase medication dosing and the patient becomes rather somnolent. We are moving towards possible extubation today Review of Systems Review of Systems: Unable to obtain secondary to endotracheal tube Physical Exam Physical Exam: General: Alert. Following commands, denies pain. Skin: Warm, dry Head: Atraumatic Ears, nose, mouth and throat: airway secured by endotracheal tube Cardiovascular: Normal peripheral perfusion Respiratory: Ventilator settings reviewed Gastrointestinal: Non distended Musculoskeletal: No deformity Results & Data Results & Data ([facility]) Vital Signs (Past 12 Hours) Vital Signs Temp Pulse Resp BP Pulse Ox 04/10/21 10:37 53 L 12 92 04/10/21 09:30 44 L 16 92 04/10/21 09:00 46 L 14 91 04/10/21 08:30 49 L 15 91 04/10/21 08:26 49 L 04/10/21 08:00 50 L 13 128/67 93 04/10/21 07:58 13 04/10/21 07:30 45 L 18 92 04/10/21 07:06 42 L 22 92 04/10/21 07:00 55 L 23 94 04/10/21 06:30 43 L 20 94 04/10/21 06:00 45 L 20 93 04/10/21 05:30 46 L 18 93 04/10/21 05:00 46 L 19 95 04/10/21 04:30 53 L 19 92 04/10/21 04:20 62 20 89 L 04/10/21 04:00 37.1 C 109 H 44 H 122/76 90 04/10/21 03:30 46 L 14 91 04/10/21 03:00 45 L 13 92 04/10/21 02:30 44 L 14 93 04/10/21 02:00 37.1 C 47 L 14 93 04/10/21 01:30 44 L 11 L 94 04/10/21 01:00 45 L 13 93 04/10/21 00:30 46 L 13 93 04/10/21 00:00 37 C 45 L 15 93 04/09/21 23:30 47 L 14 93 04/09/21 23:20 70 15 91 04/09/21 23:00 46 L 94 Critical Care Results & Data Vital Signs (Past 12 Hours) Vital Signs Temp Pulse Resp BP Pulse Ox 04/10/21 10:37 53 L 12 92 04/10/21 09:30 44 L 16 92 04/10/21 09:00 46 L 14 91 04/10/21 08:30 49 L 15 91 04/10/21 08:26 49 L 04/10/21 08:00 50 L 13 128/67 93 04/10/21 07:58 13 04/10/21 07:30 45 L 18 92 04/10/21 07:06 42 L 22 92 04/10/21 07:00 55 L 23 94 04/10/21 06:30 43 L 20 94 04/10/21 06:00 45 L 20 93 04/10/21 05:30 46 L 18 93 04/10/21 05:00 46 L 19 95 04/10/21 04:30 53 L 19 92 04/10/21 04:20 62 20 89 L 04/10/21 04:00 37.1 C 109 H 44 H 122/76 90 04/10/21 03:30 46 L 14 91 04/10/21 03:00 45 L 13 92 04/10/21 02:30 44 L 14 93 04/10/21 02:00 37.1 C 47 L 14 93 04/10/21 01:30 44 L 11 L 94 04/10/21 01:00 45 L 13 93 04/10/21 00:30 46 L 13 93 04/10/21 00:00 37 C 45 L 15 93 04/09/21 23:30 47 L 14 93 04/09/21 23:20 70 15 91 04/09/21 23:00 46 L 94 Lab & Micro Results (Past 24 Hours) RBC 3.62 M/uL (4.7-6.1) L 04/10/21 WBC 11.13 K/uL (4.8-10.8) H 04/10/21 Hgb 11.2 g/dL (14.0-18.0) L 04/10/21 Hct 33.5 % (42-52) L 04/10/21 MCV 92.5 fL (80-100) 04/10/21 MCH 30.9 pg (25-34) 04/10/21 MCHC 33.4 g/dL (32-36) 04/10/21 RDW Standard Deviation 49.3 fL (36.4-46.3) H 04/10/21 RDW Coefficient of Variation 14.4 % (11.5-14.5) 04/10/21 Plt Count 268 K/uL (130-400) 04/10/21 MPV 11.0 fL (7.4-10.4) H 04/10/21 Neutrophils (%) (Auto) 84.7 % 04/10/21 Lymphocytes (%) (Auto) 9.9 % 04/10/21 Monocytes # (Auto) 0.50 K/uL (0.11-0.59) 04/10/21 Eosinophils # (Auto) 0.00 K/uL (0-0.5) 04/10/21 Immature Granulocyte % (Auto) 0.8 % 04/10/21 Neutrophils # (Auto) 9.43 K/uL (1.4-6.5) H 04/10/21 Lymphocytes # (Auto) 1.10 K/uL (1.2-3.4) L 04/10/21 Monocytes # (Auto) 0.50 K/uL (0.11-0.59) 04/10/21 Eosinophils # (Auto) 0.00 K/uL (0-0.5) 04/10/21 Basophils # (Auto) 0.01 K/uL (0-0.2) 04/10/21 Immature Granulocyte # (Auto) 0.09 K/uL (0.00-0.02) H 04/10/21 Na 138 mmol/L (136-145) 04/10/21 K 3.7 mmol/L (3.5-5.1) 04/10/21 Cl 106 mmol/L (98-107) 04/10/21 CO2 26 mmol/L (21-32) 04/10/21 Anion Gap 6.0 (3-11) 04/10/21 BUN 65 mg/dl (7-18) H 04/10/21 Creatinine 1.13 mg/dl (0.6-1.4) 04/10/21 Estimated GFR ( Amer) 80.3 ml/min 04/10/21 Estimated GFR (Non-Af Amer) 69.3 ml/min 04/10/21 BUN/Creatinine Ratio 57.4 (10-20) H 04/10/21 Glu 119 mg/dl (70-99) H 04/10/21 Ca 9.1 mg/dl (8.5-10.1) 04/10/21 Phosphorus Level 2.1 mg/dl (2.5-4.9) L 04/10/21 Mg 3.1 mg/dl (1.8-2.4) H 04/10/21 05:50 04/10/21 Calcium Level 9.1 mg/dl (8.5-10.1) 04/10/21 05:50 04/10/21 Marty Test NA 04/10/21 05:28 04/10/21 Diagnostic Findings (Past 24 Hours) Chest X-Ray 04/10/21 07:00 XR chest 1V portable HISTORY: 60 years-old Male Resp failure acute respiratory failure COMPARISON: 04/09/2021 TECHNIQUE: Portable AP view of the chest FINDINGS: The endotracheal tube overlies the midline, 7 mm superior to the kt. Left central venous catheter distal tip is noted in the expected location of the brachycephalic SVC confluence. An enteric tube courses below the diaphragm with distal tip outside the [id number]. The patient is rotated towards the left. No pneumothorax. Suspected trace pleural effusions. Cardiac silhouette is upper limits of normal in size. Interstitial coarsening with bibasilar predominant airspace opacities are not significant changed. Degenerative changes of the shoulders and spine. IMPRESSION: 1. Low-lying endotracheal tube. Retraction of 2 to 3 cm recommended with follow- up chest radiograph. 2. Unchanged bibasilar predominant airspace opacities. ACT 112: Negative or not required by law. The above report was generated using voice recognition software. It may contain grammatical, syntax or spelling errors. Electronically signed by: Adam Morgan M.D. 04/10/2021 7:44 AM I & O Totals 24 Hours 04/09/21 04/10/21 04/11/21 06:59 06:59 06:59 Intake Total 2116.681 / 2116.681 2848.412 / 2848.412 38.527 / 38.527 Output Total 500 / 500 1550 / 1550 275 / 275 Balance 1616.681 / 8187.450 2601.412 / 1298.412 -236.473 / -236.473 Cumulative 04/05/21 11:04 thru 04/10/21 09:16 Intake Total 8055.966 Output Total 4826 Balance 3229.966 RT Ventilator Mngmt (Last Documented) Ventilator Ordered Settings Ventilator Support Mode CPAP 04/10/21 10:37 Respiratory Rate 12 04/10/21 10:37 Ventilator Tidal Volume 350 04/10/21 07:06 Setting Minute Ventilation 7.1 04/10/21 10:37 Ventilator Positive Pressure 5 04/10/21 10:37 Support Setting Positive End Expiratory 5 04/10/21 10:37 Pressure Fraction of Inspired Oxygen 40 04/10/21 10:37 Machine Comment Placed on PS trial at this time 04/10/21 07:58 Ventilator - PT Measurements Respiratory Rate 12 Exhaled Tidal Volume 582 Minute Ventilation 7.1 Peak Inspiratory Airway 12 Pressure Plateau Pressure 5 Respiratory Cycle Inspiratory: 1:3 Expiratory Ratio Inspiratory Phase Time 0.98 End-Tidal CO2 34 Static Lung Compliance 50.85 Dynamic Lung Compliance 83.14 Normal Static Lung Compliance 49.00 Patient Measurements Comment Patient sats 84% RR in the high 40s after patient HOB was placed flat, patient agitated and showing signs of respiratory distress, patient placed back on full vent, RN aware. Coding Level of Care Code Critical Care 1st 30-74 mins Diagnoses 2019 novel coronavirus-infected pneumonia (NCIP) U07.1; J12.82 Hypoxia R09.02 COPD (chronic obstructive pulmonary disease) with chronic bronchitis J44.9 CVA (cerebral vascular accident) I63.9 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 DVT prophylaxis Z29.9
[2021-04-10] MEDS: ATORVASTATIN 40 MG TAB PO SCH (21:04)
[2021-04-11] MEDS: LINEZOLID 600 MG/300 ML BAG IV SCH ×2 (00:35→11:52)
[2021-04-11] MEDS: INSULIN ASPART PER UNIT SC SCH ×6 (00:36→20:08)
[2021-04-11] MEDS: DEXMEDETOMIDINE HCL 200 MCG in SODIUM CHLORIDE 0.9% 48 ML IV SCH ×5 (05:26→20:23)
[2021-04-11] MEDS: ENOXAPARIN INJ 40 MG/0.4 ML SYR SQ SCH ×2 (05:39→16:27)
[2021-04-11 06:39] LABS: Basophils # (auto) 0.01 K/uL (0-0.2); Basophils % (auto) 0.1 %; Eosinophils # (auto) 0.02 K/uL (0-0.5); Eosinophils % (auto) 0.2 %; Hematocrit (blood only) 35.8 % (42-52); Hemoglobin 12.1 g/dL (14.0-18.0); Immature Granulocytes # (auto) 0.15 K/uL (0.00-0.02); Immature Granulocytes % (auto) 1.4 %; Lymphocytes % (auto) 16.7 %; Mean Corpuscular Hemoglobin 31.1 pg (25-34); Mean Corpuscular Hgb Conc 33.8 g/dL (32-36); Mean Platelet Volume 10.7 fL (7.4-10.4); Monocytes # (auto) 0.48 K/uL (0.11-0.59); Monocytes % (auto) 4.4 %; Neutrophils # (auto) 8.33 K/uL (1.4-6.5); Neutrophils % (auto) 77.2 %; Platelet Count 310 K/uL (130-400); RDW Coefficient of Variation 14.5 % (11.5-14.5); RDW Standard Deviation 48.9 fL (36.4-46.3); Red Blood Count 3.89 M/uL (4.7-6.1); White Blood Count 10.79 K/uL (4.8-10.8)
[2021-04-11 07:04] LABS: BUN Creatinine Ratio 51.4 (10-20); Calcium 8.9 mg/dl (8.5-10.1); Creatinine Clr Calc Pharmacy 73.4 ml/min; Est GFR (Non-African American) 79.3 ml/min; Magnesium 2.5 mg/dl (1.8-2.4); Phosphorus 2.1 mg/dl (2.5-4.9); Potassium 3.8 mmol/L (3.5-5.1)
[2021-04-11] MEDS: dexAMETHasone 20 MG in DEXTROSE 5% 25 ML IV SCH (08:07)
[2021-04-11] MEDS: PANTOprazole 40 MG in SYRINGE 0 ML IV SCH ×2 (08:07→20:18)
--- NOTE | 2021-04-11 10:10 | Critical Care Progress Note ---
Date of Service April 11, 2021 Assessment & Plan (1) 2018 novel coronavirus-infected pneumonia (NCIP): Plan: Reason Critically Ill: 60-year-old male with acute hypoxic respiratory failure secondary to COVID-19 pneumonia PLAN: Neuro: Sedation - Precedex attempt to wean -Add Zyprexa ODT Analgesia:fentanyl infusions Baclofen use presumptively for spasticity 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 - Continue with ASA, Plavix, statin Migraine with aura Not on abortive medications as outpatient - review shows 2-4 headaches per month- Tylenol and Naproxen at home - Continue Tylenol Cardiovascular: Hypotension: Resolved Resp: Acute hypoxic respiratory failure: Improved -Liberated from ventilator 04/10 - This would be ~ day 11-12 of COVID- likely now entering secondary phase of illness - Legionella pending, aspergillus pending, fungitell pending - CTA no evidence of PE -Send bio fire continue Levaquin and vancomycin for nasal MRSA - He completed 10 days of Decadron 6mg, now with worsening CRP and oxygenation requirements- Decadron dosed to 20mg today for 5 days MRSA pneumonia -Transition from vancomycin to linezolid for pulmonary MRSA as well as THELMA -Day 6 effective therapy Fluids/Renal: Hyponatremia: Resolved Acute kidney injury: Resolved -Previously discontinued vancomycin ID: Levaquin Linezolid -Day 6 Bio fire ordered: Reviewed MRSA pneumonia GI/Nutrition: Tube feedings via course a feeding tube -We will require speech and swallow evaluation Heme: DVT prophylaxis: Lovenox 40 mg twice daily Endocrine: ICU hyperglycemia protocol DexaARDSnet Vascular access: Left subclavian placed 04/07/2021, left radial art line placed 04/07/2021 discontinue invasive lines Code Status: Full Disposition: ICU Patient , Chun [phone] (2) Hypoxia: (3) COPD (chronic obstructive pulmonary disease) with chronic bronchitis: (4) CVA (cerebral vascular accident): (5) Spasticity as late effect of cerebrovascular accident (CVA): Plan: Continue with Tizanidine (6) Migraine without aura: (7) DVT prophylaxis: Admission and Anticipated Discharge Date Admission Date: April 05, 2021 Subjective Continued agitation/anxiety to significant elevated heart rate and blood pressure. Review of Systems Review of Systems: Unable to obtain secondary to history of aphasia, denies pain Physical Exam Physical Exam: General: Resting following commands, denies pain. Skin: Warm, dry Head: Atraumatic Ears, nose, mouth and throat: airway patent Cardiovascular: Normal peripheral perfusion Respiratory: No respiratory distress Gastrointestinal: Non distended Musculoskeletal: Right upper extremity flaccid Results & Data Results & Data ([facility]) Vital Signs (Past 12 Hours) Vital Signs Temp Pulse BP Pulse Ox 04/11/21 08:45 61 04/11/21 08:30 61 94 04/11/21 08:00 71 92 04/11/21 07:30 68 94 04/11/21 07:00 65 95 04/11/21 06:30 48 L 93 04/11/21 06:00 36.5 C 69 93 04/11/21 05:30 58 L 94 04/11/21 05:00 56 L 96 04/11/21 04:30 95 04/11/21 04:00 56 L 138/68 96 04/11/21 03:30 57 L 96 04/11/21 03:00 55 L 95 04/11/21 02:30 62 96 04/11/21 02:00 37 C 60 96 04/11/21 01:30 56 L 97 04/11/21 01:00 58 L 95 04/11/21 00:30 71 92 04/11/21 00:00 75 178/78 H 89 L 04/10/21 23:30 40 L 95 04/10/21 23:00 40 L 95 04/10/21 22:30 41 L 95 Laboratory Results 04/11/21 04/11/21 04/11/21 Range/Units 07:47 05:37 05:37 WBC 10.79 (4.8-10.8) K/uL RBC 3.89 L (4.7-6.1) M/uL Hgb 12.1 L (14.0-18.0) g/dL Hct 35.8 L (42-52) % MCV 92.0 (80-100) fL MCH 31.1 (25-34) pg MCHC 33.8 (32-36) g/dL RDW Std Deviation 48.9 H (36.4-46.3) fL RDW Coeff of Roge 14.5 (11.5-14.5) % Plt Count 310 (130-400) K/uL MPV 10.7 H (7.4-10.4) fL Immature Gran % (Auto) 1.4 % Neut % (Auto) 77.2 % Lymph % (Auto) 16.7 % [place] % (Auto) 4.4 % Eos % (Auto) 0.2 % Baso % (Auto) 0.1 % Neut # (Auto) 8.33 H (1.4-6.5) K/uL Lymph # (Auto) 1.80 (1.2-3.4) K/uL [place] # (Auto) 0.48 (0.11-0.59) K/uL Eos # (Auto) 0.02 (0-0.5) K/uL Baso # (Auto) 0.01 (0-0.2) K/uL Immature Gran # (Auto) 0.15 H (0.00-0.02) K/uL Sodium 140 (136-145) mmol/L Potassium 3.8 (3.5-5.1) mmol/L Chloride 108 H (98-107) mmol/L Carbon Dioxide 27 (21-32) mmol/L Anion Gap 6.0 (3-11) BUN 52 H (7-18) mg/dl Creatinine 1.01 (0.6-1.4) mg/dl Est Cr Clr Drug Dosing 73.4 ml/min Est GFR ( Amer) 92.0 ml/min Est GFR (Non-Af Amer) 79.3 ml/min BUN/Creatinine Ratio 51.4 H (10-20) Glucose 116 H (70-99) mg/dl POC Glucose 102 H (70-99) mg/dl Calcium 8.9 (8.5-10.1) mg/dl Phosphorus 2.1 L (2.5-4.9) mg/dl Magnesium 2.5 H (1.8-2.4) mg/dl 04/11/21 04/10/21 04/10/21 Range/Units 04:03 23:45 19:39 WBC (4.8-10.8) K/uL RBC (4.7-6.1) M/uL Hgb (14.0-18.0) g/dL Hct (42-52) % MCV (80-100) fL MCH (25-34) pg MCHC (32-36) g/dL RDW Std Deviation (36.4-46.3) fL RDW Coeff of Roge (11.5-14.5) % Plt Count (130-400) K/uL MPV (7.4-10.4) fL Immature Gran % (Auto) % Neut % (Auto) % Lymph % (Auto) % [place] % (Auto) % Eos % (Auto) % Baso % (Auto) % Neut # (Auto) (1.4-6.5) K/uL Lymph # (Auto) (1.2-3.4) K/uL [place] # (Auto) (0.11-0.59) K/uL Eos # (Auto) (0-0.5) K/uL Baso # (Auto) (0-0.2) K/uL Immature Gran # (Auto) (0.00-0.02) K/uL Sodium (136-145) mmol/L Potassium (3.5-5.1) mmol/L Chloride (98-107) mmol/L Carbon Dioxide (21-32) mmol/L Anion Gap (3-11) BUN (7-18) mg/dl Creatinine (0.6-1.4) mg/dl Est Cr Clr Drug Dosing ml/min Est GFR ( Amer) ml/min Est GFR (Non-Af Amer) ml/min BUN/Creatinine Ratio (10-20) Glucose (70-99) mg/dl POC Glucose 117 H 138 H 150 H (70-99) mg/dl Calcium (8.5-10.1) mg/dl Phosphorus (2.5-4.9) mg/dl Magnesium (1.8-2.4) mg/dl 04/10/21 04/10/21 04/10/21 Range/Units 16:25 14:04 11:57 WBC (4.8-10.8) K/uL RBC (4.7-6.1) M/uL Hgb (14.0-18.0) g/dL Hct (42-52) % MCV (80-100) fL MCH (25-34) pg MCHC (32-36) g/dL RDW Std Deviation (36.4-46.3) fL RDW Coeff of Roge (11.5-14.5) % Plt Count (130-400) K/uL MPV (7.4-10.4) fL Immature Gran % (Auto) % Neut % (Auto) % Lymph % (Auto) % [place] % (Auto) % Eos % (Auto) % Baso % (Auto) % Neut # (Auto) (1.4-6.5) K/uL Lymph # (Auto) (1.2-3.4) K/uL [place] # (Auto) (0.11-0.59) K/uL Eos # (Auto) (0-0.5) K/uL Baso # (Auto) (0-0.2) K/uL Immature Gran # (Auto) (0.00-0.02) K/uL Sodium (136-145) mmol/L Potassium (3.5-5.1) mmol/L Chloride (98-107) mmol/L Carbon Dioxide (21-32) mmol/L Anion Gap (3-11) BUN (7-18) mg/dl Creatinine (0.6-1.4) mg/dl Est Cr Clr Drug Dosing ml/min Est GFR ( Amer) ml/min Est GFR (Non-Af Amer) ml/min BUN/Creatinine Ratio (10-20) Glucose (70-99) mg/dl POC Glucose 172 H 230 H 138 H (70-99) mg/dl Calcium (8.5-10.1) mg/dl Phosphorus (2.5-4.9) mg/dl Magnesium (1.8-2.4) mg/dl 04/10/21 Range/Units 10:21 WBC (4.8-10.8) K/uL RBC (4.7-6.1) M/uL Hgb (14.0-18.0) g/dL Hct (42-52) % MCV (80-100) fL MCH (25-34) pg MCHC (32-36) g/dL RDW Std Deviation (36.4-46.3) fL RDW Coeff of Roge (11.5-14.5) % Plt Count (130-400) K/uL MPV (7.4-10.4) fL Immature Gran % (Auto) % Neut % (Auto) % Lymph % (Auto) % [place] % (Auto) % Eos % (Auto) % Baso % (Auto) % Neut # (Auto) (1.4-6.5) K/uL Lymph # (Auto) (1.2-3.4) K/uL [place] # (Auto) (0.11-0.59) K/uL Eos # (Auto) (0-0.5) K/uL Baso # (Auto) (0-0.2) K/uL Immature Gran # (Auto) (0.00-0.02) K/uL Sodium (136-145) mmol/L Potassium (3.5-5.1) mmol/L Chloride (98-107) mmol/L Carbon Dioxide (21-32) mmol/L Anion Gap (3-11) BUN (7-18) mg/dl Creatinine (0.6-1.4) mg/dl Est Cr Clr Drug Dosing ml/min Est GFR ( Amer) ml/min Est GFR (Non-Af Amer) ml/min BUN/Creatinine Ratio (10-20) Glucose (70-99) mg/dl POC Glucose 143 H (70-99) mg/dl Calcium (8.5-10.1) mg/dl Phosphorus (2.5-4.9) mg/dl Magnesium (1.8-2.4) mg/dl Critical Care Results & Data Vital Signs (Past 12 Hours) Vital Signs Temp Pulse BP Pulse Ox 04/11/21 08:45 61 04/11/21 08:30 61 94 04/11/21 08:00 71 92 04/11/21 07:30 68 94 04/11/21 07:00 65 95 04/11/21 06:30 48 L 93 04/11/21 06:00 36.5 C 69 93 04/11/21 05:30 58 L 94 04/11/21 05:00 56 L 96 04/11/21 04:30 95 04/11/21 04:00 56 L 138/68 96 04/11/21 03:30 57 L 96 04/11/21 03:00 55 L 95 04/11/21 02:30 62 96 04/11/21 02:00 37 C 60 96 04/11/21 01:30 56 L 97 04/11/21 01:00 58 L 95 04/11/21 00:30 71 92 04/11/21 00:00 75 178/78 H 89 L 04/10/21 23:30 40 L 95 04/10/21 23:00 40 L 95 04/10/21 22:30 41 L 95 Lab & Micro Results (Past 24 Hours) RBC 3.89 M/uL (4.7-6.1) L 04/11/21 WBC 10.79 K/uL (4.8-10.8) 04/11/21 Hgb 12.1 g/dL (14.0-18.0) L 04/11/21 Hct 35.8 % (42-52) L 04/11/21 MCV 92.0 fL (80-100) 04/11/21 MCH 31.1 pg (25-34) 04/11/21 MCHC 33.8 g/dL (32-36) 04/11/21 RDW Standard Deviation 48.9 fL (36.4-46.3) H 04/11/21 RDW Coefficient of Variation 14.5 % (11.5-14.5) 04/11/21 Plt Count 310 K/uL (130-400) 04/11/21 MPV 10.7 fL (7.4-10.4) H 04/11/21 Neutrophils (%) (Auto) 77.2 % 04/11/21 Lymphocytes (%) (Auto) 16.7 % 04/11/21 Monocytes # (Auto) 0.48 K/uL (0.11-0.59) 04/11/21 Eosinophils # (Auto) 0.02 K/uL (0-0.5) 04/11/21 Immature Granulocyte % (Auto) 1.4 % 04/11/21 Neutrophils # (Auto) 8.33 K/uL (1.4-6.5) H 04/11/21 Lymphocytes # (Auto) 1.80 K/uL (1.2-3.4) 04/11/21 Monocytes # (Auto) 0.48 K/uL (0.11-0.59) 04/11/21 Eosinophils # (Auto) 0.02 K/uL (0-0.5) 04/11/21 Basophils # (Auto) 0.01 K/uL (0-0.2) 04/11/21 Immature Granulocyte # (Auto) 0.15 K/uL (0.00-0.02) H 04/11/21 Na 140 mmol/L (136-145) 04/11/21 K 3.8 mmol/L (3.5-5.1) 04/11/21 Cl 108 mmol/L (98-107) H 04/11/21 CO2 27 mmol/L (21-32) 04/11/21 Anion Gap 6.0 (3-11) 04/11/21 BUN 52 mg/dl (7-18) H 04/11/21 Creatinine 1.01 mg/dl (0.6-1.4) 04/11/21 Estimated GFR ( Amer) 92.0 ml/min 04/11/21 Estimated GFR (Non-Af Amer) 79.3 ml/min 04/11/21 BUN/Creatinine Ratio 51.4 (10-20) H 04/11/21 Glu 116 mg/dl (70-99) H 04/11/21 Ca 8.9 mg/dl (8.5-10.1) 04/11/21 Phosphorus Level 2.1 mg/dl (2.5-4.9) L 04/11/21 Mg 2.5 mg/dl (1.8-2.4) H 04/11/21 05:37 04/11/21 Calcium Level 8.9 mg/dl (8.5-10.1) 04/11/21 05:37 04/11/21 Microbiology 04/05/21 11:56 Aerobic Blood Culture - Final Blood No growth in Aerobic bottle after 5 days. Anaerobic Blood Culture - Final No growth in Anaerobic bottle after 5 days. 04/05/21 11:49 Aerobic Blood Culture - Final Blood No growth in Aerobic bottle after 5 days. Anaerobic Blood Culture - Final No growth in Anaerobic bottle after 5 days. I & O Totals 24 Hours 04/10/21 04/11/21 04/12/21 06:59 06:59 06:59 Intake Total 2848.412 / 2848.412 766.532 / 766.532 56.28 / 56.28 Output Total 1550 / 1550 1500 / 1500 Balance 1298.412 / 1298.412 -733.468 / -733.468 56.28 / 56.28 Cumulative 04/05/21 11:04 thru 04/11/21 09:02 Intake Total 8840.251 Output Total 6051 Balance 2789.251 RT Ventilator Mngmt (Last Documented) Ventilator Ordered Settings Ventilator Support Mode CPAP 04/10/21 10:37 Respiratory Rate 16 04/10/21 16:00 Ventilator Tidal Volume 350 04/10/21 07:06 Setting Minute Ventilation 7.1 04/10/21 10:37 Ventilator Positive Pressure 5 04/10/21 10:37 Support Setting Positive End Expiratory 5 04/10/21 10 :37 Pressure Fraction of Inspired Oxygen 40 04/10/21 10:37 Machine Comment Placed on PS trial at this time 04/10/21 07:58 Ventilator - PT Measurements Respiratory Rate 16 Exhaled Tidal Volume 582 Minute Ventilation 7.1 Peak Inspiratory Airway 12 Pressure Plateau Pressure 5 Respiratory Cycle Inspiratory: 1:3 Expiratory Ratio Inspiratory Phase Time 0.98 End-Tidal CO2 34 Static Lung Compliance 50.85 Dynamic Lung Compliance 83.14 Normal Static Lung Compliance 49.00 Patient Measurements Comment Patient sats 84% RR in the high 40s after patient HOB was placed flat, patient agitated and showing signs of respiratory distress, patient placed back on full vent, RN aware. Coding Level of Care Code 38090 Subseq Hosp Care Lvl 3 Diagnoses 2019 novel coronavirus-infected pneumonia (NCIP) U07.1; J12.82 Hypoxia R09.02 COPD (chronic obstructive pulmonary disease) with chronic bronchitis J44.9 CVA (cerebral vascular accident) I63.9 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 DVT prophylaxis Z29.9
--- NOTE | 2021-04-11 10:49 | Hospitalist Progress Note ---
Date of Service April 11, 2021 Assessment & Plan (1) 2018 novel coronavirus-infected pneumonia (NCIP): Plan: Bacterial infection with continuing COVID 19 infection- not vaccinated was discharged on 03/30, was on room air, sent home on dexamethasone 6mg PO daily had a few good days but got worse quickly on Wednesday 04/04 and real bad on 04/05, brought to hospital concern for secondary bacterial infection but also worsening COVID CRP was 23 on admission, procalcitonin elevated sputum culture growing staph and MRSA + in nares dexamethasone 20mg IV daily, completed 5 days, now on 10mg IV x 5 days Vancomycin IV initially, change to Linezolid due to renal failure Linezolid IV day 3 Levaquin IV, day 7 Lovenox BID for DVT prophylaxis, PE was ruled out on CTA of chest on admission intubated on 04/07/21 due to worsening respiratory failure extubated 04/10/21, now on 5L oxy mask weaning off Precedex, see how he responds Coresafe in place for feeds and medications until he wakes up more (2) Hypoxia: Plan: acute hypoxic respiratory failure As above - COVID 19 complicated by likely bacterial pneumonia went from 15L oxy mask to needing CPAP 10 FiO2 100% on 04/07, moved to ICU and intubated due to distress ICU managing extubated 04/10/21, on 5L mask this morning, no distress weaning down Precedex, see how he responds (3) COPD (chronic obstructive pulmonary disease) with chronic bronchitis: Plan: Continue as above no wheezing on exam (4) CVA (cerebral vascular accident): Plan: 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 - Continue with ASA, Plavix, statin via Coresafe (5) Spasticity as late effect of cerebrovascular accident (CVA): Plan: added back Baclofen (6) Migraine without aura: Plan: chronic issue, now sedated (7) DVT prophylaxis: Plan: DVT: Lovenox 40mg BID sub q Admission and Anticipated Discharge Date Admission Date: April 05, 2021 Subjective patient doing well on 5L mask, he is on Precedex but weaning down when he wakes up he is not agitated, quickly drifts back to sleep Coresafe placed for oral medications and feeds, not awake enough to try to swallow he is hypertensive, HR stable labs reviewed, CBC and BMP stable, Phos 2.1, Mag 2.5 Dr. Roberts still managing Review of Systems Review of Systems: Unobtainable due to reduced consciousness Physical Exam Physical Exam: General: well developed, thin male, ill appearing, on oxymask Neck: supple, trachea midline, normal thyroid Lungs: coarse bilaterally, slightly tachypneic and slight accessory muscle use, no distress Heart: normal S1 and S2, no murmur, peripheral pulses normal, capillary refill normal, no edema Abdomen: soft, NT, ND, + BS, no hepatomegaly, normal to percussion Extremities: no cyanosis, no petechiae, right hand contracture, generalized weakness Neuro: sedated but will wake up, follow commands, CN II-XII intact, right hand contracture (chronic) Skin: warm, dry, no rash, normal turgor Psych: sleeping, on Precedex Results & Data Results & Data ([facility]) Vital Signs (Past 12 Hours) Vital Signs Temp Pulse BP Pulse Ox 04/11/21 08:45 61 04/11/21 08:30 61 94 04/11/21 08:00 71 92 04/11/21 07:30 68 94 04/11/21 07:00 65 95 04/11/21 06:30 48 L 93 04/11/21 06:00 36.5 C 69 93 04/11/21 05:30 58 L 94 04/11/21 05:00 56 L 96 04/11/21 04:30 95 04/11/21 04:00 56 L 138/68 96 04/11/21 03:30 57 L 96 04/11/21 03:00 55 L 95 04/11/21 02:30 62 96 04/11/21 02:00 37 C 60 96 04/11/21 01:30 56 L 97 04/11/21 01:00 58 L 95 04/11/21 00:30 71 92 04/11/21 00:00 75 178/78 H 89 L 04/10/21 23:30 40 L 95 04/10/21 23:00 40 L 95 Laboratory Results Laboratory Results - last 24 hr 04/10/21 04/10/21 04/10/21 11:57 14:04 16:25 WBC RBC Hgb Hct MCV MCH MCHC RDW Std Deviation RDW Coeff of Roge Plt Count MPV Immature Gran % (Auto) Neut % (Auto) Lymph % (Auto) Guthrie % (Auto) Eos % (Auto) Baso % (Auto) Neut # (Auto) Lymph # (Auto) Guthrie # (Auto) Eos # (Auto) Baso # (Auto) Immature Gran # (Auto) Sodium Potassium Chloride Carbon Dioxide Anion Gap BUN Creatinine Est Cr Clr Drug Dosing Est GFR ( Amer) Est GFR (Non-Af Amer) BUN/Creatinine Ratio Glucose POC Glucose 138 H 230 H 172 H Calcium Phosphorus Magnesium 04/10/21 04/10/21 04/11/21 19:39 23:45 04:03 WBC RBC Hgb Hct MCV MCH MCHC RDW Std Deviation RDW Coeff of Roge Plt Count MPV Immature Gran % (Auto) Neut % (Auto) Lymph % (Auto) Guthrie % (Auto) Eos % (Auto) Baso % (Auto) Neut # (Auto) Lymph # (Auto) Guthrie # (Auto) Eos # (Auto) Baso # (Auto) Immature Gran # (Auto) Sodium Potassium Chloride Carbon Dioxide Anion Gap BUN Creatinine Est Cr Clr Drug Dosing Est GFR ( Amer) Est GFR (Non-Af Amer) BUN/Creatinine Ratio Glucose POC Glucose 150 H 138 H 117 H Calcium Phosphorus Magnesium 04/11/21 04/11/21 04/11/21 05:37 05:37 07:47 WBC 10.79 RBC 3.89 L Hgb 12.1 L Hct 35.8 L MCV 92.0 MCH 31.1 MCHC 33.8 RDW Std Deviation 48.9 H RDW Coeff of Roge 14.5 Plt Count 310 MPV 10.7 H Immature Gran % (Auto) 1.4 Neut % (Auto) 77.2 Lymph % (Auto) 16.7 Guthrie % (Auto) 4.4 Eos % (Auto) 0.2 Baso % (Auto) 0.1 Neut # (Auto) 8.33 H Lymph # (Auto) 1.80 Guthrie # (Auto) 0.48 Eos # (Auto) 0.02 Baso # (Auto) 0.01 Immature Gran # (Auto) 0.15 H Sodium 140 Potassium 3.8 Chloride 108 H Carbon Dioxide 27 Anion Gap 6.0 BUN 52 H Creatinine 1.01 Est Cr Clr Drug Dosing 73.4 Est GFR ( Amer) 92.0 Est GFR (Non-Af Amer) 79.3 BUN/Creatinine Ratio 51.4 H Glucose 116 H POC Glucose 102 H Calcium 8.9 Phosphorus 2.1 L Magnesium 2.5 H Medications Administered Current Inpatient Medications Acetaminophen (Acetaminophen 325 Mg Tab) 650 mg PO Q6 PRN PRN Reason: Pain or Fever Stop: 05/05/21 17:59 Aspirin (Aspirin 81 Mg Chew) 81 mg PO DAILY [facility] Stop: 05/08/21 11:59 Last Admin: 04/10/21 09:45 Dose: 81 mg Documented by: Atorvastatin Calcium (Atorvastatin 40 Mg Tab) 80 mg PO HS [facility] Stop: 05/08/21 20:59 Last Admin: 04/10/21 21:04 Dose: Not Given Documented by: Baclofen (Baclofen 20 Mg Tab) 20 mg PO BID [facility] Stop: 05/09/21 20:59 Last Admin: 04/10/21 21:04 Dose: Not Given Documented by: Clopidogrel Bisulfate (Clopidogrel Bisulfate 75 Mg Tab) 75 mg PO DAILY [facility] Stop: 05/08/21 11:59 Last Admin: 04/10/21 09:45 Dose: 75 mg Documented by: Enoxaparin Sodium (Enoxaparin Inj 40 Mg/0.4 Ml Syr) 40 mg SQ Q12H [facility] Stop: 05/05/21 17:59 Last Admin: 04/11/21 05:39 Dose: 40 mg Documented by: Pantoprazole Sodium 40 mg/ (Syringe) 10 mls @ 5 mls/min IV BID [facility] Stop: 05/06/21 20:59 Last Admin: 04/11/21 08:07 Dose: 5 mls/min Documented by: Dexmedetomidine HCl 200 mcg/ (Sodium Chloride) 50 mls @ 7.32 mls/hr IV .Q6H50M [facility]; Protocol Stop: 04/12/21 10:29 Last Admin: 04/11/21 09:02 Dose: 0.4 mcg/kg/hr, 7.3 mls/hr Documented by: Dexamethasone 10 mg/ Syringe 2.5 mls @ 1 mls/min IV DAILY [facility] Stop: 04/16/21 09:03 Linezolid (Zyvox) 600 mg in 300 mls @ 200 mls/hr IV Q12H [facility] Stop: 04/15/21 11:59 Last Infusion: 04/11/21 02:15 Dose: Infused Documented by: Levofloxacin/Dextrose (Levaquin/D5w) 750 mg in 150 mls @ 100 mls/hr IV Q48H [facility]; Protocol Stop: 04/16/21 10:59 Last Infusion: 04/09/21 14:18 Dose: Infused Documented by: Insulin Aspart (Insulin Aspart Per Unit) 0 units SC Q4 [facility] Stop: 05/10/21 15:59 Last Admin: 04/11/21 07:48 Dose: Not Given Documented by: Olanzapine (Olanzapine Zydis 5 Mg Orally Dis. Tab) 5 mg PO QAM [facility] Stop: 05/12/21 10:59 PG Care Time/CCT Total # of Minutes Spent Total Time Spent with Patient: Total time spent is greater than 50% in coordination of care (as documented) at patient's floor/unit and/or counseling patient: Coding Level of Care Code 84955 Subseq Hosp Care Lvl 3 Diagnoses 2019 novel coronavirus-infected pneumonia (NCIP) U07.1; J12.82 Hypoxia R09.02 COPD (chronic obstructive pulmonary disease) with chronic bronchitis J44.9 CVA (cerebral vascular accident) I63.9 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 DVT prophylaxis Z29.9
--- NOTE | 2021-04-11 10:49 | XRay Report ---
KUB CLINICAL HISTORY: Enteric tube placement. FINDINGS: An AP, portable, upright view of the lower chest and upper abdomen is correlated with abdom inal CT dated 10/04/2019. Enteric tube has been placed. The tip projects below the diaphragm over the gastric fundus. There is no bowel obstruction. A left subclavian central venous catheter is in place. Multifocal airspace consolidation is seen throughout the lungs. IMPRESSION: Enteric tube placement as above. Electronically signed by: Tono Mcginnis M.D. 04/11/2021 10:48 AM
[2021-04-11] MEDS: BACLOFEN 20 MG TAB PO SCH ×2 (11:00→20:17)
[2021-04-11] MEDS: levoFLOXacin/D5W 750 MG/150 ML BAG IV SCH (11:00)
[2021-04-11] MEDS: ASPIRIN 81 MG CHEW PO SCH (11:00)
[2021-04-11] MEDS: CLOPIDOGREL BISULFATE 75 MG TAB PO SCH (11:00)
[2021-04-11] MEDS: PEPTAMEN INTENSE VHP 1.0 CAL 1,000 ML BAG OG SCH (14:06)
[2021-04-11] MEDS: ATORVASTATIN 40 MG TAB PO SCH (20:17)
[2021-04-11 22:21] LABS: Aspergillus Ag Index 0.04 (<0.50); Aspergillus Antigen, Serum Not Detected (Not Detected); Fungitell (1-3)-B-D-Glucan <31 pg/mL
[2021-04-12] MEDS: INSULIN ASPART PER UNIT SC SCH ×7 (00:36→23:47)
[2021-04-12] MEDS: LINEZOLID 600 MG/300 ML BAG IV SCH ×3 (00:45→23:48)
[2021-04-12] MEDS: ENOXAPARIN INJ 40 MG/0.4 ML SYR SQ SCH ×2 (06:19→17:49)
--- NOTE | 2021-04-12 07:52 | Hospitalist Progress Note ---
Date of Service April 12, 2021 Assessment & Plan (1) 2018 novel coronavirus-infected pneumonia (NCIP): Plan: Bacterial pneumonia with continuing COVID 19 infection- not vaccinated was discharged on 03/30, was on room air, sent home on dexamethasone 6mg PO daily had a few good days but got worse quickly on Wednesday 04/04 and declined on 04/05, brought to hospital concern for secondary bacterial pneumonia but also worsening COVID CRP was 23 on admission, procalcitonin elevated sputum culture growing staph and MRSA + in nares dexamethasone 20mg IV daily, completed 5 days, now on 10mg IV x 5 days Vancomycin IV initially, change to Linezolid due to renal failure Linezolid IV started 04/08 Levaquin IV started ,04/09 Lovenox BID for DVT prophylaxis, PE was ruled out on CTA of chest on admission intubated on 04/07/21 due to worsening respiratory failure extubated 04/10/21, now on oxy mask weaning off Precedex, remains with metabolic encephalopathy slightly improving every day Coresafe in place for feeds and medications until he wakes up more and has speech eval (2) Hypoxia: Plan: acute hypoxic respiratory failure As above - COVID 19 complicated by likely bacterial pneumonia went from 15L oxy mask to needing CPAP 10 FiO2 100% on 04/07, moved to ICU and intubated due to distress extubated 04/10/21, on 5L mask this morning, no distress Metabolic encephalopathy persists (3) COPD (chronic obstructive pulmonary disease) with chronic bronchitis: Plan: Continue as above no wheezing on exam (4) CVA (cerebral vascular accident): Plan: 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 - Continue with ASA, Plavix, statin via Coresafe (5) Spasticity as late effect of cerebrovascular accident (CVA): Plan: added back Baclofen (6) Migraine without aura: Plan: chronic issue, now sedated (7) DVT prophylaxis: Plan: DVT: Lovenox 40mg BID sub q Admission and Anticipated Discharge Date Admission Date: April 05, 2021 Subjective pt is in no distress, is able to nod head y/n, sees to grunt when examined but does not speak, respiratory status is stable on supplemental oxygen Review of Systems Review of Systems: Moderate distress and fatigue Patient will not open eyes to examine Grunts and shakes head yes or no no chest pain, pressure or palpitations Continue shortness of breath, nonproductive cough or wheezes no abdominal pain, nausea or vomiting, no diarrhea no dysuria, hematuria or frequency no focal joint pain or swelling no back pain, CVA tenderness or radicular pain no bruising, bleeding or rashes no focal signs of weakness or numbness or altered sensation no complaints of anxiety or depression.. Physical Exam Physical Exam: The patient appeared well nourished and normally developed. Vital signs as documented. Head exam is normocephalic atraumatic Neck is without JVD, thyromegaly, or stridor Lungs are coarse to auscultation, bilateral rales are present Cardiac exam, Rhythm is regular.. No murmurs, rubs or gallops. Abdominal exam reveals normal bowel sounds, soft non tender, no masses Extremities are nonedematous and both pedal pulses are present Neurologic exam is able to answer with shaking his head will not open his eyes or speak grunts with the examination Skin is without bruises or rashes Results & Data Results & Data ([facility]) Vital Signs (Past 12 Hours) Vital Signs Temp Pulse Pulse Resp BP BP Pulse Ox 04/12/21 07:19 98.2 F 77 18 137/84 93 04/12/21 04:16 82 26 H 126/78 92 04/12/21 03:16 69 23 134/81 93 04/12/21 02:16 98.2 F 69 24 130/86 92 04/12/21 01:16 98.2 F 80 27 H 136/88 94 04/11/21 23:00 94 H 26 H 132/83 93 04/11/21 22:00 70 26 H 136/79 95 04/11/21 21:00 72 29 H 127/76 95 04/11/21 20:00 63 25 H 131/84 97 PG Care Time/CCT Total # of Minutes Spent Total Time Spent with Patient: Total time spent is greater than 50% in coordination of care (as documented) at patient's floor/unit and/or counseling patient: Coding Level of Care Code 76473 Subseq Hosp Care Lvl 3 Diagnoses 2019 novel coronavirus-infected pneumonia (NCIP) U07.1; J12.82 Hypoxia R09.02 COPD (chronic obstructive pulmonary disease) with chronic bronchitis J44.9 CVA (cerebral vascular accident) I63.9 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 DVT prophylaxis Z29.9
[2021-04-12 08:02] LABS: Basophils # (auto) 0.02 K/uL (0-0.2); Basophils % (auto) 0.1 %; Eosinophils # (auto) 0.05 K/uL (0-0.5); Eosinophils % (auto) 0.3 %; Hematocrit (blood only) 38.8 % (42-52); Immature Granulocytes % (auto) 2.1 %; Lymphocytes # (auto) 1.54 K/uL (1.2-3.4); Lymphocytes % (auto) 10.6 %; Mean Corpuscular Hemoglobin 30.9 pg (25-34); Mean Corpuscular Hgb Conc 33.5 g/dL (32-36); Mean Corpuscular Volume 92.2 fL (80-100); Mean Platelet Volume 10.7 fL (7.4-10.4); Monocytes # (auto) 0.64 K/uL (0.11-0.59); Monocytes % (auto) 4.4 %; Neutrophils # (auto) 11.94 K/uL (1.4-6.5); Neutrophils % (auto) 82.5 %; Platelet Count 327 K/uL (130-400); RDW Coefficient of Variation 14.4 % (11.5-14.5); RDW Standard Deviation 48.8 fL (36.4-46.3); Red Blood Count 4.21 M/uL (4.7-6.1); White Blood Count 14.49 K/uL (4.8-10.8)
[2021-04-12] MEDS: BACLOFEN 20 MG TAB PO SCH ×2 (08:28→21:10)
[2021-04-12] MEDS: ASPIRIN 81 MG CHEW PO SCH (08:28)
[2021-04-12] MEDS: CLOPIDOGREL BISULFATE 75 MG TAB PO SCH (08:28)
[2021-04-12] MEDS: dexAMETHasone 10 MG in SYRINGE 0 ML IV SCH (08:29)
[2021-04-12] MEDS: PANTOprazole 40 MG in SYRINGE 0 ML IV SCH ×2 (08:29→21:11)
--- NOTE | 2021-04-12 09:08 | XRay Report ---
KUB HISTORY: Status post placement of a feeding tube feeding tube coresafe placement COMPARISON: KUB 04/11/2021 FINDINGS: Trace pleural effusions. Multifocal bilateral airspace opacities redemonstrated. A feeding tube is present with distal tip projected inferiorly and medially within the region of the gastric fu ndus. Mild left hemidiaphragmatic elevation redemonstrated. The lower and right lateral abdomen are e xcluded from the [id number]. No renal calculi. No ureteral calculi. No pneumoperitoneum or pneuma tosis. Lumbar levoscoliosis. No fracture. IMPRESSION: Unchanged positioning of the feeding tube. ACT 112: Negative or not required by law. The above report was generated using voice recognition software. It may contain grammatical, syntax o r spelling errors. Electronically signed by: Adam Morgan M.D. 04/12/2021 9:07 AM
[2021-04-12] MEDS: DEXMEDETOMIDINE HCL 200 MCG in SODIUM CHLORIDE 0.9% 48 ML IV SCH (09:34)
[2021-04-12 10:27] LABS: BUN Creatinine Ratio 40.9 (10-20); Calcium 9.3 mg/dl (8.5-10.1); Creatinine Clr Calc Pharmacy 69.3 ml/min; Est GFR (African American) 85.8 ml/min; Magnesium 2.6 mg/dl (1.8-2.4); Phosphorus 2.2 mg/dl (2.5-4.9); Potassium 3.7 mmol/L (3.5-5.1)
[2021-04-12] MEDS ORDERED: POTASSIUM PHOSPHATE 15 MMOL in SODIUM CHLORIDE 0.9% 250 ML IV ONE (11:45)
[2021-04-12] MEDS ORDERED: METOPROLOL TARTRATE 1 MG/ML VIAL IV ONE (12:18)
[2021-04-12] MEDS: OLANZapine ZYDIS 5 MG ORALLY DIS. TAB PO SCH (12:32)
[2021-04-12] MEDS ORDERED: METOPROLOL TARTRATE 1 MG/ML VIAL IV PRN (12:43)
--- NOTE | 2021-04-12 14:18 | Electrocardiogram Report ---
Test Reason : Blood Pressure : / mmHG Vent. Rate : 095 BPM Atrial Rate : 095 BPM P-R Int : 134 ms QRS Dur : 080 ms QT Int : 364 ms P-R-T Axes : 042 -38 040 degrees QTc Int : 457 ms Normal sinus rhythm Left axis deviation Abnormal ECG When compared with ECG of 05-APR-2021 11:46, No significant change was found Confirmed by Flakito Marti ([id number]) on 04/12/2021 2:18:05 PM Referred By: REFERRED SELF Confirmed By:Flakito Marti
--- NOTE | 2021-04-12 14:26 | Critical Care Progress Note ---
Date of Service April 12, 2021 Assessment & Plan (1) 2019 novel coronavirus-infected pneumonia (NCIP): (2) Hypoxia: (3) COPD (chronic obstructive pulmonary disease) with chronic bronchitis: (4) Tracheobronchomalacia: (5) Stroke due to occlusion of left carotid artery: (6) Spasticity as late effect of cerebrovascular accident (CVA): Plan: Reason Critically Ill: 60-year-old male with acute hypoxic respiratory failure secondary to COVID-19 pneumonia PLAN: Neuro: Sedation -Off Precedex 04/12/2021 -On Zyprexa Baclofen use presumptively for spasticity 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 - Continue with ASA, Plavix, statin Migraine with aura Not on abortive medications as outpatient - review shows 2-4 headaches per month- Tylenol and Naproxen at home - Continue Tylenol Cardiovascular: Hypotension: Resolved Resp: Acute hypoxic respiratory failure: Improved -Liberated from ventilator 04/10 - CTA no evidence of PE -Send bio fire continue Levaquin and vancomycin for nasal MRSA - He completed 10 days of Decadron 6m, --> on high-dose DEXA ARDS protocol MRSA pneumonia -On linezolid, QTC 457, complete the course for total of 7 days Fluids/Renal: Hyponatremia: Resolved Acute kidney injury: Resolved -Previously discontinued vancomycin Levofloxacin discontinued 04/12/2021 ID: MRSA pneumonia Plan as above GI/Nutrition: Tube feedings via course a feeding tube -We will require speech and swallow evaluation Heme: DVT prophylaxis: Lovenox 40 mg twice daily Endocrine: ICU hyperglycemia protocol DexaARDSnet --Prophylaxis VTE: Lovenox GI: Protonix Lines: Peripheral, positive Estrella Diet: Tube feeds Plan: In/out: -343, urine output 1200 Patient pressure is going on the higher side. Metoprolol 5 mg every 6 hours as needed systolic blood pressure greater than 160 If the patient's blood pressure is persistently high can start metoprolol 25 mg p.o. twice daily Hypophosphatemia being replaced with K-Phos. Discontinue levofloxacin. Get PT OT involved Swallow eval. Patient does need aggressive oral suctioning on a regular basis. We will see how the patient does off Precedex. If he is doing well we will downgrade the patient to medical floor Patient , Chun [phone] I have personally spent 33 minutes of critical care time in the direct management of this patient. This is a life/limb threatening event. This includes time spent evaluating patient, direct bedside care, chart review, placing orders, interpretation of diagnostic studies, discussion with consultants, patient, and family members, as well as other required patient management activities. This time is exclusive of all separately billable procedures, and teaching time and separate from and in addition to any other critical care service time. Please note the above document was generated using voice recognition software. It may contain grammatical, syntax or spelling errors. Admission and Anticipated Discharge Date Admission Date: April 05, 2021 Subjective Patient seen and examined. No acute distress. He was saturating 90 to 91% on 5 L nasal cannula. He was answering simple questions by nodding his head. Denied any headache, no chest pain, no nausea vomiting He is moving his left upper and lower extremity actively Review of Systems Review of Systems: All systems reviewed & are unremarkable except as noted in Subjective Physical Exam Physical Exam: Constitutional: No acute distress HEENT: EOMI, PERRLA Respiratory system: Decreased air entry bilaterally, no wheeze, no rhonchi, positive crackles bilaterally CVS: S1-S2 positive, no murmurs or gallops Abdomen: Soft, nontender, nondistended, positive bowel sounds x4 Extremities: +2 pulses bilaterally radialis/ dorsalis pedis, no cyanosis, no edema Neuro: Awake alert oriented to self, aphasic, right-sided hemiplegia with contracture. Moving left upper and left lower extremity Psych: Flat mood and affect G/U: Positive Estrella Skin: no rashes, warm and dry Lymphatic: no cervical or axillary lymphadenopathy Results & Data Results & Data ([facility]) Vital Signs (Past 12 Hours) Vital Signs Temp Pulse Pulse Resp BP BP Pulse Ox 04/12/21 12:33 84 163/101 H 04/12/21 10:16 80 24 134/85 92 04/12/21 10:00 67 20 96 04/12/21 09:16 61 22 118/73 04/12/21 09:00 86 22 98 04/12/21 08:00 103 H 29 H 93 04/12/21 07:19 36.8 C 77 18 137/84 93 04/12/21 07:18 78 27 H 137/84 94 04/12/21 07:16 69 22 133/77 93 04/12/21 07:00 80 27 H 93 04/12/21 06:16 74 24 136/83 93 04/12/21 06:00 76 25 H 95 04/12/21 05:16 79 28 H 140/81 93 04/12/21 04:16 82 26 H 126/78 92 04/12/21 03:16 69 23 134/81 93 04/12/21 07:24 04/12/21 07:24 Coding Level of Care Code Critical Care 1st 30-74 mins Diagnoses 2019 novel coronavirus-infected pneumonia (NCIP) U07.1; J12.82 Hypoxia R09.02 COPD (chronic obstructive pulmonary disease) with chronic bronchitis J44.9 Tracheobronchomalacia J39.8 Stroke due to occlusion of left carotid artery I63.232 Spasticity as late effect of cerebrovascular accident (CVA) I69.398; R25.9 Time Spent (min) 33
[2021-04-12] MEDS: PEPTAMEN INTENSE VHP 1.0 CAL 1,000 ML BAG OG SCH (17:49)
[2021-04-12] MEDS ORDERED: METOPROLOL TARTRATE 1 MG/ML VIAL IV SCH (18:00)
[2021-04-12] MEDS: ATORVASTATIN 40 MG TAB PO SCH (21:10)
[2021-04-13] MEDS: INSULIN ASPART PER UNIT SC SCH ×6 (04:26→23:49)
[2021-04-13] MEDS: ENOXAPARIN INJ 40 MG/0.4 ML SYR SQ SCH ×2 (05:56→18:15)
[2021-04-13 06:10] LABS: Basophils # (auto) 0.02 K/uL (0-0.2); Basophils % (auto) 0.1 %; Eosinophils # (auto) 0.07 K/uL (0-0.5); Eosinophils % (auto) 0.4 %; Hematocrit (blood only) 39.9 % (42-52); Hemoglobin 13.4 g/dL (14.0-18.0); Immature Granulocytes # (auto) 0.48 K/uL (0.00-0.02); Immature Granulocytes % (auto) 2.7 %; Lymphocytes # (auto) 2.09 K/uL (1.2-3.4); Lymphocytes % (auto) 11.8 %; Mean Corpuscular Hemoglobin 31.1 pg (25-34); Mean Corpuscular Hgb Conc 33.6 g/dL (32-36); Mean Corpuscular Volume 92.6 fL (80-100); Mean Platelet Volume 10.7 fL (7.4-10.4); Monocytes % (auto) 3.4 %; Neutrophils # (auto) 14.39 K/uL (1.4-6.5); Neutrophils % (auto) 81.6 %; Platelet Count 374 K/uL (130-400); RDW Coefficient of Variation 14.3 % (11.5-14.5); RDW Standard Deviation 48.8 fL (36.4-46.3); Red Blood Count 4.31 M/uL (4.7-6.1); White Blood Count 17.65 K/uL (4.8-10.8)
[2021-04-13 06:36] LABS: BUN Creatinine Ratio 33.8 (10-20); Calcium 9.5 mg/dl (8.5-10.1); Creatinine Clr Calc Pharmacy 66.8 ml/min; Est GFR (Non-African American) 70.8 ml/min; Magnesium 2.6 mg/dl (1.8-2.4); Phosphorus 2.7 mg/dl (2.5-4.9); Potassium 3.8 mmol/L (3.5-5.1)
--- NOTE | 2021-04-13 07:52 | Hospitalist Progress Note ---
Date of Service April 13, 2021 Assessment & Plan (1) 2018 novel coronavirus-infected pneumonia (NCIP): Plan: Bacterial pneumonia with continuing COVID 19 infection- not vaccinated was discharged on 03/30, was on room air, sent home on dexamethasone 6mg PO daily had a few good days but got worse quickly on Wednesday 04/04 and declined on 04/05, brought to hospital concern for secondary bacterial pneumonia but also worsening COVID CRP was 23 on admission, procalcitonin elevated, wbc persistently elevated sputum culture growing staph and MRSA + in nares dexamethasone 20mg IV daily, completed 5 days, now on 10mg IV x 5 days LD 04/16 Vancomycin IV initially, change to Linezolid due to renal failure Linezolid IV started 04/08-> continues Pt with subtle leukocytosis will follow cautiously check urine cutlure Levaquin IV started ,04/09 d/c 04/12/21 Lovenox BID for DVT prophylaxis, PE was ruled out on CTA of chest on admission intubated on 04/07/21 due to worsening respiratory failure extubated 04/10/21, now on oxy mask weaning off Precedex, remains with metabolic encephalopathy slightly improving every day Coresafe in place for feeds and medications until he wakes up more and has speech eval (2) Hypoxia: Plan: acute hypoxic respiratory failure As above - COVID 19 complicated by likely bacterial pneumonia went from 15L oxy mask to needing CPAP 10 FiO2 100% on 04/07, moved to ICU and intubated due to distress extubated 04/10/21, on 5L mask this morning, no distress Metabolic encephalopathy persists (3) COPD (chronic obstructive pulmonary disease) with chronic bronchitis: Plan: Continue as above seems stable (4) CVA (cerebral vascular accident): Plan: 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 - Continue with ASA, Plavix, statin via Coresafe (5) Spasticity as late effect of cerebrovascular accident (CVA): Plan: added back Baclofen (6) Migraine without aura: Plan: chronic issue, now sedated (7) DVT prophylaxis: Plan: DVT: Lovenox 40mg BID sub q Admission and Anticipated Discharge Date Admission Date: April 05, 2021 Subjective pt is in no distress, is able to nod head y/n, sees to grunt when examined but does not speak, respiratory status is stable on supplemental oxygen. He is with gag reflex to sponge stick, but did not initiate swallowing Review of Systems Review of Systems: Moderate distress and fatigue Patient will not open eyes to examine Grunts and shakes head yes or no no chest pain, pressure or palpitations Continue shortness of breath, nonproductive cough or wheezes no abdominal pain, nausea or vomiting, no diarrhea no dysuria, hematuria or frequency no focal joint pain or swelling no back pain, CVA tenderness or radicular pain no bruising, bleeding or rashes no focal signs of weakness or numbness or altered sensation no complaints of anxiety or depression.. Physical Exam Physical Exam: The patient appeared well nourished and normally developed. Vital signs as documented. Head exam is normocephalic atraumatic Neck is without JVD, thyromegaly, or stridor Lungs are coarse to auscultation, bilateral rales are present Cardiac exam, Rhythm is regular.. No murmurs, rubs or gallops. Abdominal exam reveals normal bowel sounds, soft non tender, no masses Extremities are nonedematous and both pedal pulses are present Neurologic exam is able to answer with shaking his head will not open his eyes or speak grunts with the examination Skin is without bruises or rashes Results & Data Results & Data ([facility]) Vital Signs (Past 12 Hours) Vital Signs Temp Pulse Resp BP Pulse Ox 04/13/21 05:35 103 H 29 H 127/85 94 04/13/21 05:30 95 H 25 H 94 04/13/21 05:05 100 H 33 H 139/88 93 04/13/21 05:00 108 H 28 H 93 04/13/21 04:35 104 H 32 H 136/88 94 04/13/21 04:30 111 H 25 H 94 04/13/21 04:05 108 H 28 H 148/89 H 93 04/13/21 04:00 107 H 25 H 92 04/13/21 03:56 97.7 F 04/13/21 03:35 99 H 30 H 143/88 H 95 04/13/21 03:30 90 28 H 94 04/13/21 03:05 98 H 31 H 129/85 94 04/13/21 03:00 113 H 27 H 93 04/13/21 02:35 105 H 26 H 138/93 90 04/13/21 02:30 100 H 34 H 89 L 04/13/21 02:05 112 H 33 H 141/90 H 90 04/13/21 02:00 103 H 35 H 93 04/13/21 01:34 112 H 32 H 174/95 H 90 04/13/21 01:30 95 H 93 04/13/21 01:04 114 H 142/94 H 93 04/13/21 01:00 92 H 93 04/13/21 00:34 95 H 129/87 93 04/13/21 00:30 99 H 94 04/13/21 00:04 91 H 138/88 91 04/13/21 00:00 94 H 91 04/12/21 23:37 98.2 F 04/12/21 23:34 107 H 135/87 92 04/12/21 23:30 113 H 93 04/12/21 23:04 102 H 142/88 H 90 04/12/21 23:00 93 H 93 04/12/21 22:34 135 H 137/106 H 92 04/12/21 22:30 99 H 95 04/12/21 22:04 108 H 170/118 H 94 04/12/21 22:00 114 H 95 04/12/21 21:30 125 H 95 04/12/21 21:04 89 133/90 04/12/21 21:00 89 94 04/12/21 20:30 95 H 94 04/12/21 20:27 99.3 F 04/12/21 20:16 106 H 141/87 H 91 04/12/21 20:00 96 H 93 PG Care Time/CCT Total # of Minutes Spent Total Time Spent with Patient: Total time spent is greater than 50% in coordination of care (as documented) at patient's floor/unit and/or counseling patient: Coding Level of Care Code 03768 Subseq Hosp Care Lvl 2 Diagnoses 2019 novel coronavirus-infected pneumonia (NCIP) U07.1; J12.82 Hypoxia R09.02 COPD (chronic obstructive pulmonary disease) with chronic bronchitis J44.9 CVA (cerebral vascular accident) I63.9 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 DVT prophylaxis Z29.9
[2021-04-13] MEDS: CLOPIDOGREL BISULFATE 75 MG TAB PO SCH (09:10)
[2021-04-13] MEDS: BACLOFEN 20 MG TAB PO SCH ×2 (09:10→20:25)
[2021-04-13] MEDS: OLANZapine ZYDIS 5 MG ORALLY DIS. TAB PO SCH (09:10)
[2021-04-13] MEDS: ASPIRIN 81 MG CHEW PO SCH (09:10)
[2021-04-13] MEDS: dexAMETHasone 10 MG in SYRINGE 0 ML IV SCH (09:11)
[2021-04-13] MEDS: PANTOprazole 40 MG in SYRINGE 0 ML IV SCH ×2 (09:11→20:25)
[2021-04-13] MEDS: LINEZOLID 600 MG/300 ML BAG IV SCH ×2 (11:51→23:51)
[2021-04-13] MEDS: PEPTAMEN INTENSE VHP 1.0 CAL 1,000 ML BAG OG SCH (13:03)
[2021-04-13] MEDS: ATORVASTATIN 40 MG TAB PO SCH (20:25)
[2021-04-14] MEDS: INSULIN ASPART PER UNIT SC SCH ×6 (03:59→23:56)
[2021-04-14] MEDS: ENOXAPARIN INJ 40 MG/0.4 ML SYR SQ SCH ×2 (06:30→17:40)
[2021-04-14 07:10] LABS: Basophils # (auto) 0.02 K/uL (0-0.2); Basophils % (auto) 0.1 %; Eosinophils # (auto) 0.11 K/uL (0-0.5); Eosinophils % (auto) 0.6 %; Hematocrit (blood only) 38.2 % (42-52); Hemoglobin 12.7 g/dL (14.0-18.0); Immature Granulocytes # (auto) 0.36 K/uL (0.00-0.02); Immature Granulocytes % (auto) 2.1 %; Lymphocytes % (auto) 12.6 %; Mean Corpuscular Hemoglobin 31.3 pg (25-34); Mean Corpuscular Hgb Conc 33.2 g/dL (32-36); Mean Corpuscular Volume 94.1 fL (80-100); Mean Platelet Volume 10.7 fL (7.4-10.4); Monocytes # (auto) 0.78 K/uL (0.11-0.59); Monocytes % (auto) 4.5 %; Neutrophils # (auto) 14.04 K/uL (1.4-6.5); Neutrophils % (auto) 80.1 %; Platelet Count 431 K/uL (130-400); RDW Coefficient of Variation 14.6 % (11.5-14.5); RDW Standard Deviation 49.8 fL (36.4-46.3); Red Blood Count 4.06 M/uL (4.7-6.1); White Blood Count 17.51 K/uL (4.8-10.8)
[2021-04-14 07:40] LABS: BUN Creatinine Ratio 41.7 (10-20); Calcium 9.2 mg/dl (8.5-10.1); Creatinine Clr Calc Pharmacy 70.6 ml/min; Est GFR (African American) 87.7 ml/min; Est GFR (Non-African American) 75.7 ml/min; Magnesium 2.6 mg/dl (1.8-2.4); Phosphorus 2.7 mg/dl (2.5-4.9); Potassium 3.9 mmol/L (3.5-5.1)
[2021-04-14] MEDS: PANTOprazole 40 MG in SYRINGE 0 ML IV SCH ×2 (09:11→20:08)
[2021-04-14] MEDS: ASPIRIN 81 MG CHEW PO SCH (09:11)
[2021-04-14] MEDS: dexAMETHasone 10 MG in SYRINGE 0 ML IV SCH (09:11)
[2021-04-14] MEDS: OLANZapine ZYDIS 5 MG ORALLY DIS. TAB PO SCH (09:12)
[2021-04-14] MEDS: BACLOFEN 20 MG TAB PO SCH ×2 (09:12→20:08)
[2021-04-14] MEDS: CLOPIDOGREL BISULFATE 75 MG TAB PO SCH (09:12)
--- NOTE | 2021-04-14 09:21 | XRay Report ---
XR chest 1V portable HISTORY: 60 years-old Male eval for aspiratoin changes acute shortness of breath COMPARISON: Chest radiograph 04/10/2021 TECHNIQUE: Portable AP view of the chest FINDINGS: Cardiac silhouette is enlarged. Interval removal of the endotracheal tube and left subclavian central venous catheter. A feeding tube is present with distal tip in the expected location of the distal st omach/proximal duodenum. No pneumothorax. Probable trace pleural effusions. Interstitial coarsening w ith patchy bilateral airspace opacities, slightly improved from prior. The bones appear grossly intac t. IMPRESSION: 1. Interval removal of the endotracheal tube and central venous catheter. 2. Interstitial coarsening with patchy bilateral airspace opacities are redemonstrated, mildly improv ed from prior. ACT 112: Negative or not required by law. The above report was generated using voice recognition software. It may contain grammatical, syntax o r spelling errors. Electronically signed by: Adam Morgan M.D. 04/14/2021 9:20 AM
[2021-04-14] MEDS: LINEZOLID 600 MG/300 ML BAG IV SCH ×2 (12:05→23:57)
[2021-04-14] MEDS: PEPTAMEN INTENSE VHP 1.0 CAL 1,000 ML BAG OG SCH (12:06)
[2021-04-14] MEDS: TUBE FEEDING WATER FLUSH NG SCH ×2 (17:00→20:08)
[2021-04-14] MEDS: PEPTAMEN 1.5 CAL 1,000 ML BAG NG SCH (17:00)
--- NOTE | 2021-04-14 17:06 | Hospitalist Progress Note ---
Date of Service April 14, 2021 Assessment & Plan (1) 2018 novel coronavirus-infected pneumonia (NCIP): Plan: Bacterial pneumonia with continuing COVID 19 infection- not vaccinated was discharged on 03/30, was on room air, sent home on dexamethasone 6mg PO daily had a few good days but got worse quickly on Wednesday 04/04 and declined on 04/05, brought to hospital concern for secondary bacterial pneumonia but also worsening COVID CRP was 23 on admission, procalcitonin elevated, wbc persistently elevated sputum culture growing staph and MRSA + in nares dexamethasone 20mg IV daily, completed 5 days, now on 10mg IV x 5 days LD 04/16 Vancomycin IV initially, change to Linezolid due to renal failure Linezolid IV started 04/08-> continues Pt with subtle leukocytosis will follow cautiously check urine cutlure Levaquin IV started ,04/09 d/c 04/12/21 Lovenox BID for DVT prophylaxis, PE was ruled out on CTA of chest on admission intubated on 04/07/21 due to worsening respiratory failure extubated 04/10/21, now on oxy mask Coresafe in place for feeds and medications, speech eval feels he should remain NPO, did update , also spoke of PEG decision if not improved in future (2) Hypoxia: Plan: acute hypoxic respiratory failure As above - COVID 19 complicated by likely bacterial pneumonia went from 15L oxy mask to needing CPAP 10 FiO2 100% on 04/07, moved to ICU and intubated due to distress extubated 04/10/21, on 5L mask no distress Metabolic encephalopathy persists, cxr without significant new changes urine culture is pending, remains on linezolid as wbc 17K, will also check MRI of brain to eval for preliminary school psychologist event given history of strokes and prothrombotic nature of covid (3) COPD (chronic obstructive pulmonary disease) with chronic bronchitis: Plan: Continue as above seems stable (4) CVA (cerebral vascular accident): Plan: 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 - Continue with ASA, Plavix, statin via Coresafe (5) Spasticity as late effect of cerebrovascular accident (CVA): Plan: added back Baclofen (6) Migraine without aura: Plan: chronic issue, now sedated (7) DVT prophylaxis: Plan: DVT: Lovenox 40mg BID sub q Admission and Anticipated Discharge Date Admission Date: April 05, 2021 Subjective pt is in no distress, is able to nod head y/n, sees to grunt when examined but does not speak, respiratory status is stable on supplemental oxygen. He is did not do well with swallowing eval with continued recommendations for NPO status, was updated and is considering PEG in the future if not improved Review of Systems Review of Systems: MILD distress and fatigue Patient will not open eyes to examine speaks and shakes head yes or no no chest pain, pressure or palpitations lessening shortness of breath, nonproductive cough or wheezes no abdominal pain, nausea or vomiting, no diarrhea no dysuria, hematuria or frequency no focal joint pain or swelling no back pain, CVA tenderness or radicular pain no bruising, bleeding or rashes no focal signs of weakness or numbness or altered sensation no complaints of anxiety or depression.. Physical Exam Physical Exam: The patient appeared well nourished and normally developed. Vital signs as documented. Head exam is normocephalic atraumatic Neck is without JVD, thyromegaly, or stridor Lungs are coarse to auscultation, bilateral rales are present Cardiac exam, Rhythm is regular.. No murmurs, rubs or gallops. Abdominal exam reveals normal bowel sounds, soft non tender, no masses Extremities are nonedematous and both pedal pulses are present Neurologic exam is able to answer with shaking his head will not open his eyes or speak grunts with the examination Skin is without bruises or rashes Results & Data Results & Data ([facility]) Vital Signs (Past 12 Hours) Vital Signs Pulse 04/14/21 08:00 102 H PG Care Time/CCT Total # of Minutes Spent Total Time Spent with Patient: Total time spent is greater than 50% in coordination of care (as documented) at patient's floor/unit and/or counseling patient: Coding Level of Care Code 92318 Subseq Hosp Care Lvl 3 Diagnoses 2019 novel coronavirus-infected pneumonia (NCIP) U07.1; J12.82 Hypoxia R09.02 COPD (chronic obstructive pulmonary disease) with chronic bronchitis J44.9 CVA (cerebral vascular accident) I63.9 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 DVT prophylaxis Z29.9
[2021-04-14] MEDS: ATORVASTATIN 40 MG TAB PO SCH (20:08)
[2021-04-15] MEDS: TUBE FEEDING WATER FLUSH NG SCH ×6 (00:53→20:01)
[2021-04-15] MEDS: INSULIN ASPART PER UNIT SC SCH ×5 (04:45→20:01)
[2021-04-15] MEDS: ENOXAPARIN INJ 40 MG/0.4 ML SYR SQ SCH ×2 (05:15→17:23)
[2021-04-15] MEDS: dexAMETHasone 10 MG in SYRINGE 0 ML IV SCH (09:00)
[2021-04-15] MEDS: PANTOprazole 40 MG in SYRINGE 0 ML IV SCH ×2 (09:01→20:02)
[2021-04-15] MEDS: BACLOFEN 20 MG TAB PO SCH ×2 (09:01→20:02)
[2021-04-15] MEDS: OLANZapine ZYDIS 5 MG ORALLY DIS. TAB PO SCH (09:01)
[2021-04-15] MEDS: ASPIRIN 81 MG CHEW PO SCH (09:01)
[2021-04-15] MEDS: CLOPIDOGREL BISULFATE 75 MG TAB PO SCH (09:01)
--- NOTE | 2021-04-15 09:30 | Hospitalist Progress Note ---
Date of Service April 15, 2021 Assessment & Plan (1) 2018 novel coronavirus-infected pneumonia (NCIP): Plan: Bacterial pneumonia with continuing COVID 19 infection- not vaccinated was discharged on 03/30, was on room air, sent home on dexamethasone 6mg PO daily had a few good days but got worse quickly on Wednesday 04/04 and declined on 04/05, brought to hospital concern for secondary bacterial pneumonia but also worsening COVID CRP was 23 on admission, procalcitonin elevated, wbc persistently elevated sputum culture growing staph and MRSA + in nares dexamethasone 20mg IV daily, completed 5 days, now on 10mg IV x 5 days LD 04/16 Vancomycin IV initially, change to Linezolid due to renal failure Linezolid IV started 04/08-> continues Pt with subtle leukocytosis, urine culture negative Levaquin IV started ,04/09 d/c 04/12/21 Lovenox BID for DVT prophylaxis, PE was ruled out on CTA of chest on admission intubated on 04/07/21 due to worsening respiratory failure extubated 04/10/21, now on oxy mask Coresafe in place for feeds and medications, speech eval feels he should remain NPO, did update , also spoke of PEG decision if not improved in future Off COVID isolation 04/15/20, should remain on contact due to MRSA (2) Hypoxia: Plan: acute hypoxic respiratory failure As above - COVID 19 complicated by likely bacterial pneumonia went from 15L oxy mask to needing CPAP 10 FiO2 100% on 04/07, moved to ICU and intubated due to distress extubated 04/10/21, on 5L mask no distress Currently on 4LPM Oxymask Metabolic encephalopathy persists, cxr without significant new changes urine culture negative, remains on linezolid as wbc 17K (3) Dysphagia: Plan: MRI Brain per prior provider pending (4) COPD (chronic obstructive pulmonary disease) with chronic bronchitis: Plan: Continue as above No wheezing on exam (5) CVA (cerebral vascular accident): Plan: 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 - Continue with ASA, Plavix, statin via Coresafe (6) Spasticity as late effect of cerebrovascular accident (CVA): Plan: added back Baclofen (7) Migraine without aura: Plan: chronic issue, now sedated Plan: VTE Prophylaxis - Lovenox 40mg SQ BID Diet - NPO Discharge - continue on med/tele, COVID isolation precautions removed but remains on contact due to MRSA Admission and Anticipated Discharge Date Admission Date: April 05, 2021 Subjective No acute concerns or questions. His will come in to discuss PEG tube with him later today. Planning to take off isolation today as it has been 21 days. Ongoing dry cough and shortness of breath with minimal exertion. Review of Systems Review of Systems: Unobtainable due to cognitive status Physical Exam Constitutional: + not well nourished and no acute distress Eyes: + anicteric sclerae; normal pupil size ENMT: external ear and nose normal, oropharynx normal Neck: trachea midline, no thyromegaly Cardiovascular: Rate/Rhythm: regular rhythm and + tachycardic Heart Sounds: no murmur Vessels: no JVD Extremities: normal capillary refill; no calf tenderness and no pedal edema Gastrointestinal (Abdomen): Inspection/Auscultation: normal bowel sounds Percussion/Palpation: + abdomen tender and abdomen soft Skin: no rashes, warm and dry Neurologic: awake and + confused has his eyes open and can pass me the phone with his left upper extremity. No movement of bilateral lower extremities. Psychiatric: Orientation: alert; + not oriented x 3 Results & Data Results & Data ([facility]) Vital Signs (Past 12 Hours) Vital Signs Temp Pulse Pulse Resp BP BP Pulse Ox 04/15/21 07:37 117 H 04/15/21 07:07 36.9 C 108 H 30 H 130/87 94 04/15/21 03:43 100 H 04/15/21 03:20 37.5 C 103 H 20 147/88 H 95 04/14/21 22:47 36.5 C 110 H 18 138/88 96 Laboratory Results Abnormal lab results 04/14/21 04/14/21 04/15/21 Range/Units 19:35 23:47 04:25 POC Glucose 187 H 170 H 204 H (70-99) mg/dl 04/15/21 04/15/21 04/15/21 Range/Units 08:18 12:03 16:08 POC Glucose 161 H 236 H 213 H (70-99) mg/dl PG Care Time/CCT Total # of Minutes Spent Total Time Spent with Patient: Total time spent is greater than 50% in coordination of care (as documented) at patient's floor/unit and/or counseling patient: Coding Level of Care Code 71178 Subseq Hosp Care Lvl 3 Diagnoses 2019 novel coronavirus-infected pneumonia (NCIP) U07.1; J12.82 Hypoxia R09.02 COPD (chronic obstructive pulmonary disease) with chronic bronchitis J44.9 CVA (cerebral vascular accident) I63.9 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 Dysphagia R13.10
[2021-04-15] MEDS ORDERED: ACETAMINOPHEN 325 MG TAB PO PRN (13:26)
[2021-04-15] MEDS: ATORVASTATIN 40 MG TAB PO SCH (20:01)
[2021-04-15] MEDS ORDERED: MoRPHine SULFATE 2 MG/ML CARP IV STA ×2 (22:05→23:43)
[2021-04-15] MEDS ORDERED: MoRPHine SULFATE 2 MG/ML CARP ONE (22:10)
--- NOTE | 2021-04-15 22:23 | Communication Note ---
Date of Service: April 15, 2021 notified by nursing that patient was having new 10/10 abdominal pain with HR in the 130s. Chart reviewed - hx COVID PNA, recently extubated after dx with MRSA PNA. on coresafe 31/10 feeding tube. RUQ abd pain, TTP w/o rebound, guarding. patient able to somewhat verbalize pain and quality but difficult to interpret with expressive aphasia. KUB, CXR ordered. 1 mg IV morphine given. Stopped tube feed. Stat CBC, lactate ordered. EKG ordered. CT A/P with IV con ordered stat --- result called from Stat rad; retroperitoneal with section of active bleeding in L retroperitoneum. hematoma present in R rectus abdominis and R ilacus muscle. Patient ordered 1L LR, type and screen, 1u pRBC to be transfused now with one held. Blood consent in chart. Surgical consult. Transfer to PCU.
[2021-04-15 22:38] LABS: Hematocrit (blood only) 30.5 % (42-52); Hemoglobin 10.1 g/dL (14.0-18.0); Mean Corpuscular Hemoglobin 31.4 pg (25-34); Mean Corpuscular Volume 94.7 fL (80-100); Mean Platelet Volume 10.4 fL (7.4-10.4); Platelet Count 471 K/uL (130-400); RDW Coefficient of Variation 14.6 % (11.5-14.5); Red Blood Count 3.22 M/uL (4.7-6.1); White Blood Count 23.91 K/uL (4.8-10.8)
[2021-04-15 22:41] LABS: Mean Corpuscular Hgb Conc 33.1 g/dL (32-36)
[2021-04-15 23:08] LABS: Basophils # (auto) 0.02 K/uL (0-0.2); Basophils % (auto) 0.1 %; Immature Granulocytes # (auto) 0.31 K/uL (0.00-0.02); Immature Granulocytes % (auto) 1.3 %; Lymphocytes # (auto) 1.59 K/uL (1.2-3.4); Lymphocytes % (auto) 6.6 %; Monocytes # (auto) 1.39 K/uL (0.11-0.59); Monocytes % (auto) 5.8 %; Neutrophils % (auto) 86.2 %; RBC Morphology Unremarkable
[2021-04-15] MEDS ORDERED: KETOROLAC TROMETHAMINE 15 MG/ML VIAL IV ONE (23:46)
[2021-04-16] MEDS: INSULIN ASPART PER UNIT SC SCH ×6 (00:02→21:07)
[2021-04-16] MEDS ORDERED: OPTIRAY 320 100ml IV ONE (00:29)
[2021-04-16] MEDS ORDERED: SODIUM CHLORIDE 0.9% 250 ML IV PRN (01:01)
[2021-04-16] MEDS ORDERED: LACTATED RINGER'S 1,000 ML IV ONE (01:01)
[2021-04-16] MEDS: TUBE FEEDING WATER FLUSH NG SCH ×6 (01:20→21:09)
[2021-04-16] MEDS ORDERED: BENZONATATE 100 MG CAPSULE PO PRN (01:59)
--- NOTE | 2021-04-16 06:04 | Surgery Consultation ---
Date of Consultation April 16, 2021 Assessment & Plan (1) Retroperitoneal hematoma: Due to this problem we recommend proceeding in the following manner I would recommend discontinuing or holding all medications that would contribute the patient's bleeding including Lovenox (this has already been placed on hold); patient does have aspirin and Plavix listed on his medicine profileI have contacted the medical service via [facility] text and recommended to them that these medications be placed on hold Agree with transfusing packed red blood cells (the patient is currently receiving blood transfusion Recommend following serial CBCs every 6 hours until stability is noted At the present time the patient is noted be hemodynamically stable. We will continue to follow along with you Supervising Physician Co-Signing Physician Notes I personally saw and evaluated the patient with Domingo Mancilla PA-C and agree with the assessment and plan. 60-year-old male with rectus sheath hematoma and left retroperitoneal hematoma CT images and results reviewed, consistent with moderate size left retroperitoneal hematoma and small rectus sheath hematoma Monitor for any hemodynamic instability Reverse any anticoagulation and antiplatelet drugs We will continue to check serial hemoglobin levels Transfuse as needed If he continues to have signs of bleeding, would recommend transfer to a tertiary care center for possible IR embolization No plans for any surgical intervention in this patient History of Present Illness Reason for Consultation: Retroperitoneal hematoma Attending Physician: Kapil Iraheta MD History of Present Illness This is a 60-year-old male who was admitted to [facility] on 04/05/2021 secondary to hypoxia due to COVID-19 along with superimposed bacterial pneumonia. Patient required intubation and was recently extubated. As result of his illness the patient has expressive aphasia along with dysphagia and has a Dobbhoff feeding tube in place. General surgery was consulted last evening as patient developed severe abdominal pain. Because of patient's abdominal pain a CT scan of the abdomen was performed where patient was noted to have a left-sided retroperitoneal hematoma which measured approximately 6.4 x 4.9 x 3.5 cm. There is concern that there was a small amount of active extravasation at this bleeding area. Patient was also noted to have a 10.1 x 5.9 x 5.0 cm hematoma in the right rectus abdominis muscle in the inferior portion. There is also concerned that patient had an additional intramuscular hematoma in the right iliac is muscle. As the patient has expressive aphasia he did have difficulty conversing but he was able to convey to me that the abdominal pain that he began experience last night has somewhat subsided and has improved. He denies any nausea vomiting. There have been no recorded injuries or falls. I did discussed with the nurse at bedside who notes that the patient does have occasional coughing episodes. She also notes that the patient has been receiving aspirin, Plavix, and Lovenox injections. Since the bleeding issues noted above have been identified patient's Lovenox has been stopped and he has been transfused 1 unit packed red blood cells. Patient's labs were reviewed and his most recent labs were from approximately 10:30 PM on 04/15/2021. This revealed a CBC with a white blood cell count of 23.9. His hemoglobin and hematocrit were 10.1 and 30.5. This hemoglobin represented approximately a 2 to 3 g drop from values on 04/14/2021. Patient's platelet count was 471,000. I further discussed with the nurse where patient has been noted to be hemodynamically stable. Last night the patient was noted to have an episode of hypotension with a blood pressure of 98/61 but his blood pressure has since stabilized and most recently was 118/78. She also noted the patient was somewhat tachycardic last night with a heart rate in the 1 20-1 30 range but this has stabilized also and his current heart rate is approximately 100-1 05. At the time of my interview the patient was resting in bed. As noted he conveyed that his pain had improved and he was in no distress. Allergies Allergy/AdvReac Type Severity Reaction Status Date / Time No Known Allergies Allergy Verified 03/26/21 00:19 Home Medications Medication Instructions Recorded Confirmed Type acetaminophen 500 mg tablet 1,000 mg PO BID 07/12/18 04/05/21 History aspirin 325 mg tablet 325 mg PO QAM 07/12/18 04/05/21 History atorvastatin 80 mg tablet 80 mg PO HS 07/12/18 04/05/21 History clopidogrel 75 mg tablet (Plavix) 75 mg PO DAILY 07/12/18 04/05/21 History polyethylene glycol 3350 17 17 g PO 2XWK PRN 07/12/18 04/05/21 History gram/dose oral powder (Miralax) ondansetron 4 mg disintegrating 4 mg PO Q8H PRN #14 tab 04/01/20 04/05/21 Rx tablet ubrogepant 50 mg tablet (Ubrelvy) 50 mg PO ONCE PRN #10 tab 04/01/20 04/05/21 Rx sildenafil (pulm.hypertension) 20 20 mg PO DAILY PRN #60 tab 07/10/20 04/05/21 Rx mg tablet albuterol sulfate 90 mcg/actuation 2 puff INHALATION QID PRN #18 g 02/11/21 04/05/21 Rx aerosol inhaler (Ventolin HFA) budesonide-formoterol HFA 160 2 inh INHALATION Q12H #30.6 g 02/15/21 04/05/21 Rx mcg-4.5 mcg/actuation aerosol inhaler (Symbicort) tizanidine 2 mg capsule 2 mg PO TID PRN #270 cap 03/02/21 04/05/21 Rx benzonatate 100 mg capsule 100 mg PO TID PRN #30 cap 03/30/21 04/05/21 Rx clotrimazole 10 mg augusta 10 mg BUCCAL [id number] #35 tab 03/30/21 04/05/21 Rx dexamethasone 6 mg tablet 6 mg PO DAILY #5 tab 03/30/21 04/05/21 Rx (Decadron) baclofen 20 mg tablet 20 mg PO BID 04/05/21 04/05/21 History guaifenesin 600 mg tablet, 600 mg PO BID 04/05/21 04/05/21 History extended release 12 hr (Mucinex) lactobacillus combination no.4 3 0 mmu cells PO DAILY 04/05/21 04/05/21 History billion cell capsule (Probiotic) magnesium oxide 400 mg PO QAM 04/05/21 04/05/21 History Patient History Medical History (Updated 04/16/21 @ 06:02 by Domingo Mancilla PA-C) Chronic left arterial ischemic stroke, ICA (internal carotid artery) History of orthopnea History of prostate cancer History of stroke Surgical History H/O colonoscopy History of angioplasty History of cardiac catheterization History of prostatectomy Family History Other Cancer Diabetes Heart disease Social History Smoking Status: Never smoker Second Hand Exposure: No; Hx Alcohol Use: No Hx Substance Use: No Preferred Language: Uzbek Communication Ability: Unable Mcat Tutor Required: No Beliefs That Will Affect Care: None marital status: Current Living Situation: Spouse How many Children do You have: 2 Feels Safe at Home: Yes Assistive Devices: Glasses and Oxygen - Continuous Review of Systems Constitutional: no fever Respiratory: + cough Cardiovascular: no chest pain Gastrointestinal: + abdominal pain; no nausea and no vomiting Integumentary: no rash Physical Exam Constitutional: + thin; no acute distress Eyes: no conjunctival abnormality ENMT: Ears: no hearing impairment Neck: trachea midline Respiratory: normal respiratory effort; no respiratory distress and no labored breathing Cardiovascular: Rate/Rhythm: regular rate and regular rhythm Gastrointestinal (Abdomen): Abdomen is soft and nondistended. There is pain noted with palpation on the right side of patient's abdomen along the rectus abdominis muscle. Along the rectus abdominis muscle bed there is a palpable mass consistent with noted hematoma noted on CAT scan. There are several areas of ecchymosis on patient's abdomen consistent with Lovenox injections. There is no rebound tenderness or guarding. Musculoskeletal: Left foot is warm with good capillary refill. The foot is not mottled. The right foot is cool to touch but is nonmottled. Good capillary refill is noted. Neurologic: moves all extremities Results & Data ([facility]) Vital Signs (Past 12 Hours) Vital Signs Temp Pulse Pulse Resp BP BP BP 04/16/21 05:01 36.7 C 101 H 16 118/78 04/16/21 04:31 37.2 C 106 H 17 131/87 04/16/21 04:20 105 H 04/16/21 04:16 37 C 108 H 17 110/73 04/16/21 03:48 36.5 C 112 H 17 122/77 04/16/21 03:07 36.6 C 115 H 18 137/87 04/16/21 01:02 36.5 C 116 H 20 112/82 04/16/21 00:14 134 H 04/15/21 23:47 36.5 C 120 H 18 98/61 L 04/15/21 22:52 135 H 04/15/21 21:43 36.3 C L 134 H 30 H 116/72 04/15/21 19:26 36.6 C 118 H 26 H 151/90 H Pulse Ox 04/16/21 05:01 96 04/16/21 04:31 95 04/16/21 04:20 04/16/21 04:16 94 04/16/21 03:48 93 04/16/21 03:07 95 04/16/21 01:02 93 04/16/21 00:14 04/15/21 23:47 95 04/15/21 22:52 04/15/21 21:43 93 04/15/21 19:26 95 PG Care Time/CCT Total # of Minutes Spent Total Time Spent with Patient: Total time spent is greater than 50% in coordination of care (as documented) at patient's floor/unit and/or counseling patient: Coding Level of Care Code 82345 Inpt Consult Level 5 Diagnoses Retroperitoneal hematoma K66.1
--- NOTE | 2021-04-16 07:18 | XRay Report ---
XR chest 1V portable, XR KUB/Abdomen 1 view HISTORY: 60 years-old Male tachypnea acute tachypnea with abdominal pain COMPARISON: Chest radiograph 04/14/2021, CT abdomen and pelvis 04/16/2021 TECHNIQUE: AP view of the chest with KUB radiograph FINDINGS: CHEST: Cardiac silhouette is enlarged. A feeding tube is present with distal tip in the expected location of the duodenal bulb. No pneumothorax. Small left pleural effusion. Interstitial coarsening with patchy bilat. airspace opacities appear stable to slightly improved from prior. The bones appear grossly in tact. KUB: Nonobstructive bowel gas pattern. No urolith, pneumatosis or pneumoperitoneum. No acute fracture. Dis malorie tip of feeding tube projects over the proximal duodenum. IMPRESSION: 1. Distal tip of feeding tube projects over the proximal duodenum. 2. Nonobstructive bowel gas pattern. 3. Interstitial coarsening with patchy bilateral airspace opacities compatible with multifocal pneumo crow appears stable to slightly improved from prior. 4. Small left pleural effusion. ACT 112: Negative or not required by law. The above report was generated using voice recognition software. It may contain grammatical, syntax o r spelling errors. Electronically signed by: Adam Morgan M.D. 04/16/2021 7:17 AM
--- NOTE | 2021-04-16 07:50 | Magnetic Resonance Report ---
MR brain wo con HISTORY: 60 years-old Male eval for stroke, perform on 04/15 when off covid rst acute strokelike sympt oms brain MRI 05/01/2018 COMPARISON: Brain MRI 04/29/2018. TECHNIQUE: Multiplanar multisequence MRI of the brain was obtained without the use of IV contrast. FINDINGS: No restricted diffusion to suggest acute or subacute infarction. Midline structures appear unremarkab le. Degenerative changes of the imaged cervical spine. Large chronic territorial infarct of the left MCA distribution, predominantly involving the left frontal lobe with gliosis, encephalomalacia and ex vacuo changes of the left lateral ventricle. Mild patchy T2/FLAIR hyperintensities throughout the wh ite matter suggestive of chronic microvascular ischemic changes. Additional area of encephalomalacia with gliosis involves the left parietal lobe which is also unchanged. Mild age-related involutional c hange. No acute intracranial hemorrhage, midline shift, abnormal extra-axial collection, hydrocephalu s or intracranial mass identified. A normal left ICA flow void is not identified which is unchanged from prior suggestive of chronic occ lusion. Small left mastoid effusion. Mild rightward bowing and spurring of the nasal septum. Moderate mucosal thickening of the anterior ethmoid air cells with aerosolized secretions. Left maxillary sin us air-fluid level with aerosolized secretions. The skull, soft tissues and orbits are unremarkable. IMPRESSION: 1. No acute intracranial abnormality, specifically there is no evidence of acute or subacute infarcti on. 2. Encephalomalacia related to chronic infarcts of the left MCA territory redemonstrated. 3. Acute sinus disease. ACT 112: Negative or not required by law. The above report was generated using voice recognition software. It may contain grammatical, syntax o r spelling errors. Electronically signed by: Adam Morgan M.D. 04/16/2021 7:49 AM
[2021-04-16 08:02] LABS: Basophils # (auto) 0.02 K/uL (0-0.2); Basophils % (auto) 0.1 %; Eosinophils # (auto) 0.01 K/uL (0-0.5); Hematocrit (blood only) 31.7 % (42-52); Hemoglobin 10.4 g/dL (14.0-18.0); Immature Granulocytes # (auto) 0.41 K/uL (0.00-0.02); Immature Granulocytes % (auto) 1.9 %; Lymphocytes # (auto) 2.19 K/uL (1.2-3.4); Lymphocytes % (auto) 10.3 %; Mean Corpuscular Hemoglobin 30.4 pg (25-34); Mean Corpuscular Hgb Conc 32.8 g/dL (32-36); Mean Corpuscular Volume 92.7 fL (80-100); Mean Platelet Volume 10.4 fL (7.4-10.4); Monocytes # (auto) 1.09 K/uL (0.11-0.59); Monocytes % (auto) 5.1 %; Neutrophils # (auto) 17.57 K/uL (1.4-6.5); Neutrophils % (auto) 82.6 %; Platelet Count 390 K/uL (130-400); RDW Coefficient of Variation 15.2 % (11.5-14.5); RDW Standard Deviation 50.8 fL (36.4-46.3); Red Blood Count 3.42 M/uL (4.7-6.1); White Blood Count 21.29 K/uL (4.8-10.8)
[2021-04-16 08:36] LABS: BUN Creatinine Ratio 49.7 (10-20); Creatinine Clr Calc Pharmacy 65.6 ml/min; Est GFR (African American) 80.3 ml/min; Est GFR (Non-African American) 69.3 ml/min; Potassium 4.8 mmol/L (3.5-5.1)
[2021-04-16] MEDS ORDERED: BACLOFEN 20 MG TAB PO SCH (09:00)
[2021-04-16] MEDS: AMPICILLIN/SULBACTAM SOD 3,000 MG in 0.9 % SODIUM CHLORIDE 100 ML IV SCH ×3 (09:15→21:08)
[2021-04-16] MEDS: BACLOFEN 20 MG TAB PO SCH ×2 (09:18→21:36)
[2021-04-16] MEDS: OLANZapine ZYDIS 5 MG ORALLY DIS. TAB PO SCH (09:19)
[2021-04-16] MEDS: PANTOprazole 40 MG in SYRINGE 0 ML IV SCH (09:21)
--- NOTE | 2021-04-16 09:43 | CT Scan Report ---
ABDOMEN AND PELVIS CT WITH IV CONTRAST CT DOSE: 494.13 mGy.cm HISTORY: Acute severe generalized abdominal pain severe abd pain TECHNIQUE: Multiaxial CT images of the abdomen and pelvis were performed following the IV administrat ion of 90 cc of Optiray, A dose lowering technique was utilized adhering to the principles of ALARA. COMPARISON STUDY: CT abdomen and pelvis 10/04/2019 FINDINGS: Small left pleural effusion. Intermixed groundglass and consolidative opacities of the lungs. Study i s degraded by respiratory motion artifact. There is no pneumatosis or pneumoperitoneum. Imaged inferi or cardiac chambers are unremarkable. Coronary artery calcifications. The spleen, pancreas and adrena l glands are unremarkable. Mildly distended gallbladder. Unremarkable liver. Kidneys enhance symmetrically. There is no hydronephrosis. Decompressed urinary bladder with Estrella ca theter in place. Air within the bladder lumen is likely secondary to instrumentation. Atherosclerosis of the aorta without aneurysm. No adenopathy. There are acute bilateral retroperitoneal hematomas. H emorrhage within the left psoas, iliacus and left iliopsoas musculature measures up to approximately 26 7 m in length by 9.7 cm transversely. There is a 9 mm focus of active extravasation involving the left psoas muscle on image 315 with a smaller focus of active extravasation on image 273.. There is s mall amount of retroperitoneal hemorrhage within the right psoas muscle with moderate hemorrhage with in the right iliacus extending into the iliopsoas measuring up to at least 19 cm in length. Acute hem atoma of the rectus sheath measures up to approximately 15 cm in length and measures 5.7 x 4.3 cm in transverse and AP dimensions. Subcutaneous contusion/injection sites of the anterior abdominal wall. Distal tip of feeding tube projects over the duodenal bulb. There is no bowel obstruction or bowel wa ll thickening. There is mild fecal retention. Noninflamed appendix. There is no acute fracture. Degen erative changes of the spine, pelvis and hips. IMPRESSION: 1. Acute bilateral retroperitoneal hematomas, left greater than right with areas of subcentimeter act negin extravasation. 2. Moderate sized acute right rectus sheath hematoma. 3. Small left pleural effusion with bibasilar groundglass and consolidative opacities compatible with viral pneumonia. 4. Distal tip of feeding tube terminates within the proximal duodenum. 5. No bowel obstruction or bowel wall thickening. 6. Additional findings as above. ACT 112: Negative or not required by law. The above report was generated using voice recognition software. It may contain grammatical, syntax o r spelling errors. Electronically signed by: Adam Morgan M.D. 04/16/2021 9:41 AM
--- NOTE | 2021-04-16 10:54 | Hospitalist Progress Note ---
Date of Service April 16, 2021 Assessment & Plan (1) Retroperitoneal hematoma: Plan: Q6H H&H Hemoglobin stable > 10 after 1 units packed RBCs transfused overnight. Transfuse if Hgb < 8. Continue to hold Lovenox/aspirin/clopidogrel. Will likely need to restart at least one antiplatelet prior to discharge (2) Acute sinusitis: Plan: Possible diagnosis but not completely clear given lack of symptoms but given MRI changes with rising WBC without alternative explanation will start patient on Unasyn Consider 10-14 day course total with Unasyn/Augmentin - started 04/16 Start lactobacillus to avoid antibiotic associated diarrhea (3) Dysphagia: Plan: MRI Brain without new acute stroke 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 Continue tube feeds Patient and wish him to have a G-tube - will defer GI consult for now given acute retroperitoneal bleed but suspect can be performed early next week (4) 2018 novel coronavirus-infected pneumonia (NCIP): Plan: Secondary bacterial pneumonia with continuing COVID 19 infection - unvaccinated was discharged on 03/30, was on room air, sent home on dexamethasone 6mg PO daily had a few good days but got worse quickly on Wednesday 04/04 and declined on 04/05, brought to hospital concern for secondary bacterial pneumonia but also worsening COVID CRP was 23 on admission, procalcitonin elevated, wbc persistently elevated Dexamethasone 20mg IV daily, completed 5 days, now on 10mg IV x 5 days - completed Off COVID isolation 04/15/20, should remain on contact due to MRSA (5) Hypoxia: Plan: acute hypoxic respiratory failure Secondary to COVID-19, MRSA went from 15L oxy mask to needing CPAP 10 FiO2 100% on 04/07, moved to ICU and intubated due to distress extubated 04/10/21 Currently on 4LPM Oxymask Levaquin IV started ,04/09 d/c 04/12/21 for secondary bacterial infection, MRSA Pneumonia treatment as below. (6) MRSA pneumonia: Plan: Vancomycin IV initially, change to Linezolid due to renal failure. Finished course of Linezolid for sputum positive culture Continue on contact precautions (7) COPD (chronic obstructive pulmonary disease) with chronic bronchitis: Plan: Continue as above No wheezing on exam (8) CVA (cerebral vascular accident): Plan: Old CVA - 2015 with residual right sided contracture and weakness and spasticity - Continue with statin via [employer] - ASA and clopidogrel on hold (9) Spasticity as late effect of cerebrovascular accident (CVA): Plan: Continue Baclofen (10) Migraine without aura: Plan: chronic issue, now sedated Plan: VTE Prophylaxis - no chemical prophylaxis due to retroperitoneal bleed, continue NIK hose and SCDs Diet - NPO Discharge - continue on med/tele, COVID isolation precautions removed but remains on contact due to MRSA, PT/OT, Plan for G-tube next week Admission and Anticipated Discharge Date Admission Date: April 05, 2021 Subjective Abdominal pain overnight and subsequent confirmation of retroperitoneal bleed on CT. No current abdominal pain on exam and the patient shakes his head to this question. No chest pain, dizziness or worsening shortness of breath. Intermittent dry cough. Difficulty communicating outside yes and no questions but denies any pain today. Shortness of breath at baseline. Cool right foot noted by his at bedside. Review of Systems Review of Systems: Other (unable to communicate) Physical Exam Constitutional: + not well nourished and no acute distress Eyes: + anicteric sclerae; normal pupil size ENMT: external ear and nose normal, oropharynx normal Neck: trachea midline, no thyromegaly Respiratory: normal respiratory effort, lungs clear to auscultation Cardiovascular: Rate/Rhythm: regular rhythm and + tachycardic Heart Sounds: no murmur Vessels: no JVD Extremities: + abnormal capillary refill (prolonged in right foot), no calf tenderness and no pedal edema Gastrointestinal (Abdomen): Inspection/Auscultation: normal bowel sounds Percussion/Palpation: abdomen soft; abdomen nontender Skin: no rashes, warm and dry Neurologic: + focal motor deficit (right sided weakness progressed from baseline, UE > LE) and awake Speech / Cognition: + expressive aphasia (severe) Motor/Sensory: no tremor Psychiatric: Orientation: alert; + not oriented x 3 (unable to communicate this) Results & Data Results & Data ([facility]) Vital Signs (Past 12 Hours) Vital Signs Temp Pulse Pulse Resp BP BP BP 04/16/21 07:54 36.9 C 118 H 22 132/81 04/16/21 07:44 103 H 04/16/21 06:29 36.3 C L 100 H 15 127/81 04/16/21 06:01 36.5 C 108 H 17 119/82 04/16/21 05:01 36.7 C 101 H 16 118/78 04/16/21 04:31 37.2 C 106 H 17 131/87 04/16/21 04:20 105 H 04/16/21 04:16 37 C 108 H 17 110/73 04/16/21 03:48 36.5 C 112 H 17 122/77 04/16/21 03:07 36.6 C 115 H 18 137/87 04/16/21 01:02 36.5 C 116 H 20 112/82 04/16/21 00:14 134 H 04/15/21 23:47 36.5 C 120 H 18 98/61 L Pulse Ox 04/16/21 07:54 96 04/16/21 07:44 04/16/21 06:29 94 04/16/21 06:01 93 04/16/21 05:01 96 04/16/21 04:31 95 04/16/21 04:20 04/16/21 04:16 94 04/16/21 03:48 93 04/16/21 03:07 95 04/16/21 01:02 93 04/16/21 00:14 04/15/21 23:47 95 Laboratory Results Abnormal lab results 04/15/21 04/15/21 04/16/21 Range/Units 19:29 22:25 00:01 WBC 23.91 H (4.8-10.8) K/uL RBC 3.22 L (4.7-6.1) M/uL Hgb 10.1 L (14.0-18.0) g/dL Hct 30.5 L (42-52) % RDW Std Deviation 50.0 H (36.4-46.3) fL RDW Coeff of Roge 14.6 H (11.5-14.5) % Plt Count 471 H (130-400) K/uL Neut # (Auto) 20.60 H (1.4-6.5) K/uL Kemper # (Auto) 1.39 H (0.11-0.59) K/uL Immature Gran # (Auto) 0.31 H (0.00-0.02) K/uL Chloride (98-107) mmol/L BUN (7-18) mg/dl BUN/Creatinine Ratio (10-20) Glucose (70-99) mg/dl POC Glucose 221 H 154 H (70-99) mg/dl Crossmatch 04/16/21 04/16/21 04/16/21 Range/Units 01:43 03:20 07:29 WBC (4.8-10.8) K/uL RBC (4.7-6.1) M/uL Hgb (14.0-18.0) g/dL Hct (42-52) % RDW Std Deviation (36.4-46.3) fL RDW Coeff of Roge (11.5-14.5) % Plt Count (130-400) K/uL Neut # (Auto) (1.4-6.5) K/uL Kemper # (Auto) (0.11-0.59) K/uL Immature Gran # (Auto) (0.00-0.02) K/uL Chloride (98-107) mmol/L BUN (7-18) mg/dl BUN/Creatinine Ratio (10-20) Glucose (70-99) mg/dl POC Glucose 132 H 160 H (70-99) mg/dl Crossmatch See Detail 04/16/21 04/16/21 04/16/21 Range/Units 07:39 07:39 11:00 WBC 21.29 H (4.8-10.8) K/uL RBC 3.42 L (4.7-6.1) M/uL Hgb 10.4 L (14.0-18.0) g/dL Hct 31.7 L (42-52) % RDW Std Deviation 50.8 H (36.4-46.3) fL RDW Coeff of Roge 15.2 H (11.5-14.5) % Plt Count (130-400) K/uL Neut # (Auto) 17.57 H (1.4-6.5) K/uL Kemper # (Auto) 1.09 H (0.11-0.59) K/uL Immature Gran # (Auto) 0.41 H (0.00-0.02) K/uL Chloride 108 H (98-107) mmol/L BUN 56 H (7-18) mg/dl BUN/Creatinine Ratio 49.7 H (10-20) Glucose 154 H (70-99) mg/dl POC Glucose 146 H (70-99) mg/dl Crossmatch 04/16/21 04/16/21 Range/Units 13:43 16:21 WBC (4.8-10.8) K/uL RBC (4.7-6.1) M/uL Hgb 10.1 L (14.0-18.0) g/dL Hct 30.4 L (42-52) % RDW Std Deviation (36.4-46.3) fL RDW Coeff of Roge (11.5-14.5) % Plt Count (130-400) K/uL Neut # (Auto) (1.4-6.5) K/uL Kemper # (Auto) (0.11-0.59) K/uL Immature Gran # (Auto) (0.00-0.02) K/uL Chloride (98-107) mmol/L BUN (7-18) mg/dl BUN/Creatinine Ratio (10-20) Glucose (70-99) mg/dl POC Glucose 214 H (70-99) mg/dl Crossmatch PG Care Time/CCT Total # of Minutes Spent Total Time Spent with Patient: Total time spent is greater than 50% in coordination of care (as documented) at patient's floor/unit and/or counseling patient: Coding Level of Care Code 80040 Subseq Hosp Care Lvl 3 Diagnoses 2019 novel coronavirus-infected pneumonia (NCIP) U07.1; J12.82 Hypoxia R09.02 Dysphagia R13.10 COPD (chronic obstructive pulmonary disease) with chronic bronchitis J44.9 CVA (cerebral vascular accident) I63.9 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 Acute sinusitis J01.90 MRSA pneumonia J15.212 Retroperitoneal hematoma K66.1
[2021-04-16] MEDS: dexAMETHasone 10 MG in SYRINGE 0 ML IV SCH (11:42)
[2021-04-16 14:01] LABS: Hematocrit (blood only) 30.4 % (42-52); Hemoglobin 10.1 g/dL (14.0-18.0)
--- NOTE | 2021-04-16 16:14 | Electrocardiogram Report ---
Test Reason : Blood Pressure : / mmHG Vent. Rate : 126 BPM Atrial Rate : 126 BPM P-R Int : 124 ms QRS Dur : 070 ms QT Int : 300 ms P-R-T Axes : 034 -23 067 degrees QTc Int : 434 ms Sinus tachycardia Minimal voltage criteria for LVH, may be normal variant Nonspecific ST abnormality Abnormal ECG When compared with ECG of 12-APR-2021 11:21, Nonspecific T wave abnormality now evident in Lateral leads Confirmed by Flakito Marti ([id number]) on 04/16/2021 4:13:59 PM Referred By: REFERRED SELF Confirmed By:Flakito Marti
--- NOTE | 2021-04-16 17:27 | Ultrasound Report ---
US arterial duplex LE RT CLINICAL HISTORY: Cold right foot, thready pulses COMPARISON STUDY: None. FINDINGS: The ankle brachial indices were unable to be performed. Scattered calcified plaque througho ut the right lower extremity arterial system. Normal triphasic waveforms and velocities seen througho ut the right lower extremity arterial system. No significant stenosis or occlusion. IMPRESSION: No significant stenosis or occlusion within the right lower extremity arterial system. ACT 112: Negative or not required by law. Electronically signed by: Mekhi Erickson M.D. 04/16/2021 5:26 PM
[2021-04-16] MEDS: ADVANCED PROBIOTIC 1250 MG CAPSULE PO SCH (18:06)
[2021-04-16 20:45] LABS: Hematocrit (blood only) 28.9 % (42-52); Hemoglobin 9.5 g/dL (14.0-18.0)
[2021-04-16] MEDS: PANTOprazole 40 MG TAB PO SCH (21:09)
[2021-04-16] MEDS: ATORVASTATIN 40 MG TAB PO SCH (21:09)
[2021-04-17] MEDS: INSULIN ASPART PER UNIT SC SCH ×6 (00:24→21:05)
[2021-04-17] MEDS: TUBE FEEDING WATER FLUSH NG SCH ×6 (00:26→21:05)
[2021-04-17 02:04] LABS: Basophils # (auto) 0.01 K/uL (0-0.2); Basophils % (auto) 0.1 %; Hematocrit (blood only) 27.8 % (42-52); Immature Granulocytes # (auto) 0.23 K/uL (0.00-0.02); Immature Granulocytes % (auto) 1.3 %; Lymphocytes % (auto) 9.7 %; Mean Corpuscular Hemoglobin 30.3 pg (25-34); Mean Corpuscular Hgb Conc 32.4 g/dL (32-36); Mean Corpuscular Volume 93.6 fL (80-100); Mean Platelet Volume 10.3 fL (7.4-10.4); Monocytes # (auto) 0.99 K/uL (0.11-0.59); Monocytes % (auto) 5.7 %; Neutrophils # (auto) 14.59 K/uL (1.4-6.5); Neutrophils % (auto) 83.2 %; Platelet Count 383 K/uL (130-400); RDW Coefficient of Variation 15.5 % (11.5-14.5); RDW Standard Deviation 51.9 fL (36.4-46.3); Red Blood Count 2.97 M/uL (4.7-6.1); White Blood Count 17.52 K/uL (4.8-10.8)
[2021-04-17] MEDS: AMPICILLIN/SULBACTAM SOD 3,000 MG in 0.9 % SODIUM CHLORIDE 100 ML IV SCH ×4 (02:07→21:08)
[2021-04-17 08:02] LABS: Hematocrit (blood only) 26.3 % (42-52); Hemoglobin 8.6 g/dL (14.0-18.0)
[2021-04-17 08:20] LABS: BUN Creatinine Ratio 52.6 (10-20); Calcium 8.5 mg/dl (8.5-10.1); Creatinine Clr Calc Pharmacy 69.9 ml/min; Est GFR (African American) 86.8 ml/min; Est GFR (Non-African American) 74.8 ml/min; Potassium 4.3 mmol/L (3.5-5.1)
--- NOTE | 2021-04-17 08:22 | Hospitalist Progress Note ---
Date of Service April 17, 2021 Assessment & Plan (1) Retroperitoneal hematoma: Plan: Acute blood loss anemia, likely associated with illness and DVT prevention plus antiplatelet medications as stroke prevention Hemoglobin stable > 10 after 1 units packed RBCs transfused, repeat hemoglobin in the afternoon remains 8.6 Transfuse if Hgb < 8. Continue to hold Lovenox/aspirin/clopidogrel. Will likely need to restart at least one antiplatelet prior to discharge (2) Acute sinusitis: Plan: Possible diagnosis but not completely clear given lack of symptoms but given MRI changes with rising WBC without alternative explanation will start patient on Unasyn Consider 10-14 day course total with Unasyn/Augmentin - started 04/16 Start lactobacillus to avoid antibiotic associated diarrhea Leukocytosis continues (3) Dysphagia: Plan: MRI Brain without new acute stroke 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 Continue tube feeds Patient and wish him to have a G-tube - will defer GI consult for now given acute retroperitoneal bleed but suspect can be performed early next week (4) 2018 novel coronavirus-infected pneumonia (NCIP): Plan: Secondary bacterial pneumonia with continuing COVID 19 infection - unvaccinated was discharged on 03/30, was on room air, sent home on dexamethasone 6mg PO daily had a few good days but got worse quickly on Wednesday 04/04 and declined on 04/05, brought to hospital concern for secondary bacterial pneumonia but also worsening COVID CRP was 23 on admission, procalcitonin elevated, wbc persistently elevated Dexamethasone 20mg IV daily, completed 5 days, -> 10mg IV x 5 days - completed Off COVID isolation 04/15/20, should remain on contact due to MRSA found in sputum (5) Hypoxia: Plan: acute hypoxic respiratory failure Secondary to COVID-19, MRSA went from 15L oxy mask to needing CPAP 10 FiO2 100% on 04/07, moved to ICU and intubated due to distress extubated 04/10/21 Currently on 4LPM Oxymask Levaquin IV started ,04/09 d/c 04/12/21 for secondary bacterial infection, MRSA Pneumonia treatment as below. (6) MRSA pneumonia: Plan: Vancomycin IV initially, change to Linezolid due to renal failure. Finished course of Linezolid for sputum positive culture Continue on contact precautions, with leukocytosis and treatment on sinusitis, can consider if sinus also may harbor this bacteria, if not improving on unasyn consider re treat for mrsa (7) COPD (chronic obstructive pulmonary disease) with chronic bronchitis: Plan: Continue as above No wheezing on exam (8) CVA (cerebral vascular accident): Plan: 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, MRI brain does not show any new changes 04/16 - Continue with statin via [employer] - ASA and clopidogrel on hold (9) Spasticity as late effect of cerebrovascular accident (CVA): Plan: Continue Baclofen (10) Migraine without aura: Plan: chronic issue, now sedated Plan: VTE Prophylaxis - no chemical prophylaxis due to retroperitoneal bleed, continue NIK hose and SCDs Diet - NPO Discharge - continue on med/tele, COVID isolation precautions removed but remains on contact due to MRSA, PT/OT, Plan for G-tube next week Admission and Anticipated Discharge Date Admission Date: April 05, 2021 Subjective Patient is much more awake and appropriate is at bedside. He has some difficulty communicating what he wants but he does deny having any abdominal discomfort. He still remains short of breath and is still has tube feedings. Review of Systems Review of Systems: MILD distress and fatigue He attempts to speak, can say a few words and shakes head yes or no no chest pain, pressure or palpitations lessening shortness of breath, nonproductive cough or wheezes no abdominal pain, nausea or vomiting, no diarrhea no dysuria, hematuria or frequency no focal joint pain or swelling no back pain, CVA tenderness or radicular pain no bruising, bleeding or rashes no focal signs of weakness or numbness cannot speak clearly has pre-existing hemiparesis from stroke no complaints of anxiety or depression.. Physical Exam Physical Exam: The patient appeared well nourished and normally developed. Vital signs as documented. Head exam is normocephalic atraumatic Neck is without JVD, thyromegaly, or stridor Lungs are coarse to auscultation, bilateral rales are present Cardiac exam, Rhythm is tachycardic.. No murmurs, rubs or gallops. Abdominal exam reveals normal bowel sounds, soft non tender despite retroperitoneal hematoma and rectus sheath hematoma Extremities are nonedematous and both pedal pulses are present Neurologic exam is able to answer with shaking his head will not open his eyes or speak grunts with the examination Existing right hemiparesis from stroke Skin is without bruises or rashes no evidence of flank bruising from retroperitoneal hematoma Results & Data Results & Data ([facility]) Vital Signs (Past 12 Hours) Vital Signs Temp Pulse Pulse Resp BP BP Pulse Ox 04/17/21 08:00 98.6 F 104 H 20 109/63 04/17/21 07:17 113 H 04/17/21 03:31 98.2 F 114 H 24 128/73 94 04/17/21 00:19 97.9 F 117 H 24 118/72 94 04/16/21 23:41 111 H PG Care Time/CCT Total # of Minutes Spent Total Time Spent with Patient: Total time spent is greater than 50% in coordination of care (as documented) at patient's floor/unit and/or counseling patient: Coding Level of Care Code 09178 Subseq Hosp Care Lvl 2 Diagnoses Retroperitoneal hematoma K66.1 Acute sinusitis J01.90 Dysphagia R13.10 2019 novel coronavirus-infected pneumonia (NCIP) U07.1; J12.82 Hypoxia R09.02 MRSA pneumonia J15.212 COPD (chronic obstructive pulmonary disease) with chronic bronchitis J44.9 CVA (cerebral vascular accident) I63.9 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
[2021-04-17] MEDS: ADVANCED PROBIOTIC 1250 MG CAPSULE PO SCH (08:54)
[2021-04-17] MEDS: BACLOFEN 20 MG TAB PO SCH ×2 (08:54→22:15)
[2021-04-17] MEDS: PANTOprazole 40 MG TAB PO SCH ×2 (08:55→21:06)
--- NOTE | 2021-04-17 11:30 | Surgery Progress Note ---
Date of Service April 17, 2021 Assessment & Plan (1) Retroperitoneal hematoma: Plan: H/H continues to drift slowly - down to 8.6 today. Continue to monitor and transfuse as needed. If continues with evidence of bleeding and transfusion requirement, will need transfer for IR embolization. Admission and Anticipated Discharge Date Admission Date: April 05, 2021 Subjective Pt awake, difficult to communicate but does not appear to be in pain (shakes his head no). On tube feeds. Being followed for bilateral retroperitoneal and rectus muscle hematomas in setting of recent COVID pneumonia, prior stroke on anticoagulation which is now being held. Review of Systems Review of Systems: Unobtainable due to cognitive status (difficulty with speech) Physical Exam Constitutional: WD/WN, vitals as above Gastrointestinal (Abdomen): soft, bruising of abdomen from injection sites, no guarding, pos bowel tones, nondistended, not apparently tender Neurologic: right sided weakness / contractures Results & Data ([facility]) Vital Signs (Past 12 Hours) Vital Signs Temp Pulse Pulse Resp BP BP Pulse Ox 04/17/21 08:00 37.0 C 104 H 20 109/63 04/17/21 07:17 113 H 04/17/21 03:31 36.8 C 114 H 24 128/73 94 04/17/21 00:19 36.6 C 117 H 24 118/72 94 04/16/21 23:41 111 H Laboratory Results Abnormal lab results 04/16/21 04/16/21 04/16/21 Range/Units 13:43 16:21 20:22 WBC (4.8-10.8) K/uL RBC (4.7-6.1) M/uL Hgb 10.1 L 9.5 L (14.0-18.0) g/dL Hct 30.4 L 28.9 L (42-52) % RDW Std Deviation (36.4-46.3) fL RDW Coeff of Roge (11.5-14.5) % Neut # (Auto) (1.4-6.5) K/uL [place] # (Auto) (0.11-0.59) K/uL Immature Gran # (Auto) (0.00-0.02) K/uL Chloride (98-107) mmol/L BUN (7-18) mg/dl BUN/Creatinine Ratio (10-20) Glucose (70-99) mg/dl POC Glucose 214 H (70-99) mg/dl 04/16/21 04/17/21 04/17/21 Range/Units 20:42 00:01 01:54 WBC 17.52 H (4.8-10.8) K/uL RBC 2.97 L (4.7-6.1) M/uL Hgb 9.0 L (14.0-18.0) g/dL Hct 27.8 L (42-52) % RDW Std Deviation 51.9 H (36.4-46.3) fL RDW Coeff of Roge 15.5 H (11.5-14.5) % Neut # (Auto) 14.59 H (1.4-6.5) K/uL [place] # (Auto) 0.99 H (0.11-0.59) K/uL Immature Gran # (Auto) 0.23 H (0.00-0.02) K/uL Chloride (98-107) mmol/L BUN (7-18) mg/dl BUN/Creatinine Ratio (10-20) Glucose (70-99) mg/dl POC Glucose 251 H 258 H (70-99) mg/dl 04/17/21 04/17/21 04/17/21 Range/Units 04:02 07:19 07:52 WBC (4.8-10.8) K/uL RBC (4.7-6.1) M/uL Hgb 8.6 L (14.0-18.0) g/dL Hct 26.3 L (42-52) % RDW Std Deviation (36.4-46.3) fL RDW Coeff of Roge (11.5-14.5) % Neut # (Auto) (1.4-6.5) K/uL [place] # (Auto) (0.11-0.59) K/uL Immature Gran # (Auto) (0.00-0.02) K/uL Chloride (98-107) mmol/L BUN (7-18) mg/dl BUN/Creatinine Ratio (10-20) Glucose (70-99) mg/dl POC Glucose 218 H 233 H (70-99) mg/dl 04/17/21 Range/Units 07:52 WBC (4.8-10.8) K/uL RBC (4.7-6.1) M/uL Hgb (14.0-18.0) g/dL Hct (42-52) % RDW Std Deviation (36.4-46.3) fL RDW Coeff of Roge (11.5-14.5) % Neut # (Auto) (1.4-6.5) K/uL [place] # (Auto) (0.11-0.59) K/uL Immature Gran # (Auto) (0.00-0.02) K/uL Chloride 111 H (98-107) mmol/L BUN 56 H (7-18) mg/dl BUN/Creatinine Ratio 52.6 H (10-20) Glucose 174 H (70-99) mg/dl POC Glucose (70-99) mg/dl
[2021-04-17] MEDS: OLANZapine ZYDIS 5 MG ORALLY DIS. TAB PO SCH (11:33)
[2021-04-17] MEDS: ATORVASTATIN 40 MG TAB PO SCH (21:06)
[2021-04-18] MEDS: TUBE FEEDING WATER FLUSH NG SCH ×6 (00:35→20:23)
[2021-04-18] MEDS: INSULIN ASPART PER UNIT SC SCH ×6 (00:36→20:25)
[2021-04-18] MEDS: AMPICILLIN/SULBACTAM SOD 3,000 MG in 0.9 % SODIUM CHLORIDE 100 ML IV SCH ×4 (03:21→20:21)
[2021-04-18 08:08] LABS: Hematocrit (blood only) 25.8 % (42-52); Hemoglobin 8.2 g/dL (14.0-18.0); Mean Corpuscular Hemoglobin 30.7 pg (25-34); Mean Corpuscular Hgb Conc 31.8 g/dL (32-36); Mean Corpuscular Volume 96.6 fL (80-100); Nucleated RBC # (auto) 0.06 K/uL (0-0); Nucleated RBC % (auto) 0.4 %; Platelet Count 381 K/uL (130-400); RDW Coefficient of Variation 15.8 % (11.5-14.5); RDW Standard Deviation 53.9 fL (36.4-46.3); Red Blood Count 2.67 M/uL (4.7-6.1); White Blood Count 15.98 K/uL (4.8-10.8)
[2021-04-18 08:34] LABS: Calcium 8.8 mg/dl (8.5-10.1); Creatinine Clr Calc Pharmacy 80.5 ml/min; Est GFR (African American) 102.9 ml/min; Est GFR (Non-African American) 88.8 ml/min; Potassium 4.1 mmol/L (3.5-5.1)
[2021-04-18] MEDS: PANTOprazole 40 MG TAB PO SCH ×2 (09:10→20:23)
[2021-04-18] MEDS: ADVANCED PROBIOTIC 1250 MG CAPSULE PO SCH (09:11)
[2021-04-18] MEDS: OLANZapine ZYDIS 5 MG ORALLY DIS. TAB PO SCH (09:11)
[2021-04-18] MEDS: BACLOFEN 20 MG TAB PO SCH ×2 (09:11→20:23)
--- NOTE | 2021-04-18 11:32 | Surgery Progress Note ---
Date of Service April 18, 2021 Assessment & Plan (1) Retroperitoneal hematoma: Plan: H/H continues to drift slowly - down to 8.2 today. Continue to monitor and transfuse as needed. If continues with evidence of bleeding and transfusion requirement, will need transfer for IR embolization. No new recommendations Admission and Anticipated Discharge Date Admission Date: April 05, 2021 Subjective following for retroperitoneal hematoma. no new abdominal complaints. on tube feeds. Physical Exam Constitutional: WD/WN, vitals as above Gastrointestinal (Abdomen): bruising from prior injections, no guarding, soft, active bowel tones Results & Data ([facility]) Vital Signs (Past 12 Hours) Vital Signs Temp Pulse Pulse Resp BP Pulse Ox 04/18/21 08:08 36.8 C 108 H 20 118/74 96 04/18/21 07:15 107 H 04/18/21 04:43 36.8 C 110 H 24 129/72 94 Laboratory Results Abnormal lab results 04/17/21 04/17/21 04/17/21 Range/Units 11:30 15:15 16:39 WBC (4.8-10.8) K/uL RBC (4.7-6.1) M/uL Hgb 8.6 L (14.0-18.0) g/dL Hct (42-52) % MCHC (32-36) g/dL RDW Std Deviation (36.4-46.3) fL RDW Coeff of Roge (11.5-14.5) % Absolute Nucleated RBC (0-0) K/uL Sodium (136-145) mmol/L Chloride (98-107) mmol/L BUN (7-18) mg/dl BUN/Creatinine Ratio (10-20) Glucose (70-99) mg/dl POC Glucose 189 H 204 H (70-99) mg/dl 04/17/21 04/18/21 04/18/21 Range/Units 20:15 00:33 04:48 WBC (4.8-10.8) K/uL RBC (4.7-6.1) M/uL Hgb (14.0-18.0) g/dL Hct (42-52) % MCHC (32-36) g/dL RDW Std Deviation (36.4-46.3) fL RDW Coeff of Roge (11.5-14.5) % Absolute Nucleated RBC (0-0) K/uL Sodium (136-145) mmol/L Chloride (98-107) mmol/L BUN (7-18) mg/dl BUN/Creatinine Ratio (10-20) Glucose (70-99) mg/dl POC Glucose 186 H 190 H 156 H (70-99) mg/dl 04/18/21 04/18/21 04/18/21 Range/Units 07:32 07:48 07:48 WBC 15.98 H (4.8-10.8) K/uL RBC 2.67 L (4.7-6.1) M/uL Hgb 8.2 L (14.0-18.0) g/dL Hct 25.8 L (42-52) % MCHC 31.8 L (32-36) g/dL RDW Std Deviation 53.9 H (36.4-46.3) fL RDW Coeff of Roge 15.8 H (11.5-14.5) % Absolute Nucleated RBC 0.06 H (0-0) K/uL Sodium 147 H (136-145) mmol/L Chloride 114 H (98-107) mmol/L BUN 48 H (7-18) mg/dl BUN/Creatinine Ratio 52.0 H (10-20) Glucose 145 H (70-99) mg/dl POC Glucose 160 H (70-99) mg/dl 04/18/21 Range/Units 11:27 WBC (4.8-10.8) K/uL RBC (4.7-6.1) M/uL Hgb (14.0-18.0) g/dL Hct (42-52) % MCHC (32-36) g/dL RDW Std Deviation (36.4-46.3) fL RDW Coeff of Roge (11.5-14.5) % Absolute Nucleated RBC (0-0) K/uL Sodium (136-145) mmol/L Chloride (98-107) mmol/L BUN (7-18) mg/dl BUN/Creatinine Ratio (10-20) Glucose (70-99) mg/dl POC Glucose 162 H (70-99) mg/dl
--- NOTE | 2021-04-18 16:44 | Hospitalist Progress Note ---
Date of Service April 18, 2021 Assessment & Plan (1) Retroperitoneal hematoma: Plan: Acute blood loss anemia, likely associated with illness and DVT prevention plus antiplatelet medications as stroke prevention Hemoglobin stable > 10 after 1 units packed RBCs transfused, repeat hemoglobin in the afternoon remains 8.6 Transfuse if Hgb < 8. hgb has been hovering in the mid to low 8 gm range Continue to hold Lovenox/aspirin/clopidogrel. Will likely need to restart at least one antiplatelet prior to discharge (2) Acute sinusitis: Plan: Possible diagnosis but not completely clear given lack of symptoms but given MRI changes with rising WBC without alternative explanation will start patient on Unasyn Consider 10-14 day course total with Unasyn/Augmentin - started 04/16 Start lactobacillus to avoid antibiotic associated diarrhea Leukocytosis continues (3) Dysphagia: Plan: MRI Brain without new acute stroke 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 Continue tube feeds Patient and wish him to have a G-tube - will defer GI consult for now given acute retroperitoneal bleed but suspect can be performed early next week (4) 2018 novel coronavirus-infected pneumonia (NCIP): Plan: Secondary bacterial pneumonia with continuing COVID 19 infection - unvaccinated was discharged on 03/30, was on room air, sent home on dexamethasone 6mg PO daily had a few good days but got worse quickly on Wednesday 04/04 and declined on 04/05, brought to hospital concern for secondary bacterial pneumonia but also worsening COVID CRP was 23 on admission, procalcitonin elevated, wbc persistently elevated Dexamethasone 20mg IV daily, completed 5 days, -> 10mg IV x 5 days - completed Off COVID isolation 04/15/20, should remain on contact due to MRSA found in sputum (5) Hypoxia: Plan: acute hypoxic respiratory failure Secondary to COVID-19, MRSA went from 15L oxy mask to needing CPAP 10 FiO2 100% on 04/07, moved to ICU and intubated due to distress extubated 04/10/21 Currently on 2-4LPM Oxymask Levaquin IV started ,04/09 d/c 04/12/21 for secondary bacterial infection, MRSA Pneumonia treatment as below. (6) MRSA pneumonia: Plan: Vancomycin IV initially, change to Linezolid due to renal failure. Finished course of Linezolid for sputum positive culture Continue on contact precautions, with leukocytosis and treatment on sinusitis, ,continue unasyn remains with leukocytosis improving (7) COPD (chronic obstructive pulmonary disease) with chronic bronchitis: Plan: Continue as above No wheezing on exam (8) CVA (cerebral vascular accident): Plan: 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, MRI brain does not show any new changes 04/16 - Continue with statin via [employer] - ASA and clopidogrel on hold (9) Spasticity as late effect of cerebrovascular accident (CVA): Plan: Continue Baclofen (10) Migraine without aura: Plan: chronic issue, now sedated Plan: VTE Prophylaxis - no chemical prophylaxis due to retroperitoneal bleed, continue NIK hose and SCDs Diet - NPO Discharge - continue on med/tele, COVID isolation precautions removed but remains on contact due to MRSA, PT/OT, Plan for G-tube next week will reasses swallowing prior to Admission and Anticipated Discharge Date Admission Date: April 05, 2021 Subjective pt seems more awake and alert , will consider re peat speech evaluation tomorrow 04/19/21 hgb low but stable, updated Review of Systems Review of Systems: MILD distress and fatigue He attempts to speak, can say a few words and shakes head yes or no no chest pain, pressure or palpitations lessening shortness of breath, nonproductive cough or wheezes no abdominal pain, nausea or vomiting, no diarrhea no dysuria, hematuria or frequency no focal joint pain or swelling no back pain, CVA tenderness or radicular pain no bruising, bleeding or rashes no focal signs of weakness or numbness cannot speak clearly has pre-existing hemiparesis from stroke no complaints of anxiety or depression.. Physical Exam Physical Exam: The patient appeared well nourished and normally developed. Vital signs as documented. Head exam is normocephalic atraumatic Neck is without JVD, thyromegaly, or stridor Lungs are coarse to auscultation, bilateral rales are present Cardiac exam, Rhythm is tachycardic.. No murmurs, rubs or gallops. Abdominal exam reveals normal bowel sounds, soft non tender despite retroperitoneal hematoma and rectus sheath hematoma Extremities are nonedematous and both pedal pulses are present Neurologic exam is able to answer with shaking his head will not open his eyes or speak grunts with the examination Existing right hemiparesis from stroke Skin is without bruises or rashes no evidence of flank bruising from retroperitoneal hematoma Results & Data Results & Data ([facility]) Vital Signs (Past 12 Hours) Vital Signs Temp Pulse Pulse Resp BP BP Pulse Ox 04/18/21 16:23 100 H 04/18/21 13:49 04/18/21 12:14 98.2 F 99 H 20 119/66 97 04/18/21 11:21 92 04/18/21 08:08 98.2 F 108 H 20 118/74 96 04/18/21 07:15 107 H 04/18/21 04:43 98.2 F 110 H 24 129/72 94 Pulse Ox 04/18/21 16:23 04/18/21 13:49 92 04/18/21 12:14 04/18/21 11:21 04/18/21 08:08 04/18/21 07:15 04/18/21 04:43 PG Care Time/CCT Total # of Minutes Spent Total Time Spent with Patient: Total time spent is greater than 50% in coordination of care (as documented) at patient's floor/unit and/or counseling patient: Coding Level of Care Code 23208 Subseq Hosp Care Lvl 2 Diagnoses Retroperitoneal hematoma K66.1 Acute sinusitis J01.90 Dysphagia R13.10 2019 novel coronavirus-infected pneumonia (NCIP) U07.1; J12.82 Hypoxia R09.02 MRSA pneumonia J15.212 COPD (chronic obstructive pulmonary disease) with chronic bronchitis J44.9 CVA (cerebral vascular accident) I63.9 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
[2021-04-18] MEDS: ATORVASTATIN 40 MG TAB PO SCH (20:23)
[2021-04-19] MEDS: TUBE FEEDING WATER FLUSH NG SCH ×6 (00:16→20:03)
[2021-04-19] MEDS: INSULIN ASPART PER UNIT SC SCH ×6 (00:16→20:02)
[2021-04-19] MEDS: AMPICILLIN/SULBACTAM SOD 3,000 MG in 0.9 % SODIUM CHLORIDE 100 ML IV SCH ×4 (02:06→20:02)
[2021-04-19 05:53] LABS: Hematocrit (blood only) 26.2 % (42-52); Hemoglobin 8.2 g/dL (14.0-18.0); Mean Corpuscular Hemoglobin 30.7 pg (25-34); Mean Corpuscular Hgb Conc 31.3 g/dL (32-36); Mean Corpuscular Volume 98.1 fL (80-100); Mean Platelet Volume 9.9 fL (7.4-10.4); Nucleated RBC # (auto) 0.04 K/uL (0-0); Nucleated RBC % (auto) 0.3 %; Platelet Count 406 K/uL (130-400); RDW Standard Deviation 54.7 fL (36.4-46.3); Red Blood Count 2.67 M/uL (4.7-6.1); White Blood Count 12.87 K/uL (4.8-10.8)
[2021-04-19 06:19] LABS: Calcium 8.7 mg/dl (8.5-10.1); Creatinine Clr Calc Pharmacy 84.2 ml/min; Est GFR (African American) 106.7 ml/min; Est GFR (Non-African American) 92.1 ml/min; Potassium 3.9 mmol/L (3.5-5.1)
--- NOTE | 2021-04-19 08:58 | Surgery Progress Note ---
Date of Service April 19, 2021 Assessment & Plan (1) Retroperitoneal hematoma: Plan: retroperitoneal hematoma, stable h/h may restart plavix daily h/h if rebleeds, recommend transfer for IR surgery will follow peripherally, call with questions or concerns Admission and Anticipated Discharge Date Admission Date: April 05, 2021 Subjective 60 y/o male with h/o covid, stroke, and recent spontaneous retroperitoneal bleed. Doing well, more awake. Physical Exam Constitutional: WD/WN, vitals as above Gastrointestinal (Abdomen): normal bowel sounds, soft, nontender, no hepatosplenomegaly Results & Data ([facility]) Vital Signs (Past 12 Hours) Vital Signs Temp Pulse Pulse Resp BP BP Pulse Ox 04/19/21 08:02 36.7 C 110 H 18 132/80 93 04/19/21 04:00 36.6 C 111 H 24 127/78 93 04/19/21 02:23 114 H 04/18/21 22:30 36.9 C 116 H 16 124/74 94 Laboratory Results Laboratory Results - last 24 hr 04/18/21 04/18/21 04/18/21 11:27 15:15 16:28 WBC RBC Hgb 8.5 L Hct MCV MCH MCHC RDW Std Deviation RDW Coeff of Roge Plt Count MPV Absolute Nucleated RBC Nucleated RBC % (auto) Sodium Potassium Chloride Carbon Dioxide Anion Gap BUN Creatinine Est Cr Clr Drug Dosing Est GFR ( Amer) Est GFR (Non-Af Amer) BUN/Creatinine Ratio Glucose POC Glucose 162 H 157 H Calcium 04/18/21 04/19/21 04/19/21 20:20 00:07 04:00 WBC RBC Hgb Hct MCV MCH MCHC RDW Std Deviation RDW Coeff of Roge Plt Count MPV Absolute Nucleated RBC Nucleated RBC % (auto) Sodium Potassium Chloride Carbon Dioxide Anion Gap BUN Creatinine Est Cr Clr Drug Dosing Est GFR ( Amer) Est GFR (Non-Af Amer) BUN/Creatinine Ratio Glucose POC Glucose 165 H 119 H 147 H Calcium 04/19/21 04/19/21 05:29 05:29 WBC 12.87 H RBC 2.67 L Hgb 8.2 L Hct 26.2 L MCV 98.1 MCH 30.7 MCHC 31.3 L RDW Std Deviation 54.7 H RDW Coeff of Roge 16.0 H Plt Count 406 H MPV 9.9 Absolute Nucleated RBC 0.04 H Nucleated RBC % (auto) 0.3 Sodium 146 H Potassium 3.9 Chloride 114 H Carbon Dioxide 29 Anion Gap 3.0 BUN 39 H Creatinine 0.88 Est Cr Clr Drug Dosing 84.2 Est GFR ( Amer) 106.7 Est GFR (Non-Af Amer) 92.1 BUN/Creatinine Ratio 44.0 H Glucose 136 H POC Glucose Calcium 8.7 PG Care Time/CCT Total # of Minutes Spent Total Time Spent with Patient: Total time spent is greater than 50% in coordination of care (as documented) at patient's floor/unit and/or counseling patient: Coding Level of Care Code 99224 Inpt Consult Level 2 Diagnoses Retroperitoneal hematoma K66.1
[2021-04-19] MEDS: ADVANCED PROBIOTIC 1250 MG CAPSULE PO SCH (09:55)
[2021-04-19] MEDS: OLANZapine ZYDIS 5 MG ORALLY DIS. TAB PO SCH (09:55)
[2021-04-19] MEDS: BACLOFEN 20 MG TAB PO SCH ×2 (09:55→20:04)
[2021-04-19] MEDS: PANTOprazole 40 MG TAB PO SCH ×2 (09:55→20:04)
--- NOTE | 2021-04-19 15:56 | Hospitalist Progress Note ---
Date of Service April 19, 2021 Assessment & Plan (1) Retroperitoneal hematoma: Plan: Acute blood loss anemia, likely associated with illness and DVT prevention plus antiplatelet medications as stroke prevention Hemoglobin stable > 10 after 1 units packed RBCs transfused, repeat hemoglobin in the afternoon remains 8.6 Transfuse if Hgb < 8. hgb has been hovering in the mid to low 8 gm range Continue to hold Lovenox/aspirin/clopidogrel., likely will restart aspiration Will likely need to restart at least one antiplatelet prior to discharge (2) Acute sinusitis: Plan: Possible diagnosis but not completely clear given lack of symptoms but given MRI changes with rising WBC without alternative explanation will start patient on Unasyn Consider 10-14 day course total with Unasyn/Augmentin - started 04/16 Start lactobacillus to avoid antibiotic associated diarrhea Leukocytosis continues (3) Dysphagia: Plan: MRI Brain without new acute stroke 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 Continue tube feeds Patient and wish him to have a G-tube - will ask for a GI consult for now given acute retroperitoneal bleed but suspect can be performed early next week (4) 2018 novel coronavirus-infected pneumonia (NCIP): Plan: Secondary bacterial pneumonia with continuing COVID 19 infection - unvaccinated was discharged on 03/30, was on room air, sent home on dexamethasone 6mg PO daily had a few good days but got worse quickly on Wednesday 04/04 and declined on 04/05, brought to hospital concern for secondary bacterial pneumonia but also worsening COVID CRP was 23 on admission, procalcitonin elevated, wbc persistently elevated Dexamethasone 20mg IV daily, completed 5 days, -> 10mg IV x 5 days - completed Off COVID isolation 04/15/20, should remain on contact due to MRSA found in sputum (5) Hypoxia: Plan: acute hypoxic respiratory failure Secondary to COVID-19, MRSA went from 15L oxy mask to needing CPAP 10 FiO2 100% on 04/07, moved to ICU and intubated due to distress extubated 04/10/21 Currently on 2-4LPM Oxymask Levaquin IV completed for secondary bacterial infection, MRSA Pneumonia treatment as below. (6) MRSA pneumonia: Plan: Vancomycin IV initially, change to Linezolid due to renal failure. Finished course of Linezolid for sputum positive culture Continue on contact precautions, with leukocytosis and sinusitis seen on head imaging , ,continue unasyn , with leukocytosis improving (7) COPD (chronic obstructive pulmonary disease) with chronic bronchitis: Plan: Continue as above No wheezing on exam (8) CVA (cerebral vascular accident): Plan: Old CVA - 2015 with residual right sided contracture and weakness and spasticity, MRI brain does not show any new changes 04/16 - Continue with statin via [employer] - ASA and clopidogrel on hold-> resume after g tube is placed (9) Spasticity as late effect of cerebrovascular accident (CVA): Plan: Continue Baclofen (10) Migraine without aura: Plan: chronic issue, now sedated Plan: VTE Prophylaxis - no chemical prophylaxis due to retroperitoneal bleed, continue NIK hose and SCDs Diet - NPO, on tube feeds via coredafe Discharge - continue on med/tele, COVID isolation precautions removed but remains on contact due to MRSA, PT/OT, Plan for G-tube wishes to have placement in rehab Admission and Anticipated Discharge Date Admission Date: April 05, 2021 Subjective Patient is in good spirits today however he failed a swallowing test with significant aspiration with continued requirements or recommendations excuse me not to have oral feedings continue to pursue possible G-tube placement in the future Review of Systems Review of Systems: Mild distress and fatigue no headache, no visual changes persistent swallowing issues no chest pain, pressure or palpitations mild shortness of breath,non productive cough or wheezes mild abdominal pain, nausea or vomiting, diarrhea or constipation no dysuria, hematuria or frequency no focal joint pain or swelling no back pain, CVA tenderness or radicular pain no bruising, bleeding or rashes right hemiparesis persists speech is difficult no complaints of anxiety or depression.. Physical Exam Physical Exam: The patient appeared well nourished and normally developed. Vital signs as documented. Head exam is normocephalic atraumatic Neck is without JVD, thyromegaly, or stridor Lungs are coarse to auscultation, bilateral rales are present Cardiac exam, Rhythm is tachycardic.. No murmurs, rubs or gallops. Abdominal exam reveals normal bowel sounds, soft non tender despite retroperitoneal hematoma and rectus sheath hematoma Extremities are nonedematous and both pedal pulses are present Neurologic exam is able to answer with shaking his head will not open his eyes or speak grunts with the examination Existing right hemiparesis from stroke Skin is without bruises or rashes no evidence of flank bruising from retroperitoneal hematoma Results & Data Results & Data ([facility]) Vital Signs (Past 12 Hours) Vital Signs Temp Pulse Resp BP BP Pulse Ox 04/19/21 15:06 98.6 F 104 H 17 145/77 H 98 04/19/21 12:10 98.8 F 110 H 17 126/73 95 04/19/21 08:02 98.1 F 110 H 18 132/80 93 04/19/21 04:00 97.9 F 111 H 24 127/78 93 PG Care Time/CCT Total # of Minutes Spent Total Time Spent with Patient: Total time spent is greater than 50% in coordination of care (as documented) at patient's floor/unit and/or counseling patient: Coding Level of Care Code 65783 Subseq Hosp Care Lvl 3 Diagnoses Retroperitoneal hematoma K66.1 Acute sinusitis J01.90 Dysphagia R13.10 2019 novel coronavirus-infected pneumonia (NCIP) U07.1; J12.82 Hypoxia R09.02 MRSA pneumonia J15.212 COPD (chronic obstructive pulmonary disease) with chronic bronchitis J44.9 CVA (cerebral vascular accident) I63.9 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
[2021-04-19] MEDS: ATORVASTATIN 40 MG TAB PO SCH (20:03)
[2021-04-20] MEDS: INSULIN ASPART PER UNIT SC SCH ×6 (00:11→23:46)
[2021-04-20] MEDS: TUBE FEEDING WATER FLUSH NG SCH ×7 (00:30→23:45)
[2021-04-20] MEDS: AMPICILLIN/SULBACTAM SOD 3,000 MG in 0.9 % SODIUM CHLORIDE 100 ML IV SCH ×4 (02:20→20:14)
[2021-04-20] MEDS: PEPTAMEN 1.5 CAL 1,000 ML BAG NG SCH (05:56)
[2021-04-20] MEDS: BACLOFEN 20 MG TAB PO SCH (08:10)
[2021-04-20] MEDS: ADVANCED PROBIOTIC 1250 MG CAPSULE PO SCH (08:10)
[2021-04-20] MEDS: PANTOprazole 40 MG TAB PO SCH (08:11)
[2021-04-20] MEDS: OLANZapine ZYDIS 5 MG ORALLY DIS. TAB PO SCH (08:14)
[2021-04-20 08:21] LABS: Hematocrit (blood only) 28.2 % (42-52); Hemoglobin 8.7 g/dL (14.0-18.0); Mean Corpuscular Hemoglobin 30.7 pg (25-34); Mean Corpuscular Hgb Conc 30.9 g/dL (32-36); Mean Corpuscular Volume 99.6 fL (80-100); Mean Platelet Volume 9.9 fL (7.4-10.4); Platelet Count 448 K/uL (130-400); RDW Coefficient of Variation 16.8 % (11.5-14.5); Red Blood Count 2.83 M/uL (4.7-6.1); White Blood Count 13.26 K/uL (4.8-10.8)
[2021-04-20 08:47] LABS: BUN Creatinine Ratio 43.7 (10-20); Calcium 8.9 mg/dl (8.5-10.1); Creatinine Clr Calc Pharmacy 84.2 ml/min; Est GFR (African American) 106.7 ml/min; Est GFR (Non-African American) 92.1 ml/min; Potassium 3.9 mmol/L (3.5-5.1)
[2021-04-20] MEDS ORDERED: Nursing to Pharmacy Communication SCH (09:45)
[2021-04-20] MEDS: ACETAMINOPHEN SUSP 325 MG/10.15 ML UDC PEG PRN (10:26)
--- NOTE | 2021-04-20 14:28 | Gastrointestinal Consultation ---
Date of Consultation April 20, 2021 Assessment & Plan (1) Dysphagia: Tried to call paitients but she did not answer to discuss EGD with PEG procedure and risks (will try later). . I do not feel I can get adequate informed consent from patient and he indicated to me about talking with his .Will check PT/PTT tomorrow. Discussed with DR Patterson would like to see patient medically optimized to the point of ready for DC a day or so after PEG placed. He is coming on service and is to let me know the timing. History of Present Illness Reason for Consultation: dysphagia for PEG Tube Attending Physician: Crow Patterson History of Present Illness CC dysphagia HPI Pt with COVID with superimposed MRSA pneumonia requiring intubation. He developed some aphasia and dysphagia. Speech path saw patient most reently 04/19/21 and stated he had dysphagia to the point he requires PEG tube feeding. Pt with baseling COPD apparently on home O2 even prior to COVID. Hospitaliazation also complicated by retroperitoneal bleed diagnosed on CT scan 04/15/2021. He has hx of CVA and was on blood thinners and ASA currently being held. Pt denies abd pain. Allergies Allergy/AdvReac Type Severity Reaction Status Date / Time No Known Allergies Allergy Verified 03/26/21 00:19 Home Medications Medication Instructions Recorded Confirmed Type acetaminophen 500 mg tablet 1,000 mg PO BID 07/12/18 04/05/21 History aspirin 325 mg tablet 325 mg PO QAM 07/12/18 04/05/21 History atorvastatin 80 mg tablet 80 mg PO HS 07/12/18 04/05/21 History clopidogrel 75 mg tablet (Plavix) 75 mg PO DAILY 07/12/18 04/05/21 History polyethylene glycol 3350 17 17 g PO 2XWK PRN 07/12/18 04/05/21 History gram/dose oral powder (Miralax) ondansetron 4 mg disintegrating 4 mg PO Q8H PRN #14 tab 04/01/20 04/05/21 Rx tablet ubrogepant 50 mg tablet (Ubrelvy) 50 mg PO ONCE PRN #10 tab 04/01/20 04/05/21 Rx sildenafil (pulm.hypertension) 20 20 mg PO DAILY PRN #60 tab 07/10/20 04/05/21 Rx mg tablet albuterol sulfate 90 mcg/actuation 2 puff INHALATION QID PRN #18 g 02/11/21 04/05/21 Rx aerosol inhaler (Ventolin HFA) budesonide-formoterol HFA 160 2 inh INHALATION Q12H #30.6 g 02/15/21 04/05/21 Rx mcg-4.5 mcg/actuation aerosol inhaler (Symbicort) tizanidine 2 mg capsule 2 mg PO TID PRN #270 cap 03/02/21 04/05/21 Rx benzonatate 100 mg capsule 100 mg PO TID PRN #30 cap 03/30/21 04/05/21 Rx clotrimazole 10 mg [place] 10 mg BUCCAL 5XDQ4H #35 tab 03/30/21 04/05/21 Rx dexamethasone 6 mg tablet 6 mg PO DAILY #5 tab 03/30/21 04/05/21 Rx (Decadron) baclofen 20 mg tablet 20 mg PO BID 04/05/21 04/05/21 History guaifenesin 600 mg tablet, 600 mg PO BID 04/05/21 04/05/21 History extended release 12 hr (Mucinex) lactobacillus combination no.4 3 0 mmu cells PO DAILY 04/05/21 04/05/21 History billion cell capsule (Probiotic) magnesium oxide 400 mg PO QAM 04/05/21 04/05/21 History Patient History Medical History Chronic left arterial ischemic stroke, ICA (internal carotid artery) History of orthopnea History of prostate cancer History of stroke Surgical History H/O colonoscopy History of angioplasty History of cardiac catheterization History of prostatectomy Family History Other Cancer Diabetes Heart disease Social History Smoking Status: Never smoker Second Hand Exposure: No; Hx Alcohol Use: No Hx Substance Use: No Preferred Language: Greek Communication Ability: Unable Health Sciences Department Chair Required: No Beliefs That Will Affect Care: None marital status: Current Living Situation: Spouse How many Children do You have: 2 Feels Safe at Home: Yes Assistive Devices: Glasses and Oxygen - Continuous Review of Systems Review of Systems: unobtainable to speech issues Physical Exam Constitutional: WD/WN, vitals as above Eyes: PERRL, conjunctivae normal, anicteric sclerae Neck: normal visual inspection and trachea midline Respiratory: normal efforts. anterior chest clear Cardiovascular: RRR, no murmur, no edema Gastrointestinal (Abdomen): pos bs, soft, no guarding nor rebound Skin: normal turgor Psychiatric: insight and judgement fair Results & Data ([facility]) Vital Signs (Past 12 Hours) Vital Signs Temp Pulse Resp BP Pulse Ox 04/20/21 07:14 37.2 C 113 H 19 149/83 H 95
--- NOTE | 2021-04-20 14:55 | XRay Report ---
XR chest 1V portable HISTORY: 60 years-old Male hypoxia acute hypoxia. COVID Positive. COMPARISON: Chest radiograph 04/15/2021 TECHNIQUE: Supine AP view of the chest FINDINGS: The cardiomediastinal and hilar silhouettes are within normal limits. There is no pneumothorax, large pleural effusion or overt pulmonary edema. Reticular interstitial opacities with ill-defined airspac e densities are redemonstrated which have slightly progressed from prior. Feeding tube distal tip pro jects over the gastric body. The bones appear grossly intact. IMPRESSION: 1. Mildly progressed bilateral pulmonary opacities suggestive of viral pneumonia. 2. Distal tip of the feeding tube projects over the gastric body. ACT 112: Negative or not required by law. The above report was generated using voice recognition software. It may contain grammatical, syntax o r spelling errors. Electronically signed by: Adam Morgan M.D. 04/20/2021 2:53 PM
[2021-04-20] MEDS: ATORVASTATIN 40 MG TAB PEG SCH (20:14)
[2021-04-20] MEDS: BACLOFEN 20 MG TAB PEG SCH (20:15)
[2021-04-20] MEDS: LANSOPRAZOLE 30 MG SOLTAB NG SCH (20:15)
--- NOTE | 2021-04-20 20:21 | Hospitalist Progress Note ---
Date of Service April 20, 2021 Assessment & Plan (1) Retroperitoneal hematoma: Plan: Acute blood loss anemia, likely associated with illness and DVT prevention plus antiplatelet medications as stroke prevention Hemoglobin stable > 10 after 1 units packed RBCs transfused, repeat hemoglobin in the afternoon remains 8.6 Transfuse if Hgb < 8. hgb has been hovering in the mid to low 8 gm range Continue to hold Lovenox/aspirin/clopidogrel., likely will restart aspiration Will likely need to restart at least one antiplatelet prior to discharge Patient is currently tachycardic. Doubt Pneumonia Jirovecii, likely repeat aspiration. will discuss with GI for peg tube placement. Had curbside discussion with pulmonary. No infdication for Bronch at this time. (2) Acute sinusitis: Plan: Possible diagnosis but not completely clear given lack of symptoms but given MRI changes with rising WBC without alternative explanation will start patient on Unasyn Consider 10-14 day course total with Unasyn/Augmentin - started 04/16 Start lactobacillus to avoid antibiotic associated diarrhea Leukocytosis continues (3) Dysphagia: Plan: MRI Brain without new acute stroke 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 Continue tube feeds Patient and wish him to have a G-tube - will ask for a GI consult for now given acute retroperitoneal bleed but suspect can be performed early next week (4) 2019 novel coronavirus-infected pneumonia (NCIP): Plan: Secondary bacterial pneumonia with continuing COVID 19 infection - unvaccinated was discharged on 03/30, was on room air, sent home on dexamethasone 6mg PO daily had a few good days but got worse quickly on Wednesday 04/04 and declined on 04/05, brought to hospital concern for secondary bacterial pneumonia but also worsening COVID CRP was 23 on admission, procalcitonin elevated, wbc persistently elevated Dexamethasone 20mg IV daily, completed 5 days, -> 10mg IV x 5 days - completed Off COVID isolation 04/15/20, should remain on contact due to MRSA found in sputum (5) Hypoxia: Plan: acute hypoxic respiratory failure Secondary to COVID-19, MRSA went from 15L oxy mask to needing CPAP 10 FiO2 100% on 04/07, moved to ICU and intubated due to distress extubated 04/10/21 Currently on 2-4LPM Oxymask Levaquin IV completed for secondary bacterial infection, MRSA Pneumonia treatment as below. (6) MRSA pneumonia: Plan: Vancomycin IV initially, change to Linezolid due to renal failure. Finished course of Linezolid for sputum positive culture Continue on contact precautions, with leukocytosis and sinusitis seen on head imaging , ,continue unasyn , with leukocytosis improving (7) COPD (chronic obstructive pulmonary disease) with chronic bronchitis: Plan: Continue as above No wheezing on exam (8) CVA (cerebral vascular accident): Plan: Old CVA - 2015 with residual right sided contracture and weakness and spasticity, MRI brain does not show any new changes 04/16 - Continue with statin via [employer] - ASA and clopidogrel on hold-> resume after g tube is placed (9) Spasticity as late effect of cerebrovascular accident (CVA): Plan: Continue Baclofen (10) Migraine without aura: Plan: chronic issue, now sedated Plan: VTE Prophylaxis - no chemical prophylaxis due to retroperitoneal bleed, continue NIK hose and SCDs Diet - NPO, on tube feeds via coredafe Discharge - continue on med/tele, COVID isolation precautions removed but remains on contact due to MRSA, PT/OT, Plan for G-tube wishes to have placement in rehab Admission and Anticipated Discharge Date Admission Date: April 05, 2021 Subjective Patient reports no new symptoms. Review of Systems Review of Systems: All systems reviewed & are unremarkable except as noted in HPI & below Physical Exam Physical Exam: The patient appeared well nourished and normally developed. Vital signs as documented. Head exam is normocephalic atraumatic Neck is without JVD, thyromegaly, or stridor Lungs are coarse to auscultation, bilateral rales are present Cardiac exam, Rhythm is tachycardic.. No murmurs, rubs or gallops. Abdominal exam reveals normal bowel sounds, soft non tender despite retroperitoneal hematoma and rectus sheath hematoma Extremities are nonedematous and both pedal pulses are present Neurologic exam is able to answer with shaking his head will not open his eyes or speak grunts with the examination Existing right hemiparesis from stroke Skin is without bruises or rashes no evidence of flank bruising from retroperitoneal hematoma Results & Data Results & Data ([facility]) Vital Signs (Past 12 Hours) Vital Signs Temp Pulse Resp BP Pulse Ox 04/20/21 17:01 36.8 C 107 H 18 116/60 96 PG Care Time/CCT Total # of Minutes Spent Total Time Spent with Patient: Total time spent is greater than 50% in coordination of care (as documented) at patient's floor/unit and/or counseling patient: Coding Level of Care Code 60126 Subseq Hosp Care Lvl 2 Diagnoses Retroperitoneal hematoma K66.1 Acute sinusitis J01.90 Dysphagia R13.10 2019 novel coronavirus-infected pneumonia (NCIP) U07.1; J12.82 Hypoxia R09.02 MRSA pneumonia J15.212 COPD (chronic obstructive pulmonary disease) with chronic bronchitis J44.9 CVA (cerebral vascular accident) I63.9 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
--- NOTE | 2021-04-21 00:56 | Communication Note ---
Date of Service: April 21, 2021 Contacted by nursing staff at approximately midnight for concerns of continued increased oxygen requirement. Of note earlier in the shift patient was only requiring 4 L oxygen mask in order to maintain oxygen saturation greater than 90%. Over the last 4 hours he has had increasing oxygen requirements now up to 12 L oxygen mask with maintenance of oxygen saturations in the 88-91% range. Upon review of chart, patient was recently in hospital for COVID-19 pneumonia, additionally has concerns for retroperitoneal hematoma. Currently not on any anticoagulation or DVT prophylaxis given recent development of the retroperitoneal hematoma, with requirement of blood transfusion earlier during this hospital course. Hgb this morning of 8.7. Patient with increased work of breathing and tachypnea. Given these findings, concern for potential further worsening of retroperitoneal hematoma/anemia versus development of pulmonary embolus. Will check stat H&H and CT chest PE protocol for further evaluation of this increased oxygen requirement. Upon review of chest x-ray from 04/20 noted mild progression of pulmonary opacities as compared to 04/15. Resident Activity Tracking Resident Involvement: Resident Care Provided Care Provided: Adult [facility] Medicine
[2021-04-21] MEDS ORDERED: OPTIRAY 320 125ml IV ONE (01:29)
[2021-04-21 01:50] LABS: Hemoglobin 9.3 g/dL (14.0-18.0)
[2021-04-21] MEDS: AMPICILLIN/SULBACTAM SOD 3,000 MG in 0.9 % SODIUM CHLORIDE 100 ML IV SCH ×4 (02:35→20:47)
[2021-04-21] MEDS: TUBE FEEDING WATER FLUSH NG SCH ×5 (04:19→21:02)
[2021-04-21] MEDS: PEPTAMEN 1.5 CAL 1,000 ML BAG NG SCH (06:09)
[2021-04-21] MEDS: INSULIN ASPART PER UNIT SC SCH ×3 (06:24→18:06)
[2021-04-21 07:32] LABS: Basophils # (auto) 0.04 K/uL (0-0.2); Basophils % (auto) 0.3 %; Eosinophils # (auto) 0.47 K/uL (0-0.5); Eosinophils % (auto) 3.8 %; Hematocrit (blood only) 29.1 % (42-52); Immature Granulocytes # (auto) 0.15 K/uL (0.00-0.02); Immature Granulocytes % (auto) 1.2 %; Lymphocytes # (auto) 1.21 K/uL (1.2-3.4); Lymphocytes % (auto) 9.8 %; Mean Corpuscular Hemoglobin 30.9 pg (25-34); Mean Corpuscular Hgb Conc 30.9 g/dL (32-36); Monocytes # (auto) 0.43 K/uL (0.11-0.59); Monocytes % (auto) 3.5 %; Neutrophils % (auto) 81.4 %; Platelet Count 471 K/uL (130-400); RDW Coefficient of Variation 16.9 % (11.5-14.5); RDW Standard Deviation 58.3 fL (36.4-46.3); Red Blood Count 2.91 M/uL (4.7-6.1)
[2021-04-21 07:44] LABS: Partial Thromboplastin Ratio 0.8; Partial Thromboplastin Time 20.5 Seconds (21.0-31.0); Prothrombin Time 10.3 Seconds (9.0-12.0)
[2021-04-21 07:57] LABS: Albumin Globulin Ratio 1.1 (0.9-2); Albumin Level 3.3 gm/dl (3.4-5.0); BUN Creatinine Ratio 42.7 (10-20); Bilirubin,Total 1.2 mg/dl (0.2-1.0); Calcium 8.6 mg/dl (8.5-10.1); Creatinine Clr Calc Pharmacy 90.4 ml/min; Est GFR (African American) 109.8 ml/min; Est GFR (Non-African American) 94.8 ml/min; Globulin 2.9 gm/dl (2.5-4.0); Potassium 3.6 mmol/L (3.5-5.1); Total Protein 6.2 gm/dl (6.0-8.3)
--- NOTE | 2021-04-21 08:38 | CT Scan Report ---
CT ANGIOGRAPHY OF THE CHEST, PULMONARY EMBOLUS PROTOCOL CLINICAL HISTORY: Worsening respiratory failure. Evaluate for pulmonary embolus. COMPARISON STUDY: Chest CT April 06, 2021 chest radiograph April 20, 2021. CT of the abdomen an d pelvis April 16, 2021. TECHNIQUE: Following IV administration of 122 mL of Optiray, helical axial images of the chest were o btained utilizing the pulmonary embolus protocol. Maximal intensity projections and sagittal and cor onal reformats were viewed on an independent 3D workstation. IV contrast was administered without co mplication. Automated exposure control was utilized for the study. A dose lowering technique was ut ilized adhering to the principles of ALARA. CT DOSE: 593.18 mGy.cm FINDINGS: No pulmonary emboli are identified although the segmental and subsegmental pulmonary arter ies are suboptimally assessed due to respiratory motion. There is no thoracic aortic dissection. Mild cardiomegaly is noted. There is no pericardial effusion. Prominent left hilar lymph nodes are likely reactive a small left pleural effusion is noted. There is no pneumothorax. Elevation of the left hem idiaphragm has increased. Dense airspace opacity within the left upper and left lower lobes has incre ased. This likely reflects atelectasis with superimposed consolidation. Additional groundglass opacit ies within the lungs are noted. Note is made of extensive secretions within the distal left mainstem bronchus extending into the lobar and segmental bronchi of the left lung. These are new since prior e xamination. Right bronchial tree appears patent. The tip of feeding tube is within the distal body of the stomach. Left retroperitoneal hemorrhage is partially imaged on this examination. Visualized por tions appear diminished since abdominal CT of April 16, 2021. IMPRESSION: 1. No pulmonary emboli identified although segmental and subsegmental pulmonary arteries suboptimally assessed due to respiratory motion. 2. Extensive secretions filling the left bronchial tree, as described above. Increase in dense left l swati airspace opacities with volume loss. The opacities favor a combination of consolidation or atelec tasis. Aspiration pneumonitis could appear similar. This finding will be called/faxed to the provider at time of dictation. 3. Additional groundglass opacities within the lungs suggestive of viral pneumonia. ACT 112: Negative or not required by law. Electronically signed by: Zaki Pal M.D. 04/21/2021 8:37 AM
[2021-04-21] MEDS: OLANZapine ZYDIS 5 MG ORALLY DIS. TAB PO SCH (08:49)
[2021-04-21] MEDS: LACTOBACILLUS ACIDOPHILUS 1 GM PACK PEG SCH (08:53)
[2021-04-21] MEDS: BACLOFEN 20 MG TAB PEG SCH ×2 (08:54→21:03)
[2021-04-21] MEDS: LANSOPRAZOLE 30 MG SOLTAB NG SCH ×2 (08:54→21:04)
[2021-04-21] MEDS ORDERED: Nursing to Pharmacy Communication SCH (11:15)
--- NOTE | 2021-04-21 20:09 | Hospitalist Progress Note ---
Date of Service April 21, 2021 Assessment & Plan (1) Retroperitoneal hematoma: Plan: Acute blood loss anemia, likely associated with illness and DVT prevention plus antiplatelet medications as stroke prevention Hemoglobin stable > 10 after 1 units packed RBCs transfused, repeat hemoglobin in the afternoon remains 8.6 Transfuse if Hgb < 8. hgb has been hovering in the mid to low 8 gm range Continue to hold Lovenox/aspirin/clopidogrel., likely will restart aspiration Will likely need to restart at least one antiplatelet prior to discharge Patient continues to be tachycardic. Doubt Pneumonia Jirovecii, likely repeat aspiration. will discuss with GI for peg tube placement, this is delayed until patient is close to discharge. Had curbside discussion with pulmonary. No indication for Bronch at this time. however, will place on high saline neb, pulmonary vest, flutter valve, incenstive spirometry. (2) Acute sinusitis: Plan: Possible diagnosis but not completely clear given lack of symptoms but given MRI changes with rising WBC without alternative explanation will start patient on Unasyn Consider 10-14 day course total with Unasyn/Augmentin - started 04/16 Start lactobacillus to avoid antibiotic associated diarrhea Leukocytosis continues to improve. (3) Dysphagia: Plan: MRI Brain without new acute stroke 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 Continue tube feeds Patient and wish him to have a G-tube - will ask for a GI consult for now given acute retroperitoneal bleed but suspect can be performed early next week (4) 2019 novel coronavirus-infected pneumonia (NCIP): Plan: Secondary bacterial pneumonia with continuing COVID 19 infection - unvaccinated was discharged on 03/30, was on room air, sent home on dexamethasone 6mg PO daily had a few good days but got worse quickly on Wednesday 04/04 and declined on 04/05, brought to hospital concern for secondary bacterial pneumonia but also worsening COVID CRP was 23 on admission, procalcitonin elevated, wbc persistently elevated Dexamethasone 20mg IV daily, completed 5 days, -> 10mg IV x 5 days - completed Off COVID isolation 04/15/20, should remain on contact due to MRSA found in sputum (5) Hypoxia: Plan: acute hypoxic respiratory failure Secondary to COVID-19, MRSA went from 15L oxy mask to needing CPAP 10 FiO2 100% on 04/07, moved to ICU and intubated due to distress extubated 04/10/21 Currently on 2-4LPM Oxymask Levaquin IV completed for secondary bacterial infection, MRSA Pneumonia treatment as below. (6) MRSA pneumonia: Plan: Vancomycin IV initially, change to Linezolid due to renal failure. Finished course of Linezolid for sputum positive culture Continue on contact precautions, with leukocytosis and sinusitis seen on head imaging , ,continue unasyn , with leukocytosis improving (7) COPD (chronic obstructive pulmonary disease) with chronic bronchitis: Plan: Continue as above No wheezing on exam (8) CVA (cerebral vascular accident): Plan: Old CVA - 2015 with residual right sided contracture and weakness and spasticity, MRI brain does not show any new changes 04/16 - Continue with statin via Coresafe - ASA and clopidogrel on hold-> resume after g tube is placed (9) Spasticity as late effect of cerebrovascular accident (CVA): Plan: Continue Baclofen (10) Migraine without aura: Plan: chronic issue, now sedated Plan: VTE Prophylaxis - no chemical prophylaxis due to retroperitoneal bleed, continue NIK hose and SCDs Diet - NPO, on tube feeds via coredafe Discharge - continue on med/tele, COVID isolation precautions removed but remains on contact due to MRSA, PT/OT, Plan for G-tube wishes to have placement in rehab Admission and Anticipated Discharge Date Admission Date: April 05, 2021 Subjective Patient reports having a difficult night. His oxygen levels dropped. Review of Systems Review of Systems: All systems reviewed & are unremarkable except as noted in HPI & below Physical Exam Physical Exam: The patient appeared well nourished and normally developed. Vital signs as documented. Head exam is normocephalic atraumatic Neck is without JVD, thyromegaly, or stridor Lungs are coarse to auscultation, bilateral rales are present Cardiac exam, Rhythm is tachycardic.. No murmurs, rubs or gallops. Abdominal exam reveals normal bowel sounds, soft non tender despite retroperitoneal hematoma and rectus sheath hematoma Extremities are nonedematous and both pedal pulses are present Neurologic exam is able to answer with shaking his head will not open his eyes or speak grunts with the examination Existing right hemiparesis from stroke Skin is without bruises or rashes no evidence of flank bruising from retroperitoneal hematoma Results & Data Results & Data ([facility]) Vital Signs (Past 12 Hours) Vital Signs Temp Pulse Resp BP Pulse Ox 04/21/21 15:28 36.5 C 113 H 32 H 135/83 94 PG Care Time/CCT Total # of Minutes Spent Total Time Spent with Patient: Total time spent is greater than 50% in coordination of care (as documented) at patient's floor/unit and/or counseling patient: Coding Level of Care Code 43013 Subseq Hosp Care Lvl 2 Diagnoses Retroperitoneal hematoma K66.1 Acute sinusitis J01.90 Dysphagia R13.10 2019 novel coronavirus-infected pneumonia (NCIP) U07.1; J12.82 Hypoxia R09.02 MRSA pneumonia J15.212 COPD (chronic obstructive pulmonary disease) with chronic bronchitis J44.9 CVA (cerebral vascular accident) I63.9 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
[2021-04-21] MEDS: ATORVASTATIN 40 MG TAB PEG SCH (21:03)
[2021-04-21] MEDS: SODIUM CHLOR 7% 4 ML NEB NEB SCH (21:37)
[2021-04-22] MEDS: TUBE FEEDING WATER FLUSH NG SCH ×7 (00:12→20:40)
[2021-04-22] MEDS: ATORVASTATIN 40 MG TAB PEG SCH ×2 (00:12→20:40)
[2021-04-22] MEDS: BACLOFEN 20 MG TAB PEG SCH ×3 (00:13→20:40)
[2021-04-22] MEDS: INSULIN ASPART PER UNIT SC SCH ×4 (00:27→18:24)
[2021-04-22] MEDS: AMPICILLIN/SULBACTAM SOD 3,000 MG in 0.9 % SODIUM CHLORIDE 100 ML IV SCH ×4 (02:28→20:37)
--- NOTE | 2021-04-22 07:23 | XRay Report ---
XR chest 1V portable CLINICAL HISTORY: coresafe confirm placement. COMPARISON STUDY: 04/20/2021 TECHNIQUE: 1 view of the chest FINDINGS: Single frontal view of the chest demonstrates the cardiomediastinal silhouette to be within normal li mits. Feeding tube has been advanced with its tip in the distal body of the stomach. Compared to the previous examination, patchy interstitial and alveolar opacities are again seen bilat erally most characteristic of a viral type pneumonitis and Covid pneumonia. There is no evidence for pleural effusion. There is no evidence for vascular congestion. There is no acute osseous pathology. IMPRESSION: 1. Slight worsening of patchy interstitial and alveolar opacities most characteristic of a viral type pneumonitis and Covid pneumonia. 2. Advancement of the feeding tube into the distal body of the stomach. ACT 112: Negative or not required by law. Electronically signed by: Keron Govea M.D. 04/22/2021 7:22 AM
[2021-04-22] MEDS: SODIUM CHLOR 7% 4 ML NEB NEB SCH ×2 (07:57→20:05)
[2021-04-22] MEDS: LACTOBACILLUS ACIDOPHILUS 1 GM PACK PEG SCH (08:22)
[2021-04-22] MEDS: LANSOPRAZOLE 30 MG SOLTAB NG SCH ×2 (08:22→20:40)
[2021-04-22] MEDS: OLANZapine ZYDIS 5 MG ORALLY DIS. TAB PO SCH (08:23)
[2021-04-22] MEDS: PEPTAMEN 1.5 CAL 1,000 ML BAG NG SCH (10:07)
[2021-04-22 12:33] LABS: Hematocrit (blood only) 30.1 % (42-52); Hemoglobin 9.2 g/dL (14.0-18.0); Mean Corpuscular Hemoglobin 30.5 pg (25-34); Mean Corpuscular Hgb Conc 30.6 g/dL (32-36); Mean Corpuscular Volume 99.7 fL (80-100); Platelet Count 458 K/uL (130-400); RDW Standard Deviation 58.4 fL (36.4-46.3); Red Blood Count 3.02 M/uL (4.7-6.1); White Blood Count 10.45 K/uL (4.8-10.8)
[2021-04-22 13:12] LABS: Albumin Level 3.2 gm/dl (3.4-5.0); BUN Creatinine Ratio 41.3 (10-20); Bilirubin Direct 0.1 mg/dl (0-0.2); Bilirubin,Total 1.2 mg/dl (0.2-1.0); Calcium 8.6 mg/dl (8.5-10.1); Creatinine Clr Calc Pharmacy 92.6 ml/min; Est GFR (Non-African American) 95.7 ml/min; Potassium 4.2 mmol/L (3.5-5.1); Total Protein 6.4 gm/dl (6.0-8.3)
--- NOTE | 2021-04-22 22:30 | Hospitalist Progress Note ---
Date of Service April 22, 2021 Assessment & Plan (1) Retroperitoneal hematoma: Plan: Acute blood loss anemia, likely associated with illness and DVT prevention plus antiplatelet medications as stroke prevention Hemoglobin stable > 10 after 1 units packed RBCs transfused, repeat hemoglobin in the afternoon remains 8.6 Transfuse if Hgb < 8. hgb has been hovering in the mid to low 8 gm range Continue to hold Lovenox/aspirin/clopidogrel., likely will restart aspiration Will likely need to restart at least one antiplatelet prior to discharge Patient continues to be tachycardic. Doubt Pneumonia Jirovecii, likely repeat aspiration. will discuss with GI for peg tube placement, this is delayed until patient is close to discharge. Had curbside discussion with pulmonary. No indication for Bronch at this time. however, will place on high saline neb, pulmonary vest, flutter valve, incenstive spirometry. This has helped as o2 supplementation has decreased. (2) Acute sinusitis: Plan: Possible diagnosis but not completely clear given lack of symptoms but given MRI changes with rising WBC without alternative explanation will start patient on Unasyn Consider 10-14 day course total with Unasyn/Augmentin - started 04/16 Start lactobacillus to avoid antibiotic associated diarrhea Leukocytosis continues to improve. (3) Dysphagia: Plan: MRI Brain without new acute stroke 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 Continue tube feeds Patient and wish him to have a G-tube - will ask for a GI consult for now given acute retroperitoneal bleed but suspect can be performed early next week retroperitoneal bleed has decreased (4) 2018 novel coronavirus-infected pneumonia (NCIP): Plan: Secondary bacterial pneumonia with continuing COVID 19 infection - unvaccinated was discharged on 03/30, was on room air, sent home on dexamethasone 6mg PO daily had a few good days but got worse quickly on Wednesday 04/04 and declined on 04/05, brought to hospital concern for secondary bacterial pneumonia but also worsening COVID CRP was 23 on admission, procalcitonin elevated, wbc persistently elevated Dexamethasone 20mg IV daily, completed 5 days, -> 10mg IV x 5 days - completed Off COVID isolation 04/15/20, should remain on contact due to MRSA found in sputum (5) Hypoxia: Plan: acute hypoxic respiratory failure Secondary to COVID-19, MRSA went from 15L oxy mask to needing CPAP 10 FiO2 100% on 12/29, moved to ICU and intubated due to distress extubated 04/10/21 Currently on 2-4LPM Oxymask Levaquin IV completed for secondary bacterial infection, MRSA Pneumonia treatment as below. (6) MRSA pneumonia: Plan: Vancomycin IV initially, change to Linezolid due to renal failure. Finished course of Linezolid for sputum positive culture Continue on contact precautions, with leukocytosis and sinusitis seen on head imaging , ,continue unasyn , with leukocytosis improving (7) COPD (chronic obstructive pulmonary disease) with chronic bronchitis: Plan: Continue as above No wheezing on exam (8) CVA (cerebral vascular accident): Plan: Old CVA - 2015 with residual right sided contracture and weakness and spasticity, MRI brain does not show any new changes 04/16 - Continue with statin via [employer] - ASA and clopidogrel on hold-> resume after g tube is placed (9) Spasticity as late effect of cerebrovascular accident (CVA): Plan: Continue Baclofen (10) Migraine without aura: Plan: chronic issue, now sedated Plan: VTE Prophylaxis - no chemical prophylaxis due to retroperitoneal bleed, continue NIK hose and SCDs Diet - NPO, on tube feeds via coredafe Discharge - continue on med/tele, COVID isolation precautions removed but remains on contact due to MRSA, PT/OT, Plan for G-tube wishes to have placement in rehab Admission and Anticipated Discharge Date Admission Date: April 05, 2021 Subjective Patient reports no new symptoms. Review of Systems Review of Systems: All systems reviewed & are unremarkable except as noted in HPI & below Physical Exam Physical Exam: The patient appeared well nourished and normally developed. Vital signs as documented. Head exam is normocephalic atraumatic Neck is without JVD, thyromegaly, or stridor Lungs are coarse to auscultation, bilateral rales are present Cardiac exam, Rhythm is tachycardic.. No murmurs, rubs or gallops. Abdominal exam reveals normal bowel sounds, soft non tender despite retroperitoneal hematoma and rectus sheath hematoma Extremities are nonedematous and both pedal pulses are present Neurologic exam is able to answer with shaking his head will not open his eyes or speak grunts with the examination Existing right hemiparesis from stroke Skin is without bruises or rashes no evidence of flank bruising from retroperitoneal hematoma Results & Data Results & Data ([facility]) Vital Signs (Past 12 Hours) Vital Signs Temp Pulse Resp BP Pulse Ox 04/22/21 21:44 103 H 98 04/22/21 20:09 88 22 91 04/22/21 15:26 36.6 C 94 H 16 139/96 98 PG Care Time/CCT Total # of Minutes Spent Total Time Spent with Patient: Total time spent is greater than 50% in coordination of care (as documented) at patient's floor/unit and/or counseling patient: Coding Level of Care Code 62384 Subseq Hosp Care Lvl 2 Diagnoses Retroperitoneal hematoma K66.1 Acute sinusitis J01.90 Dysphagia R13.10 2019 novel coronavirus-infected pneumonia (NCIP) U07.1; J12.82 Hypoxia R09.02 MRSA pneumonia J15.212 COPD (chronic obstructive pulmonary disease) with chronic bronchitis J44.9 CVA (cerebral vascular accident) I63.9 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 Time Spent (min) 25
[2021-04-23] MEDS: INSULIN ASPART PER UNIT SC SCH ×4 (00:13→18:10)
[2021-04-23] MEDS: TUBE FEEDING WATER FLUSH NG SCH ×7 (00:18→21:22)
[2021-04-23] MEDS: AMPICILLIN/SULBACTAM SOD 3,000 MG in 0.9 % SODIUM CHLORIDE 100 ML IV SCH ×4 (02:31→21:16)
[2021-04-23] MEDS: SODIUM CHLOR 7% 4 ML NEB NEB SCH ×2 (08:03→19:20)
[2021-04-23] MEDS: LACTOBACILLUS ACIDOPHILUS 1 GM PACK PEG SCH ×2 (08:23→08:27)
[2021-04-23] MEDS: BACLOFEN 20 MG TAB PEG SCH ×3 (08:23→21:18)
[2021-04-23] MEDS: LANSOPRAZOLE 30 MG SOLTAB NG SCH ×3 (08:23→21:19)
[2021-04-23] MEDS: OLANZapine ZYDIS 5 MG ORALLY DIS. TAB PO SCH ×2 (08:23→08:27)
[2021-04-23 08:53] LABS: Basophils # (auto) 0.03 K/uL (0-0.2); Basophils % (auto) 0.4 %; Eosinophils # (auto) 0.62 K/uL (0-0.5); Eosinophils % (auto) 7.3 %; Hemoglobin 9.5 g/dL (14.0-18.0); Immature Granulocytes # (auto) 0.04 K/uL (0.00-0.02); Immature Granulocytes % (auto) 0.5 %; Lymphocytes # (auto) 0.95 K/uL (1.2-3.4); Lymphocytes % (auto) 11.2 %; Mean Corpuscular Hemoglobin 30.6 pg (25-34); Mean Corpuscular Hgb Conc 30.6 g/dL (32-36); Mean Platelet Volume 10.1 fL (7.4-10.4); Monocytes # (auto) 0.52 K/uL (0.11-0.59); Monocytes % (auto) 6.1 %; Neutrophils # (auto) 6.36 K/uL (1.4-6.5); Neutrophils % (auto) 74.5 %; Platelet Count 500 K/uL (130-400); RDW Coefficient of Variation 17.1 % (11.5-14.5); RDW Standard Deviation 60.3 fL (36.4-46.3); White Blood Count 8.52 K/uL (4.8-10.8)
[2021-04-23] MEDS: PEPTAMEN 1.5 CAL 1,000 ML BAG NG SCH (09:03)
[2021-04-23 09:13] LABS: Albumin Globulin Ratio 1.1 (0.9-2); Albumin Level 3.3 gm/dl (3.4-5.0); BUN Creatinine Ratio 44.4 (10-20); Bilirubin,Total 1.1 mg/dl (0.2-1.0); Calcium 8.6 mg/dl (8.5-10.1); Creatinine Clr Calc Pharmacy 91.5 ml/min; Est GFR (African American) 110.4 ml/min; Est GFR (Non-African American) 95.3 ml/min; Total Protein 6.3 gm/dl (6.0-8.3)
--- NOTE | 2021-04-23 20:07 | Hospitalist Progress Note ---
Date of Service April 23, 2021 Assessment & Plan (1) Retroperitoneal hematoma: Plan: Acute blood loss anemia, likely associated with illness and DVT prevention plus antiplatelet medications as stroke prevention Hemoglobin stable > 10 after 1 units packed RBCs transfused, repeat hemoglobin in the afternoon remains 8.6 Transfuse if Hgb < 8. hgb has been hovering in the mid to low 8 gm range Continue to hold Lovenox/aspirin/clopidogrel., likely will restart aspiration Will likely need to restart at least one antiplatelet prior to discharge Patient continues to be tachycardic. Doubt Pneumonia Jirovecii, likely repeat aspiration. will discuss with GI for peg tube placement, this is delayed until patient is close to discharge. Had curbside discussion with pulmonary. No indication for Bronch at this time. Patient responding to high saline neb, pulmonary vest, flutter valve, incenstive spirometry. This has helped as o2 supplementation has decreased, stable at 5LNC updated . (2) Acute sinusitis: Plan: Possible diagnosis but not completely clear given lack of symptoms but given MRI changes with rising WBC without alternative explanation will start patient on Unasyn Consider 10-14 day course total with Unasyn/Augmentin - started 04/16 Start lactobacillus to avoid antibiotic associated diarrhea Leukocytosis has normalized (3) Dysphagia: Plan: MRI Brain without new acute stroke 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 Continue tube feeds Patient and wish him to have a G-tube - will ask for a GI consult for now given acute retroperitoneal bleed but suspect can be performed early next week: Monday. retroperitoneal bleed has decreased (4) 2018 novel coronavirus-infected pneumonia (NCIP): Plan: Secondary bacterial pneumonia with continuing COVID 19 infection - unvaccinated was discharged on 03/30, was on room air, sent home on dexamethasone 6mg PO daily had a few good days but got worse quickly on Wednesday 04/04 and declined on 04/05, brought to hospital concern for secondary bacterial pneumonia but also worsening COVID CRP was 23 on admission, procalcitonin elevated, wbc persistently elevated Dexamethasone 20mg IV daily, completed 5 days, -> 10mg IV x 5 days - completed Off COVID isolation 04/15/20, should remain on contact due to MRSA found in sputum (5) Hypoxia: Plan: acute hypoxic respiratory failure Secondary to COVID-19, MRSA went from 15L oxy mask to needing CPAP 10 FiO2 100% on 04/07, moved to ICU and intubated due to distress extubated 04/10/21 Currently on 2-4LPM Oxymask Levaquin IV completed for secondary bacterial infection, MRSA Pneumonia treatment as below. (6) MRSA pneumonia: Plan: Vancomycin IV initially, change to Linezolid due to renal failure. Finished course of Linezolid for sputum positive culture Continue on contact precautions, with leukocytosis and sinusitis seen on head imaging , ,continue unasyn , with leukocytosis improving (7) COPD (chronic obstructive pulmonary disease) with chronic bronchitis: Plan: Continue as above No wheezing on exam (8) CVA (cerebral vascular accident): Plan: Old CVA - 2015 with residual right sided contracture and weakness and spasticity , MRI brain does not show any new changes 04/16 - Continue with statin via Cores[employer] - ASA and clopidogrel on hold-> resume after g tube is placed (9) Spasticity as late effect of cerebrovascular accident (CVA): Plan: Continue Baclofen (10) Migraine without aura: Plan: chronic issue, now sedated Plan: VTE Prophylaxis - no chemical prophylaxis due to retroperitoneal bleed, continue NIK hose and SCDs Diet - NPO, on tube feeds via coredafe Discharge - continue on med/tele, COVID isolation precautions removed but remains on contact due to MRSA, PT/OT, Plan for G-tube wishes to have placement in rehab Admission and Anticipated Discharge Date Admission Date: April 05, 2021 Subjective Patient reports no new symptoms. Review of Systems Review of Systems: All systems reviewed & are unremarkable except as noted in HPI & below Physical Exam Physical Exam: The patient appeared well nourished and normally developed. Vital signs as documented. Head exam is normocephalic atraumatic Neck is without JVD, thyromegaly, or stridor Lungs are coarse to auscultation, bilateral rales are present Cardiac exam, Rhythm is tachycardic.. No murmurs, rubs or gallops. Abdominal exam reveals normal bowel sounds, soft non tender despite retroperitoneal hematoma and rectus sheath hematoma Extremities are nonedematous and both pedal pulses are present Neurologic exam is able to answer with shaking his head will not open his eyes or speak grunts with the examination Existing right hemiparesis from stroke Skin is without bruises or rashes no evidence of flank bruising from retroperitoneal hematoma Results & Data Results & Data ([facility]) Vital Signs (Past 12 Hours) Vital Signs Temp Pulse Resp BP Pulse Ox 04/23/21 19:20 103 H 20 98 04/23/21 15:28 36.9 C 103 H 16 122/81 93 PG Care Time/CCT Total # of Minutes Spent Total Time Spent with Patient: Total time spent is greater than 50% in coordination of care (as documented) at patient's floor/unit and/or counseling patient: Coding Level of Care Code 29015 Subseq Hosp Care Lvl 3 Diagnoses Retroperitoneal hematoma K66.1 Acute sinusitis J01.90 Dysphagia R13.10 2019 novel coronavirus-infected pneumonia (NCIP) U07.1; J12.82 Hypoxia R09.02 MRSA pneumonia J15.212 COPD (chronic obstructive pulmonary disease) with chronic bronchitis J44.9 CVA (cerebral vascular accident) I63.9 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 Time Spent (min) 35
[2021-04-23] MEDS: ATORVASTATIN 40 MG TAB PEG SCH (21:19)
[2021-04-24] MEDS: INSULIN ASPART PER UNIT SC SCH ×4 (00:32→18:09)
[2021-04-24] MEDS: TUBE FEEDING WATER FLUSH NG SCH ×6 (01:40→21:38)
[2021-04-24] MEDS: AMPICILLIN/SULBACTAM SOD 3,000 MG in 0.9 % SODIUM CHLORIDE 100 ML IV SCH (03:24)
[2021-04-24] MEDS: PEPTAMEN 1.5 CAL 1,000 ML BAG NG SCH (04:10)
[2021-04-24] MEDS: SODIUM CHLOR 7% 4 ML NEB NEB SCH ×2 (07:57→19:34)
[2021-04-24] MEDS: BACLOFEN 20 MG TAB PEG SCH ×2 (08:55→20:28)
[2021-04-24] MEDS: LANSOPRAZOLE 30 MG SOLTAB NG SCH ×2 (08:56→20:28)
[2021-04-24] MEDS: LACTOBACILLUS ACIDOPHILUS 1 GM PACK PEG SCH (08:56)
[2021-04-24] MEDS: OLANZapine ZYDIS 5 MG ORALLY DIS. TAB PO SCH (08:56)
--- NOTE | 2021-04-24 13:56 | Hospitalist Progress Note ---
Date of Service April 24, 2021 Assessment & Plan (1) Retroperitoneal hematoma: Plan: Acute blood loss anemia, likely associated with illness and DVT prevention plus antiplatelet medications as stroke prevention Hemoglobin stable > 10 after 1 units packed RBCs transfused but then 8.6 will repeat tomorrow Continue to hold Lovenox/aspirin/clopidogrel., likely will restart aspirin tomorrow if Hb stable Will likely need to restart at least one antiplatelet prior to discharge Patient continues to be tachycardic. Doubt Pneumonia Jirovecii, likely repeat aspiration. will discuss with GI for peg tube placement, this is delayed until patient is close to discharge. per pulmonary no indication for bronchoscopy at this time. (2) Acute sinusitis: Plan: Possible diagnosis but not completely clear given lack of symptoms but given MRI changes with rising WBC without alternative explanation will start patient on Unasyn Consider 10-14 day course total with Unasyn/Augmentin - started 04/16 Start lactobacillus to avoid antibiotic associated diarrhea Leukocytosis has normalized when last checked, repeat tomorrow (3) Dysphagia: Plan: MRI Brain without new acute stroke 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, prior stroke issues Continue tube feeds, tolerating 50cc/hr Patient and wish him to have a G-tube - will ask for a GI consult for now given acute retroperitoneal bleed but suspect can be performed early next week: Monday. (4) 2019 novel coronavirus-infected pneumonia (NCIP): Plan: Secondary bacterial pneumonia with continuing COVID 19 infection - unvaccinated was discharged on 03/30, was on room air, sent home on dexamethasone 6mg PO daily had a few good days but got worse quickly on Wednesday 04/04 and declined on 04/05, brought to hospital concern for secondary bacterial pneumonia but also worsening COVID CRP was 23 on admission, procalcitonin elevated, wbc persistently elevated Dexamethasone 20mg IV daily, completed 5 days, -> 10mg IV x 5 days - completed Off COVID isolation 04/15/20, should remain on contact due to MRSA found in sputum (5) Hypoxia: Plan: acute hypoxic respiratory failure Secondary to COVID-19, MRSA went from 15L oxy mask to needing CPAP 10 FiO2 100% on 04/07, moved to ICU and intubated due to distress extubated 04/10/21 Currently on 4L NC Levaquin IV completed for secondary bacterial infection, MRSA Pneumonia treatment as below. (6) MRSA pneumonia: Plan: Vancomycin IV initially, change to Linezolid due to renal failure. Finished course of Linezolid for sputum positive culture Continue on contact precautions, with leukocytosis and sinusitis seen on head imaging , ,continue unasyn , with leukocytosis improving (7) COPD (chronic obstructive pulmonary disease) with chronic bronchitis: Plan: Continue as above No wheezing on exam (8) CVA (cerebral vascular accident): Plan: Old CVA - 2015 with residual right sided contracture and weakness and spasticity, MRI brain does not show any new changes 04/16 - Continue with statin via [employer] - ASA and clopidogrel on hold-> resume aspirin tomorrow if Hb stable (9) Spasticity as late effect of cerebrovascular accident (CVA): Plan: Continue Baclofen (10) Migraine without aura: Plan: chronic issue, now sedated Plan: VTE Prophylaxis - no chemical prophylaxis due to retroperitoneal bleed, continue NIK hose and SCDs Diet - NPO, on tube feeds via coredafe Discharge - continue on med/tele, COVID isolation precautions removed but remains on contact due to MRSA, PT/OT, Plan for G-tube wishes to have placement in rehab Admission and Anticipated Discharge Date Admission Date: April 05, 2021 Subjective patient doing well today, no acute issues, tolerating tube feeds at 50mL/hr breathing stable on 5L, will turn down to 4L as he is 95% and no distress he denies any pain I reviewed the plan with him, to proceed with PEG tube Monday, he agrees I reviewed chart from prior week Review of Systems Review of Systems: All systems reviewed & are unremarkable except as noted in Subjective Constitutional: + fatigue and + weakness; no fever Respiratory: + cough and + dyspnea on exertion; no dyspnea and no sputum production Cardiovascular: no chest pain Gastrointestinal: no abdominal pain, no nausea, no vomiting, no constipation and no diarrhea/loose stools Neurologic: + problem reported (contracture right hand) Physical Exam 2 Physical Exam: General: well developed, thin male, frail appearing, no distress Neck: supple, trachea midline, normal thyroid Lungs: clear bilaterally, normal respiratory effort, no accessory muscle use, no distress Heart: normal S1 and S2, no murmur, peripheral pulses normal, capillary refill normal, no edema Abdomen: soft, NT, ND, + BS, no hepatomegaly, normal to percussion Extremities: no cyanosis, no petechiae, right hand contracture, generalized weakness Neuro: sedated but will wake up, follow commands, CN II-XII intact, right hand contracture (chronic) Skin: warm, dry, no rash, normal turgor Psych: awake, alert, oriented x 3 Results & Data Results & Data ([facility]) Vital Signs (Past 12 Hours) Vital Signs Temp Pulse Resp BP Pulse Ox 04/24/21 07:58 105 H 20 98 04/24/21 07:42 36.8 C 100 H 18 120/84 90 Laboratory Results Laboratory Results - last 24 hr 04/23/21 04/24/21 04/24/21 18:04 00:24 05:44 POC Glucose 146 H 157 H 146 H 04/24/21 12:29 POC Glucose 172 H Medications Administered Current Inpatient Medications Acetaminophen (Acetaminophen Susp 325 Mg/10.15 Ml Udc) 650 mg PEG Q4H PRN PRN Reason: Pain or Fever Stop: 05/20/21 09:35 Last Admin: 04/20/21 10:26 Dose: 650 mg Documented by: Aspirin (Aspirin 81 Mg Chew) 81 mg PO DAILY [facility] Stop: 05/08/21 11:59 Last Admin: 04/15/21 09:01 Dose: 81 mg Documented by: Atorvastatin Calcium (Atorvastatin 40 Mg Tab) 80 mg PEG HS [facility] Stop: 05/08/21 20:59 Last Admin: 04/23/21 21:19 Dose: 80 mg Documented by: Baclofen (Baclofen 20 Mg Tab) 20 mg PEG BID [facility] Stop: 05/09/21 20:59 Last Admin: 04/24/21 08:55 Dose: 20 mg Documented by: Benzonatate (Benzonatate 100 Mg Capsule) 100 mg PO TID PRN PRN Reason: cough Stop: 05/16/21 01:58 Clopidogrel Bisulfate (Clopidogrel Bisulfate 75 Mg Tab) 75 mg PO DAILY [facility] Stop: 05/08/21 11:59 Last Admin: 04/15/21 09:01 Dose: 75 mg Documented by: Enteral Nutritional Formula (Peptamen 1.5 Jeison 1,000 Ml Bag) 1,000 ml NG UD [facility]; Protocol Stop: 05/14/21 16:29 Last Admin: 04/24/21 04:10 Dose: 1,000 ml Documented by: Ampicillin Sodium/Sulbactam (Sodium 3,000 mg/ Dextrose) 108 mls @ 200 mls/hr IV Q6H [facility]; Protocol Stop: 04/26/21 08:29 Insulin Aspart (Insulin Aspart Per Unit) 0 units SC Q6 [facility] Stop: 05/21/21 00:00 Last Admin: 04/24/21 13:10 Dose: 5 units Documented by: Lactobacillus Acidophilus (Lactobacillus Acidophilus 1 Gm Pack) 1 gm PEG DAILY [facility] Stop: 05/21/21 08:59 Last Admin: 04/24/21 08:56 Dose: 1 gm Documented by: Lansoprazole (Lansoprazole 30 Mg Soltab) 30 mg NG BID [facility] Stop: 05/20/21 20:59 Last Admin: 04/24/21 08:56 Dose: 30 mg Documented by: Olanzapine (Olanzapine Zydis 5 Mg Orally Dis. Tab) 5 mg PO QAM [facility] Stop: 05/12/21 10:59 Last Admin: 04/24/21 08:56 Dose: 5 mg Documented by: Sodium Chloride (Sodium Chlor 7% 4 Ml Neb) 4 ml NEB BIDR [facility] Stop: 05/21/21 18:59 Last Admin: 04/24/21 07:57 Dose: 4 ml Documented by: Sterile Water (Tube Feeding Water Flush) 60 ml NG Q4H [facility] Stop: 05/23/21 17:29 Last Admin: 04/24/21 13:15 Dose: 60 ml Documented by: PG Care Time/CCT Total # of Minutes Spent Total Time Spent with Patient: Total time spent is greater than 50% in coordination of care (as documented) at patient's floor/unit and/or counseling patient: Coding Level of Care Code 56371 Subseq Hosp Care Lvl 2 Diagnoses Retroperitoneal hematoma K66.1 Acute sinusitis J01.90 Dysphagia R13.10 2019 novel coronavirus-infected pneumonia (NCIP) U07.1; J12.82 Hypoxia R09.02 MRSA pneumonia J15.212 COPD (chronic obstructive pulmonary disease) with chronic bronchitis J44.9 CVA (cerebral vascular accident) I63.9 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
[2021-04-24] MEDS: AMPICILLIN/SULBACTAM SOD 3,000 MG in DEXTROSE 5% 100 ML IV SCH ×2 (14:17→20:25)
[2021-04-24] MEDS: ATORVASTATIN 40 MG TAB PEG SCH (20:27)
[2021-04-24 22:21] LABS: Fungitell (1-3)-B-D-Glucan <31 pg/mL
[2021-04-25] MEDS: INSULIN ASPART PER UNIT SC SCH ×5 (00:33→23:58)
[2021-04-25] MEDS: TUBE FEEDING WATER FLUSH NG SCH ×6 (01:42→21:30)
[2021-04-25] MEDS: AMPICILLIN/SULBACTAM SOD 3,000 MG in DEXTROSE 5% 100 ML IV SCH (02:42)
[2021-04-25] MEDS: PEPTAMEN 1.5 CAL 1,000 ML BAG NG SCH ×2 (02:43→22:29)
[2021-04-25 06:22] LABS: Hematocrit (blood only) 30.2 % (42-52); Hemoglobin 9.4 g/dL (14.0-18.0); Mean Corpuscular Hgb Conc 31.1 g/dL (32-36); Mean Corpuscular Volume 99.7 fL (80-100); Mean Platelet Volume 9.9 fL (7.4-10.4); Platelet Count 432 K/uL (130-400); RDW Coefficient of Variation 17.1 % (11.5-14.5); RDW Standard Deviation 60.7 fL (36.4-46.3); Red Blood Count 3.03 M/uL (4.7-6.1); White Blood Count 9.23 K/uL (4.8-10.8)
[2021-04-25 06:47] LABS: BUN Creatinine Ratio 45.9 (10-20); Calcium 8.7 mg/dl (8.5-10.1); Creatinine Clr Calc Pharmacy 100.1 ml/min; Est GFR (African American) 114.6 ml/min; Est GFR (Non-African American) 98.9 ml/min; Magnesium 2.1 mg/dl (1.7-2.4); Phosphorus 2.4 mg/dl (2.5-4.9); Potassium 3.9 mmol/L (3.5-5.1)
[2021-04-25] MEDS: SODIUM CHLOR 7% 4 ML NEB NEB SCH ×2 (08:33→20:17)
[2021-04-25] MEDS: LANSOPRAZOLE 30 MG SOLTAB NG SCH ×2 (10:07→23:41)
[2021-04-25] MEDS: BACLOFEN 20 MG TAB PEG SCH ×2 (10:07→22:22)
[2021-04-25] MEDS: LACTOBACILLUS ACIDOPHILUS 1 GM PACK PEG SCH (10:07)
[2021-04-25] MEDS: ASPIRIN 81 MG CHEW NG SCH (10:08)
[2021-04-25] MEDS: AMPICILLIN/SULBACTAM SOD 3,000 MG in 0.9 % SODIUM CHLORIDE 100 ML IV SCH ×2 (15:12→22:06)
--- NOTE | 2021-04-25 15:17 | Hospitalist Progress Note ---
Date of Service April 25, 2021 Assessment & Plan (1) Retroperitoneal hematoma: Plan: Acute blood loss anemia, likely associated with illness and DVT prevention plus antiplatelet medications as stroke prevention Hemoglobin stable > 10 after 1 units packed RBCs transfused a few days ago today Hb is 9.4, BP stable Continue to hold Lovenox and clopidogrel, resume aspirin today Patient continues to be tachycardic. Doubt Pneumonia Jirovecii, likely repeat aspiration. will discuss with GI for peg tube placement, this is delayed until patient is close to discharge. per pulmonary no indication for bronchoscopy at this time. (2) Acute sinusitis: Plan: Possible diagnosis but not completely clear given lack of symptoms but given MRI changes with rising WBC without alternative explanation he was started on Unasyn Consider 10-14 day course total with Unasyn/Augmentin - started 04/16, continue until 04/29 WBC is normal today Start lactobacillus to avoid antibiotic associated diarrhea (3) Dysphagia: Plan: MRI Brain without new acute stroke 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, prior stroke issues Continue tube feeds, tolerating 50cc/hr Patient and wish him to have a G-tube - discuss with GI tomorrow morning as [facility] is on the weekend could likely have it placed Monday (4) 2019 novel coronavirus-infected pneumonia (NCIP): Plan: Secondary bacterial pneumonia with continuing COVID 19 infection - unvaccinated was discharged on 03/30, was on room air, sent home on dexamethasone 6mg PO daily had a few good days but got worse quickly on Wednesday 04/04 and declined on 04/05, brought to hospital concern for secondary bacterial pneumonia but also worsening COVID CRP was 23 on admission, procalcitonin elevated, wbc persistently elevated Dexamethasone 20mg IV daily, completed 5 days, -> 10mg IV x 5 days - completed Off COVID isolation 04/15/20, should remain on contact due to MRSA found in sputum (5) Hypoxia: Plan: acute hypoxic respiratory failure Secondary to COVID-19, MRSA went from 15L oxy mask to needing CPAP 10 FiO2 100% on 04/07, moved to ICU and intubated due to distress extubated 04/10/21 Currently on 5L NC Levaquin IV completed for secondary bacterial infection, MRSA Pneumonia treatment as below. (6) MRSA pneumonia: Plan: Vancomycin IV initially, change to Linezolid due to renal failure. Finished course of Linezolid for sputum positive culture Continue on contact precautions, with leukocytosis and sinusitis seen on head imaging , ,continue unasyn , with leukocytosis improving (7) COPD (chronic obstructive pulmonary disease) with chronic bronchitis: Plan: Continue as above No wheezing on exam (8) CVA (cerebral vascular accident): Plan: Old CVA - 2015 with residual right sided contracture and weakness and spasticity, MRI brain does not show any new changes 04/16 - Continue with statin via [employer] - ASA resumed, continue to hold Plavix with plan for PEG (9) Spasticity as late effect of cerebrovascular accident (CVA): Plan: Continue Baclofen (10) Migraine without aura: Plan: chronic issue, now sedated Plan: VTE Prophylaxis - no chemical prophylaxis due to retroperitoneal bleed, continue NIK hose and SCDs Diet - NPO, on tube feeds via coredafe Discharge - continue on med/tele, COVID isolation precautions removed but remains on contact due to MRSA, PT/OT, Plan for G-tube wishes to have placement in rehab Admission and Anticipated Discharge Date Admission Date: April 05, 2021 Subjective patient doing well today, seems more alert, the Zyprexa was stopped this morning he is coughing up mucous, needs to suction out back of his throat no fever, vitals stable, he is 99% on 5L Hb is 9.4, up from 8.6, WBC normal, Cr normal discussed timing of PEG, I think Monday would be reasonable Review of Systems Review of Systems: All systems reviewed & are unremarkable except as noted in Subjective Respiratory: + cough, + dyspnea on exertion and + sputum production Physical Exam Physical Exam: General: well developed, thin male, frail appearing, no distr ess Neck: supple, trachea midline, normal thyroid Lungs: coarse bilaterally, improves with cough, normal respiratory effort, no accessory muscle use, no distress Heart: normal S1 and S2, no murmur, peripheral pulses normal, capillary refill normal, no edema Abdomen: soft, NT, ND, + BS, no hepatomegaly, normal to percussion Extremities: no cyanosis, no petechiae, right hand contracture, generalized weakness Neuro: sedated but will wake up, follow commands, CN II-XII intact, right hand contracture (chronic) Skin: warm, dry, no rash, normal turgor Psych: awake, alert, oriented x 3 Results & Data Results & Data ([facility]) Vital Signs (Past 12 Hours) Vital Signs Temp Pulse Resp BP Pulse Ox 04/25/21 08:34 112 H 22 94 04/25/21 08:00 36.6 C 107 H 20 131/84 90 Laboratory Results Laboratory Results - last 24 hr 04/20/21 04/24/21 04/25/21 08:05 17:46 00:20 WBC RBC Hgb Hct MCV MCH MCHC RDW Std Deviation RDW Coeff of Roge Plt Count MPV Sodium Potassium Chloride Carbon Dioxide Anion Gap BUN Creatinine Est Cr Clr Drug Dosing Est GFR ( Amer) Est GFR (Non-Af Amer) BUN/Creatinine Ratio Glucose POC Glucose 123 H 160 H Calcium Phosphorus Magnesium Beta-(1,3)-D-Glucan <31 B-(1,3)-D-Glucan Intrp NEGATIVE 04/25/21 04/25/21 04/25/21 06:03 06:03 06:03 WBC 9.23 RBC 3.03 L Hgb 9.4 L Hct 30.2 L MCV 99.7 MCH 31.0 MCHC 31.1 L RDW Std Deviation 60.7 H RDW Coeff of Roge 17.1 H Plt Count 432 H MPV 9.9 Sodium 145 Potassium 3.9 Chloride 111 H Carbon Dioxide 28 Anion Gap 6 BUN 34 H Creatinine 0.74 Est Cr Clr Drug Dosing 100.1 Est GFR ( Amer) 114.6 Est GFR (Non-Af Amer) 98.9 BUN/Creatinine Ratio 45.9 H Glucose 166 H POC Glucose 163 H Calcium 8.7 Phosphorus 2.4 L Magnesium 2.1 Beta-(1,3)-D-Glucan B-(1,3)-D-Glucan Intrp 04/25/21 12:03 WBC RBC Hgb Hct MCV MCH MCHC RDW Std Deviation RDW Coeff of Roge Plt Count MPV Sodium Potassium Chloride Carbon Dioxide Anion Gap BUN Creatinine Est Cr Clr Drug Dosing Est GFR ( Amer) Est GFR (Non-Af Amer) BUN/Creatinine Ratio Glucose POC Glucose 148 H Calcium Phosphorus Magnesium Beta-(1,3)-D-Glucan B-(1,3)-D-Glucan Intrp Medications Administered Current Inpatient Medications Acetaminophen (Acetaminophen Susp 325 Mg/10.15 Ml Udc) 650 mg PEG Q4H PRN PRN Reason: Pain or Fever Stop: 05/20/21 09:35 Last Admin: 04/20/21 10:26 Dose: 650 mg Documented by: Aspirin (Aspirin 81 Mg Chew) 81 mg NG DAILY [facility] Stop: 05/25/21 08:59 Last Admin: 04/25/21 10:08 Dose: 81 mg Documented by: Atorvastatin Calcium (Atorvastatin 40 Mg Tab) 80 mg PEG HS [facility] Stop: 05/08/21 20:59 Last Admin: 04/24/21 20:27 Dose: 80 mg Documented by: Baclofen (Baclofen 20 Mg Tab) 20 mg PEG BID [facility] Stop: 05/09/21 20:59 Last Admin: 04/25/21 10:07 Dose: 20 mg Documented by: Benzonatate (Benzonatate 100 Mg Capsule) 100 mg PO TID PRN PRN Reason: cough Stop: 05/16/21 01:58 Clopidogrel Bisulfate (Clopidogrel Bisulfate 75 Mg Tab) 75 mg PO DAILY [facility] Stop: 05/08/21 11:59 Last Admin: 04/15/21 09:01 Dose: 75 mg Documented by: Enteral Nutritional Formula (Peptamen 1.5 Jeison 1,000 Ml Bag) 1,000 ml NG UD [facility]; Protocol Stop: 05/14/21 16:29 Last Admin: 04/25/21 02:43 Dose: 1,000 ml Documented by: Ampicillin Sodium/Sulbactam Sodium 3,000 mg/ Sodium Chloride 108 mls @ 200 mls/hr IV Q6H [facility]; Protocol Stop: 04/26/21 08:29 Last Admin: 04/25/21 15:12 Dose: 200 mls/hr Documented by: Insulin Aspart (Insulin Aspart Per Unit) 0 units SC Q6 [facility] Stop: 05/21/21 00:00 Last Admin: 04/25/21 12:50 Dose: 5 units Documented by: Lactobacillus Acidophilus (Lactobacillus Acidophilus 1 Gm Pack) 1 gm PEG DAILY [facility] Stop: 05/21/21 08:59 Last Admin: 04/25/21 10:07 Dose: 1 gm Documented by: Lansoprazole (Lansoprazole 30 Mg Soltab) 30 mg NG BID [facility] Stop: 05/20/21 20:59 Last Admin: 04/25/21 10:07 Dose: 30 mg Documented by: Sodium Chloride (Sodium Chlor 7% 4 Ml Neb) 4 ml NEB BIDR [facility] Stop: 05/21/21 18:59 Last Admin: 04/25/21 08:33 Dose: 4 ml Documented by: Sterile Water (Tube Feeding Water Flush) 60 ml NG Q4H [facility] Stop: 05/23/21 17:29 Last Admin: 04/25/21 12:57 Dose: 60 ml Documented by: PG Care Time/CCT Total # of Minutes Spent Total Time Spent with Patient: Total time spent is greater than 50% in coordination of care (as documented) at patient's floor/unit and/or counseling patient: Coding Level of Care Code 37582 Subseq Hosp Care Lvl 2 Diagnoses Retroperitoneal hematoma K66.1 Acute sinusitis J01.90 Dysphagia R13.10 2019 novel coronavirus-infected pneumonia (NCIP) U07.1; J12.82 Hypoxia R09.02 MRSA pneumonia J15.212 COPD (chronic obstructive pulmonary disease) with chronic bronchitis J44.9 CVA (cerebral vascular accident) I63.9 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
[2021-04-25] MEDS: ATORVASTATIN 40 MG TAB PEG SCH (22:22)
[2021-04-25] MEDS: PANTOprazole 40 MG in SYRINGE 0 ML IV SCH (23:49)
[2021-04-26] MEDS: TUBE FEEDING WATER FLUSH NG SCH ×6 (01:30→21:27)
[2021-04-26] MEDS: AMPICILLIN/SULBACTAM SOD 3,000 MG in 0.9 % SODIUM CHLORIDE 100 ML IV SCH (02:25)
[2021-04-26] MEDS: INSULIN ASPART PER UNIT SC SCH ×3 (06:09→18:10)
[2021-04-26] MEDS: SODIUM CHLOR 7% 4 ML NEB NEB SCH ×2 (07:48→19:56)
[2021-04-26] MEDS: PANTOprazole 40 MG in SYRINGE 0 ML IV SCH ×2 (09:08→20:05)
[2021-04-26] MEDS: ASPIRIN 81 MG CHEW NG SCH (09:08)
[2021-04-26] MEDS: LACTOBACILLUS ACIDOPHILUS 1 GM PACK PEG SCH (09:08)
[2021-04-26] MEDS: BACLOFEN 20 MG TAB PEG SCH ×2 (09:08→20:05)
--- NOTE | 2021-04-26 10:10 | Hospitalist Progress Note ---
Date of Service April 26, 2021 Assessment & Plan (1) Retroperitoneal hematoma: Plan: Acute blood loss anemia, likely associated with illness and DVT prevention plus antiplatelet medications as stroke prevention Hemoglobin stable > 10 after 1 units packed RBCs transfused a few days ago Hb is 9.4 on 04/25, BP stable Continue to hold Lovenox and clopidogrel, resume aspirin 04/25 (2) Acute sinusitis: Plan: Possible diagnosis but not completely clear given lack of symptoms but given MRI changes with rising WBC without alternative explanation he was started on Unasyn Consider 10-14 day course total with Unasyn - started 04/16, continue until 04/29 WBC is normal 04/25 Start lactobacillus to avoid antibiotic associated diarrhea (3) Dysphagia: Plan: MRI Brain without new acute stroke 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, prior stroke issues Continue tube feeds, tolerating 50cc/hr Patient and wish him to have a PEG spoke with Dr. Martinez today, he will evaluate patient and determine timing of PEG he is at risk of aspiration from anesthesia, patient and aware of risk (4) 2018 novel coronavirus-infected pneumonia (NCIP): Plan: Secondary bacterial pneumonia with continuing COVID 19 infection - unvaccinated was discharged on 03/30, was on room air, sent home on dexamethasone 6mg PO daily had a few good days but got worse quickly on Wednesday 04/04 and declined on 04/05, brought to hospital concern for secondary bacterial pneumonia but also worsening COVID CRP was 23 on admission, procalcitonin elevated, wbc persistently elevated Dexamethasone 20mg IV daily, completed 5 days, -> 10mg IV x 5 days - completed Off COVID isolation 04/15/20, should remain on contact due to MRSA found in sputum (5) Hypoxia: Plan: acute hypoxic respiratory failure Secondary to COVID-19, MRSA went from 15L oxy mask to needing CPAP 10 FiO2 100% on 04/07, moved to ICU and intubated due to distress extubated 04/10/21 Currently on 5L NC, saturations 99%, need to turn down oxygen (6) MRSA pneumonia: Plan: Vancomycin IV initially, change to Linezolid due to renal failure. Finished course of Linezolid for sputum positive culture Continue on contact precautions, with leukocytosis and sinusitis seen on head imaging, treated with Unasyn , WBC normal (7) COPD (chronic obstructive pulmonary disease) with chronic bronchitis: Plan: Continue as above No wheezing on exam (8) CVA (cerebral vascular accident): Plan: Old CVA - 2016 with residual right sided contracture and weakness and [facility], MRI brain does not show any new changes 04/16 - Continue with statin via [employer] - ASA resumed, continue to hold Plavix with plan for PEG (9) Spasticity as late effect of cerebrovascular accident (CVA): Plan: Continue Baclofen (10) Migraine without aura: Plan: chronic issue, no complaints past few days Plan: VTE Prophylaxis - no chemical prophylaxis due to retroperitoneal bleed, continue NIK hose and SCDs Diet - NPO, on tube feeds via [employer] Discharge - continue on med/tele, COVID isolation precautions removed but remains on contact due to MRSA, PT/OT, Plan for G-tube wishes to have placement in rehab once PEG is placed Admission and Anticipated Discharge Date Admission Date: April 05, 2021 Subjective patient feels the same, has a wet, rattled cough with limited sputum production oxygen levels 100% on 5L, turned him down to 2L, saturations stable vitals stable, labs were stable yesterday asked Dr. Martinez to evaluate for PEG today, defer to him on timing of procedure spoke with CM about trying for [facility] by the end of the week if he can get his tube feeds Review of Systems Review of Systems: All systems reviewed & are unremarkable except as noted in Subjective Constitutional: + fatigue and + weakness; no fever Respiratory: + cough, + dyspnea on exertion and + sputum production Cardiovascular: no chest pain Gastrointestinal: no abdominal pain, no nausea, no vomiting, no constipation and no diarrhea/loose stools Musculoskeletal: + muscle weakness (generalized, deconditioning) Physical Exam Physical Exam: General: well developed, thin male, frail appearing, no distress Neck: supple, trachea midline, normal thyroid Lungs: coarse bilaterally, improves with cough, normal respiratory effort, no accessory muscle use, no distress Heart: normal S1 and S2, no murmur, peripheral pulses normal, capillary refill normal, no edema Abdomen: soft, NT, ND, + BS, no hepatomegaly, normal to percussion Extremities: no cyanosis, no petechiae, right hand contracture, generalized weakness Neuro: sedated but will wake up, follow commands, CN II-XII intact, right hand contracture (chronic) Skin: warm, dry, no rash, normal turgor Psych: awake, alert, oriented x 3 Results & Data Results & Data ([facility]) Vital Signs (Past 12 Hours) Vital Signs Temp Pulse Pulse Resp BP Pulse Ox 04/26/21 08:59 96 H 16 121/71 99 04/26/21 07:48 101 H 22 98 04/26/21 02:25 98 04/26/21 02:10 91 04/25/21 22:51 36.3 C L 96 H 20 117/76 95 Laboratory Results Laboratory Results - last 24 hr 04/25/21 04/25/21 04/25/21 12:03 18:03 23:46 POC Glucose 148 H 142 H 98 04/26/21 05:54 POC Glucose 151 H Medications Administered Current Inpatient Medications Acetaminophen (Acetaminophen Susp 325 Mg/10.15 Ml Udc) 650 mg PEG Q4H PRN PRN Reason: Pain or Fever Stop: 05/20/21 09:35 Last Admin: 04/20/21 10:26 Dose: 650 mg Documented by: Aspirin (Aspirin 81 Mg Chew) 81 mg NG DAILY [facility] Stop: 05/25/21 08:59 Last Admin: 04/26/21 09:08 Dose: 81 mg Documented by: Atorvastatin Calcium (Atorvastatin 40 Mg Tab) 80 mg PEG HS [facility] Stop: 05/08/21 20:59 Last Admin: 04/25/21 22:22 Dose: 80 mg Documented by: Baclofen (Baclofen 20 Mg Tab) 20 mg PEG BID MATTIE Stop: 05/09/21 20:59 Last Admin: 04/26/21 09:08 Dose: 20 mg Documented by: Benzonatate (Benzonatate 100 Mg Capsule) 100 mg PO TID PRN PRN Reason: cough Stop: 05/16/21 01:58 Clopidogrel Bisulfate (Clopidogrel Bisulfate 75 Mg Tab) 75 mg PO DAILY [facility] Stop: 05/08/21 11:59 Last Admin: 04/15/21 09:01 Dose: 75 mg Documented by: Enteral Nutritional Formula (Peptamen 1.5 Jeison 1,000 Ml Bag) 1,000 ml NG UD [facility]; Protocol Stop: 05/14/21 16:29 Last Admin: 04/25/21 22:29 Dose: 1,000 ml Documented by: Pantoprazole Sodium 40 mg/ (Syringe) 10 mls @ 5 mls/min IV BID [facility] Stop: 05/25/21 23:24 Last Admin: 04/26/21 09:08 Dose: 5 mls/min Documented by: Insulin Aspart (Insulin Aspart Per Unit) 0 units SC Q6 MATTIE Stop: 05/21/21 00:00 Last Admin: 04/26/21 06:09 Dose: 5 units Documented by: Lactobacillus Acidophilus (Lactobacillus Acidophilus 1 Gm Pack) 1 gm PEG DAILY MATTIE Stop: 05/21/21 08:59 Last Admin: 04/26/21 09:08 Dose: 1 gm Documented by: Sodium Chloride (Sodium Chlor 7% 4 Ml Neb) 4 ml NEB BIDR MATTIE Stop: 05/21/21 18:59 Last Admin: 04/26/21 07:48 Dose: 4 ml Documented by: Sterile Water (Tube Feeding Water Flush) 60 ml NG Q4H MATTIE Stop: 05/23/21 17:29 Last Admin: 04/26/21 09:08 Dose: 60 ml Documented by: PG Care Time/CCT Total # of Minutes Spent Total Time Spent with Patient: Total time spent is greater than 50% in coordination of care (as documented) at patient's floor/unit and/or counseling patient: Coding Level of Care Code 56457 Subseq Hosp Care Lvl 2 Diagnoses Retroperitoneal hematoma K66.1 Acute sinusitis J01.90 Dysphagia R13.10 2019 novel coronavirus-infected pneumonia (NCIP) U07.1; J12.82 Hypoxia R09.02 MRSA pneumonia J15.212 COPD (chronic obstructive pulmonary disease) with chronic bronchitis J44.9 CVA (cerebral vascular accident) I63.9 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
--- NOTE | 2021-04-26 10:28 | Gastroenterology Progress Note ---
Date of Service April 26, 2021 Assessment & Plan (1) Dysphagia: Plan: EGD/PEG tentatively tomorrow. ASA ok but hold Plavix until after procedure. He has been off Plavix greater than 5 days for the retroperitoneal hematoma. I have consulted anesthesia to evaluate patient today in case they have questions, concerns, or want to do it in the OR instead of endoscopy. Discussed procedure and risks with his which include but not limited to anesthesia risks including needing to re-intubated, bleeding, perforation, aspiration, and infection. She wishes to proceed and will be the person giving consent for procedure and anethesia--cell phone [phone] Admission and Anticipated Discharge Date Admission Date: April 05, 2021 Subjective CC f/u dysphagia Per Dr Garcia the patient is optimized for EGD/PEG. Pt denies abd pain. Physical Exam Constitutional: WD/WN, vitals as above Gastrointestinal (Abdomen): pos bs,soft, no guarding nor rebound Results & Data ([facility]) Vital Signs (Past 12 Hours) Vital Signs Temp Pulse Pulse Resp BP Pulse Ox 04/26/21 08:59 96 H 16 121/71 99 04/26/21 07:48 101 H 22 98 04/26/21 02:25 98 04/26/21 02:10 91 04/25/21 22:51 36.3 C L 96 H 20 117/76 95
--- NOTE | 2021-04-26 13:11 | Anesthesiology Consultation ---
Date of Service April 26, 2021 Assessment & Plan (1) Encounter for pre-operative examination: Chart Review Chart Review: Acceptable Risk for Surgery and Patient NOT seen in Pre Admission Testing Consults Requested none Additional Notes Spoke to anesthesiologist assigned to endoscopy suite for tomorrow. Requesting that patient's procedure be performed in the main operating room due to his increased risk for perioperative complications including respiratory failure. History Surgery Operation Date: 04/27/21 16:30 Proposed Procedures p Esophagogastroduodenoscopy with Gastric Tube Placement Dr Juan Martinez Height/Weight Height: 5 ft 8 in Weight: 77.9 kg Allergies Allergy/AdvReac Type Severity Reaction Status Date / Time No Known Allergies Allergy Verified 03/26/21 00:19 Medications Home Medications Medication Instructions Recorded Confirmed Last Taken acetaminophen 500 mg tablet 1,000 mg PO BID 07/12/18 04/05/21 04/05/21 aspirin 325 mg tablet 325 mg PO QAM 07/12/18 04/05/21 04/05/21 atorvastatin 80 mg tablet 80 mg PO HS 07/12/18 04/05/21 04/05/21 clopidogrel 75 mg tablet (Plavix) 75 mg PO DAILY 07/12/18 04/05/21 04/05/21 polyethylene glycol 3350 17 17 g PO 2XWK PRN 07/12/18 04/05/21 08/27/18 11:00 gram/dose oral powder (Miralax) ondansetron 4 mg disintegrating 4 mg PO Q8H PRN #14 tab 04/01/20 04/05/21 04/05/21 tablet ubrogepant 50 mg tablet (Ubrelvy) 50 mg PO ONCE PRN #10 tab 04/01/20 04/05/21 04/05/21 sildenafil (pulm.hypertension) 20 20 mg PO DAILY PRN #60 tab 07/10/20 04/05/21 04/05/21 mg tablet albuterol sulfate 90 mcg/actuation 2 puff INHALATION QID PRN #18 g 02/11/21 04/05/21 04/05/21 aerosol inhaler (Ventolin HFA) budesonide-formoterol HFA 160 2 inh INHALATION Q12H #30.6 g 02/15/21 04/05/21 04/05/21 mcg-4.5 mcg/actuation aerosol inhaler (Symbicort) tizanidine 2 mg capsule 2 mg PO TID PRN #270 cap 03/02/21 04/05/21 04/05/21 benzonatate 100 mg capsule 100 mg PO TID PRN #30 cap 03/30/21 04/05/21 04/05/21 clotrimazole 10 mg [place] 10 mg BUCCAL 5XDQ4H #35 tab 03/30/21 04/05/21 04/05/21 dexamethasone 6 mg tablet 6 mg PO DAILY #5 tab 03/30/21 04/05/21 04/04/21 (Decadron) baclofen 20 mg tablet 20 mg PO BID 04/05/21 04/05/21 04/05/21 guaifenesin 600 mg tablet, 600 mg PO BID 04/05/21 04/05/21 04/05/21 extended release 12 hr (Mucinex) lactobacillus combination no.4 3 0 mmu cells PO DAILY 04/05/21 04/05/21 04/05/21 billion cell capsule (Probiotic) magnesium oxide 400 mg PO QAM 04/05/21 04/05/21 04/05/21 Active Medications Generic Name Dose Route Start Last Admin Trade Name Freq PRN Reason Stop Dose Admin Acetaminophen 650 mg 04/20/21 09:36 04/20/21 10:26 Acetaminophen Susp 325 Mg/10.15 Ml Udc PEG 05/20/21 09:35 650 mg Q4H PRN Administration Pain or Fever Aspirin 81 mg 04/25/21 09:00 04/26/21 09:08 Aspirin 81 Mg Chew NG 05/25/21 08:59 81 mg DAILY MATTIE Administration Atorvastatin Calcium 80 mg 04/20/21 21:00 04/25/21 22:22 Atorvastatin 40 Mg Tab PEG 05/08/21 20:59 80 mg HS MATTIE Administration Baclofen 20 mg 04/20/21 21:00 04/26/21 09:08 Baclofen 20 Mg Tab PEG 05/09/21 20:59 20 mg BID MATTIE Administration Clopidogrel Bisulfate 75 mg 04/08/21 12:00 04/15/21 09:01 Clopidogrel Bisulfate 75 Mg Tab PO 05/08/21 11:59 75 mg DAILY MATTIE Administration Enteral Nutritional Formula 1,000 ml 04/14/21 16:30 04/25/21 22:29 Peptamen 1.5 Jeison 1,000 Ml Bag NG 05/14/21 16:29 1,000 ml UD MATTIE Administration Protocol Pantoprazole Sodium 40 mg/ 10 mls @ 5 mls/min 04/25/21 23:25 04/26/21 09:08 Syringe IV 05/25/21 23:24 5 mls/min BID MATTIE Administration Insulin Aspart 0 units 04/21/21 00:00 04/26/21 12:21 Insulin Aspart Per Unit SC 05/21/21 00:00 5 units Q6 MATTIE Administration Lactobacillus Acidophilus 1 gm 04/21/21 09:00 04/26/21 09:08 Lactobacillus Acidophilus 1 Gm Pack PEG 05/21/21 08:59 1 gm DAILY MATTIE Administration Sodium Chloride 4 ml 04/21/21 19:00 04/26/21 07:48 Sodium Chlor 7% 4 Ml Neb NEB 05/21/21 18:59 4 ml BIDR MATTIE Administration Sterile Water 60 ml 04/23/21 17:30 04/26/21 12:35 Tube Feeding Water Flush NG 05/23/21 17:29 60 ml Q4H MATTIE Administration Past Medical History Medical History 2019 novel coronavirus-infected pneumonia (NCIP) Chronic left arterial ischemic stroke, ICA (internal carotid artery) COPD (chronic obstructive pulmonary disease) with chronic bronchitis Dysphagia History of orthopnea History of prostate cancer History of stroke ICAO (internal carotid artery occlusion) MRSA pneumonia Prostate cancer (11/11/16) "Rising PSA, pretreatment PSA 6.150 Status post ultrasound-guided biopsies 11/11/2016 Adenocarcinoma the prostate, Radha 3+3 Prostate volume 37.8 Prostate density 0.162" Retroperitoneal hematoma Spasticity as late effect of cerebrovascular accident (CVA) Tracheobronchomalacia Past Family History Family History Other Cancer Diabetes Heart disease Past Surgical History Surgical History H/O colonoscopy History of angioplasty History of cardiac catheterization History of prostatectomy Social History Smoking Status: Never smoker Hx Alcohol Use: No Hx Substance Use: No substance use type: does not use Physical Exam Vital Signs Last Vital Signs Temp 36.3 C L 04/25/21 22:51 Pulse 96 H 04/26/21 08:59 Resp 16 04/26/21 08:59 BP 121/71 04/26/21 08:59 Pulse Ox 99 04/26/21 08:59 Testing Laboratory Results 04/25/21 06:03 04/25/21 06:03 PT 10.3 Seconds (9.0-12.0) 04/21/21 07:04 INR 1.0 (0.9-1.1) 04/21/21 07:04 APTT 20.5 Seconds (21.0-31.0) L 04/21/21 07:04 Urine Color Yellow 04/05/21 23:15 Urine Appearance Clear (Clear) 04/05/21 23:15 Urine pH 6.5 (4.5-7.5) 04/05/21 23:15 Ur Specific [place] 1.027 (1.000-1.030) 04/05/21 23:15 Urine Protein 1+ (Negative) H 04/05/21 23:15 Urine Glucose (UA) Negative (Negative) 04/05/21 23:15 Urine Ketones Trace (Negative) H 04/05/21 23:15 Urine Nitrite Negative (Negative) 04/05/21 23:15 Ur Leukocyte Esterase Negative (Negative) 04/05/21 23:15 Urine WBC (Auto) 1-5 /hpf (0-5) 04/05/21 23:15 Urine RBC (Auto) 0-4 /hpf (0-4) 04/05/21 23:15 U Hyaline Cast (Auto) 1-5 /lpf (0-5) 04/05/21 23:15 U Epithel Cells (Auto) 10-20 /lpf (0-5) H 04/05/21 23:15 Urine Bacteria (Auto) Negative (Negative) 04/05/21 23:15 Blood Type A Positive 04/16/21 01:43 Antibody Screen NEGATIVE 04/16/21 01:43 04/14/21 12:10 Urine Culture - Final Urine,Indwelling Cath No growth - less than 1,000 colonies/mL. 04/05/21 11:56 Aerobic Blood Culture - Final Blood No growth in Aerobic bottle after 5 days. Anaerobic Blood Culture - Final No growth in Anaerobic bottle after 5 days. 04/05/21 11:49 Aerobic Blood Culture - Final Blood No growth in Aerobic bottle after 5 days. Anaerobic Blood Culture - Final No growth in Anaerobic bottle after 5 days. 04/06/21 00:55 Gram Stain - Final Sputum, Expectorated Sputum Culture - Final Staph aureus MRSA 04/26/21 04/26/21 12:06 05:54 POC Glucose 141 H 151 H Electrocardiogram Date: 04/15/21 Findings: + ST @ (126) Minimal voltage criteria for LVH, may be normal variant Nonspecific ST abnormality Abnormal ECG When compared with ECG of 12-APR-2021 11:21, Nonspecific T wave abnormality now evident in Lateral leads Chest X-Ray Date: 04/21/21 IMPRESSION: 1. Slight worsening of patchy interstitial and alveolar opacities most characteristic of a viral type pneumonitis and Covid pneumonia. 2. Advancement of the feeding tube into the distal body of the stomach.
[2021-04-26] MEDS: ATORVASTATIN 40 MG TAB PEG SCH (20:05)
[2021-04-27] MEDS: INSULIN ASPART PER UNIT SC SCH ×4 (00:24→18:13)
[2021-04-27] MEDS: TUBE FEEDING WATER FLUSH NG SCH ×6 (00:25→20:34)
[2021-04-27 07:09] LABS: Basophils # (auto) 0.02 K/uL (0-0.2); Basophils % (auto) 0.2 %; Eosinophils # (auto) 0.23 K/uL (0-0.5); Eosinophils % (auto) 2.5 %; Hematocrit (blood only) 32.2 % (42-52); Hemoglobin 10.1 g/dL (14.0-18.0); Immature Granulocytes # (auto) 0.05 K/uL (0.00-0.02); Immature Granulocytes % (auto) 0.5 %; Lymphocytes # (auto) 0.84 K/uL (1.2-3.4); Mean Corpuscular Hemoglobin 31.5 pg (25-34); Mean Corpuscular Hgb Conc 31.4 g/dL (32-36); Mean Corpuscular Volume 100.3 fL (80-100); Mean Platelet Volume 10.3 fL (7.4-10.4); Monocytes % (auto) 4.3 %; Neutrophils # (auto) 7.81 K/uL (1.4-6.5); Neutrophils % (auto) 83.5 %; Platelet Count 426 K/uL (130-400); RDW Coefficient of Variation 16.8 % (11.5-14.5); Red Blood Count 3.21 M/uL (4.7-6.1); White Blood Count 9.35 K/uL (4.8-10.8)
[2021-04-27 07:36] LABS: Albumin Level 3.4 gm/dl (3.4-5.0); BUN Creatinine Ratio 50.7 (10-20); Bilirubin,Total 1.4 mg/dl (0.2-1.0); Calcium 9.1 mg/dl (8.5-10.1); Creatinine Clr Calc Pharmacy 101.5 ml/min; Est GFR (African American) 115.2 ml/min; Est GFR (Non-African American) 99.4 ml/min; Globulin 3.4 gm/dl (2.5-4.0); Potassium 3.8 mmol/L (3.5-5.1); Total Protein 6.8 gm/dl (6.0-8.3)
[2021-04-27 07:46] LABS: Partial Thromboplastin Ratio 0.8; Partial Thromboplastin Time 22.3 Seconds (21.0-31.0); Prothrombin Time 10.3 Seconds (9.0-12.0)
[2021-04-27] MEDS: PANTOprazole 40 MG in SYRINGE 0 ML IV SCH ×2 (07:53→20:34)
--- NOTE | 2021-04-27 08:36 | Gastroenterology Progress Note ---
Date of Service April 27, 2021 Assessment & Plan (1) Dysphagia: Plan: EGD/PEG planned for today. Anesthesia has reviewed and approved for our procedure. Plavix is currently on hold due to retroperitoneal hematoma. Procedure has been discussed with to include but not limited to anesthesia risks including needing to re-intubated, bleeding, perforation, aspiration, and infection. She wishes to proceed and will be the person giving consent for procedure and anesthesia--cell phone [phone]. I spoke to her this morning and she is aware of OR time and she request to be allowed to come in early for the procedure. I will defer this to nursing and did contact the nursing operative supervisor on her 's unit. Please refer to supervising physician addendum for further recommendations. Admission and Anticipated Discharge Date Admission Date: April 05, 2021 Supervising Physician Co-Signing Physician Notes I have seen and examined the patient. I agree with note above by KIMBERLY Lewis except as noted below. HPI with patient. Pt comfortable. Denies pain. PE Abdomen pos bs, soft, no guarding nor rebound A/P dysphagia. For EGD/PEG. Procedure and risks explained to patients which include but not limited to medication reaction, bleeding, perforation, aspiration, and infection.. Subjective Patient with no verbal response this morning. Does grunt and nod/shake head in response to questions. Denies abdominal pain. No change in status per nursing. Remains NPO. Review of Systems Gastrointestinal: as per Subjective / HPI Physical Exam Constitutional: WD/WN, vitals as above Gastrointestinal (Abdomen): pos bs,soft, no guarding nor rebound Results & Data ([facility]) Vital Signs (Past 12 Hours) Vital Signs Temp Pulse Pulse Resp BP Pulse Ox 04/27/21 07:03 36.5 C 95 H 18 119/80 95 04/26/21 22:24 36.4 C L 96 H 16 114/78 95 04/26/21 20:31 20 99 Laboratory Results Laboratory Results - last 24 hr 04/26/21 04/26/21 04/27/21 12:06 18:01 00:21 WBC RBC Hgb Hct MCV MCH MCHC RDW Std Deviation RDW Coeff of Roge Plt Count MPV Immature Gran % (Auto) Neut % (Auto) Lymph % (Auto) [place] % (Auto) Eos % (Auto) Baso % (Auto) Neut # (Auto) Lymph # (Auto) [place] # (Auto) Eos # (Auto) Baso # (Auto) Immature Gran # (Auto) PT INR APTT PTT Ratio Sodium Potassium Chloride Carbon Dioxide Anion Gap BUN Creatinine Est Cr Clr Drug Dosing Est GFR ( Amer) Est GFR (Non-Af Amer) BUN/Creatinine Ratio Glucose POC Glucose 141 H 139 H 136 H Calcium Total Bilirubin AST ALT Alkaline Phosphatase Total Protein Albumin Globulin Albumin/Globulin Ratio 04/27/21 04/27/21 04/27/21 05:49 06:35 06:35 WBC 9.35 RBC 3.21 L Hgb 10.1 L Hct 32.2 L MCV 100.3 H MCH 31.5 MCHC 31.4 L RDW Std Deviation 61.0 H RDW Coeff of Roge 16.8 H Plt Count 426 H MPV 10.3 Immature Gran % (Auto) 0.5 Neut % (Auto) 83.5 Lymph % (Auto) 9.0 [place] % (Auto) 4.3 Eos % (Auto) 2.5 Baso % (Auto) 0.2 Neut # (Auto) 7.81 H Lymph # (Auto) 0.84 L [place] # (Auto) 0.40 Eos # (Auto) 0.23 Baso # (Auto) 0.02 Immature Gran # (Auto) 0.05 H PT 10.3 INR 1.0 APTT 22.3 PTT Ratio 0.8 Sodium Potassium Chloride Carbon Dioxide Anion Gap BUN Creatinine Est Cr Clr Drug Dosing Est GFR ( Amer) Est GFR (Non-Af Amer) BUN/Creatinine Ratio Glucose POC Glucose 132 H Calcium Total Bilirubin AST ALT Alkaline Phosphatase Total Protein Albumin Globulin Albumin/Globulin Ratio 04/27/21 06:35 WBC RBC Hgb Hct MCV MCH MCHC RDW Std Deviation RDW Coeff of Roge Plt Count MPV Immature Gran % (Auto) Neut % (Auto) Lymph % (Auto) [place] % (Auto) Eos % (Auto) Baso % (Auto) Neut # (Auto) Lymph # (Auto) [place] # (Auto) Eos # (Auto) Baso # (Auto) Immature Gran # (Auto) PT INR APTT PTT Ratio Sodium 141 Potassium 3.8 Chloride 108 H Carbon Dioxide 27 Anion Gap 6 BUN 37 H Creatinine 0.73 Est Cr Clr Drug Dosing 101.5 Est GFR ( Amer) 115.2 Est GFR (Non-Af Amer) 99.4 BUN/Creatinine Ratio 50.7 H Glucose 126 H POC Glucose Calcium 9.1 Total Bilirubin 1.4 H AST 20 ALT 18 Alkaline Phosphatase 82 Total Protein 6.8 Albumin 3.4 Globulin 3.4 Albumin/Globulin Ratio 1.0
[2021-04-27] MEDS: SODIUM CHLOR 7% 4 ML NEB NEB SCH (08:56)
--- NOTE | 2021-04-27 10:12 | Hospitalist Progress Note ---
Date of Service April 27, 2021 Assessment & Plan (1) Retroperitoneal hematoma: Plan: Acute blood loss anemia, likely associated with illness and DVT prevention plus antiplatelet medications as stroke prevention transfused 1 units packed RBCs a few days ago Hb is 10.1 today, BP stable clinically the hematoma is resolved Continue to hold Lovenox and clopidogrel, resume aspirin 04/25 (2) Acute sinusitis: Plan: Possible diagnosis but not completely clear given lack of symptoms but given MRI changes with rising WBC without alternative explanation he was started on Unasyn Consider 10-14 day course total with Unasyn - started 04/16, continue until 04/29 WBC is 9k today Start lactobacillus to avoid antibiotic associated diarrhea (3) Dysphagia: Plan: MRI Brain without new acute stroke 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, prior stroke issues Continue tube feeds, tolerating 50cc/hr Patient and wish him to have a PEG spoke with Dr. Martinez, plan for PEG this afternoon NPO since midnight he is at risk of aspiration from anesthesia, patient and aware of risk currently he is 99% on 2L mask, could probably be on room air (4) 2018 novel coronavirus-infected pneumonia (NCIP): Plan: Secondary bacterial pneumonia with continuing COVID 19 infection - unvaccinated was discharged on 03/30, was on room air, sent home on dexamethasone 6mg PO daily had a few good days but got worse quickly on Wednesday 04/04 and declined on 04/05, brought to hospital concern for secondary bacterial pneumonia but also worsening COVID CRP was 23 on admission, procalcitonin elevated, wbc persistently elevated Dexamethasone 20mg IV daily, completed 5 days, -> 10mg IV x 5 days - completed Off COVID isolation 04/15/20, should remain on contact due to MRSA found in sputum (5) Hypoxia: Plan: acute hypoxic respiratory failure Secondary to COVID-19, MRSA went from 15L oxy mask to needing CPAP 10 FiO2 100% on 04/07, moved to ICU and intubated due to distress extubated 04/10/21 Currently on 2L NC, saturations 99%, he is nervous to remove oxygen, makes him feel better lungs are clearer today, no rattle in back of throat stable for PEG placement (6) MRSA pneumonia: Plan: Vancomycin IV initially, change to Linezolid due to renal failure. Finished course of Linezolid for sputum positive culture Continue on contact precautions, with leukocytosis and sinusitis seen on head imaging, treated with Unasyn , WBC normal at 9k (7) COPD (chronic obstructive pulmonary disease) with chronic bronchitis: Plan: Continue as above No wheezing on exam (8) CVA (cerebral vascular accident): Plan: Old CVA - 2015 with residual right sided contracture and weakness and spasticity, MRI brain does not show any new changes 04/16 - Continue with statin via [employer] - ASA resumed, continue to hold Plavix with plan for PEG (9) Spasticity as late effect of cerebrovascular accident (CVA): Plan: Continue Baclofen (10) Migraine without aura: Plan: chronic issue, no complaints past few days Plan: VTE Prophylaxis - no chemical prophylaxis due to retroperitoneal bleed, continue NIK hose and SCDs resume prophylaxis after PEG placed Diet - NPO, on tube feeds via [employer] Discharge - continue on med/tele, COVID isolation precautions removed but remains on contact due to MRSA, PT/OT, Plan for G-tube wishes to have placement in rehab once PEG is placed, likely okay before end of week Admission and Anticipated Discharge Date Admission Date: April 05, 2021 Subjective patient doing great today, down to 2L mask, he is 99%, could probably be on room air he says oxygen makes him feel better, wants to keep it on no fever, vitals stable, labs stable plan for PEG tube placement this afternoon, appreciate GI notes and anesthesia consult Review of Systems Review of Systems: All systems reviewed & are unremarkable except as noted in Subjective Physical Exam Physical Exam: General: well developed, thin male, frail appearing, no distress Neck: supple, trachea midline, normal thyroid Lungs: clear bilaterally, improves with cough, normal respiratory effort, no accessory muscle use, no distress Heart: normal S1 and S2, no murmur, peripheral pulses normal, capillary refill normal, no edema Abdomen: soft, NT, ND, + BS, no hepatomegaly, normal to percussion Extremities: no cyanosis, no petechiae, right hand contracture, generalized weakness Neuro: sedated but will wake up, follow commands, CN II-XII intact, right hand contracture (chronic) Skin: warm, dry, no rash, normal turgor Psych: awake, alert, oriented x 3 Results & Data Results & Data ([facility]) Vital Signs (Past 12 Hours) Vital Signs Temp Pulse Pulse Resp BP Pulse Ox 04/27/21 07:03 36.5 C 95 H 18 119/80 95 04/26/21 22:24 36.4 C L 96 H 16 114/78 95 Laboratory Results Laboratory Results - last 24 hr 04/26/21 04/26/21 04/27/21 12:06 18:01 00:21 WBC RBC Hgb Hct MCV MCH MCHC RDW Std Deviation RDW Coeff of Roge Plt Count MPV Immature Gran % (Auto) Neut % (Auto) Lymph % (Auto) [place] % (Auto) Eos % (Auto) Baso % (Auto) Neut # (Auto) Lymph # (Auto) [place] # (Auto) Eos # (Auto) Baso # (Auto) Immature Gran # (Auto) PT INR APTT PTT Ratio Sodium Potassium Chloride Carbon Dioxide Anion Gap BUN Creatinine Est Cr Clr Drug Dosing Est GFR ( Amer) Est GFR (Non-Af Amer) BUN/Creatinine Ratio Glucose POC Glucose 141 H 139 H 136 H Calcium Total Bilirubin AST ALT Alkaline Phosphatase Total Protein Albumin Globulin Albumin/Globulin Ratio 04/27/21 04/27/21 04/27/21 05:49 06:35 06:35 WBC 9.35 RBC 3.21 L Hgb 10.1 L Hct 32.2 L MCV 100.3 H MCH 31.5 MCHC 31.4 L RDW Std Deviation 61.0 H RDW Coeff of Roge 16.8 H Plt Count 426 H MPV 10.3 Immature Gran % (Auto) 0.5 Neut % (Auto) 83.5 Lymph % (Auto) 9.0 [place] % (Auto) 4.3 Eos % (Auto) 2.5 Baso % (Auto) 0.2 Neut # (Auto) 7.81 H Lymph # (Auto) 0.84 L [place] # (Auto) 0.40 Eos # (Auto) 0.23 Baso # (Auto) 0.02 Immature Gran # (Auto) 0.05 H PT 10.3 INR 1.0 APTT 22.3 PTT Ratio 0.8 Sodium Potassium Chloride Carbon Dioxide Anion Gap BUN Creatinine Est Cr Clr Drug Dosing Est GFR ( Amer) Est GFR (Non-Af Amer) BUN/Creatinine Ratio Glucose POC Glucose 132 H Calcium Total Bilirubin AST ALT Alkaline Phosphatase Total Protein Albumin Globulin Albumin/Globulin Ratio 04/27/21 06:35 WBC RBC Hgb Hct MCV MCH MCHC RDW Std Deviation RDW Coeff of Roge Plt Count MPV Immature Gran % (Auto) Neut % (Auto) Lymph % (Auto) [place] % (Auto) Eos % (Auto) Baso % (Auto) Neut # (Auto) Lymph # (Auto) [place] # (Auto) Eos # (Auto) Baso # (Auto) Immature Gran # (Auto) PT INR APTT PTT Ratio Sodium 141 Potassium 3.8 Chloride 108 H Carbon Dioxide 27 Anion Gap 6 BUN 37 H Creatinine 0.73 Est Cr Clr Drug Dosing 101.5 Est GFR ( Amer) 115.2 Est GFR (Non-Af Amer) 99.4 BUN/Creatinine Ratio 50.7 H Glucose 126 H POC Glucose Calcium 9.1 Total Bilirubin 1.4 H AST 20 ALT 18 Alkaline Phosphatase 82 Total Protein 6.8 Albumin 3.4 Globulin 3.4 Albumin/Globulin Ratio 1.0 Medications Administered Current Inpatient Medications Acetaminophen (Acetaminophen Susp 325 Mg/10.15 Ml Udc) 650 mg PEG Q4H PRN PRN Reason: Pain or Fever Stop: 05/20/21 09:35 Last Admin: 04/20/21 10:26 Dose: 650 mg Documented by: Aspirin (Aspirin 81 Mg Chew) 81 mg NG DAILY [facility] Stop: 05/25/21 08:59 Last Admin: 04/27/21 10:20 Dose: Not Given Documented by: Atorvastatin Calcium (Atorvastatin 40 Mg Tab) 80 mg PEG HS [facility] Stop: 05/08/21 20:59 Last Admin: 04/26/21 20:05 Dose: 80 mg Documented by: Baclofen (Baclofen 20 Mg Tab) 20 mg PEG BID [facility] Stop: 05/09/21 20:59 Last Admin: 04/27/21 10:20 Dose: Not Given Documented by: Benzonatate (Benzonatate 100 Mg Capsule) 100 mg PO TID PRN PRN Reason: cough Stop: 05/16/21 01:58 Clopidogrel Bisulfate (Clopidogrel Bisulfate 75 Mg Tab) 75 mg PO DAILY [facility] Stop: 05/08/21 11:59 Last Admin: 04/15/21 09:01 Dose: 75 mg Documented by: Enteral Nutritional Formula (Peptamen 1.5 Jeison 1,000 Ml Bag) 1,000 ml NG UD [facility]; Protocol Stop: 05/14/21 16:29 Last Admin: 04/25/21 22:29 Dose: 1,000 ml Documented by: Pantoprazole Sodium 40 mg/ (Syringe) 10 mls @ 5 mls/min IV BID MATTIE Stop: 05/25/21 23:24 Last Admin: 04/27/21 07:53 Dose: 5 mls/min Documented by: Insulin Aspart (Insulin Aspart Per Unit) 0 units SC Q6 MATTIE Stop: 05/21/21 00:00 Last Admin: 04/27/21 06:02 Dose: Not Given Documented by: Lactobacillus Acidophilus (Lactobacillus Acidophilus 1 Gm Pack) 1 gm PEG DAILY MATTIE Stop: 05/21/21 08:59 Last Admin: 04/27/21 10:21 Dose: Not Given Documented by: Sodium Chloride (Sodium Chlor 7% 4 Ml Neb) 4 ml NEB BIDR MATTIE Stop: 05/21/21 18:59 Last Admin: 04/27/21 08:56 Dose: Not Given Documented by: Sterile Water (Tube Feeding Water Flush) 60 ml NG Q4H MATTIE Stop: 05/23/21 17:29 Last Admin: 04/27/21 10:21 Dose: Not Given Documented by: PG Care Time/CCT Total # of Minutes Spent Total Time Spent with Patient: Total time spent is greater than 50% in coordination of care (as documented) at patient's floor/unit and/or counseling patient: Coding Level of Care Code 66455 Subseq Hosp Care Lvl 3 Diagnoses Retroperitoneal hematoma K66.1 Acute sinusitis J01.90 Dysphagia R13.10 2019 novel coronavirus-infected pneumonia (NCIP) U07.1; J12.82 Hypoxia R09.02 MRSA pneumonia J15.212 COPD (chronic obstructive pulmonary disease) with chronic bronchitis J44.9 CVA (cerebral vascular accident) I63.9 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
[2021-04-27] MEDS: BACLOFEN 20 MG TAB PEG SCH ×2 (10:20→20:33)
[2021-04-27] MEDS: ASPIRIN 81 MG CHEW NG SCH (10:20)
[2021-04-27] MEDS: LACTOBACILLUS ACIDOPHILUS 1 GM PACK PEG SCH (10:21)
[2021-04-27] MEDS ORDERED: LIDOCAINE 2% 2 ML VIAL/AMP(20MG/ML) INFIL ONE (12:24)
[2021-04-27] MEDS ORDERED: PROPOFOL IV EMULSION 10 MG/ML 20 ML VIAL IV ONE (12:24)
[2021-04-27] MEDS ORDERED: ePHEDrine sulfate 50 MG/ML AMP IV PRN (12:25)
[2021-04-27] MEDS ORDERED: fentaNYL citrate 100 MCG/2 ML VIAL IV PRN (12:25)
[2021-04-27] MEDS ORDERED: ONDANSETRON INJ 2 MG/ML 2 ML VIAL IV PRN (12:25)
[2021-04-27] MEDS ORDERED: ATROPINE SULFATE 0.1 MG/ML 10ML SYR IV PRN (12:25)
[2021-04-27] MEDS ORDERED: fentaNYL citrate 100 MCG/2 ML VIAL ONE (12:31)
[2021-04-27] MEDS ORDERED: ROCURONIUM BROMIDE 10 MG/ML 5 ML VIAL IV ONE (13:10)
[2021-04-27] MEDS ORDERED: SUGAMMADEX SODIUM 200 MG/2 ML VIAL IV ONE (13:14)
[2021-04-27] MEDS ORDERED: ceFAZolin 330 MG/ML 1 GM VIAL ONE (14:11)
--- NOTE | 2021-04-27 14:36 | GI REPORT ---
Patient Name: Alex Mobley Procedure Date: 04/27/2021 12:29 PM Date of : 1960 Admit Type: Inpatient Age: 60 Gender: Male Attending MD: Jason Martinez MD Procedure: Upper GI endoscopy Providers: Jason Martinez MD Referring MD: Referred Self Indications: Dyspepsia, Aspiration Medicines: General Anesthesia Complications: No immediate complications. Estimated blood loss: Minimal. Estimated Blood Loss: Estimated blood loss was minimal. Procedure: Pre-Anesthesia Assessment: - The risks and benefits of the procedure and the sedation options and risks were discussed with the patient. All questions were answered and informed consent was obtained. After obtaining informed consent, the endoscope was passed under direct vision. Throughout the procedure, the patient's blood pressure, pulse, and oxygen saturations were monitored continuously. The Endoscope was introduced through the mouth, and advanced to the second part of duodenum. The upper GI endoscopy was accomplished without difficulty. The patient tolerated the procedure well. Procedure and risks explained to patient which include but not limited to medication reaction, bleeding, perforation, aspiration , and missed lesions. Judicious gas insufflation was used and gas removal done on the way out. The lumen was always visualized when advancing the scope. Prep was good. Washes and suctioning used as needed to get good visualization of the mucosa. Retroflexion to look at the fundus and cardia of the stomach and GE junction was done. Findings: The Z-line was regular and was found 40 cm from the incisors. Patchy mildly erythematous mucosa was found in the entire examined stomach. The gastric antrum was normal. The patient was placed in the supine position for PEG placement. The stomach was insufflated to appose gastric and abdominal suero. A site was located in the antrum of the stomach with good transillumination and manual external pressure for placement. The abdominal wall was marked and prepped in a sterile manner. The area was anesthetized with 2 mL of 1% lidocaine. The trocar needle was introduced through the abdominal wall and into the stomach under direct endoscopic view. A snare was introduced through the endoscope and opened in the gastric lumen. The guide wire was passed through the trocar and into the open snare. The snare was closed around the guide wire. The endoscope and snare were removed, pulling the wire out through the mouth. A skin incision was made at the site of needle insertion. The externally removable 20 Fr [employer] gastrostomy tube was lubricated. The G-tube was tied to the guide wire and pulled through the mouth and into the stomach. The trocar needle was removed, and the gastrostomy tube was pulled out from the stomach through the skin. The external bumper was attached to the gastrostomy tube, and the tube was cut to remove the guide wire. The final position of the gastrostomy tube was confirmed by relook endoscopy, and skin marking noted to be 4 cm at the external bumper. The final tension and compression of the abdominal wall by the PEG tube and external bumper were checked and revealed that the bumper was loose and lightly touching the skin. The feeding tube was capped, and the tube site cleaned and dressed. Estimated blood loss was minimal. The examined duodenum was normal. The exam was otherwise without abnormality. Impression: - Z-line regular, 40 cm from the incisors. - Erythematous mucosa in the stomach. - Normal antrum. - Normal examined duodenum. - The examination was otherwise normal. - An externally removable PEG placement was successfully completed. - No specimens collected. Recommendation: - Return patient to [facility] for [facility] care. - Can use tube for meds today and tube feeds can be started in am. Jason Martinez M.D. Jason Martinez MD 04/27/2021 2:36:10 PM This report has been signed electronically. Note Initiated On: 04/27/2021 12:29 PM Number of Addenda: 0 I attest to the content of the Intraoperative Record and orders documented therein, exceptions below {[id number]}
[2021-04-27] MEDS ORDERED: ONDANSETRON INJ 2 MG/ML 2 ML VIAL ONE (14:54)
[2021-04-27] MEDS ORDERED: DEXAMETHASONE SOD INJ 4 MG/ML VIAL ONE (14:54)
--- NOTE | 2021-04-27 15:02 | Anesthesiology Progress Note ---
Date of Service April 27, 2021 Anesthesia Post Procedure Vital Signs Vital Signs: Temp Pulse Pulse Pulse Resp BP Pulse Ox 04/27/21 14:50 103 H 22 118/76 97 04/27/21 14:42 36.1 C L 103 H 20 126/72 96 04/27/21 13:00 36.9 C 102 H 20 133/96 99 04/27/21 07:03 36.5 C 95 H 18 119/80 95 04/26/21 22:24 36.4 C L 96 H 16 114/78 95 04/26/21 20:31 20 99 Pain Intensity Lower Abdomen: Pain Intensity: 5 Transfer of Care Handoff Completed per policy Notes Mental Status: alert / awake / arousable Patient Amnestic to Procedure: Yes Nausea / Vomiting: adequately controlled Pain: adequately controlled Airway Patency, RR, SpO2: stable & adequate BP & HR: stable & adequate Hydration State: stable & adequate Anesthetic Complications: no major complications apparent and Pt Satisfied with anesthetic care
[2021-04-27] MEDS: ATORVASTATIN 40 MG TAB PEG SCH (20:33)
[2021-04-27] MEDS: ACETAMINOPHEN SUSP 325 MG/10.15 ML UDC PEG PRN (20:34)
[2021-04-28] MEDS: INSULIN ASPART PER UNIT SC SCH ×4 (00:08→19:17)
[2021-04-28] MEDS: TUBE FEEDING WATER FLUSH NG SCH ×6 (01:52→20:57)
[2021-04-28] MEDS: ACETAMINOPHEN SUSP 325 MG/10.15 ML UDC PEG PRN ×2 (02:17→20:56)
[2021-04-28] MEDS ORDERED: MoRPHine SULFATE 2 MG/ML CARP IV STA (05:38)
[2021-04-28 08:12] LABS: Basophils # (auto) 0.01 K/uL (0-0.2); Basophils % (auto) 0.1 %; Hematocrit (blood only) 31.5 % (42-52); Hemoglobin 9.8 g/dL (14.0-18.0); Immature Granulocytes # (auto) 0.04 K/uL (0.00-0.02); Immature Granulocytes % (auto) 0.5 %; Lymphocytes # (auto) 0.75 K/uL (1.2-3.4); Lymphocytes % (auto) 8.9 %; Mean Corpuscular Hemoglobin 30.7 pg (25-34); Mean Corpuscular Hgb Conc 31.1 g/dL (32-36); Mean Corpuscular Volume 98.7 fL (80-100); Monocytes # (auto) 0.47 K/uL (0.11-0.59); Monocytes % (auto) 5.6 %; Neutrophils # (auto) 7.11 K/uL (1.4-6.5); Neutrophils % (auto) 84.9 %; Platelet Count 419 K/uL (130-400); RDW Coefficient of Variation 16.3 % (11.5-14.5); Red Blood Count 3.19 M/uL (4.7-6.1); White Blood Count 8.38 K/uL (4.8-10.8)
[2021-04-28 08:34] LABS: Albumin Globulin Ratio 1.1 (0.9-2); Albumin Level 3.3 gm/dl (3.4-5.0); Bilirubin,Total 1.2 mg/dl (0.2-1.0); Calcium 8.8 mg/dl (8.5-10.1); Creatinine Clr Calc Pharmacy 92.6 ml/min; Est GFR (Non-African American) 95.7 ml/min; Globulin 3.1 gm/dl (2.5-4.0); Potassium 3.8 mmol/L (3.5-5.1); Total Protein 6.4 gm/dl (6.0-8.3)
--- NOTE | 2021-04-28 09:00 | XRay Report ---
XR chest 1V portable CLINICAL HISTORY: Hypoxia, recent pneumonia COMPARISON STUDY: Chest CT and chest radiograph April 21, 2021. FINDINGS: Lung volumes are diminished. This is unchanged. There is no pneumothorax or pleural effusio n. Bilateral airspace opacities are again noted, including left basilar consolidation. Left basilar o pacity has slightly improved. There is no evidence for pulmonary edema. Cardiomediastinal silhouette is stable. IMPRESSION: Redemonstration of multifocal bilateral airspace opacities, including left basilar conso lidation, minimally improved since prior exam. ACT 112: Negative or not required by law. Electronically signed by: Zaki Pal M.D. 04/28/2021 8:58 AM
[2021-04-28] MEDS: PANTOprazole 40 MG in SYRINGE 0 ML IV SCH ×2 (09:15→20:57)
[2021-04-28] MEDS: LACTOBACILLUS ACIDOPHILUS 1 GM PACK PEG SCH (09:17)
[2021-04-28] MEDS: BACLOFEN 20 MG TAB PEG SCH ×2 (09:17→20:57)
[2021-04-28] MEDS: ASPIRIN 81 MG CHEW NG SCH (09:18)
--- NOTE | 2021-04-28 09:37 | Gastroenterology Progress Note ---
Date of Service April 28, 2021 Assessment & Plan (1) Dysphagia: Plan: EGD/PEG yesterday. Patient tolerated procedure well. Bowel sounds decreased this morning. Will hold off on starting tube feedings this morning and reevaluate patient later this afternoon. Meds and water flushes okay at this time. Please refer to supervising physician addendum for further recommendations. Admission and Anticipated Discharge Date Admission Date: April 05, 2021 Supervising Physician Co-Signing Physician Notes I have seen and examined the patient. I agree with note above by KIMBERLY Lewis except as noted below. HPI When entering room patient being cleaned up by nurses post small liquid stool. Pt denies abd pain. WBC and Hgb stable today. Pt asking about laxative and pts states he uses miralax twice a week at home. PE Abdomen decreased bs but present, soft, no guarding nor rebound A/P s/p PEG hypoactive bowel sounds constipation at home Ok to starte tube feeds at low rate 10 ml/hour and advance as tolerated. If patient has not been moving his bowel then ok for miralax 17 gm daily. Subjective Patient sleeping but awakens easily with verbal stimuli this morning. He is answering most questions appropriately but at times delayed response. He denies any current abdominal pain although he did have pain through the night and was medicated with IV morphine. Denies any nausea or vomiting. Pain through the night was at the PEG insertion site. Denies generalized pain. Denies that he is passing any flatus. Review of Systems Gastrointestinal: as per Subjective / HPI Physical Exam Gastrointestinal (Abdomen): Inspection/Auscultation: + abdominal wall ecchymosis; + abnormal bowel sounds (decreased) Percussion/Palpation: abdomen soft; abdomen nontender, no guarding and abdomen not rigid peg tube insertion site with dried drainage at tube insertion site, no redness or bloody discharge noted Results & Data ([facility]) Vital Signs (Past 12 Hours) Vital Signs Temp Pulse Resp BP Pulse Ox 04/28/21 08:05 37.0 C 90 16 120/77 96 04/28/21 05:08 36.2 C L 93 H 16 123/79 94 04/28/21 00:08 90 18 130/74 93 04/27/21 22:15 36.3 C L 88 16 114/73 94 Laboratory Results Laboratory Results - last 24 hr 04/27/21 04/27/21 04/28/21 12:01 17:50 00:06 WBC RBC Hgb Hct MCV MCH MCHC RDW Std Deviation RDW Coeff of Roge Plt Count MPV Immature Gran % (Auto) Neut % (Auto) Lymph % (Auto) [place] % (Auto) Eos % (Auto) Baso % (Auto) Neut # (Auto) Lymph # (Auto) [place] # (Auto) Eos # (Auto) Baso # (Auto) Immature Gran # (Auto) Sodium Potassium Chloride Carbon Dioxide Anion Gap BUN Creatinine Est Cr Clr Drug Dosing Est GFR ( Amer) Est GFR (Non-Af Amer) BUN/Creatinine Ratio Glucose POC Glucose 115 H 127 H 148 H Calcium Total Bilirubin AST ALT Alkaline Phosphatase Total Protein Albumin Globulin Albumin/Globulin Ratio 04/28/21 04/28/21 04/28/21 06:11 07:49 07:49 WBC 8.38 RBC 3.19 L Hgb 9.8 L Hct 31.5 L MCV 98.7 MCH 30.7 MCHC 31.1 L RDW Std Deviation 58.0 H RDW Coeff of Roge 16.3 H Plt Count 419 H MPV 10.0 Immature Gran % (Auto) 0.5 Neut % (Auto) 84.9 Lymph % (Auto) 8.9 [place] % (Auto) 5.6 Eos % (Auto) 0.0 Baso % (Auto) 0.1 Neut # (Auto) 7.11 H Lymph # (Auto) 0.75 L [place] # (Auto) 0.47 Eos # (Auto) 0.00 Baso # (Auto) 0.01 Immature Gran # (Auto) 0.04 H Sodium 141 Potassium 3.8 Chloride 108 H Carbon Dioxide 29 Anion Gap 4 BUN 40 H Creatinine 0.80 Est Cr Clr Drug Dosing 92.6 Est GFR ( Amer) 111.0 Est GFR (Non-Af Amer) 95.7 BUN/Creatinine Ratio 50.0 H Glucose 122 H POC Glucose 130 H Calcium 8.8 Total Bilirubin 1.2 H AST 17 ALT 15 Alkaline Phosphatase 81 Total Protein 6.4 Albumin 3.3 L Globulin 3.1 Albumin/Globulin Ratio 1.1 Diagnostic Findings Chest X-Ray 04/28/21 08:10 XR chest 1V portable CLINICAL HISTORY: Hypoxia, recent pneumonia COMPARISON STUDY: Chest CT and chest radiograph April 21, 2021. FINDINGS: Lung volumes are diminished. This is unchanged. There is no pneu mothorax or pleural effusion. Bilateral airspace opacities are again noted, including left basilar consolidation. Left basilar opacity has slightly improved. There is no evidence for pulmonary edema. Cardiomediastinal silhouette is stable. IMPRESSION: Redemonstration of multifocal bilateral airspace opacities, including left basilar consolidation, minimally improved since prior exam. ACT 112: Negative or not required by law. Electronically signed by: Zaki Pal M.D. 04/28/2021 8:58 AM 04/27/2021: EGD with PEG tube placement due to patient's history of aspiration. Regular Z-line found 40 cm from the incisors. Erythematous mucosa in the stomach was noted. Normal antrum. Normal examined duodenum. Exam otherwise without abnormality. An externally removable PEG placement was successfully completed. There was no specimens collected.
[2021-04-28] MEDS ORDERED: DOCUSATE SODIUM SYRUP 100 MG/10 ML UDC GT STA (14:51)
--- NOTE | 2021-04-28 15:43 | Hospitalist Progress Note ---
Date of Service April 28, 2021 Assessment & Plan (1) Retroperitoneal hematoma: Plan: Acute blood loss anemia, likely associated with illness and DVT prevention plus antiplatelet medications as stroke prevention transfused 1 units packed RBCs a few days ago Hb is 10.1 BP stable clinically the hematoma is resolved Continue to hold Lovenox and clopidogrel, resumed aspirin 04/25 plan to resume Lovenox and Plavix tomorrow (2) Acute sinusitis: Plan: Possible diagnosis but not completely clear given lack of symptoms but given MRI changes with rising WBC without alternative explanation he was started on Unasyn Consider 10-14 day course total with Unasyn - started 04/16, continue until 04/29 WBC is normal Start lactobacillus to avoid antibiotic associated diarrhea (3) Dysphagia: Plan: MRI Brain without new acute stroke 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, prior stroke issues was stable on Peptomen 50mL/hr PEG placed 04/27, tolerated well resume tube feeds at 10mL/hr, go up by 20mL every 8 hours until 50mL/hr reached will speak with nutrition about bolus feedings (4) 2018 novel coronavirus-infected pneumonia (NCIP): Plan: Secondary bacterial pneumonia with continuing COVID 19 infection - unvaccinated was discharged on 03/30, was on room air, sent home on dexamethasone 6mg PO daily had a few good days but got worse quickly on Wednesday 04/04 and declined on 04/05, brought to hospital concern for secondary bacterial pneumonia but also worsening COVID CRP was 23 on admission, procalcitonin elevated, wbc persistently elevated Dexamethasone 20mg IV daily, completed 5 days, -> 10mg IV x 5 days - completed Off COVID isolation 04/15/20, should remain on contact due to MRSA found in sputum (5) Hypoxia: Plan: acute hypoxic respiratory failure Secondary to COVID-19, MRSA went from 15L oxy mask to needing CPAP 10 FiO2 100% on 04/07, moved to ICU and intubated due to distress extubated 04/10/21 Currently on 2L NC, saturations 99%, he is nervous to remove oxygen, makes him feel better lungs are clear today, no rattle in back of throat continue vest therapy BID and hypertonic saline BID (6) MRSA pneumonia: Plan: Vancomycin IV initially, change to Linezolid due to renal failure. Finished course of Linezolid for sputum positive culture Continue on contact precautions, with leukocytosis and sinusitis seen on head imaging, treated with Unasyn , WBC normal (7) COPD (chronic obstructive pulmonary disease) with chronic bronchitis: Plan: Continue as above No wheezing on exam (8) CVA (cerebral vascular accident): Plan: 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, MRI brain does not show any new changes 04/16 - Continue with statin via [employer] - ASA resumed, resume Plavix (9) Spasticity as late effect of cerebrovascular accident (CVA): Plan: Continue Baclofen (10) Migraine without aura: Plan: chronic issue, no complaints past few days Plan: VTE Prophylaxis - resume lovenox now that PEG is placed Diet - NPO, on tube feeds via coredafe Discharge - continue on med/tele, COVID isolation precautions removed but remains on contact due to MRSA, PT/OT wishes to have placement in rehab once PEG is placed, likely okay before end of week Admission and Anticipated Discharge Date Admission Date: April 05, 2021 Subjective patient wants a stool softener, he says stools are difficult to pass will use Colace syrup he is breathing well, has a cough but this is normal his mouth is extremely dry despite Biotin spray and wet sponges d/w Dr. Martinez, okay to start tube feeds slowly at 10mL/hr, I updated RN I updated his at the bedside, she is asking about Flu and COVID vaccines Review of Systems Review of Systems: All systems reviewed & are unremarkable except as noted in Subjective Respiratory: + cough Gastrointestinal: + change in stools (hard) and + constipation Physical Exam Physical Exam: General: well developed, thin male, frail appearing, no distress Neck: supple, trachea midline, normal thyroid Lungs: clear bilaterally, improves with cough, normal respiratory effort, no accessory muscle use, no distress Heart: normal S1 and S2, no murmur, peripheral pulses normal, capillary refill normal, no edema Abdomen: soft, NT, ND, + BS, no hepatomegaly, normal to percussion Extremities: no cyanosis, no petechiae, right hand contracture, generalized wea kness Neuro: sedated but will wake up, follow commands, CN II-XII intact, right hand contracture (chronic) Skin: warm, dry, no rash, normal turgor Psych: awake, alert, oriented x 3 Results & Data Results & Data ([facility]) Vital Signs (Past 12 Hours) Vital Signs Temp Pulse Resp BP Pulse Ox 04/28/21 15:40 36.8 C 95 H 16 118/77 100 04/28/21 11:52 36.9 C 98 H 18 123/82 95 04/28/21 08:05 37.0 C 90 16 120/77 96 04/28/21 05:08 36.2 C L 93 H 16 123/79 94 Laboratory Results Laboratory Results - last 24 hr 04/27/21 04/28/21 04/28/21 17:50 00:06 06:11 WBC RBC Hgb Hct MCV MCH MCHC RDW Std Deviation RDW Coeff of Roge Plt Count MPV Immature Gran % (Auto) Neut % (Auto) Lymph % (Auto) [place] % (Auto) Eos % (Auto) Baso % (Auto) Neut # (Auto) Lymph # (Auto) [place] # (Auto) Eos # (Auto) Baso # (Auto) Immature Gran # (Auto) Sodium Potassium Chloride Carbon Dioxide Anion Gap BUN Creatinine Est Cr Clr Drug Dosing Est GFR ( Amer) Est GFR (Non-Af Amer) BUN/Creatinine Ratio Glucose POC Glucose 127 H 148 H 130 H Calcium Total Bilirubin AST ALT Alkaline Phosphatase Total Protein Albumin Globulin Albumin/Globulin Ratio 04/28/21 04/28/21 04/28/21 07:49 07:49 11:58 WBC 8.38 RBC 3.19 L Hgb 9.8 L Hct 31.5 L MCV 98.7 MCH 30.7 MCHC 31.1 L RDW Std Deviation 58.0 H RDW Coeff of Orge 16.3 H Plt Count 419 H MPV 10.0 Immature Gran % (Auto) 0.5 Neut % (Auto) 84.9 Lymph % (Auto) 8.9 [place] % (Auto) 5.6 Eos % (Auto) 0.0 Baso % (Auto) 0.1 Neut # (Auto) 7.11 H Lymph # (Auto) 0.75 L [place] # (Auto) 0.47 Eos # (Auto) 0.00 Baso # (Auto) 0.01 Immature Gran # (Auto) 0.04 H Sodium 141 Potassium 3.8 Chloride 108 H Carbon Dioxide 29 Anion Gap 4 BUN 40 H Creatinine 0.80 Est Cr Clr Drug Dosing 92.6 Est GFR ( Amer) 111.0 Est GFR (Non-Af Amer) 95.7 BUN/Creatinine Ratio 50.0 H Glucose 122 H POC Glucose 134 H Calcium 8.8 Total Bilirubin 1.2 H AST 17 ALT 15 Alkaline Phosphatase 81 Total Protein 6.4 Albumin 3.3 L Globulin 3.1 Albumin/Globulin Ratio 1.1 Medications Administered Current Inpatient Medications Acetaminophen (Acetaminophen Susp 325 Mg/10.15 Ml Udc) 650 mg PEG Q4H PRN PRN Reason: Pain or Fever Stop: 05/20/21 09:35 Last Admin: 04/28/21 02:17 Dose: 650 mg Documented by: Aspirin (Aspirin 81 Mg Chew) 81 mg NG DAILY [facility] Stop: 05/25/21 08:59 Last Admin: 04/28/21 09:18 Dose: 81 mg Documented by: Atorvastatin Calcium (Atorvastatin 40 Mg Tab) 80 mg PEG HS [facility] Stop: 05/08/21 20:59 Last Admin: 04/27/21 20:33 Dose: 80 mg Documented by: Baclofen (Baclofen 20 Mg Tab) 20 mg PEG BID [facility] Stop: 05/09/21 20:59 Last Admin: 04/28/21 09:17 Dose: 20 mg Documented by: Benzonatate (Benzonatate 100 Mg Capsule) 100 mg PO TID PRN PRN Reason: cough Stop: 05/16/21 01:58 Clopidogrel Bisulfate (Clopidogrel Bisulfate 75 Mg Tab) 75 mg PO DAILY [facility] Stop: 05/08/21 11:59 Last Admin: 04/15/21 09:01 Dose: 75 mg Documented by: Docusate Sodium (Docusate Sodium Syrup 100 Mg/10 Ml Udc) 100 mg GT BID [facility] Stop: 05/28/21 20:59 Enteral Nutritional Formula (Peptamen 1.5 Jeison 1,000 Ml Bag) 1 ml GT UD [facility]; Protocol Stop: 05/28/21 15:44 Pantoprazole Sodium 40 mg/ (Syringe) 10 mls @ 5 mls/min IV BID [facility] Stop: 05/25/21 23:24 Last Admin: 04/28/21 09:15 Dose: 5 mls/min Documented by: Insulin Aspart (Insulin Aspart Per Unit) 0 units SC Q6 MATTIE Stop: 05/21/21 00:00 Last Admin: 04/28/21 12:26 Dose: Not Given Documented by: Lactobacillus Acidophilus (Lactobacillus Acidophilus 1 Gm Pack) 1 gm PEG DAILY MATTIE Stop: 05/21/21 08:59 Last Admin: 04/28/21 09:17 Dose: 1 gm Documented by: Sodium Chloride (Sodium Chlor 7% 4 Ml Neb) 4 ml NEB BIDR [facility] Stop: 05/28/21 18:59 Sterile Water (Tube Feeding Water Flush) 60 ml NG Q4H MATTIE Stop: 05/23/21 17:29 Last Admin: 04/28/21 12:26 Dose: Not Given Documented by: PG Care Time/CCT Total # of Minutes Spent Total Time Spent with Patient: Total time spent is greater than 50% in coordination of care (as documented) at patient's floor/unit and/or counseling patient: Coding Level of Care Code 97618 Subseq Hosp Care Lvl 3 Diagnoses Retroperitoneal hematoma K66.1 Acute sinusitis J01.90 Dysphagia R13.10 2019 novel coronavirus-infected pneumonia (NCIP) U07.1; J12.82 Hypoxia R09.02 MRSA pneumonia J15.212 COPD (chronic obstructive pulmonary disease) with chronic bronchitis J44.9 CVA (cerebral vascular accident) I63.9 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
[2021-04-28] MEDS ORDERED: PEPTAMEN 1.5 CAL 1,000 ML BAG GT SCH (16:00)
[2021-04-28] MEDS: SODIUM CHLOR 7% 4 ML NEB NEB SCH (19:24)
[2021-04-28] MEDS: DOCUSATE SODIUM SYRUP 100 MG/10 ML UDC GT SCH (20:56)
[2021-04-28] MEDS: ATORVASTATIN 40 MG TAB PEG SCH (20:57)
[2021-04-29] MEDS: INSULIN ASPART PER UNIT SC SCH ×4 (00:35→18:19)
[2021-04-29] MEDS: TUBE FEEDING WATER FLUSH NG SCH ×3 (01:34→10:53)
[2021-04-29] MEDS ORDERED: MoRPHine SULFATE 2 MG/ML CARP IV STA (05:04)
[2021-04-29] MEDS: SODIUM CHLOR 7% 4 ML NEB NEB SCH ×2 (08:12→19:24)
--- NOTE | 2021-04-29 08:20 | Gastroenterology Progress Note ---
Date of Service April 29, 2021 Assessment & Plan (1) Dysphagia: Plan: Dysphagia--EGD/PEG 04/27/2021. Decreased bs continue. Tube feeds at low rate 10 ml/hour yesterday and recommend to advance as tolerated. If patient has not been moving his bowel, then ok for miralax 17 gm daily. Please refer to supervising physician addendum for further recommendations. Admission and Anticipated Discharge Date Admission Date: April 05, 2021 Supervising Physician Co-Signing Physician Notes I have seen and examined the patient. I agree with note above by KIMBERLY Lewis except as noted below. HPI with patient for H and P. No abd pain. Tolerating tube feeds. PE Abdomen good bowel sounds, no guarding nor rebound, PEG site no obvious infection A/P dysphagia-- s/p PEG--stable. Will sign off. Please call for further questions. Subjective Patient sleeping this morning. He does awake with verbal stimuli but does not talk much to me this morning. He does however deny any specific abdominal pain, nausea, vomiting. Feeding being administered through the PEG tube. Seems to be tolerating well. Moderate size liquid stool incontinence per nursing documentation this morning. Review of Systems Gastrointestinal: as per Subjective / HPI Physical Exam Gastrointestinal (Abdomen): Inspection/Auscultation: + abdominal wall ecchymosis; + abnormal bowel sounds (decreased) Percussion/Palpation: abdomen soft; abdomen nontender, no guarding and abdomen not rigid Results & Data ([facility]) Vital Signs (Past 12 Hours) Vital Signs Temp Pulse Resp BP Pulse Ox 04/29/21 08:13 74 18 92 04/29/21 07:54 36.7 C 84 16 115/71 97 04/29/21 00:00 36.6 C 91 H 18 112/72 92 04/28/21 20:58 94 Laboratory Results Laboratory Results - last 24 hr 04/28/21 04/28/21 04/28/21 07:49 11:58 17:55 Sodium 141 Potassium 3.8 Chloride 108 H Carbon Dioxide 29 Anion Gap 4 BUN 40 H Creatinine 0.80 Est Cr Clr Drug Dosing 92.6 Est GFR ( Amer) 111.0 Est GFR (Non-Af Amer) 95.7 BUN/Creatinine Ratio 50.0 H Glucose 122 H POC Glucose 134 H 115 H Calcium 8.8 Total Bilirubin 1.2 H AST 17 ALT 15 Alkaline Phosphatase 81 Total Protein 6.4 Albumin 3.3 L Globulin 3.1 Albumin/Globulin Ratio 1.1 04/28/21 04/29/21 23:46 05:33 Sodium Potassium Chloride Carbon Dioxide Anion Gap BUN Creatinine Est Cr Clr Drug Dosing Est GFR ( Amer) Est GFR (Non-Af Amer) BUN/Creatinine Ratio Glucose POC Glucose 115 H 119 H Calcium Total Bilirubin AST ALT Alkaline Phosphatase Total Protein Albumin Globulin Albumin/Globulin Ratio Diagnostic Findings Chest X-Ray 04/28/21 08:10 XR chest 1V portable CLINICAL HISTORY: Hypoxia, recent pneumonia COMPARISON STUDY: Chest CT and chest radiograph April 21, 2021. FINDINGS: Lung volumes are diminished. This is unchanged. There is no pneumothorax or pleural effusion. Bilateral airspace opacities are again noted, including left basilar consolidation. Left basilar opacity has slightly improved. There is no evidence for pulmonary edema. Cardiomediastinal silhouette is stable. IMPRESSION: Redemonstration of multifocal bilateral airspace opacities, including left basilar consolidation, minimally improved since prior exam. ACT 112: Negative or not required by law. Electronically signed by: Zaki Pal M.D. 04/28/2021 8:58 AM
[2021-04-29 08:44] LABS: Basophils # (auto) 0.03 K/uL (0-0.2); Basophils % (auto) 0.4 %; Eosinophils # (auto) 0.22 K/uL (0-0.5); Eosinophils % (auto) 3.1 %; Hematocrit (blood only) 31.4 % (42-52); Hemoglobin 9.8 g/dL (14.0-18.0); Immature Granulocytes # (auto) 0.03 K/uL (0.00-0.02); Immature Granulocytes % (auto) 0.4 %; Lymphocytes # (auto) 0.89 K/uL (1.2-3.4); Lymphocytes % (auto) 12.5 %; Mean Corpuscular Hemoglobin 30.8 pg (25-34); Mean Corpuscular Hgb Conc 31.2 g/dL (32-36); Mean Corpuscular Volume 98.7 fL (80-100); Mean Platelet Volume 10.4 fL (7.4-10.4); Monocytes # (auto) 0.63 K/uL (0.11-0.59); Monocytes % (auto) 8.9 %; Neutrophils % (auto) 74.7 %; Platelet Count 366 K/uL (130-400); RDW Coefficient of Variation 16.7 % (11.5-14.5); RDW Standard Deviation 59.5 fL (36.4-46.3); Red Blood Count 3.18 M/uL (4.7-6.1)
[2021-04-29] MEDS: BACLOFEN 20 MG TAB PEG SCH ×2 (08:59→21:40)
[2021-04-29] MEDS: DOCUSATE SODIUM SYRUP 100 MG/10 ML UDC GT SCH ×2 (08:59→21:39)
[2021-04-29] MEDS: ENOXAPARIN INJ 40 MG/0.4 ML SYR SQ SCH (09:00)
[2021-04-29] MEDS: PANTOprazole 40 MG in SYRINGE 0 ML IV SCH ×2 (09:01→21:40)
[2021-04-29] MEDS: LACTOBACILLUS ACIDOPHILUS 1 GM PACK PEG SCH (09:01)
[2021-04-29 09:31] LABS: Albumin Globulin Ratio 1.1 (0.9-2); Albumin Level 3.2 gm/dl (3.4-5.0); BUN Creatinine Ratio 57.4 (10-20); Calcium 8.6 mg/dl (8.5-10.1); Est GFR (African American) 118.6 ml/min; Est GFR (Non-African American) 102.4 ml/min; Potassium 3.5 mmol/L (3.5-5.1); Total Protein 6.2 gm/dl (6.0-8.3)
[2021-04-29] MEDS: ASPIRIN 81 MG CHEW NG SCH (09:53)
[2021-04-29] MEDS: CLOPIDOGREL BISULFATE 75 MG TAB PO SCH (09:53)
[2021-04-29] MEDS: PEPTAMEN 1.5 CAL 1,000 ML BAG PO PRN ×3 (11:52→17:39)
[2021-04-29] MEDS: TUBE FEEDING WATER FLUSH GT PRN ×4 (12:50→17:36)
--- NOTE | 2021-04-29 13:18 | Hospitalist Progress Note ---
Date of Service April 29, 2021 Assessment & Plan (1) Retroperitoneal hematoma: Plan: Acute blood loss anemia, likely associated with illness and DVT prevention plus antiplatelet medications as stroke prevention transfused 1 units packed RBCs a few days ago Hb is 10.1 BP stable clinically the hematoma is resolved Continue to hold Lovenox and clopidogrel, resumed aspirin 04/25 plan to resume Lovenox and Plavix tomorrow (2) Acute sinusitis: Plan: Possible diagnosis but not completely clear given lack of symptoms but given MRI changes with rising WBC without alternative explanation he was started on Unasyn completed a 14 day course of Unasyn on 04/29 WBC is normal Start lactobacillus to avoid antibiotic associated diarrhea (3) Dysphagia: Plan: MRI Brain without new acute stroke 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, prior stroke issues was stable on Peptomen 50mL/hr PEG placed 04/27, tolerated well resume tube feeds at 10mL/hr, go up by 20mL every 8 hours until 50mL/hr reached will change to bolus feedings 120mL (4) 2018 novel coronavirus-infected pneumonia (NCIP): Plan: Secondary bacterial pneumonia with continuing COVID 19 infection - unvaccinated was discharged on 03/30, was on room air, sent home on dexamethasone 6mg PO daily had a few good days but got worse quickly on Wednesday 04/04 and declined on 04/05, brought to hospital concern for secondary bacterial pneumonia but also worsening COVID CRP was 23 on admission, procalcitonin elevated, wbc persistently elevated Dexamethasone 20mg IV daily, completed 5 days, -> 10mg IV x 5 days - completed Off COVID isolation 04/15/20, should remain on contact due to MRSA found in sputum (5) Hypoxia: Plan: acute hypoxic respiratory failure Secondary to COVID-19, MRSA went from 15L oxy mask to needing CPAP 10 FiO2 100% on 04/07, moved to ICU and intubated due to distress extubated 04/10/21 Currently on 2L NC, saturations 99%, he is stable on room air, oxygen makes him feel better lungs are clear today, no rattle in back of throat continue vest therapy BID and hypertonic saline BID (6) MRSA pneumonia: Plan: Vancomycin IV initially, change to Linezolid due to renal failure. Finished course of Linezolid for sputum positive culture Continue on contact precautions, with leukocytosis and sinusitis seen on head imaging, treated with Unasyn , WBC normal (7) COPD (chronic obstructive pulmonary disease) with chronic bronchitis: Plan: Continue as above No wheezing on exam (8) CVA (cerebral vascular accident): Plan: Old CVA - 2015 with residual right sided contracture and weakness and spasticity, MRI brain does not show any new changes 04/16 - Continue with statin via PEG - ASA resumed, resume Plavix (9) Spasticity as late effect of cerebrovascular accident (CVA): Plan: Continue Baclofen (10) Migraine without aura: Plan: chronic issue, no complaints past few days Plan: VTE Prophylaxis - resume lovenox Diet - NPO, on tube feeds via PEG Discharge - plan for [facility] on Wednesday 05/03 Admission and Anticipated Discharge Date Admission Date: April 05, 2021 Subjective patient doing well today, changed tube feeds to 120mL bolus feedings after discussing with nutrition he is breathing well, has a productive cough, is tolerating the vest therapy updated his at the bedside Review of Systems Review of Systems: All systems reviewed & are unremarkable except as noted in Subjective Respiratory: + cough Physical Exam Physical Exam: General: well developed, thin male, frail appearing, no distress Neck: supple, trachea midline, normal thyroid Lungs: clear bilaterally, improves with cough, normal respiratory effort, no accessory muscle use, no distress Heart: normal S1 and S2, no murmur, peripheral pulses normal, capillary refill normal, no edema Abdomen: soft, NT, ND, + BS, no hepatomegaly, normal to percussion Extremities: no cyanosis, no petechiae, right hand contracture, generalized weakness Neuro: awake, follow commands, CN II-XII intact, right hand contracture (chronic), expressive aphasia (chronic) Skin: warm, dry, no rash, normal turgor Psych: awake, alert, oriented x 3 Results & Data Results & Data ([facility]) Vital Signs (Past 12 Hours) Vital Signs Temp Pulse Resp BP Pulse Ox 04/29/21 08:13 74 18 92 04/29/21 07:54 36.7 C 84 16 115/71 97 PG Care Time/CCT Total # of Minutes Spent Total Time Spent with Patient: Total time spent is greater than 50% in coordination of care (as documented) at patient's floor/unit and/or counseling patient: Coding Level of Care Code 65941 Subseq Hosp Care Lvl 2 Diagnoses Retroperitoneal hematoma K66.1 Acute sinusitis J01.90 Dysphagia R13.10 2019 novel coronavirus-infected pneumonia (NCIP) U07.1; J12.82 Hypoxia R09.02 MRSA pneumonia J15.212 COPD (chronic obstructive pulmonary disease) with chronic bronchitis J44.9 CVA (cerebral vascular accident) I63.9 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
--- NOTE | 2021-04-29 21:18 | Communication Note ---
Date of Service: April 29, 2021 Messaged by nursing about insulin regimen regarding timing of administration and tube feedings. Editing insulin order. Patient is not diabetic, was ordered coverage previously while on IV steroids, since discontinued. He receives bolus tube feeds. Reviewed BSGs and previous administrations of insulin. I have deleted the carb coverage. Keeping a sliding scale w/ loosened goal of 140-180 BSG and correction factor of 40 (changed from 30). Q6h BSG checks.
[2021-04-29] MEDS: ATORVASTATIN 40 MG TAB PEG SCH (21:40)
[2021-04-30] MEDS: INSULIN ASPART PER UNIT SC SCH ×4 (01:21→18:15)
[2021-04-30] MEDS: SODIUM CHLOR 7% 4 ML NEB NEB SCH ×2 (07:48→19:47)
[2021-04-30] MEDS: ASPIRIN 81 MG CHEW NG SCH (09:23)
[2021-04-30] MEDS: PANTOprazole 40 MG in SYRINGE 0 ML IV SCH ×2 (09:23→21:12)
[2021-04-30] MEDS: LACTOBACILLUS ACIDOPHILUS 1 GM PACK PEG SCH (09:23)
[2021-04-30] MEDS: BACLOFEN 20 MG TAB PEG SCH ×2 (09:23→21:11)
[2021-04-30] MEDS: ENOXAPARIN INJ 40 MG/0.4 ML SYR SQ SCH (09:23)
[2021-04-30] MEDS: CLOPIDOGREL BISULFATE 75 MG TAB PO SCH (09:23)
[2021-04-30] MEDS: DOCUSATE SODIUM SYRUP 100 MG/10 ML UDC GT SCH ×2 (09:24→21:11)
[2021-04-30] MEDS: PEPTAMEN 1.5 CAL 1,000 ML BAG PO PRN ×4 (09:39→21:15)
[2021-04-30] MEDS ORDERED: Nursing to Pharmacy Communication SCH ×2 (16:15→19:30)
[2021-04-30] MEDS: ATORVASTATIN 40 MG TAB PEG SCH (21:10)
[2021-04-30] MEDS: ACETAMINOPHEN SUSP 325 MG/10.15 ML UDC PEG PRN (21:14)
[2021-04-30] MEDS: TUBE FEEDING WATER FLUSH GT PRN (21:16)
--- NOTE | 2021-04-30 21:27 | Hospitalist Progress Note ---
Date of Service April 30, 2021 Assessment & Plan (1) 2018 novel coronavirus-infected pneumonia (NCIP): Plan: Secondary bacterial pneumonia with continuing COVID 19 infection - unvaccinated was discharged on 03/30, was on room air, sent home on dexamethasone 6mg PO daily had a few good days but got worse quickly on Wednesday 04/04 and declined on 04/05, brought to hospital concern for secondary bacterial pneumonia but also worsening COVID CRP was 23 on admission, procalcitonin elevated, wbc persistently elevated Dexamethasone 20mg IV daily, completed 5 days, -> 10mg IV x 5 days - completed Off COVID isolation 04/15/20, should remain on contact due to MRSA found in sputum (2) Retroperitoneal hematoma: Plan: Acute blood loss anemia, likely associated with illness and DVT prevention plus antiplatelet medications as stroke prevention transfused 1 units packed RBCs a few days ago Hb was > 10 when last checked BP stable clinically the hematoma is resolved resume Lovenox and clopidogrel, resumed aspirin 04/25 (3) Acute sinusitis: Plan: Possible diagnosis but not completely clear given lack of symptoms but given MRI changes with rising WBC without alternative explanation he was started on Unasyn completed a 14 day course of Unasyn on 04/29 WBC is normal Start lactobacillus to avoid antibiotic associated diarrhea (4) Dysphagia: Plan: MRI Brain without new acute stroke 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, prior stroke issues was stable on Peptomen 50mL/hr PEG placed 04/27, tolerated well will change to bolus feedings and advance as tolerated stopped glucose checks and insulin as his sugars have not been elevated since stopping dexamethasone here is nutrition goal and instructions: 240mL Peptamen 1.5 boluses 5x/day (8:00, 11:00, 14:00, 17:00 and 20:00) free water flushes 100mL before and after every bolus keep head of bed elevated 30-45 degrees during feeding and for 1 hour after bolus mouth care every shift he should continue to get speech therapy, look for any improvements in swallowing (5) Hypoxia: Plan: acute hypoxic respiratory failure Secondary to COVID-19, MRSA went from 15L oxy mask to needing CPAP 10 FiO2 100% on 04/07, moved to ICU and intubated due to distress extubated 04/10/21 Currently on 2L NC, saturations 99%, he is stable on room air, oxygen makes him feel better lungs are clear today, no rattle in back of throat continue vest therapy BID and hypertonic saline BID (6) MRSA pneumonia: Plan: Vancomycin IV initially, change to Linezolid due to renal failure. Finished course of Linezolid for sputum positive culture Continue on contact precautions, with leukocytosis and sinusitis seen on head imaging, treated with Unasyn , WBC normal (7) COPD (chronic obstructive pulmonary disease) with chronic bronchitis: Plan: Continue as above No wheezing on exam (8) CVA (cerebral vascular accident): Plan: Old CVA - 2015 with residual right sided contracture and weakness and spasticity, MRI brain does not show any new changes 04/16 - Continue with statin via PEG - ASA resumed, resumed Plavix (9) Spasticity as late effect of cerebrovascular accident (CVA): Plan: Continue Baclofen (10) Migraine without aura: Plan: chronic issue, no complaints past few days Plan: VTE Prophylaxis - resume lovenox Diet - NPO, on tube feeds via PEG Discharge - plan for [facility] on Wednesday 05/03 give Flu vaccine on 05/01 his asked about COVID vaccine but she is not interested in J&J shot so she will arrange for outpatient COVID vaccine Admission and Anticipated Discharge Date Admission Date: April 05, 2021 Subjective patient doing well today, he complains that the vest therapy huts his PEG site he has good bowel sounds, tolerating the bolus feeds he had loose stools today still with productive cough but lungs clear Review of Systems Review of Systems: All systems reviewed & are unremarkable except as noted in Subjective Respiratory: + cough and + sputum production Gastrointestinal: + abdominal pain (mild pain around PEG site) Physical Exam Physical Exam: General: well developed, thin male, frail appearing, no distress Neck: supple, trachea midline, normal thyroid Lungs: clear bilaterally, + cough, normal respiratory effort, no accessory muscle use, no distress Heart: normal S1 and S2, no murmur, peripheral pulses normal, capillary refill normal, no edema Abdomen: soft, NT, ND, + BS, no hepatomegaly, normal to percussion Extremities: no cyanosis, no petechiae, right hand contracture, generalized weakness Neuro: awake, follow commands, CN II-XII intact, right hand contracture (chronic), expressive aphasia (chronic) Skin: warm, dry, no rash, normal turgor Psych: awake, alert, oriented x 3 Results & Data Results & Data ([facility]) Vital Signs (Past 12 Hours) Vital Signs Temp Pulse Pulse Resp BP Pulse Ox 04/30/21 19:47 90 18 99 04/30/21 14:23 36.8 C 86 18 107/69 97 Laboratory Results Laboratory Results - last 24 hr 04/30/21 04/30/21 04/30/21 00:06 05:25 12:19 POC Glucose 143 H 90 142 H 04/30/21 18:05 POC Glucose 100 H Medications Administered Current Inpatient Medications Acetaminophen (Acetaminophen Susp 325 Mg/10.15 Ml Udc) 650 mg PEG Q4H PRN PRN Reason: Pain or Fever Stop: 05/20/21 09:35 Last Admin: 04/30/21 21:14 Dose: 650 mg Documented by: Aspirin (Aspirin 81 Mg Chew) 81 mg NG DAILY MATTIE Stop: 05/25/21 08:59 Last Admin: 04/30/21 09:23 Dose: 81 mg Documented by: Atorvastatin Calcium (Atorvastatin 40 Mg Tab) 80 mg PEG HS MATTIE Stop: 05/08/21 20:59 Last Admin: 04/30/21 21:10 Dose: 80 mg Documented by: Baclofen (Baclofen 20 Mg Tab) 20 mg PEG BID MATTIE Stop: 05/09/21 20:59 Last Admin: 04/30/21 21:11 Dose: 20 mg Documented by: Benzonatate (Benzonatate 100 Mg Capsule) 100 mg PO TID PRN PRN Reason: cough Stop: 05/16/21 01:58 Clopidogrel Bisulfate (Clopidogrel Bisulfate 75 Mg Tab) 75 mg PO DAILY MATTIE Stop: 05/08/21 11:59 Last Admin: 04/30/21 09:23 Dose: 75 mg Documented by: Docusate Sodium (Docusate Sodium Syrup 100 Mg/10 Ml Udc) 100 mg GT BID MATTIE Stop: 05/28/21 20:59 Last Admin: 04/30/21 21:11 Dose: 100 mg Documented by: Enoxaparin Sodium (Enoxaparin Inj 40 Mg/0.4 Ml Syr) 40 mg SQ QAM MATTIE Stop: 05/29/21 08:59 Last Admin: 04/30/21 09:23 Dose: 40 mg Documented by: Enteral Nutritional Formula (Peptamen 1.5 Jeison 1,000 Ml Bag) 1,000 ml PO UD PRN; Protocol PRN Reason: INTERMITTENT TUBE FEED Stop: 05/29/21 10:59 Last Admin: 04/30/21 21:15 Dose: 1,000 ml Documented by: Pantoprazole Sodium 40 mg/ (Syringe) 10 mls @ 5 mls/min IV BID MATTIE Stop: 05/25/21 23:24 Last Admin: 04/30/21 21:12 Dose: 5 mls/min Documented by: Influenza Virus Vaccine Quadrival (Fluarix Quadrivalent 0.5 Ml Syr) 0.5 ml IM .ONCE ONE Stop: 05/01/21 09:01 Lactobacillus Acidophilus (Lactobacillus Acidophilus 1 Gm Pack) 1 gm PEG DAILY MATTIE Stop: 05/21/21 08:59 Last Admin: 04/30/21 09:23 Dose: 1 gm Documented by: Sodium Chloride (Sodium Chlor 7% 4 Ml Neb) 4 ml NEB BIDR MATTIE Stop: 05/28/21 18:59 Last Admin: 04/30/21 19:47 Dose: 4 ml Documented by: Sterile Water (Tube Feeding Water Flush) 100 ml GT UD PRN PRN Reason: BEFORE/AFTER TUBE FEED Stop: 05/29/21 10:59 Last Admin: 04/30/21 21:16 Dose: 100 ml Documented by: PG Care Time/CCT Total # of Minutes Spent Total Time Spent with Patient: Total time spent is greater than 50% in coordination of care (as documented) at patient's floor/unit and/or counseling patient: Coding Level of Care Code 71195 Subseq Hosp Care Lvl 3 Diagnoses Retroperitoneal hematoma K66.1 Acute sinusitis J01.90 Dysphagia R13.10 2019 novel coronavirus-infected pneumonia (NCIP) U07.1; J12.82 Hypoxia R09.02 MRSA pneumonia J15.212 COPD (chronic obstructive pulmonary disease) with chronic bronchitis J44.9 CVA (cerebral vascular accident) I63.9 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
[2021-05-01] MEDS: LACTOBACILLUS ACIDOPHILUS 1 GM PACK PEG SCH (07:57)
[2021-05-01] MEDS: CLOPIDOGREL BISULFATE 75 MG TAB PO SCH (07:57)
[2021-05-01] MEDS: ASPIRIN 81 MG CHEW NG SCH (07:57)
[2021-05-01] MEDS: BACLOFEN 20 MG TAB PEG SCH ×2 (07:57→21:26)
[2021-05-01] MEDS: PANTOprazole 40 MG in SYRINGE 0 ML IV SCH ×2 (07:58→21:26)
[2021-05-01] MEDS: DOCUSATE SODIUM SYRUP 100 MG/10 ML UDC GT SCH ×2 (07:58→21:23)
[2021-05-01] MEDS: ENOXAPARIN INJ 40 MG/0.4 ML SYR SQ SCH (07:58)
[2021-05-01] MEDS: ACETAMINOPHEN SUSP 325 MG/10.15 ML UDC PEG PRN (08:03)
[2021-05-01] MEDS: SODIUM CHLOR 7% 4 ML NEB NEB SCH ×2 (08:18→20:32)
[2021-05-01] MEDS: PEPTAMEN 1.5 CAL 1,000 ML BAG PO PRN ×3 (08:27→17:36)
[2021-05-01] MEDS ORDERED: FLUARIX QUADRIVALENT 0.5 ML SYR IM ONE (09:00)
[2021-05-01 09:52] LABS: Hematocrit (blood only) 31.7 % (42-52); Hemoglobin 10.2 g/dL (14.0-18.0); Mean Corpuscular Hemoglobin 31.1 pg (25-34); Mean Corpuscular Hgb Conc 32.2 g/dL (32-36); Mean Corpuscular Volume 96.6 fL (80-100); Mean Platelet Volume 10.5 fL (7.4-10.4); Platelet Count 319 K/uL (130-400); RDW Coefficient of Variation 16.4 % (11.5-14.5); RDW Standard Deviation 57.3 fL (36.4-46.3); Red Blood Count 3.28 M/uL (4.7-6.1); White Blood Count 7.02 K/uL (4.8-10.8)
[2021-05-01 10:12] LABS: BUN Creatinine Ratio 38.5 (10-20); Calcium 8.3 mg/dl (8.5-10.1); Est GFR (African American) 120.8 ml/min; Est GFR (Non-African American) 104.3 ml/min; Phosphorus 2.2 mg/dl (2.5-4.9); Potassium 3.4 mmol/L (3.5-5.1)
[2021-05-01] MEDS: POT PHOSPHATE MONOBASIC W/ SOD TAB PEG SCH ×3 (13:46→21:24)
--- NOTE | 2021-05-01 15:35 | Hospitalist Progress Note ---
Date of Service May 01, 2021 Assessment & Plan (1) 2018 novel coronavirus-infected pneumonia (NCIP): Plan: Secondary bacterial pneumonia with COVID 19 infection - unvaccinated was discharged on 03/30 after admission for COVID-19 PNA, was on room air, sent home on dexamethasone 6mg PO daily had a few good days but got worse quickly on Wednesday 04/04 and declined on 04/05, brought to hospital concern for secondary bacterial pneumonia but also worsening COVID CRP was 23 on admission, procalcitonin elevated, wbc persistently elevated Was intubated this admission Dexamethasone 20mg IV daily, completed 5 days, -> 10mg IV x 5 days - completed Off COVID isolation 04/15/20, should remain on contact due to MRSA found in sputum (2) Retroperitoneal hematoma: Plan: Acute blood loss anemia, likely associated with illness and DVT prevention plus antiplatelet medications as stroke prevention transfused 1 units packed RBCs Hb remains > 10 BP stable clinically the hematoma is resolved, does have some ecchymosis on right flank resumed Lovenox and clopidogrel, resumed aspirin 04/25 and hgb remains stable (3) Acute sinusitis: Plan: Possible diagnosis but not completely clear given lack of symptoms but given MRI changes with rising WBC without alternative explanation he was started on Unasyn completed a 14 day course of Unasyn on 04/29 WBC is normal Started lactobacillus to avoid antibiotic associated diarrhea (4) Dysphagia: Plan: MRI Brain without new acute stroke 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, prior stroke issues was stable on Peptomen 50mL/hr PEG placed 04/27, tolerated well changed to bolus feedings and tolerating stopped glucose checks and insulin as his sugars have not been elevated since stopping dexamethasone here is nutrition goal and instructions: 240mL Peptamen 1.5 boluses 5x/day (8:00, 11:00, 14:00, 17:00 and 20:00) free water flushes 100mL before and after every bolus keep head of bed elevated 30-45 degrees during feeding and for 1 hour after bolus mouth care every shift he should continue to get speech therapy, look for any improvements in swallowing (5) Hypoxia: Plan: acute hypoxic respiratory failure Secondary to COVID-19, MRSA went from 15L oxy mask to needing CPAP 10 FiO2 100% on 04/07, moved to ICU and intubated due to distress extubated 04/10/21 Currently on 2-3L NC, saturations 99%, he is stable on room air, oxygen makes him feel better, but did drop to 84% when off O2 briefly on 05/01 lungs are clear today, but does have poor inspiratory effort continue vest therapy BID and hypertonic saline BID (6) MRSA pneumonia: Plan: Vancomycin IV initially, changed to Linezolid due to renal failure. Finished course of Linezolid for sputum positive culture Continue on contact precautions, with leukocytosis and sinusitis seen on head imaging, treated with Unasyn , WBC normal now (7) COPD (chronic obstructive pulmonary disease) with chronic bronchitis: Plan: Continue as above No wheezing on exam (8) CVA (cerebral vascular accident): Plan: Old CVA - 2015 with residual right sided contracture and weakness and spasticity, MRI brain does not show any new changes 04/16 - Continue with statin via PEG - ASA resumed, resumed Plavix (9) Spasticity as late effect of cerebrovascular accident (CVA): Plan: Continue Baclofen (10) Migraine without aura: Plan: chronic issue, no complaints (11) Anal or rectal pain: Plan: started on 05/01, spasms are severe, coming and going no constipation issues but having large loose stools with tube feeds no fecal impaction or mass, no blood on rectal exam suspect anal sphincter spasm +/- anal fissure? -topical nifedipine would be good option but not available here--> would need to call this into [facility] and have pick it up -for now, start topical lidocaine tid -continue to keep bowels soft Plan: VTE Prophylaxis -lovenox Diet - NPO, on tube feeds via PEG Discharge - plan for [facility] on Wednesday 05/03 give Flu vaccine on 05/01 his asked about COVID vaccine but she is not interested in J&J shot so she will arrange for outpatient COVID vaccine Admission and Anticipated Discharge Date Admission Date: April 05, 2021 Subjective Pt has c/o severe spasms in the rectal region coming and going today. He did have two large BMs and one small one in the last 24 hours as per RN. When he has the pain, he typically has some incontinence to stool with it. He has never had this before. Denies blood in stool, no abd pain. Has a mild cough, no SOB, remains on 3LNC. No chest pain He does not feel ready to remove his Estrella yet as he has not even sat on the side of the bed since admission. He typically ambulates at home despite his right sided hemiparesis. Review of Systems Review of Systems: All systems reviewed & are unremarkable except as noted in HPI & below Physical Exam Constitutional: WD/WN, vitals as above Eyes: + anicteric sclerae Neck: trachea midline, no thyromegaly Respiratory: normal respiratory effort, lungs clear to auscultation Cardiovascular: RRR, no murmur, no edema Chest (Breasts): Chest: normal inspection of chest Gastrointestinal (Abdomen): normal bowel sounds, soft, nontender, no hepatosplenomegaly Inspection/Auscultation: + abdomen abnormal to inspection (PEG tube in place,multiple circular areas of ecchymosis 1-2 cm ) Rectal Exa m: normal visual inspection of rectum; normal sphincter tone, no rectal mass, no hemorrhoids, no fecal impaction and no rectal fissure (could not visualize fissure,no blood) Musculoskeletal: Extremities: + extremities abnormal to inspection (flexion contracture RUE), no cyanosis and no clubbing Skin: no rashes, warm and dry Trauma: + hematoma (right flank) Neurologic: + focal motor deficit (right sided weakness) and awake; not confused Speech / Cognition: + expressive aphasia (can say yes/no and short phrases) Psychiatric: A+Ox3, euthymic affect Genitourinary: Estrella in place with clear yellow urine Lymphatic: no lymphedema Results & Data Results & Data ([facility]) Vital Signs (Past 12 Hours) Vital Signs Temp Pulse Pulse Resp BP Pulse Ox 05/01/21 14:26 36.3 C L 87 16 119/79 94 05/01/21 08:32 89 20 100 05/01/21 07:24 36.9 C 85 18 115/76 95 Laboratory Results 05/01/21 09:14 05/01/21 09:14 PG Care Time/CCT Total # of Minutes Spent Total Time Spent with Patient: Total time spent is greater than 50% in coordination of care (as documented) at patient's floor/unit and/or counseling patient: Coding Level of Care Code 23829 Subseq Hosp Care Lvl 2 Diagnoses 2019 novel coronavirus-infected pneumonia (NCIP) U07.1; J12.82 Retroperitoneal hematoma K66.1 Acute sinusitis J01.90 Dysphagia R13.10 Hypoxia R09.02 MRSA pneumonia J15.212 COPD (chronic obstructive pulmonary disease) with chronic bronchitis J44.9 CVA (cerebral vascular accident) I63.9 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 Anal or rectal pain K62.89
[2021-05-01] MEDS: LIDOCAINE 2% JELLY 5 ML TUBE EXT SCH ×2 (17:36→21:25)
[2021-05-01] MEDS: ATORVASTATIN 40 MG TAB PEG SCH (21:25)
[2021-05-02 06:25] LABS: Basophils # (auto) 0.03 K/uL (0-0.2); Basophils % (auto) 0.4 %; Eosinophils # (auto) 0.35 K/uL (0-0.5); Eosinophils % (auto) 4.8 %; Hematocrit (blood only) 31.9 % (42-52); Hemoglobin 10.2 g/dL (14.0-18.0); Immature Granulocytes # (auto) 0.13 K/uL (0.00-0.02); Immature Granulocytes % (auto) 1.8 %; Lymphocytes % (auto) 17.7 %; Mean Corpuscular Hemoglobin 31.2 pg (25-34); Mean Corpuscular Volume 97.6 fL (80-100); Mean Platelet Volume 10.1 fL (7.4-10.4); Monocytes # (auto) 0.57 K/uL (0.11-0.59); Monocytes % (auto) 7.8 %; Neutrophils # (auto) 4.96 K/uL (1.4-6.5); Neutrophils % (auto) 67.5 %; Platelet Count 329 K/uL (130-400); RDW Coefficient of Variation 16.1 % (11.5-14.5); RDW Standard Deviation 57.5 fL (36.4-46.3); Red Blood Count 3.27 M/uL (4.7-6.1); White Blood Count 7.34 K/uL (4.8-10.8)
[2021-05-02 06:45] LABS: BUN Creatinine Ratio 29.9 (10-20); Calcium 8.2 mg/dl (8.5-10.1); Creatinine Clr Calc Pharmacy 110.6 ml/min; Est GFR (African American) 119.4 ml/min; Magnesium 1.9 mg/dl (1.7-2.4); Phosphorus 2.2 mg/dl (2.5-4.9); Potassium 3.2 mmol/L (3.5-5.1)
[2021-05-02] MEDS: SODIUM CHLOR 7% 4 ML NEB NEB SCH ×2 (07:31→20:02)
[2021-05-02] MEDS: TUBE FEEDING WATER FLUSH GT PRN ×2 (08:01→13:10)
[2021-05-02] MEDS: PEPTAMEN 1.5 CAL 1,000 ML BAG PO PRN ×4 (08:01→21:12)
[2021-05-02] MEDS ORDERED: POTASSIUM PHOS 3 MMOL/1 ML INFUSION IV STA (09:32)
[2021-05-02] MEDS ORDERED: POTASSIUM PHOSPHATE 15 MMOL in SODIUM CHLORIDE 0.9% 250 ML IV ONE (10:00)
[2021-05-02] MEDS: PANTOprazole 40 MG in SYRINGE 0 ML IV SCH (10:16)
[2021-05-02] MEDS: POT PHOSPHATE MONOBASIC W/ SOD TAB PEG SCH ×4 (10:17→20:49)
[2021-05-02] MEDS: ASPIRIN 81 MG CHEW NG SCH (10:18)
[2021-05-02] MEDS: BACLOFEN 20 MG TAB PEG SCH ×2 (10:18→20:49)
[2021-05-02] MEDS: LACTOBACILLUS ACIDOPHILUS 1 GM PACK PEG SCH (10:18)
[2021-05-02] MEDS: ENOXAPARIN INJ 40 MG/0.4 ML SYR SQ SCH (10:19)
[2021-05-02] MEDS: DOCUSATE SODIUM SYRUP 100 MG/10 ML UDC GT SCH ×2 (10:19→20:57)
[2021-05-02] MEDS: CLOPIDOGREL BISULFATE 75 MG TAB PO SCH (10:19)
[2021-05-02] MEDS: LIDOCAINE 2% JELLY 5 ML TUBE EXT SCH ×3 (11:16→21:12)
--- NOTE | 2021-05-02 19:37 | Hospitalist Progress Note ---
Date of Service May 02, 2021 Assessment & Plan (1) 2018 novel coronavirus-infected pneumonia (NCIP): Plan: Secondary bacterial pneumonia with COVID 19 infection - unvaccinated was discharged on 03/30 after admission for COVID-19 PNA, was on room air, sent home on dexamethasone 6mg PO daily had a few good days but got worse quickly on Wednesday 04/04 and declined on 04/05, brought to hospital concern for secondary bacterial pneumonia but also worsening COVID CRP was 23 on admission, procalcitonin elevated, wbc persistently elevated Was intubated this admission Dexamethasone 20mg IV daily, completed 5 days, -> 10mg IV x 5 days - completed Off COVID isolation 04/15/20, should remain on contact due to MRSA found in sputum (2) Retroperitoneal hematoma: Plan: Acute blood loss anemia, likely associated with illness and DVT prevention plus antiplatelet medications as stroke prevention transfused 1 units packed RBCs Hb remains > 10 for many days and is stable BP stable clinically the hematoma is resolved, does have some ecchymosis on right flank resumed Lovenox and clopidogrel, resumed aspirin 04/25 and hgb remains stable (3) Acute sinusitis: Plan: Possible diagnosis but not completely clear given lack of symptoms but given MRI changes with rising WBC without alternative explanation he was started on Unasyn completed a 14 day course of Unasyn on 04/29 WBC is normal Started lactobacillus to avoid antibiotic associated diarrhea (4) Dysphagia: Plan: MRI Brain without new acute stroke 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, prior stroke issues, intubation was stable on Peptomen 50mL/hr PEG placed 04/27, tolerated well changed to bolus feedings and tolerating stopped glucose checks and insulin as his sugars have not been elevated since stopping dexamethasone here is nutrition goal and instructions: 240mL Peptamen 1.5 boluses 5x/day (8:00, 11:00, 14:00, 17:00 and 20:00) -Change free water flushes to 75 mL before and after every bolus due to hypon atremia-total free water will now be 750 mL / 24 hours keep head of bed elevated 30-45 degrees during feeding and for 1 hour after bolus mouth care every shift he should continue to get speech therapy, look for any improvements in swallowing -Still having issues clearing his own secretions (5) Hypoxia: Plan: acute hypoxic respiratory failure Secondary to COVID-19, MRSA went from 15L oxy mask to needing CPAP 10 FiO2 100% on 04/07, moved to ICU and intubated due to distress extubated 04/10/21 Currently on 2-3L NC, saturations 93% With coarse upper airway sounds due to difficulty clearing secretions -continue vest therapy BID and hypertonic saline BID (6) MRSA pneumonia: Plan: Vancomycin IV initially, changed to Linezolid due to renal failure. Finished course of Linezolid for sputum positive culture Continue on contact precautions with leukocytosis and sinusitis seen on head imaging, treated with Unasyn , WBC normal now (7) COPD (chronic obstructive pulmonary disease) with chronic bronchitis: Plan: Continue as above No wheezing on exam (8) CVA (cerebral vascular accident): Plan: Old CVA - 2015 with residual right sided contracture and weakness and spasticity, MRI brain does not show any new changes 04/16 - Continue with statin via PEG - ASA resumed, resumed Plavix (9) Anal or rectal pain: Plan: started on 05/01, spasms are severe, coming and going no constipation issues but having large loose stools with tube feeds no fecal impaction or mass, no blood on rectal exam suspect anal sphincter spasm +/- anal fissure? -topical nifedipine would be good option but not available here--> would need to call this into [facility] and have pick it up on Monday when that pharmacy is open -He has had some mild improvement in pain with starting topical lidocaine tid -continue to keep bowels soft (10) Hyponatremia: Plan: Sodium decreased down to 132 today Lower amount of free water flushes from 100 mL to 75 mL before and after each bolus feed for a total of 750 mL free water daily Follow BMP in the morning (11) Hypokalemia: Plan: Potassium low at 3.2 Replace with IV potassium phosphorus as well as continued p.o. potassium phosphate tablets 4 times daily Follow BMP, magnesium in the morning Replacing IV magnesium with 1 g to keep magnesium at or above 2.0 (12) Hypophosphatemia: Plan: Low again today at 2.2 Continue to replace with IV and p.o. phosphorus Follow level in the morning (13) Spasticity as late effect of cerebrovascular accident (CVA): Plan: Continue Baclofen (14) Migraine without aura: Plan: chronic issue, no complaints Plan: VTE Prophylaxis -lovenox Diet - NPO, on tube feeds via PEG Discharge - plan for [facility] on Wednesday 05/03 as long as no major electrolyte abnormalities or other issues Received flu vaccine on 05/01 his asked about COVID vaccine but she is not interested in J&J shot so she will arrange for outpatient COVID vaccine Admission and Anticipated Discharge Date Admission Date: April 05, 2021 Anticipated date of discharge: 05/03/21 Subjective Still having some spasms in the rectum but improved somewhat from yesterday. Moving bowels. Still with cough and is having great difficulty clearing his sputum Otherwise no complaints. Review of Systems Review of Systems: All systems reviewed & are unremarkable except as noted in HPI & below Physical Exam Constitutional: WD/WN, vitals as above Eyes: + anicteric sclerae Neck: trachea midline, no thyromegaly Respiratory: normal respiratory effort and + cough (Coarse, not able to cough up mucus) Auscultation: + rhonchi (Upper airway mostly); no crackles and no wheezes Cardiovascular: RRR, no murmur, no edema Chest (Breasts): Chest: normal inspection of chest Gastrointestinal (Abdomen): normal bowel sounds, soft, nontender, no hepatosplenomegaly Inspection/Auscultation: + abdomen abnormal to inspection (PEG tube in place,multiple circular areas of ecchymosis 1-2 cm ) Musculoskeletal: Extremities: + extremities abnormal to inspection (flexion contracture RUE), no cyanosis and no clubbing Skin: no rashes, warm and dry Neurologic: + focal motor deficit (right sided weakness) and awake; not confused Speech / Cognition: + expressive aphasia (can say yes/no and short phrases) Psychiatric: A+Ox3, euthymic affect Genitourinary: Estrella catheter in place draining clear yellow urine Lymphatic: no lymphedema Results & Data Results & Data ([facility]) Vital Signs (Past 12 Hours) Vital Signs Temp Pulse Resp BP Pulse Ox 05/02/21 16:08 37.5 C 96 H 18 113/69 93 05/02/21 07:32 85 20 99 Laboratory Results 05/02/21 05/02/21 Range/Units 06:12 06:12 WBC 7.34 (4.8-10.8) K/uL RBC 3.27 L (4.7-6.1) M/uL Hgb 10.2 L (14.0-18.0) g/dL Hct 31.9 L (42-52) % MCV 97.6 (80-100) fL MCH 31.2 (25-34) pg MCHC 32.0 (32-36) g/dL RDW Std Deviation 57.5 H (36.4-46.3) fL RDW Coeff of Roge 16.1 H (11.5-14.5) % Plt Count 329 (130-400) K/uL MPV 10.1 (7.4-10.4) fL Immature Gran % (Auto) 1.8 % Neut % (Auto) 67.5 % Lymph % (Auto) 17.7 % [place] % (Auto) 7.8 % Eos % (Auto) 4.8 % Baso % (Auto) 0.4 % Neut # (Auto) 4.96 (1.4-6.5) K/uL Lymph # (Auto) 1.30 (1.2-3.4) K/uL [place] # (Auto) 0.57 (0.11-0.59) K/uL Eos # (Auto) 0.35 (0-0.5) K/uL Baso # (Auto) 0.03 (0-0.2) K/uL Immature Gran # (Auto) 0.13 H (0.00-0.02) K/uL Sodium 132 L (136-145) mmol/L Potassium 3.2 L (3.5-5.1) mmol/L Chloride 101 (98-107) mmol/L Carbon Dioxide 30 (21-32) mmol/L Anion Gap 1 L (3-11) BUN 20 (6-23) mg/dl Creatinine 0.67 (0.6-1.4) mg/dl Est Cr Clr Drug Dosing 110.6 ml/min Est GFR ( Amer) 119.4 ml/min Est GFR (Non-Af Amer) 103.0 ml/min BUN/Creatinine Ratio 29.9 H (10-20) Glucose 117 H (70-99(Fasting)) mg/dl Calcium 8.2 L (8.5-10.1) mg/dl Phosphorus 2.2 L (2.5-4.9) mg/dl Magnesium 1.9 (1.7-2.4) mg/dl PG Care Time/CCT Total # of Minutes Spent Total Time Spent with Patient: Total time spent is greater than 50% in coordination of care (as documented) at patient's floor/unit and/or counseling patient: Coding Level of Care Code 88881 Subseq Hosp Care Lvl 3 Diagnoses 2019 novel coronavirus-infected pneumonia (NCIP) U07.1; J12.82 Retroperitoneal hematoma K66.1 Acute sinusitis J01.90 Dysphagia R13.10 Hypoxia R09.02 MRSA pneumonia J15.212 COPD (chronic obstructive pulmonary disease) with chronic bronchitis J44.9 CVA (cerebral vascular accident) I63.9 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 Anal or rectal pain K62.89 Hyponatremia E87.1 Hypokalemia E87.6 Hypophosphatemia E83.39
[2021-05-02] MEDS ORDERED: MAGNESIUM SULFATE / D5W 1 GM/100 ML BAG IV ONE (19:45)
[2021-05-02] MEDS: LANSOPRAZOLE 15 MG SOLTAB PEG SCH (20:49)
[2021-05-02] MEDS: ATORVASTATIN 40 MG TAB PEG SCH (20:49)
[2021-05-03] MEDS: SODIUM CHLOR 7% 4 ML NEB NEB SCH (08:18)
[2021-05-03 08:29] LABS: BUN Creatinine Ratio 25.8 (10-20); Calcium 8.4 mg/dl (8.5-10.1); Creatinine Clr Calc Pharmacy 119.5 ml/min; Est GFR (African American) 123.2 ml/min; Est GFR (Non-African American) 106.3 ml/min; Magnesium 2.3 mg/dl (1.7-2.4); Potassium 3.1 mmol/L (3.5-5.1)
[2021-05-03] MEDS: TUBE FEEDING WATER FLUSH GT PRN ×5 (09:06→15:10)
[2021-05-03] MEDS: PEPTAMEN 1.5 CAL 1,000 ML BAG PO PRN ×2 (09:07→11:46)
[2021-05-03] MEDS: BACLOFEN 20 MG TAB PEG SCH (09:17)
[2021-05-03] MEDS: LANSOPRAZOLE 15 MG SOLTAB PEG SCH (09:18)
[2021-05-03] MEDS: DOCUSATE SODIUM SYRUP 100 MG/10 ML UDC GT SCH (09:19)
[2021-05-03] MEDS: ENOXAPARIN INJ 40 MG/0.4 ML SYR SQ SCH (09:20)
[2021-05-03] MEDS: POT PHOSPHATE MONOBASIC W/ SOD TAB PEG SCH ×2 (09:20→13:25)
[2021-05-03] MEDS: LACTOBACILLUS ACIDOPHILUS 1 GM PACK PEG SCH (09:20)
[2021-05-03] MEDS: ASPIRIN 81 MG CHEW NG SCH (09:22)
[2021-05-03] MEDS: CLOPIDOGREL BISULFATE 75 MG TAB PO SCH (09:22)
[2021-05-03] MEDS: LIDOCAINE 2% JELLY 5 ML TUBE EXT SCH ×2 (09:23→15:18)
[2021-05-03] MEDS ORDERED: POTASSIUM CHLORIDE 20 MEQ/15 ML UDC PEG STA (10:03)
--- NOTE | 2021-05-03 13:12 | Discharge Summary ---
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 Patient was admitted for COVID 19 on 03/26 where he underwent Decadron therapy of 6 mg daily and finished this on 04/04/21, remedisivir, zinc and vitamin C- He was discharged on 03/30 with home oxygen. on , the patient started to experience increase in cough, chest congestion and fevers. reports that fevers were worse at night and peaked yesterday evening at 103.8. They attempted Tylenol during the day which, helped but during the night if he did not take it he would have rigors and sweats. His cough and use of his nebulizers has increased, as well as his home pulse oximeter dropping into the mid 80s per . They increased his home O2 to 4-5 liters. He came to the EMD today and was placed on oxymask 7-9L and was noted to be hypotensive 70/40s that responded to 500ml fluid bolus. He had routine labs drawn to include PCT and CXR performed. The CXR was notable for progression of patchy bibasilar densities, low inspiratory volume. His lab work revealed mild hyponatremia, slight increase in BUN, WBC elevation to 16 with NLR of 14-1, normal co2 on VBG, PCT at 0.14. Patient had urine and blood cultures drawn prior to abx therapy. He was started on Cefepime and Doxycycline. MRSA swab pending. Will continue these as appropriate at this time- will send sputum sample for gram stain and culture. He was given 1 dose of Decadron 6mg IV on admission - will not continue this therapy. Patient will be admitted to COVID unit as 10days past his dx. Will treat for likely bacterial pneumonia, follow biomarkers and clinical response, CPAP/BIPAP as available. Patient COVID + from 03/26/21 no retest performed, admit to COVID unit. Principal Diagnosis Covid-19 pneumonia, MRSA pneumonia, acute respiratory failure with hypoxia, severe dysphagia, status post PEG tube placement, retroperitoneal hemorrhage, acute blood loss anemia Discharge Exam Constitutional WD/WN, vitals as above Eyes + anicteric sclerae Neck trachea midline, no thyromegaly Respiratory normal respiratory effort, lungs clear to auscultation normal respiratory effort and + cough (Coarse, not able to cough up mucus) Auscultation: + rhonchi (Upper airway mostly); no crackles and no wheezes Cardiovascular RRR, no murmur, no edema Chest (Breasts) Chest: normal inspection of chest Gastrointestinal (Abdomen) normal bowel sounds, soft, nontender, no hepatosplenomegaly Inspection/Auscultation: + abdomen abnormal to inspection (PEG tube in place,multiple circular areas of ecchymosis 1-2 cm ) Musculoskeletal Extremities: + extremities abnormal to inspection (flexion contracture RUE), no cyanosis and no clubbing Skin no rashes, warm and dry Trauma: + hematoma (right flank) Neurologic + focal motor deficit (right sided weakness) and awake; not confused Speech / Cognition: + expressive aphasia (can say yes/no and short phrases) Psychiatric A+Ox3, euthymic affect Lymphatic no lymphedema Discharge Data Allergies Allergy/AdvReac Type Severity Reaction Status Date / Time No Known Allergies Allergy Verified 03/26/21 00:19 Consultations 04/05/21 13:26 ED Decision to Admit Stat 04/07/21 13:02 Consult Aquatics Director Routine 04/16/21 03:14 Consult General Surgery Routine 04/20/21 09:30 Consult Gastroenterology Routine 04/26/21 10:20 Consult Anesthesiology Routine Procedures Performed Operation Date: 04/27/21 07:00 Actual Procedures p Esophagogastroduodenoscopy with Peg Tube Placement - Jason Martinez Operation Date: 04/27/21 16:30 <No data on this case meets the specified criteria> Ordered Studies 04/06/21 09:59 CT angio chest PE protocol Routine 04/15/21 11:00 MR brain wo con Routine 04/15/21 23:50 CT abd pelvis IV con only Urgent 04/16/21 15:37 US arterial duplex LE RT Stat 04/21/21 00:20 CT angio chest PE protocol Urgent Hospital Course (1) 2018 novel coronavirus-infected pneumonia (NCIP): Secondary bacterial pneumonia with COVID 19 infection - unvaccinated was discharged on 03/30 after admission for COVID-19 PNA, was on room air, sent home on dexamethasone 6mg PO daily had a few good days but got worse quickly on Wednesday 04/04 and declined on 04/05, brought to hospital concern for secondary bacterial pneumonia but also worsening COVID CRP was 23 on admission, procalcitonin elevated, wbc persistently elevated Was intubated this admission Dexamethasone 20mg IV daily, completed 5 days, -> 10mg IV x 5 days - completed Off COVID isolation 04/15/20, should remain on contact due to MRSA found in sputum (2) Retroperitoneal hematoma: With associated acute blood loss anemia, likely associated with illness and DVT prevention plus antiplatelet medications as stroke prevention contributing transfused 1 units packed RBCs Hb remains > 10 for many days and is stable BP stable clinically the hematoma is resolved, does have some ecchymosis on right flank resumed Lovenox and clopidogrel, resumed aspirin 04/25 and hgb remains stable (3) Acute sinusitis: Possible diagnosis but not completely clear given lack of symptoms but given MRI changes with rising WBC without alternative explanation he was started on Unasyn completed a 14 day course of Unasyn on 04/29 WBC is normal Started lactobacillus to avoid antibiotic associated diarrhea (4) Dysphagia: MRI Brain without new acute stroke 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, prior stroke issues, intubation PEG placed 04/27, tolerated well changed to bolus feedings and tolerating 5 bolus feedings up 240 mL/day here is nutrition goal and instructions: 240mL Peptamen 1.5 boluses 5x/day (8:00, 11:00, 14:00, 17:00 and 20:00) -Continue free water flushes 75 mL before and after every bolus due to hyponatremia-total free water will be 750 mL / 24 hours keep head of bed elevated 30-45 degrees during feeding and for 1 hour after bolus mouth care every shift he should continue to get speech therapy, look for any improvements in swallowing -Still having issues clearing his own secretions (5) Hypoxia: acute hypoxic respiratory failure Secondary to COVID-19, MRSA went from 15L oxy mask to needing CPAP 10 FiO2 100% on 04/07, moved to ICU and intubated due to distress extubated 04/10/21 Currently on 2-3L NC, saturations 93% With coarse upper airway sounds due to difficulty clearing secretions -continue vest therapy BID and hypertonic saline BID (6) MRSA pneumonia: Vancomycin IV initially, changed to Linezolid due to renal failure. Finished course of Linezolid for sputum positive culture Continue on contact precautions with leukocytosis and sinusitis seen on head imaging, treated with Unasyn , WBC normal now (7) COPD (chronic obstructive pulmonary disease) with chronic bronchitis: Continue as above No wheezing on exam (8) CVA (cerebral vascular accident): 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, MRI brain does not show any new changes 04/16 - Continue with statin via PEG -Continue aspirin and Plavix (9) Anal or rectal pain: started on 05/01, spasms are severe, coming and going no constipation issues but having large loose stools with tube feeds no fecal impaction or mass, no blood on rectal exam suspect anal sphincter spasm +/- anal fissure? -topical nifedipine would be good option but not available here--> [facility] or [facility] if the pharmacy at [facility] can compound it -He has had some mild improvement in pain with starting topical lidocaine tid -continue to keep bowels soft (10) Hyponatremia: Sodium decreased down to 132-free water flushes were decreased in volume and sodium normalized to 136 Follow BMP in 2 to 3 days at rehab (11) Hypokalemia: Potassium low for several days in a row prior to discharge at 3.1-3.2 Replaced with IV potassium phosphorus as well as continued p.o. potassium phosphate tablets 4 times daily Follow BMP, magnesium in 2 to 3 days Magnesium was replaced and is normal on the day of discharge (12) Hypophosphatemia: Replaced and resolved Follow levels at rehab (13) Spasticity as late effect of cerebrovascular accident (CVA): Continue Baclofen (14) Migraine without aura: chronic issue, no complaints VTE Prophylaxis -lovenox Diet - NPO, on tube feeds via PEG Discharge - plan for [facility] rehab today Received flu vaccine on 05/01 his asked about COVID vaccine but she is not interested in J&J shot so she will arrange for outpatient COVID vaccine Total Time Total Time Spent Total Time Spent (In Minutes): 45 minutes Discharge Plan Discharge Items Patient Disposition: Transfer Inpatient Rehab Fac Reason For Visit: FEVERS, COUGH, INCREASE OXYGEN Discharge Diagnosis: MRSA Pneumonia, COVID-19 Pneumonia, Acute respiratory failure with hypoxia, Retroperitoneal hematoma Activity: As commented below Lifting: Gradually increase as tolerated Bathing: No limitations Exercise/Sports: Gradually increase as tolerated Non-emergency contact: Primary Care Provider Call non-emergency contact if: you have any medication questions, your symptoms worsen and your pain is not controlled Follow-up/Referrals: Pina Cornejo MD [Primary Care Provider] - Diet: Nothing by Mouth Diet Comment: Tube Feeds Addtl Attending Provider Instructions: Continue pulmonary toilet, tube feeds, monitor electrolytes and replace as needed. No further antibiotics needed. Continue supplemental O2 to keep POx> 92%. Please check CBC, CMP, Magnesium in 2-3 days. Pending Studies at Discharge: No Stand-Alone Forms: My [facility] Codewise Skilled Items Patient informed of condition?: Yes DNR: No Discharge Level of Care: Acute rehab Communicable Disease: No Discharge Prognosis: Improving Lines: None Urinary Catheter: Yes Medications and DC Order Prescriptions: New acetaminophen 325 mg/10.15 mL Suspension 650 mg PEG Q4H PRN (Reason: fever or pain) Qty: 304.5 RF: 0 aspirin [Children's Aspirin] 81 mg Tablet,Chewable 81 mg feeding tube DAILY Qty: 30 RF: 0 Peptamen 1.5 0.068 gram- 1.5 kcal/mL Liquid See Rx Instructions .ROUTE .COMPLEX Qty: 6000 RF: 0 Phospha 250 Neutral 250 mg Tablet 1 tab PEG QID Qty: 120 RF: 0 sodium chloride 7 % Solution For Nebulization 4 ml NEB BIDR Qty: 240 RF: 0 lidocaine HCl 2 % Jelly 5 ml EXT TID Qty: 30 RF: 0 docusate sodium 60 mg/15 mL Syrup 100 mg G-tube BID Qty: 480 RF: 0 lansoprazole [Prevacid SoluTab] 15 mg Tablet,Disintegrat, Delay Rel 15 mg PEG BID Qty: 60 RF: 0 Tube Feeding Water Flush 75 ml G-tube UD Qty: 750 RF: 8 Continued budesonide-formoterol [Symbicort] 160-4.5 mcg/actuation HFA aerosol inhaler 2 inh inhalation Q12H Qty: 30.6 RF: 1 tizanidine 2 mg capsule 2 mg PO TID PRN (Reason: muscle spasticity) Qty: 270 RF: 0 ondansetron 4 mg tablet,disintegrating 4 mg PO Q8H PRN (Reason: nausea and vomiting) Qty: 14 RF: 5 albuterol sulfate [Ventolin HFA] 90 mcg/actuation HFA aerosol inhaler 2 puff inhalation QID PRN (Reason: shortness of breath or wheezing) Qty: 18 RF: 5 benzonatate 100 mg capsule 100 mg PO TID PRN (Reason: cough) Qty: 30 RF: 0 Probiotic 3 billion cell Capsule 0 mmu cells PO DAILY RF: 0 magnesium oxide 400 mg magnesium Tablet 400 mg PO QAM RF: 0 Changed atorvastatin 80 mg Tablet 80 mg feeding tube HS Qty: 0 RF: 0 clopidogrel [Plavix] 75 mg Tablet 75 mg feeding tube DAILY Qty: 0 RF: 0 baclofen 20 mg tablet 20 mg feeding tube BID Qty: 0 RF: 0 Ubrelvy 50 mg tablet 50 mg feeding tube ONCE PRN (Reason: headache) Qty: 10 RF: 5 Discontinued sildenafil (pulm.hypertension) 20 mg tablet 20 mg PO DAILY PRN (Reason: sexual activity) Qty: 60 RF: 0 acetaminophen 500 mg Tablet 1,000 mg PO BID RF: 0 aspirin 325 mg Tablet 325 mg PO QAM RF: 0 polyethylene glycol 3350 [Miralax] 17 gram/dose Powder 17 g PO 2XWK PRN (Reason: Constipation) RF: 0 clotrimazole 10 mg Mariama 10 mg buccal 5XDQ4H Qty: 35 RF: 0 dexamethasone [Decadron] 6 mg tablet 6 mg PO DAILY Qty: 5 RF: 0 guaifenesin [Mucinex] 600 mg Tablet Extended Release 12hr 600 mg PO BID RF: 0 Discharge Orders: Discharge Order (Routine); Ordered 05/03/21 Ordered By: Ashlyn Hutchison Admission Data Admit Date/Time: 04/05/21 13:46 Attending Provider: Ashlyn Hutchison Admit Provider: Crow Patterson Primary Care Provider: Pina Cornejo Other Providers: [facility] ; Crow Patterson ; Jason Roberts ; Wood [place] ; Jason Martinez ; Fiorella Esparza ; Bibiana Ryder ; Renae San ; Katrina Lang ; Patel Benitez ; Bruce Jimenez ; Colton Clemons ; Mekhi Meade ; Rekha Meade ; Jason Foley ; Luisa Madsen ; Lenin Bills ; Hmuza Ryan ; Evan Smith ; Ortega Tadeo ; Rabia Villalobos ; Mono Lee ; Crissy Beltran ; Lisa Lee ; Domingo Kay ; Myrtle Morrow ; Darwin Mello ; Valentina Simmons ; Yamila Lyon ; Myrtle Garcia ; Mary Garcia ; Mikael Rivera ; Xiomy Oglesby ; Jocelynn Marie ; Dulce Syed ; Denisa Gray ; Chaitanya Gray V ; Junior Montiel ; Bibiana Badillo ; Red Ann ; Cecelia Rain ; Kelly Mora ; Chaitanya Buenrostro ; Garret Villalobos ; Michael Negron ; Trixie Dumont ; Tova Brown ; Chaitanya Knight ; Dulce Roach ; Arjun Arnold ; Randy Tadeo ; Grazyna Gastelum ; Rakan Martinez ; Galilea Schafer ; Daquan Dwyer ; Roly Sutherland ; Rakan Lobo ; Patel Aranda Jr ; Veronica Rodriguez Other Interventions: Discharge Summary Assessment (RN) Last Done: 05/03/21 14:49 Coding Level of Care Code D/C DAY MANAGEMENT >30 MINS Diagnoses 2019 novel coronavirus-infected pneumonia (NCIP) U07.1; J12.82 Retroperitoneal hematoma K66.1 Acute sinusitis J01.90 Dysphagia R13.10 Hypoxia R09.02 MRSA pneumonia J15.212 COPD (chronic obstructive pulmonary disease) with chronic bronchitis J44.9 CVA (cerebral vascular accident) I63.9 Anal or rectal pain K62.89 Hyponatremia E87.1 Hypokalemia E87.6 Hypophosphatemia E83.39 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
== END 2021-05-03 15:49 | DRG 208 ==
LOC: ED 11:04 → 2W 13:46 → SUATTDRO 13:46 → 2W 14:53 → 2E 04-07 13:06 → 2N 04-15 21:43 → 2S 04-16 03:08 → 3W 04-19 23:40